=== PATIENT | female | born 1990 | race African-American/Black ===

== ENCOUNTER 2016-08-21 14:18 | Inpatient (IN) | payer SELFPAY ==
[2016-08-21] MEDS ORDERED: diPHENhydraMINE PO* 50 MG PO ONE (15:08)
[2016-08-21] MEDS ORDERED: Haloperidol TAB* 5 MG PO ONE (15:08)
[2016-08-21] MEDS ORDERED: LORazepam TAB(*) 1 MG PO ONE (15:08)
--- NOTE | 2016-08-21 15:08 | ED ---
Psychiatric Complaint - HPI Summary HPI Summary: Pt here with "not acting like herself". She was brought in by friends who she's been visiting - she's here from [facility] for the week. Friends report she will say things that don't make sense at times, but then will be normal and engage in conversation. She left the house without saying anything earlier today and walked from [place] to the [facility]. She reports falling but is not clear about any specific pain. Her shoes were wet. Friend reports a h/o schizophrenia with auditory and visual hallucinations - states she's been in/ out of psych facilities in the [facility] area where she resides w/ her aunt, Pankaj [phone]. Friends believe pt takes medication for this condition but are not sure what she takes and if she's been taking anything lately. They also report she has diabetes and takes insulin but not sure if she's been using this since she came to [facility]. Male friend reports she has not had anything to eat yet today. They also deny the pt using any illegal drugs, ETOH or smoking tobacco. Pt does not engage in conversation with me at all, in fact does not acknowledge my presence in the room. NOTE: pt's friends also note she has a sister, Felicity, who may be able to offer some information. . - History Of Current Complaint Chief Complaint: EDMentalHealth Time Seen by Provider: 08/21/16 14:49 Hx Obtained From: Patient, Family/Informaticist - female and male friends - Allergies/Home Medications Allergies/Adverse Reactions: Allergies Allergy/AdvReac Type Severity Reaction Status Date / Time No Known Allergies Allergy Verified 08/21/16 14:23 PMH/Surg Hx/FS Hx/Imm Hx Endocrine/Hematology History: 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 - per aunt Pankaj, triggered by invega injections Psychiatric History: Reports: Hx Schizophrenia - last treated with Invega around February 2016 - not sure when pt stopped Infectious Disease History: No Infectious Disease History: Denies: Traveled Outside the [place] in Last 30 Days - Family History Known Family History: Positive: Diabetes - mom w/ type 2, Other - dad - schizophrenia - Social History Occupation: Employed Full-time - [employer] Lives: With Family - aunt in [facility], but staying w/ friends here in [place] since March 2016 Alcohol Use: unknown Substance Use Type: Reports: Other - unknown Smoking Status (MU): Unknown if Ever Smoked Review of Systems - ROS Summary Review of Systems Summary: Level 5 caveat - pt is not engaging in conversation, appears to be hallucinating at present and does not respond to questions Psychological: Other - see HPI All Other Systems Reviewed And Are Negative: Yes Physical Exam Triage Information Reviewed: Yes Vital Signs On Initial Exam: Initial Vitals Temp Pulse Resp BP Pulse Ox 97.0 F 115 20 145/107 100 08/21/16 14:23 08/21/16 14:23 08/21/16 14:23 08/21/16 14:23 08/21/16 14:23 Vital Signs Reviewed: Yes Completion Of Physical Exam Limited Due To: Level 5 - pt not engaging in conversation, does not respond to questions, appears to be responding to someone other than myself or those in the room Appearance: Positive: Well-Appearing, No Pain Distress - sitting on stretcher comfortably, staring straight ahead, nods her head occasionally and appears to be responding to someone other than myself and those present in the room; laughs occasionally, yells occasionally, says "I'm Pedro" at one point, Well- Nourished Skin: Positive: Warm, Dry - no carlos signs of trauma Head/Face: Positive: Normal Head/Face Inspection - no gross deformity Eyes: Positive: Normal, Conjunctiva Clear - anicteric. Negative: Conjunctiva Inflammed, Discharge ENT: Positive: Hearing grossly normal, Pharynx normal - mucosa moist. Negative : Nasal drainage Respiratory/Lung Sounds: Positive: Clear to Auscultation, Breath Sounds Present. Negative: Rales, Rhonchi, Stridor, Wheezes Cardiovascular: Positive: Normal, RRR, Pulses are Symmetrical in both Upper and Lower Extremities, S1, S2. Negative: Murmur, Rub, Leg Edema Left, Leg Edema Right Abdomen Description: Positive: Nontender - does not respond to ab palpation, Soft Bowel Sounds: Positive: Present Musculoskeletal: Positive: Other - moving naturally, does sit forward when asked to sit up for chest auscultation and sits back against bed to rest after Neurological: Positive: Sensory/Motor Intact, CN Intact II-III Psychiatric: Positive: Other - see above Procedures - Procedure Summary Procedure Summary: POC glucose 98 @ 21:19 per [facility] - Vital Signs Vital Signs Temp Pulse Resp BP Pulse Ox 08/21/16 14:23 97.0 F 115 20 145/107 100 - Laboratory Lab Results: Lab Results 08/21/16 Range/Units 14:44 POC Glucose (mg/dL) 109 H (74-106) mg/dL Result Diagrams: 08/21/16 18:10 08/21/16 18:10 Lab Statement: Any lab studies that have been ordered have been reviewed, and results considered in the medical decision making process. Re-Evaluation - Re-Evaluation First Eval Change: Improved - less agitated, not speaking as much - still does not make eye contact or acknowledge my presence. Offered pt food and drink, no response but encouraged her to ask whenever she gets hungry/thirsty Second Eval Change: Improved - pt's sister called and pt took phone from me to speak w/her - responded to her sister in a full sentence "I'm having a bad day. I have to let you go". Course/Dx - Course Course Of Treatment: Difficult to asses pt's medical conditions as she does not engage in conversation. Friends report she was found in [place] today after suspectedly walking from [place] - was found w/ wet shoes and pt reported she fell. No complaints at this time and no carlos evidence of trauma. Pt's friends report she has a h/o schizophrenia and has been visiting from [facility] where she lives w/ her Aunt Pankaj (Vanessa - mom's sister). After speaking with Pankaj, she confirmed pt has schizophrenia and was last treated at [facility] in [facility] around January/February of this year - was started on invega injections which worked well. Unfortunately, she developed diabetes as an adverse effect and needed to start insulin (novolog). Aunt also states pt was in counseling weekly for 1 year and was doing well - pt however did not see a psychiatrist as she didn't want to and did not like taking medication. Pankaj reported that when pt left [facility] in March to come to the [place] area, pt told Pankaj she was continuing her mental health care here but no details were provided (ie. name of a MH provider/counselor/facility). Pankaj states it would be fine to contact Nukia, pt's sister, as she would have more information. Pankaj also reports that pt's mom is w/ Felicity but is not very involved w/ pt - pt always goes to Pankaj for help. Pankaj expressed she's frustrated and just wants her niece to get better. TC w/ Felicity for more information around 16:00 today. Explained to pt and friends that labs need to be assesed. Pt refused labs but agreed to oral medications. We will plan to draw labs once medications take effect in an effort to better asses pt's medical conditions at present, especially w/ ID and recent long distance walk in extremely cold weather. Her BP and HR are also elevated. Consider CT brain. Spoke w/ Felicity at 17:02 - she confirmed what aunt Pankaj reported re: dx and medications. She states pt has a h/o "walking out" when she's not on her medications and ends up at "a hospital" so can't say she' s been consistently going to any one hospital. eFlicity is aware that pt has been working in [place] at [employer] and living in an apartment through "[employer]" . Felicity states she spoke w/ her sister 2 days ago and she sounded good, just called to "gossip". 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 Felicity also reports pt liked monthly injection medication better than oral meds which made her sleepy. Felicity also noted that pt has a h/o "kidney issues" while in the hospital once, but believes they were corrected. Deciding against CT brain after speaking w/ aunt and sister who confirm pt's actions at this time as normal when not on meds - also discussed w/ Dr. Powers. Pt refusing labs despite education about why they are necessary. Okay to physically restrain PRN for labs collection. Labs collected - unremarkable for medical pathology. Pt cleared for MH evaluation. Strongly urge admission as pt is a potential harm to herself again as by actions earlier today and comments from family that pt has h/o "walking out" - weather is in the teens F at this time and pt does not use good insight at this time. If she is able to get back on a medication regimen to better control her MH condition, she may be able to be independent again. Medical and MH team may benefit from further investigation with [facility] in [facility] as well as [place] and potential landlord. Discussed w/ JOSEY Lopez. NOTE: DM well controlled throughout stay and at time of transfer. Ordered sliding scale for insulin as needed. - Differential Dx/Clinical Impression Differential Diagnosis/HQI/PQRI: Positive: Acute Psychosis, Alcohol Intoxication , Drug Overdose/Intentional, Drug Overdose/Unintentional, Other - hypothermia, DKA, brain trauma Provider Diagnosis: Schizophrenia, acute, Diabetes - Physician Notifications Discussed Care Of Patient With: Dr. Powers. John JEANW - will admit, papers signed by Dr. Pino Discharge - Discharge Plan Condition: Improved Disposition: PSYCHIATRIC FACILITY-[facility] [place]
[2016-08-21 18:21] LABS: Comments Flag Yes; Hematocrit 45 % (35-47); Hemoglobin 14.2 g/dl (12.0-16.0); Mean Corpuscular HGB Conc 31 g/dl (31-36); Mean Corpuscular Hemoglobin 22 pg (27-31); Mean Corpuscular Volume 70 fL (80-97); Mean Platelet Volume 10 um3 (7.4-10.4); Red Blood Count 6.48 10^6/ul (4.0-5.4); Red Cell Distribution Width 15 % (10.5-15); White Blood Count 9.3 10^3/ul (3.5-10.8)
[2016-08-21 18:22] LABS: Add Diff/Slide Review? Slide Review Added
[2016-08-21 18:52] LABS: Acetaminophen < 15 mcg/mL; Alcohol < 10 mg/dL (<10); Salicylate < 2.50 mg/dL (<30)
[2016-08-21 18:59] LABS: TSH (Thyroid Stimulating Horm) 2.28 mcIU/mL (0.34-5.60)
[2016-08-21 19:37] LABS: ALT 21 U/L (7-52); AST 19 U/L (13-39); Albumin 4.6 g/dL (3.2-5.2); Alkaline Phosphatase 67 U/L (34-104); Anion Gap 12 mmol/L (2-11); Blood Urea Nitrogen 12 mg/dL (6-24); CO2 Carbon Dioxide 20 mmol/L (22-32); Calcium 9.4 mg/dL (8.6-10.3); Chloride 103 mmol/L (101-111); EGFR African American 114.3 (>60); EGFR Non-African American 88.9 (>60); Globulin 3.3 g/dL (2-4); Glucose 90 mg/dL (70-100); Potassium 3.7 mmol/L (3.5-5.0); Sodium 135 mmol/L (133-145); Total Protein 7.9 g/dL (6.4-8.9)
[2016-08-21] MEDS ORDERED: Dextrose 50% Syringe 50 ML* 25 GM/50 ML SYRINGE IV PUSH PRN (20:58)
[2016-08-21] MEDS: Insulin LISPRO* 1 UNITS UNIT SUBCUT SCH (22:36)
[2016-08-21] MEDS ORDERED: Al Hydrox/Mg Hydrox/Simet LIQ* 30 ML UDC PO PRN (23:02)
[2016-08-21] MEDS ORDERED: Acetaminophen TAB* 325 MG PO PRN (23:02)
[2016-08-22] MEDS: Insulin LISPRO* 1 UNITS UNIT SUBCUT SCH ×4 (08:48→21:25)
[2016-08-22] MEDS: Haloperidol TAB* 2 MG PO SCH ×2 (09:54→11:03)
[2016-08-22] MEDS: Vitamin THERAPEUTIC TAB PO SCH (09:54)
--- NOTE | 2016-08-22 13:23 | HP ---
ADMISSION HISTORY AND PHYSICAL DATE OF ADMISSION TO [address] [place], [place] [address]U: 08/21/2016 DATE OF EVALUATION: 08/22/2016 IDENTIFICATION: Ms. Rodriguez is a 25-year-old woman who came to us after walking from [place] to [place] and raising thereby concern with her friends here in [place] that she was having a decompensation of her psychotic illness and required hospitalization. HISTORY OF PRESENT ILLNESS: This is her first admission to this unit. She has evidently had about 5 admissions over the past 2 years per report from her aunt gathered by the social work employee services manager in the Emergency Department, Mr. Simmons. Her aunt also reports that she has been off of medication since February, that she had been on Invega, but had to stop Invega because of onset of diabetes and has been taking Haldol instead. The patient does confirm to me that she had stopped Haldol in February. This is about all that she has to say to me. She is angry at being admitted and would like immediate discharge. I explained to her the necessity of gathering further information to ensure her safety given behavior that was indicative of decompensation of a psychotic illness that could put her at risk, particularly with wandering in cold and wet weather. I broached that with her after about 25 to 30 minutes of interview, and she got up and walked out on me. Before that point she reported that her mood was okay, that she was very depressed because she is not home. She was not able to state where home was; she says that she has [place]. She was quite elliptical and disorganized in her response to all of my questions. She reported that she grew up in the [place] in [facility], and clarified that that was [place]. She states that she is a high school graduate. She reports that her most important person in her life is god. She had nothing say when I asked her about her relationship with her aunt. She at first said that she had no legal history, and then when I raised with her that it had been gathered that she was on probation, she said that this was about "nothing serious". Overall she is pretty tight lipped and I am not able to get much information from her, so much will hinge upon convincing her to allow us to gather collateral from her aunt and others. She reportedly had her latest psychiatric hospitalization in January of this year at [facility] in [place]. MENTAL STATUS EXAMINATION: I am not getting a reliable report, but she says that her mood is "okay", but her affect is quite sullen and withdrawn. She does not give any clear indication of referring to internal stimuli during the course of my interaction with her, but this has been noted by other evaluators. She may only be sullen and withdrawn because she is angry that she has been admitted, but it is more likely that what I am seeing is somebody in the throes of psychosis who is unwilling to come forward with her internal experience. She was not willing to answer my questions about suicidality or homicidality. She did state that she had no auditory or visual hallucinations. She appears to be oriented to the situation with regard to being in the hospital. I was not able to get from her whether she knows the date, place or my role. She has impaired insight and judgment. Her impulse control thus far has been intact, although she is entirely uncooperative. PAST PSYCHIATRIC HISTORY: I have gathered from the Emergency Department evaluation that she has had about 5 hospitalizations in the past 2 years, this per her aunt who was contacted by the social services aide in the Emergency Department. I do not know about any ongoing outpatient care. There is report that she had a trial of Invega and converted to Haldol. I do not know from her at this point any history of suicide or self harm. SUBSTANCE ABUSE HISTORY: She did agree to respond to my questions about substances, but stated that she uses none across specific questions with regard to alcohol, marijuana, cocaine, heroin, over the counter medications and so on. FAMILY PSYCHIATRIC HISTORY: Unknown. SOCIAL HISTORY: She reports that she grew up in the worst place possible, in [facility], in [place]. She is a high school graduate. The most important person in her life is god. LEGAL HISTORY: Evidently she is on probation for, by her assessment, "nothing serious". PAST MEDICAL HISTORY: Unknown. PAST SURGICAL HISTORY: Unknown. PHYSICAL EXAMINATION: Was performed in the Emergency Department. Response to internal stimuli was noted during the course of that examination with also blurting out occasionally "I am Pedro" and other odd remarks. Otherwise, across organ systems, reported as within normal limits within the limits of being able to discern this without her cooperation. She has declined a repeat examination , and I cannot convince her at this time to be examined. VITAL SIGNS: At that time 1423 on 08/21/16 was a temperature of 97. Pulse elevated to 115. Respiratory rate 20. Blood pressure 145/107. Pulse ox reading of 100% on room air. LABORATORY RESULTS: Have been limited. She has not given a urine sample. She otherwise has CBC with differential showing a microcytosis with an MCV of 70, but with a normal hematocrit of 45, and a high red blood cell count of 6.48. Comprehensive metabolic panel found low carbon dioxide 20, mildly high anion gap to 12, otherwise within normal limits with a normal TSH of 2.28. Blood sugar readings started elevated at 109, but have since dropped to 68 at last check at 8:40 this morning. She refused orange juice to correct this. Again, we do not have urine drug screen yet. Only salicylates, acetaminophen and serum alcohol all found to be below detection thresholds in serum. MEDICATIONS AT ADMISSION: Evidently her last psychiatric medication was Haldol. We do not know of other medications for her. ASSESSMENT AND PLAN: Information is quite limited at this point due to her noncooperation. What we know is that this is a young woman who wandered from [place] to [place] raising concern from the her friends in [place] that she was in jeopardy from wandering in the cold. Her aunt was contacted and has told us that she has had psychiatric care with hospitalizations 5 times in the past 2 years, latest at [facility] in [place] for schizophrenia evidently. We will be encouraging her to help us to better understand these safety concerns in order to be able to safely release her. At this time we are not able to do so given the safety concerns of this young woman in a psychotic state who could thereby come to imminent serious physical harm. We will be encouraging her also , if she is able to, to participate in groups. She is on a 939 status. She is full code status. She is on 15-minute checks. Criteria for discharge will be cooperation at least to the extent that we are able to have a ward report of her mental status and her history to inform us as regards to her imminent risks at this time. DIAGNOSES: Chronic psychiatric disorder most likely schizophrenia. [id number]/[facility] #: [id number] [facility]ATRIC CENTERMariam
[2016-08-23] MEDS: Insulin LISPRO* 1 UNITS UNIT SUBCUT SCH ×4 (08:44→21:31)
[2016-08-23] MEDS: Vitamin THERAPEUTIC TAB PO SCH (09:34)
[2016-08-23] MEDS: Haloperidol TAB* 2 MG PO SCH (09:34)
[2016-08-23] MEDS ORDERED: Nicotine Inhaler* 10 MG AMP INH PRN (21:20)
[2016-08-24 07:55] VITALS: BP 136/85
[2016-08-24] MEDS: Insulin LISPRO* 1 UNITS UNIT SUBCUT SCH ×4 (09:21→21:12)
[2016-08-24] MEDS: Haloperidol TAB* 2 MG PO SCH (09:22)
[2016-08-24] MEDS: Vitamin THERAPEUTIC TAB PO SCH (09:22)
--- NOTE | 2016-08-24 13:53 | PN ---
Subjective - Subjective Service Type: 34025 Hosp care 15 min low complexity Subjective: The patient is electively mute today in our first session. Initially I had tried to interview her at the lunch hour but she had a visitor and politely asked if I could come back later. Upon returning she appeared sullen and unhappy. She did enter the consult room with me but absolutely refused to answer any of my questions, staring forward and twirling her thumbs. A complete mental status exam was not possible. Objective - Appearance Appearance: Obese Dysmorphic Features: No Hygiene: Normal Grooming: Fairly Well Kept - Behavior Psychomotor Activities: Normal Exhibits Abnormal Movement: No - Attitude and Relatedness Attitude and Relatedness: Irritable Eye Contact: Poor - Affect Observed Affect: Tense Affect Consistent with: Dysphoria - Thought Process Patient's Thought Process: Impoverished - Impulse Control Impulse Control: Poor - Insight and Judgement Insight and Judgement: Impaired - Group Participation Particating in Group Activities: No - Medication Management Medication Management Adherence: No Assessment - Assessment Merits Inpatient Hospitalization: For Immediate Safety, For Stabilization Inpatient DSM-IV Dx: Schizophrenia Clinical Impression: 25 y.o. AA female with a history of schizophrenia referred to the hospital after walking in cold weather all the way from [place], wearing inappropriate clothing and appearing to be responding to internal stimuli. Plan - Plan Treatment Plan: Name: Poonam DILLON Birthdate: 1990 [id number] Will continue to offer oral haloperidol. Need collateral information from family and patient needs reengagement with community mental health services. Continued Medication Management: Continue Outpt Medication Medications: Current Medications Acetaminophen (Tylenol Tab*) 650 mg PO Q4H PRN PRN Reason: PAIN or TEMP > 101 F Al Hydrox/Mg Hydrox/Simethicone (Maalox Plus*) 30 ml PO Q4H PRN PRN Reason: INDIGESTION Dextrose (D50w Syringe*) 12.5 gm IV PUSH .FOR FS < 60 - SS PRN PRN Reason: FS < 60 Haloperidol (Haldol Tab*) 2 mg PO DAILY [facility] Last Admin: 08/24/16 09:22 Dose: Not Given Insulin Human Lispro (Humalog*) 0 units SUBCUT ACHS MILO PRN Reason: Protocol Last Admin: 08/24/16 13:39 Dose: Not Given Multivitamins (Theragran Tab*) 1 tab PO DAILY [facility] Last Admin: 08/24/16 09:22 Dose: Not Given Nicotine (Nicotine Inhaler*) 10 mg INH Q2H PRN PRN Reason: CRAVING - Discharge Plan Discharge Plan: Inpatient Hospitalization
[2016-08-25] MEDS: Haloperidol TAB* 2 MG PO SCH (08:05)
[2016-08-25] MEDS: Insulin LISPRO* 1 UNITS UNIT SUBCUT SCH ×4 (08:05→22:35)
[2016-08-25] MEDS: Vitamin THERAPEUTIC TAB PO SCH (08:06)
--- NOTE | 2016-08-25 13:29 | PN ---
Subjective - Subjective Service Type: 70428 Hosp care 25 min moderate complexity Subjective: The patient is seen with RAZA Willis. Jamir is much more cooperative today and seems less hostile. "I just went for a walk in [place] before I came here. It was just to clear my head." She denies any interest or willingness to initiate antipsychotic therapy, explaining that she has never felt like she's benefitted from these in the past. She does ultimately give us permission to contact some local collateral contacts, including her current showcase maker who helped her find a job and an apartment. She denies SI, HI or symptoms of psychosis. Objective - Appearance Appearance: Healthy Appearing Dysmorphic Features: No Hygiene: Normal Grooming: Fairly Well Kept - Behavior Psychomotor Activities: Normal Exhibits Abnormal Movement: No - Attitude and Relatedness Attitude and Relatedness: Cooperative Eye Contact: Fair - Speech Quality: Unpressured Latencies: Normal Quantity: Appropriate - Mood Patient's Decription of Mood: "Okay" - Affect Observed Affect: Fair - Thought Process Patient's Thought Process: Coherent Thought Content: No Passive Wish, No Suicidal Planning, No Homicidal Ideation, No Paranoid Ideation - Sensorium Experiencing Hallucinations: No, Sensorium is Clear Type of Hallucinations: Visual: No, Auditory: No, Command: No - Level of Consciousness Level of Consciousness: Alert Orientation: Yes Intact, Yes Orientated to Time, Yes Orientated to Place, Yes Orientated to Person - Impulse Control Impulse Control: Tenuous - Insight and Judgement Insight and Judgement: Fair - Group Participation Particating in Group Activities: No - Medication Management Medication Management Adherence: No Assessment - Assessment Merits Inpatient Hospitalization: Pending Safe DC Plan Inpatient DSM-IV Dx: Schizophrenia Clinical Impression: 25 y.o. AA female with a history of schizophrenia referred to the hospital after walking in cold weather all the way from [place], wearing inappropriate clothing and appearing to be responding to internal stimuli. Plan - Plan Treatment Plan: Name: Poonam DILLON Birthdate: 1990 [id number] Will continue to offer oral haloperidol. Need collateral information from people familiar with the patient. Will also encourage re-engagement with community mental health services. Medications: Current Medications Acetaminophen (Tylenol Tab*) 650 mg PO Q4H PRN PRN Reason: PAIN or TEMP > 101 F Al Hydrox/Mg Hydrox/Simethicone (Maalox Plus*) 30 ml PO Q4H PRN PRN Reason: INDIGESTION Dextrose (D50w Syringe*) 12.5 gm IV PUSH .FOR FS < 60 - SS PRN PRN Reason: FS < 60 Haloperidol (Haldol Tab*) 2 mg PO DAILY [facility] Last Admin: 08/25/16 08:05 Dose: Not Given Insulin Human Lispro (Humalog*) 0 units SUBCUT ACHS [facility] PRN Reason: Protocol Last Admin: 08/25/16 12:43 Dose: Not Given Multivitamins (Theragran Tab*) 1 tab PO DAILY [facility] Last Admin: 08/25/16 08:06 Dose: Not Given Nicotine (Nicotine Inhaler*) 10 mg INH Q2H PRN PRN Reason: CRAVING - Discharge Plan Discharge Plan: Outpatient Follow Up
[2016-08-26] MEDS: Insulin LISPRO* 1 UNITS UNIT SUBCUT SCH ×4 (09:36→21:55)
[2016-08-26] MEDS: Haloperidol TAB* 2 MG PO SCH (09:37)
[2016-08-26] MEDS: Vitamin THERAPEUTIC TAB PO SCH (09:38)
--- NOTE | 2016-08-26 10:18 | PN ---
Subjective - Subjective Service Type: 91399 Hosp care 15 min low complexity Subjective: Poonam Hoyos appeared to be sleeping, and awoke to voice and gentle touch on shoulder. She made eye contact, but was mute. Then appeared to feign sleep. Objective - Appearance Appearance: Obese Hygiene: Normal Grooming: Well Kept - Behavior Psychomotor Activities: Abnormal-Decreased - Attitude and Relatedness Attitude and Relatedness: Psychotically Related Eye Contact: Good - Affect Observed Affect: Unvariable Affect Consistent with: Euthymia - Thought Process Patient's Thought Process: Impoverished Thought Content: No Passive Wish, No Suicidal Planning, No Homicidal Ideation, No Paranoid Ideation - Level of Consciousness Level of Consciousness: Alert - Impulse Control Impulse Control: Intact - Insight and Judgement Insight and Judgement: Impaired Assessment - Assessment Merits Inpatient Hospitalization: For Immediate Safety, For Stabilization, To Initiate Treatment, For Ongoing Evaluation, Consolidate Improvements Inpatient DSM-IV Dx: Schizophrenia Clinical Impression: 25 y.o. female with a history of prior psychiatric admission and schizophrenia diagnosis. She was admitted after a friend got her to the ED. She was evaluated with impairing psychosis, and risk concern centered on her walking from [place] to [place] in the snow without winter attire. Her outpatient rn case manager hospice and friends have been very concerned about her. Settling into the unit. Continues impaired with psychotic level of function, mutism. Appears unable to meet own needs outside a supported setting. Complication is her refusal of indicated medicine. Plan - Plan Treatment Plan: Name: Poonam DILLON Birthdate: 1990 [id number] Continued Medication Management: Start Medication Medications: Current Medications Acetaminophen (Tylenol Tab*) 650 mg PO Q4H PRN PRN Reason: PAIN or TEMP > 101 F Al Hydrox/Mg Hydrox/Simethicone (Maalox Plus*) 30 ml PO Q4H PRN PRN Reason: INDIGESTION Dextrose (D50w Syringe*) 12.5 gm IV PUSH .FOR FS < 60 - SS PRN PRN Reason: FS < 60 Haloperidol (Haldol Tab*) 2 mg PO DAILY [facility] Last Admin: 08/26/16 09:37 Dose: Not Given Insulin Human Lispro (Humalog*) 0 units SUBCUT ACHS [facility] PRN Reason: Protocol Last Admin: 08/26/16 09:36 Dose: Not Given Multivitamins (Theragran Tab*) 1 tab PO DAILY [facility] Last Admin: 08/26/16 09:38 Dose: Not Given Nicotine (Nicotine Inhaler*) 10 mg INH Q2H PRN PRN Reason: CRAVING - Discharge Plan Discharge Plan: Outpatient Follow Up
[2016-08-27] MEDS: Insulin LISPRO* 1 UNITS UNIT SUBCUT SCH ×4 (08:09→20:56)
[2016-08-27] MEDS: Haloperidol TAB* 2 MG PO SCH (09:29)
[2016-08-27] MEDS: Vitamin THERAPEUTIC TAB PO SCH (09:29)
--- NOTE | 2016-08-27 16:34 | PN ---
Subjective - Subjective Service Type: 83115 Hosp care 15 min low complexity Subjective: Poonam Hoyos said she really didn't want to talk, and declined to share much, but answered a lot of questions. Reports "just keeping to myself" denies being harassed denied distress or carlos symptoms denied needs, but also denied problems being on the unit. said she was hospitalized before, but would not give details. talked abut recently relocating to live alone in [place]. Said she would not take medications. Objective - Appearance Appearance: Well Developed/Nourished Dysmorphic Features: Yes Grooming: Well Kept - Behavior Psychomotor Activities: Normal - Attitude and Relatedness Attitude and Relatedness: Guarded Eye Contact: Good - Speech Quality: Unpressured Latencies: Long Quantity: Terse - Mood Patient's Decription of Mood: "Fine" - Affect Observed Affect: Tense Affect Consistent with: Dysphoria - Thought Process Patient's Thought Process: Impoverished Thought Content: No Passive Wish, No Suicidal Planning, No Homicidal Ideation, No Paranoid Ideation - Sensorium Experiencing Hallucinations: No, Sensorium is Clear - Level of Consciousness Level of Consciousness: Alert - Impulse Control Impulse Control: Poor Assessment - Assessment Merits Inpatient Hospitalization: For Immediate Safety, For Stabilization, To Initiate Treatment, For Ongoing Evaluation, Consolidate Improvements Inpatient DSM-IV Dx: Schizophrenia Clinical Impression: 25 y.o. female with a history of prior psychiatric admission and schizophrenia diagnosis. She was admitted after a friend got her to the ED. She was evaluated with impairing psychosis, and risk concern centered on her walking from [place] to [place] in the snow without winter attire. Her outpatient field case manager and friends have been very concerned about her. Settling into the unit. Stabilizing here. Continues impaired with psychotic level of function, recent mutism, extreme guardedness. But has been more verbal, and with peers was noted to be bright and interactive. May be responding to structure here. Appears unable to meet own needs outside a supported setting. Complication is her refusal of indicated medicine. Consider seeking tx. over objection. Plan - Plan Treatment Plan: Name: Poonam DILLON Birthdate: 1990 [id number] Medications: Current Medications Acetaminophen (Tylenol Tab*) 650 mg PO Q4H PRN PRN Reason: PAIN or TEMP > 101 F Al Hydrox/Mg Hydrox/Simethicone (Maalox Plus*) 30 ml PO Q4H PRN PRN Reason: INDIGESTION Dextrose (D50w Syringe*) 12.5 gm IV PUSH .FOR FS < 60 - SS PRN PRN Reason: FS < 60 Haloperidol (Haldol Tab*) 2 mg PO DAILY [facility] Last Admin: 08/27/16 09:29 Dose: Not Given Insulin Human Lispro (Humalog*) 0 units SUBCUT ACHS [facility] PRN Reason: Protocol Last Admin: 08/27/16 11:39 Dose: Not Given Multivitamins (Theragran Tab*) 1 tab PO DAILY [facility] Last Admin: 08/27/16 09:29 Dose: Not Given Nicotine (Nicotine Inhaler*) 10 mg INH Q2H PRN PRN Reason: CRAVING
[2016-08-28] MEDS: Insulin LISPRO* 1 UNITS UNIT SUBCUT SCH ×4 (08:52→21:42)
[2016-08-28] MEDS: Haloperidol TAB* 2 MG PO SCH (08:53)
[2016-08-28] MEDS: Vitamin THERAPEUTIC TAB PO SCH (08:53)
--- NOTE | 2016-08-28 13:14 | PN ---
Subjective - Subjective Service Type: 71542 Hosp care 15 min low complexity Subjective: Poonam Hoyos reported having a "bad day" and would not give any details. She denied feeling unsafe, persecuted, or surveilled, denied ideas of reference or paranoia, or hallucinations. She denied any specific conflicts with peers or staff, or problem with being admitted here. She again refused to consider medication, on the basis that "they never helped me." Objective - Appearance Appearance: Well Developed/Nourished Hygiene: Normal Grooming: Well Kept - Behavior Psychomotor Activities: Normal - Attitude and Relatedness Attitude and Relatedness: Guarded Eye Contact: Good - Speech Quality: Unpressured Latencies: Normal Quantity: Terse - Mood Patient's Decription of Mood: "Irritable" - Affect Observed Affect: Non-labile Affect Consistent with: Dysphoria - mild - Thought Process Patient's Thought Process: Coherent, Impoverished Thought Content: No Passive Wish, No Suicidal Planning, No Homicidal Ideation, No Paranoid Ideation - Sensorium Experiencing Hallucinations: No, Sensorium is Clear - Level of Consciousness Level of Consciousness: Alert - Impulse Control Impulse Control: Intact - Insight and Judgement Insight and Judgement: Poor Assessment - Assessment Inpatient DSM-IV Dx: Schizophrenia Clinical Impression: 25 y.o. female with a history of prior psychiatric admission and schizophrenia diagnosis. She was admitted after a friend got her to the ED. She was evaluated with impairing psychosis, and risk concern centered on her walking from [place] to [place] in the snow without winter attire. Her outpatient family preservation caseworker and friends have been very concerned about her. Stabilizing here. Is improving, despite not taking medications, maybe in response to structure and program. She has demonstrated psychotic level of function, with recent mutism, extreme guardedness; but this is milder. She is more verbal, and with peers she is noted to be bright and interactive. Medication management would include an antipsychotic, and a complication is her refusal of indicated medicine. If progress does not continue or allow for her care in a less restrictive setting, will consider seeking tx. over objection. Plan - Plan Treatment Plan: Name: Poonam DILLON Birthdate: 1990 [id number] Continued Medication Management: Consider Medication Medications: Current Medications Acetaminophen (Tylenol Tab*) 650 mg PO Q4H PRN PRN Reason: PAIN or TEMP > 101 F Al Hydrox/Mg Hydrox/Simethicone (Maalox Plus*) 30 ml PO Q4H PRN PRN Reason: INDIGESTION Dextrose (D50w Syringe*) 12.5 gm IV PUSH .FOR FS < 60 - SS PRN PRN Reason: FS < 60 Haloperidol (Haldol Tab*) 2 mg PO DAILY [facility] Last Admin: 08/28/16 08:53 Dose: Not Given Insulin Human Lispro (Humalog*) 0 units SUBCUT ACHS [facility] PRN Reason: Protocol Last Admin: 08/28/16 12:08 Dose: Not Given Multivitamins (Theragran Tab*) 1 tab PO DAILY [facility] Last Admin: 08/28/16 08:53 Dose: Not Given Nicotine (Nicotine Inhaler*) 10 mg INH Q2H PRN PRN Reason: CRAVING - Discharge Plan Discharge Plan: Outpatient Follow Up
[2016-08-29] MEDS: Haloperidol TAB* 2 MG PO SCH (09:47)
[2016-08-29] MEDS: Insulin LISPRO* 1 UNITS UNIT SUBCUT SCH ×4 (09:47→20:25)
[2016-08-29] MEDS: Vitamin THERAPEUTIC TAB PO SCH (09:48)
[2016-08-30] MEDS: Vitamin THERAPEUTIC TAB PO SCH (09:26)
[2016-08-30] MEDS: Insulin LISPRO* 1 UNITS UNIT SUBCUT SCH ×4 (09:26→20:32)
[2016-08-30] MEDS: Haloperidol TAB* 2 MG PO SCH (09:26)
[2016-08-31] MEDS: Insulin LISPRO* 1 UNITS UNIT SUBCUT SCH ×4 (08:25→20:57)
[2016-08-31] MEDS: Vitamin THERAPEUTIC TAB PO SCH (09:29)
[2016-08-31] MEDS: Haloperidol TAB* 2 MG PO SCH (09:29)
--- NOTE | 2016-08-31 12:05 | PN ---
Subjective - Subjective Service Type: 82514 Hosp care 15 min low complexity Subjective: Poonam Hoyos reports feeling better today. She says she is looking forward to meeting with Dr Degroot tomorrow to tell him of things she is now ready to speak about. She denies any dangerous intent or plan. She denies any psychotic symptoms. Objective - Appearance Appearance: Well Developed/Nourished Dysmorphic Features: No Hygiene: Normal Grooming: Well Kept - Behavior Psychomotor Activities: Normal Exhibits Abnormal Movement: No - Attitude and Relatedness Attitude and Relatedness: Cooperative Eye Contact: Good - Speech Quality: Unpressured Latencies: Normal Quantity: Appropriate - Mood Patient's Decription of Mood: "Fine" - Affect Observed Affect: Good Affect Consistent with: Euthymia - Thought Process Patient's Thought Process: Coherent, Goal Directed Thought Content: No Passive Wish, No Suicidal Planning, No Homicidal Ideation, No Paranoid Ideation - Sensorium Experiencing Hallucinations: No, Sensorium is Clear Type of Hallucinations: Visual: No, Auditory: No, Command: No - Level of Consciousness Level of Consciousness: Alert Orientation: Yes Intact, Yes Orientated to Time, Yes Orientated to Place, Yes Orientated to Person - Impulse Control Impulse Control: Intact - Insight and Judgement Insight and Judgement: Poor - Group Participation Particating in Group Activities: Yes Group Participation Comments: but only 1 in past 3 days - Medication Management Medication Management Adherence: No Assessment - Assessment Merits Inpatient Hospitalization: For Immediate Safety, For Stabilization, To Initiate Treatment, For Discharge Planning Inpatient DSM-IV Dx: Schizophrenia Clinical Impression: Poonam Hoyos was admitted for psychosis, with wandering in the cold raising concern for her safety. She has been noncompliant with meds, and only attending groups rarely. Today with me she was as forthcoming as I have ever seen her. She says she is looking forward to resuming work tomorrow with Dr Degroot, and has something important that she would like to tell him. She asks for q30 minute checks for comfort room and computer privileges. Plan - Plan Treatment Plan: Name: Poonam DILLON Birthdate: 1990 [id number] Continue to encourage med compliance and groups. Defer on increased privileges to Dr Degroot, as at this time she is noncompliant with care generally and granting privileges might be counterproductive. Gather collateral as she permits and arrange for aftercare. Medications: Current Medications Acetaminophen (Tylenol Tab*) 650 mg PO Q4H PRN PRN Reason: PAIN or TEMP > 101 F Al Hydrox/Mg Hydrox/Simethicone (Maalox Plus*) 30 ml PO Q4H PRN PRN Reason: INDIGESTION Dextrose (D50w Syringe*) 12.5 gm IV PUSH .FOR FS < 60 - SS PRN PRN Reason: FS < 60 Haloperidol (Haldol Tab*) 2 mg PO DAILY [facility] Last Admin: 08/31/16 09:29 Dose: Not Given Insulin Human Lispro (Humalog*) 0 units SUBCUT ACHS [facility] PRN Reason: Protocol Last Admin: 08/31/16 08:25 Dose: Not Given Multivitamins (Theragran Tab*) 1 tab PO DAILY [facility] Last Admin: 08/31/16 09:29 Dose: Not Given Nicotine (Nicotine Inhaler*) 10 mg INH Q2H PRN PRN Reason: CRAVING - Discharge Plan Discharge Plan: Outpatient Follow Up
[2016-09-01] MEDS: Insulin LISPRO* 1 UNITS UNIT SUBCUT SCH ×4 (09:11→21:21)
[2016-09-01] MEDS: Vitamin THERAPEUTIC TAB PO SCH (09:12)
[2016-09-01] MEDS: Haloperidol TAB* 2 MG PO SCH (09:12)
[2016-09-01] MEDS ORDERED: Haloperidol Decanoate* 50 MG/ML AMP IM SCH (13:00)
--- NOTE | 2016-09-01 13:06 | PN ---
Subjective - Subjective Service Type: 94325 Hosp care 15 min low complexity Subjective: Met with patient along with RAZA Willis. Patient has reconsidered antipsychotic treatment and is now willing to initiate Haldol Decanoate. She is also willing to have a family meeting with friends and her medical case manager in the community. Patient still psychotic at times. Objective - Appearance Appearance: Well Developed/Nourished Dysmorphic Features: No Hygiene: Normal Grooming: Fairly Well Kept - Behavior Psychomotor Activities: Normal Exhibits Abnormal Movement: No - Attitude and Relatedness Attitude and Relatedness: Appropriate Eye Contact: Fair - Speech Quality: Unpressured Latencies: Normal Quantity: Appropriate - Mood Patient's Decription of Mood: "Good" - Affect Observed Affect: Good Affect Consistent with: Euthymia - Thought Process Patient's Thought Process: Coherent Thought Content: Yes Paranoid Ideation, No Passive Wish, No Suicidal Planning, No Homicidal Ideation - Sensorium Experiencing Hallucinations: Yes Type of Hallucinations: Visual: No, Auditory: Yes, Command: No - Level of Consciousness Level of Consciousness: Alert Orientation: Yes Intact, Yes Orientated to Time, Yes Orientated to Place, Yes Orientated to Person - Impulse Control Impulse Control: Tenuous - Insight and Judgement Insight and Judgement: Fair - Group Participation Particating in Group Activities: No - Medication Management Medication Management Adherence: No Assessment - Assessment Merits Inpatient Hospitalization: For Immediate Safety, For Stabilization Inpatient DSM-IV Dx: Schizophrenia Clinical Impression: 25 y.o. AA female with a history of schizophrenia referred to the hospital after walking in cold weather all the way from [place], wearing inappropriate clothing and appearing to be responding to internal stimuli. Plan - Plan Treatment Plan: Name: Poonam DILLON Birthdate: 1990 [id number] Will start haldol decanoate 100mg IM q4wks. Will also encourage re-engagement with community mental health services. Continued Medication Management: Start Medication Medications: Current Medications Acetaminophen (Tylenol Tab*) 650 mg PO Q4H PRN PRN Reason: PAIN or TEMP > 101 F Al Hydrox/Mg Hydrox/Simethicone (Maalox Plus*) 30 ml PO Q4H PRN PRN Reason: INDIGESTION Dextrose (D50w Syringe*) 12.5 gm IV PUSH .FOR FS < 60 - SS PRN PRN Reason: FS < 60 Haloperidol (Haldol Tab*) 2 mg PO DAILY [facility] Last Admin: 09/01/16 09:12 Dose: Not Given Insulin Human Lispro (Humalog*) 0 units SUBCUT ACHS [facility] PRN Reason: Protocol Last Admin: 09/01/16 11:50 Dose: Not Given Multivitamins (Theragran Tab*) 1 tab PO DAILY [facility] Last Admin: 09/01/16 09:12 Dose: Not Given Nicotine (Nicotine Inhaler*) 10 mg INH Q2H PRN PRN Reason: CRAVING - Discharge Plan Discharge Plan: Inpatient Hospitalization
[2016-09-02] MEDS: Haloperidol TAB* 2 MG PO SCH (08:53)
[2016-09-02] MEDS: Insulin LISPRO* 1 UNITS UNIT SUBCUT SCH ×4 (08:53→20:45)
[2016-09-02] MEDS: Vitamin THERAPEUTIC TAB PO SCH (08:53)
--- NOTE | 2016-09-02 11:38 | PN ---
Subjective - Subjective Service Type: 50193 Hosp care 15 min low complexity Subjective: The patient is tolerating resumption of haldol decanoate well thus far and has been restful and serene so far today. She denies untoward effects from the medication and indicates a willingness to follow up with outpatient treatment. Objective - Appearance Appearance: Obese Dysmorphic Features: No Hygiene: Normal Grooming: Well Kept - Behavior Psychomotor Activities: Normal Exhibits Abnormal Movement: No - Attitude and Relatedness Attitude and Relatedness: Cooperative Eye Contact: Fair - Speech Quality: Unpressured Latencies: Normal Quantity: Appropriate - Mood Patient's Decription of Mood: "Good" - Affect Observed Affect: Non-labile - Thought Process Patient's Thought Process: Coherent Thought Content: No Passive Wish, No Suicidal Planning, No Homicidal Ideation, No Paranoid Ideation - Sensorium Experiencing Hallucinations: No, Sensorium is Clear Type of Hallucinations: Visual: No, Auditory: No, Command: No - Level of Consciousness Level of Consciousness: Alert Orientation: Yes Intact, Yes Orientated to Time, Yes Orientated to Place, Yes Orientated to Person - Impulse Control Impulse Control: Tenuous - Insight and Judgement Insight and Judgement: Fair - Group Participation Particating in Group Activities: No - Medication Management Medication Management Adherence: Partial Assessment - Assessment Merits Inpatient Hospitalization: Pending Safe DC Plan Inpatient DSM-IV Dx: Schizophrenia Clinical Impression: 25 y.o. AA female with a history of schizophrenia referred to the hospital after walking in cold weather all the way from [place], wearing inappropriate clothing and appearing to be responding to internal stimuli. Plan - Plan Treatment Plan: Name: Poonam DILLON Birthdate: 1990 [id number] Patient is so far tolerating resumption of haldol decanoate 100mg IM q4wks. Will work on setting her up with community mental health services and target September 04 for d/c. Medications: Current Medications Acetaminophen (Tylenol Tab*) 650 mg PO Q4H PRN PRN Reason: PAIN or TEMP > 101 F Al Hydrox/Mg Hydrox/Simethicone (Maalox Plus*) 30 ml PO Q4H PRN PRN Reason: INDIGESTION Dextrose (D50w Syringe*) 12.5 gm IV PUSH .FOR FS < 60 - SS PRN PRN Reason: FS < 60 Haloperidol Decanoate (Haldol Decanoate*) 100 mg IM Q28D [facility] Last Admin: 09/01/16 13:39 Dose: 100 mg Insulin Human Lispro (Humalog*) 0 units SUBCUT ACHS [facility] PRN Reason: Protocol Last Admin: 09/02/16 08:53 Dose: Not Given Multivitamins (Theragran Tab*) 1 tab PO DAILY [facility] Last Admin: 09/02/16 08:53 Dose: Not Given Nicotine (Nicotine Inhaler*) 10 mg INH Q2H PRN PRN Reason: CRAVING - Discharge Plan Discharge Plan: Outpatient Follow Up Outpatient Program: [facility]
[2016-09-03] MEDS: Insulin LISPRO* 1 UNITS UNIT SUBCUT SCH ×4 (09:28→20:13)
[2016-09-03] MEDS: Vitamin THERAPEUTIC TAB PO SCH (09:29)
--- NOTE | 2016-09-03 10:50 | PN ---
Subjective - Subjective Service Type: 93115 Hosp care 15 min low complexity Subjective: The patient is relatively uncooperative today, refusing to speak with this clinician and admitting that her mood is down. She is resistant to the suggestion of antidepressant therapy. RAZA Willis indicates that a family meeting with local supports cannot be accommodated until September 07. She denies SI or HI. Objective - Appearance Appearance: Obese Dysmorphic Features: No Hygiene: Normal Grooming: Well Kept - Behavior Psychomotor Activities: Normal Exhibits Abnormal Movement: No - Attitude and Relatedness Attitude and Relatedness: Withdrawn Eye Contact: Poor - Speech Quality: Unpressured Latencies: Long Quantity: Terse - Mood Patient's Decription of Mood: "Sad" - Affect Observed Affect: Depressed Affect Consistent with: Dysphoria - Thought Process Patient's Thought Process: Impoverished Thought Content: Yes Paranoid Ideation, No Passive Wish, No Suicidal Planning, No Homicidal Ideation - Sensorium Experiencing Hallucinations: No, Sensorium is Clear Type of Hallucinations: Visual: No, Auditory: No, Command: No - Level of Consciousness Level of Consciousness: Alert Orientation: Yes Intact, Yes Orientated to Time, Yes Orientated to Place, Yes Orientated to Person - Impulse Control Impulse Control: Tenuous - Insight and Judgement Insight and Judgement: Poor - Group Participation Particating in Group Activities: No - Medication Management Medication Management Adherence: Partial Assessment - Assessment Merits Inpatient Hospitalization: Pending Safe DC Plan Inpatient DSM-IV Dx: Schizophrenia Clinical Impression: 25 y.o. AA female with a history of schizophrenia referred to the hospital after walking in cold weather all the way from [place], wearing inappropriate clothing and appearing to be responding to internal stimuli. Plan - Plan Treatment Plan: Name: Poonam DILLON Birthdate: 1990 [id number] Patient is so far tolerating resumption of haldol decanoate 100mg IM q4wks. Appears rendon today. Will follow that problem and delay d/c until September 07, as this is the soonest we can facilitate a family meeting with the patient's outside supports. Medications: Current Medications Acetaminophen (Tylenol Tab*) 650 mg PO Q4H PRN PRN Reason: PAIN or TEMP > 101 F Al Hydrox/Mg Hydrox/Simethicone (Maalox Plus*) 30 ml PO Q4H PRN PRN Reason: INDIGESTION Dextrose (D50w Syringe*) 12.5 gm IV PUSH .FOR FS < 60 - SS PRN PRN Reason: FS < 60 Haloperidol Decanoate (Haldol Decanoate*) 100 mg IM Q28D [facility] Last Admin: 09/01/16 13:39 Dose: 100 mg Insulin Human Lispro (Humalog*) 0 units SUBCUT ACHS [facility] PRN Reason: Protocol Last Admin: 09/03/16 09:28 Dose: Not Given Multivitamins (Theragran Tab*) 1 tab PO DAILY [facility] Last Admin: 09/03/16 09:29 Dose: Not Given Nicotine (Nicotine Inhaler*) 10 mg INH Q2H PRN PRN Reason: CRAVING - Discharge Plan Discharge Plan: Outpatient Follow Up Outpatient Program: Rina Lobato [facility]
[2016-09-04] MEDS: Insulin LISPRO* 1 UNITS UNIT SUBCUT SCH ×4 (07:40→19:32)
[2016-09-04] MEDS: Vitamin THERAPEUTIC TAB PO SCH (08:26)
--- NOTE | 2016-09-04 12:02 | PN ---
Subjective - Subjective Service Type: 07330 Hosp care 15 min low complexity Subjective: The patient continues to be isolative with a constricted affect at times, although she can be bright and cooperative at others. She denies SI or HI. Objective - Appearance Appearance: Obese Dysmorphic Features: No Hygiene: Normal Grooming: Fairly Well Kept - Behavior Psychomotor Activities: Normal Exhibits Abnormal Movement: No - Attitude and Relatedness Attitude and Relatedness: Dismissive Eye Contact: Poor - Speech Quality: Unpressured Latencies: Long Quantity: Terse - Mood Patient's Decription of Mood: "Okay" - Affect Observed Affect: Tense Affect Consistent with: Euthymia - Thought Process Patient's Thought Process: Impoverished Thought Content: No Passive Wish, No Suicidal Planning, No Homicidal Ideation, No Paranoid Ideation - Sensorium Experiencing Hallucinations: No, Sensorium is Clear Type of Hallucinations: Visual: No, Auditory: No, Command: No - Level of Consciousness Level of Consciousness: Alert Orientation: Yes Intact, Yes Orientated to Time, Yes Orientated to Place, Yes Orientated to Person - Impulse Control Impulse Control: Tenuous - Insight and Judgement Insight and Judgement: Poor - Group Participation Particating in Group Activities: No - Medication Management Medication Management Adherence: Yes Assessment - Assessment Merits Inpatient Hospitalization: Pending Safe DC Plan Inpatient DSM-IV Dx: Schizophrenia Clinical Impression: 25 y.o. AA female with a history of schizophrenia referred to the hospital after walking in cold weather all the way from [place], wearing inappropriate clothing and appearing to be responding to internal stimuli. Plan - Plan Treatment Plan: Name: Poonam DILLON Birthdate: 1990 [id number] Patient is so far tolerating resumption of haldol decanoate 100mg IM q4wks. Appears rendon at times. Target d/c for Wednesday, September 07, as this is the soonest we can facilitate a family meeting with the patient's outside supports. Medications: Current Medications Acetaminophen (Tylenol Tab*) 650 mg PO Q4H PRN PRN Reason: PAIN or TEMP > 101 F Al Hydrox/Mg Hydrox/Simethicone (Maalox Plus*) 30 ml PO Q4H PRN PRN Reason: INDIGESTION Dextrose (D50w Syringe*) 12.5 gm IV PUSH .FOR FS < 60 - SS PRN PRN Reason: FS < 60 Haloperidol Decanoate (Haldol Decanoate*) 100 mg IM Q28D [facility] Last Admin: 09/01/16 13:39 Dose: 100 mg Insulin Human Lispro (Humalog*) 0 units SUBCUT ACHS [facility] PRN Reason: Protocol Last Admin: 09/04/16 11:34 Dose: Not Given Multivitamins (Theragran Tab*) 1 tab PO DAILY [facility] Last Admin: 09/04/16 08:26 Dose: Not Given Nicotine (Nicotine Inhaler*) 10 mg INH Q2H PRN PRN Reason: CRAVING - Discharge Plan Discharge Plan: Outpatient Follow Up Outpatient Program: Rina Lobato [facility]
[2016-09-05] MEDS: Insulin LISPRO* 1 UNITS UNIT SUBCUT SCH ×4 (08:56→21:22)
[2016-09-05] MEDS: Vitamin THERAPEUTIC TAB PO SCH (08:56)
[2016-09-06] MEDS: Insulin LISPRO* 1 UNITS UNIT SUBCUT SCH ×4 (08:04→20:02)
[2016-09-06] MEDS: Vitamin THERAPEUTIC TAB PO SCH (08:05)
[2016-09-07] MEDS: Insulin LISPRO* 1 UNITS UNIT SUBCUT SCH ×4 (07:55→20:43)
[2016-09-07] MEDS: Vitamin THERAPEUTIC TAB PO SCH (10:18)
--- NOTE | 2016-09-07 12:37 | PN ---
Subjective - Subjective Service Type: 51385 Hosp care 15 min low complexity Subjective: Patient states that she has been depressed over the weekend and experienced some transient SI on Wednesday. "I was afraid to tell anyone because I don't want you all keeping me here any longer." We had tentatively planned to meet with her residential providers today, however, it is apparently a Holiday and they are unavailable until tomorrow (09/08). Patient denies current SI. Objective - Appearance Appearance: Well Developed/Nourished Dysmorphic Features: No Hygiene: Normal Grooming: Fairly Well Kept - Behavior Psychomotor Activities: Normal Exhibits Abnormal Movement: No - Attitude and Relatedness Attitude and Relatedness: Cooperative Eye Contact: Fair - Speech Quality: Unpressured Latencies: Normal Quantity: Appropriate - Mood Patient's Decription of Mood: "Sad" - Affect Observed Affect: Non-labile Affect Consistent with: Dysphoria - Thought Process Patient's Thought Process: Coherent Thought Content: No Passive Wish, No Suicidal Planning, No Homicidal Ideation, No Paranoid Ideation - Sensorium Experiencing Hallucinations: No, Sensorium is Clear Type of Hallucinations: Visual: No, Auditory: No, Command: No - Level of Consciousness Level of Consciousness: Alert Orientation: Yes Intact, Yes Orientated to Time, Yes Orientated to Place, Yes Orientated to Person - Impulse Control Impulse Control: Tenuous - Insight and Judgement Insight and Judgement: Poor - Group Participation Particating in Group Activities: No - Medication Management Medication Management Adherence: Partial Assessment - Assessment Merits Inpatient Hospitalization: For Immediate Safety, Pending Safe DC Plan Inpatient DSM-IV Dx: Schizophrenia Clinical Impression: 25 y.o. AA female with a history of schizophrenia referred to the hospital after walking in cold weather all the way from [place], wearing inappropriate clothing and appearing to be responding to internal stimuli. Plan - Plan Treatment Plan: Name: Poonam DILLON Birthdate: 1990 [id number] Patient is so far tolerating resumption of haldol decanoate 100mg IM q4wks. Appears rendon at times. Target d/c for September 08, as this is the soonest we can facilitate a family meeting with the patient's outside supports. Continued Medication Management: Start Medication Medications: Current Medications Acetaminophen (Tylenol Tab*) 650 mg PO Q4H PRN PRN Reason: PAIN or TEMP > 101 F Al Hydrox/Mg Hydrox/Simethicone (Maalox Plus*) 30 ml PO Q4H PRN PRN Reason: INDIGESTION Dextrose (D50w Syringe*) 12.5 gm IV PUSH .FOR FS < 60 - SS PRN PRN Reason: FS < 60 Haloperidol Decanoate (Haldol Decanoate*) 100 mg IM Q28D [facility] Last Admin: 09/01/16 13:39 Dose: 100 mg Insulin Human Lispro (Humalog*) 0 units SUBCUT ACHS [facility] PRN Reason: Protocol Last Admin: 09/07/16 12:11 Dose: Not Given Multivitamins (Theragran Tab*) 1 tab PO DAILY [facility] Last Admin: 09/07/16 10:18 Dose: Not Given Nicotine (Nicotine Inhaler*) 10 mg INH Q2H PRN PRN Reason: CRAVING - Discharge Plan Discharge Plan: Inpatient Hospitalization
[2016-09-08] MEDS: Insulin LISPRO* 1 UNITS UNIT SUBCUT SCH ×4 (08:18→20:48)
[2016-09-08] MEDS: Vitamin THERAPEUTIC TAB PO SCH (10:11)
--- NOTE | 2016-09-08 15:05 | PN ---
Subjective - Subjective Service Type: 19260 Hosp care 15 min low complexity Subjective: Patient more open today. Feels less depressed and ready now to discuss discharge. Denies SI or HI. Objective - Appearance Appearance: Well Developed/Nourished, Obese Dysmorphic Features: No Hygiene: Normal Grooming: Fairly Well Kept - Behavior Psychomotor Activities: Normal Exhibits Abnormal Movement: No - Attitude and Relatedness Attitude and Relatedness: Cooperative Eye Contact: Fair - Speech Quality: Unpressured Latencies: Normal Quantity: Appropriate - Mood Patient's Decription of Mood: "Good" - Affect Observed Affect: Good Affect Consistent with: Euthymia - Thought Process Patient's Thought Process: Coherent Thought Content: No Passive Wish, No Suicidal Planning, No Homicidal Ideation, No Paranoid Ideation - Sensorium Experiencing Hallucinations: No, Sensorium is Clear Type of Hallucinations: Visual: No, Auditory: No, Command: No - Level of Consciousness Level of Consciousness: Alert Orientation: Yes Intact, Yes Orientated to Time, Yes Orientated to Place, Yes Orientated to Person - Impulse Control Impulse Control: Tenuous - Insight and Judgement Insight and Judgement: Fair - Group Participation Particating in Group Activities: No - Medication Management Medication Management Adherence: Yes Assessment - Assessment Merits Inpatient Hospitalization: Pending Safe DC Plan Inpatient DSM-IV Dx: Schizophrenia Clinical Impression: 25 y.o. AA female with a history of schizophrenia referred to the hospital after walking in cold weather all the way from [place], wearing inappropriate clothing and appearing to be responding to internal stimuli. Plan - Plan Treatment Plan: Name: Poonam DILLON Birthdate: 1990 [id number] Patient is so far tolerating resumption of haldol decanoate 100mg IM q4wks. Have d/c planning meeting with outpatient behavioral health case manager tomorrow, Wednesday, September 09, and plan is to d/c her home to her apartment thereafter. Continued Medication Management: Continue Outpt Medication Medications: Current Medications Acetaminophen (Tylenol Tab*) 650 mg PO Q4H PRN PRN Reason: PAIN or TEMP > 101 F Al Hydrox/Mg Hydrox/Simethicone (Maalox Plus*) 30 ml PO Q4H PRN PRN Reason: INDIGESTION Dextrose (D50w Syringe*) 12.5 gm IV PUSH .FOR FS < 60 - SS PRN PRN Reason: FS < 60 Haloperidol Decanoate (Haldol Decanoate*) 100 mg IM Q28D [facility] Last Admin: 09/01/16 13:39 Dose: 100 mg Insulin Human Lispro (Humalog*) 0 units SUBCUT ACHS [facility] PRN Reason: Protocol Last Admin: 09/08/16 14:24 Dose: Not Given Multivitamins (Theragran Tab*) 1 tab PO DAILY [facility] Last Admin: 09/08/16 10:11 Dose: Not Given Nicotine (Nicotine Inhaler*) 10 mg INH Q2H PRN PRN Reason: CRAVING - Discharge Plan Discharge Plan: Outpatient Follow Up Outpatient Program: [facility]
[2016-09-09] MEDS: Insulin LISPRO* 1 UNITS UNIT SUBCUT SCH ×2 (08:44→11:38)
[2016-09-09] MEDS: Vitamin THERAPEUTIC TAB PO SCH (10:38)
--- NOTE | 2016-09-09 12:51 | DS ---
DATE OF ADMISSION: 08/21/2016. DATE OF DISCHARGE: 09/09/2016. DISCHARGE DIAGNOSES: AXIS I: Schizophrenia. AXIS II: Deferred. AXIS III: None. AXIS IV: Moderate, primary support stressors. AXIS V: At the time of admission was 30 and at the time of discharge is 60. CONDITION AT THE TIME OF DISCHARGE: Improved. The patient is no longer responding to internal stim mireya. In fact, she is reality-focused and oriented towards the future, indicating that she wants to return to her local apartment here in [place] and also get a job and return to work in the community. We have had a visit today by her caser up through the [facility] program and they will bessie nujaneth to provide residential services, as well as psychosocial support in the community. The patient i s tolerating her injectable antipsychotic well and understands that she must follow-up at [facility] in the future. MENTAL STATUS EXAMINATION: The patient is an overweight, -[place] African female whose hair is up i n a bun, who is clean and well-groomed. She is calm and cooperative. Speech has a normal rate, ton e and volume. Mood is euthymic with a full affect. Thought process is linear and goal-directed. T hought content is significant for her desire to leave the hospital and return to her apartment. She is denying suicidal or homicidal ideation. She denies auditory or visual hallucinations. Insight and judgment appears to be fair given her willingness to follow-up at [facility]. Cognitively, she is awake and alert with what appears to be an average intellect. DISCHARGE INSTRUCTIONS TO THE PATIENT: A. Medications: The patient is on Haldol decanoate 100 mg q .4 weeks. Her next injection is due on 09/29/2016. B. Diet: Regular. C. Activities: As tolerated. The patient is a nonsmoker. D. Follow-up care: The patient will follow-up at [facility] within one week of discharge. HOSPITAL COURSE - PART A: Reason for admission: The patient is a 25-year-old, single, -Ameri can female with a history of schizophrenia who was brought to the unit by emergency medical services after walking from [place], [place] to [place] without adequate clothing on for the season and ariella earing to be psychotic and withdrawn. Apparently, the patient had had approximately five prior admis sions in the past two years in the [facility] area. As recently as this summer, she had been marixa ated with Invega Sustenna; however, this had been discontinued due to some prediabetic changes. The patient had been noncompliant with medication since moving to [place]. We did discover that she has a social worker assistant who is a caser up through the local "[facility]" program and they had hooked h er up with a local apartment, but she had not been receiving any formal mental health treatment. Wh en she arrived, we confronted her about the fact that she had been wandering in cold and wet weather . The patient was minimally responsive and uncooperative, and she appeared to be responding to inte rnal stimuli. HOSPITAL COURSE - PART B: Psychiatric treatment rendered: The patient was admitted to the [address] [place] [address] Behavioral Health Unit where she was placed on q.15 minute checks for her own safety. Initially the patient was absolutely uncooperative. She appeared to be withdrawn with impoverished thought p rocess and did appear to be responding to internal stimuli; however, in the milieu setting, she grad ually became more cooperative and did ultimately agree to a resumption of Haldol decanoate therapy. Her initial dose of this was administered on September 01 and she is agreeable at this poi nt to continuing with this. After the injectable anti- psychotic, we noted that her thought process became much more linear and she was much more talkative and interactive. The patient did continue to complain of some mood instability; however, she was resistant to a trial of an antidepressant. Sp ecifically, she was complaining of anxiety and depression and did endorse suicidal ideations at one point; however, these spontaneously resolved and at this point she endorses no thoughts of hurting janeth gaston herself or others. [id number]/[facility] [place] #: [id number]
== END 2016-09-09 11:15 | disposition home or self-care (01) | DRG 885 ==
LOC: ED 14:18 → BSU 21:52
PROVIDERS: ADMIT Psychiatry & Neurology Psychiatry; ATTEND Psychiatry & Neurology Psychiatry
DX: F20.9 Schizophrenia, unspecified (principal)
CPT/HCPCS: 36415; 80053; 80320; 80329; 84443; 84702; 85025; 99222; 99231; 99232; 99238; A9270-GY; G0480; J1631

== ENCOUNTER 2016-09-21 19:43 | Inpatient (IN) | payer MEDICAID ==
[2016-09-21 20:53] LABS: Hematocrit 40 % (35-47); Hemoglobin 12.4 g/dl (12.0-16.0); Mean Corpuscular HGB Conc 31 g/dl (31-36); Mean Corpuscular Hemoglobin 22 pg (27-31); Mean Platelet Volume 10 um3 (7.4-10.4); Red Blood Count 5.77 10^6/ul (4.0-5.4); Red Cell Distribution Width 14 % (10.5-15); White Blood Count 7.4 10^3/ul (3.5-10.8)
[2016-09-21 20:54] LABS: Comments Flag Yes; Mean Corpuscular Volume 70 fL (80-97)
[2016-09-21 21:11] LABS: ALT 17 U/L (7-52); AST 14 U/L (13-39); Albumin 4.3 g/dL (3.2-5.2); Alkaline Phosphatase 67 U/L (34-104); Anion Gap 8 mmol/L (2-11); BUN/Creatinine Ratio 14.9 (8-20); Blood Urea Nitrogen 10 mg/dL (6-24); CO2 Carbon Dioxide 23 mmol/L (22-32); Calcium 9.4 mg/dL (8.6-10.3); Chloride 105 mmol/L (101-111); EGFR African American 140.3 (>60); EGFR Non-African American 109.1 (>60); Globulin 3.2 g/dL (2-4); Glucose 127 mg/dL (70-100); Potassium 3.8 mmol/L (3.5-5.0); Sodium 136 mmol/L (133-145); Total Protein 7.5 g/dL (6.4-8.9)
[2016-09-21 21:17] LABS: Acetaminophen < 15 mcg/mL; Alcohol < 10 mg/dL (<10); Salicylate < 2.50 mg/dL (<30)
[2016-09-21 21:28] LABS: TSH (Thyroid Stimulating Horm) 1.34 mcIU/mL (0.34-5.60)
[2016-09-21 21:30] LABS: Urine Bacteria Absent (Absent); Urine Bilirubin Negative (Negative); Urine Glucose Negative (Negative); Urine Nitrite Negative (Negative)
[2016-09-21 21:41] LABS: Benzodiazepine Urine Screen None Detected (None Detect)
--- NOTE | 2016-09-21 23:30 | ED ---
Psychiatric Complaint - HPI Summary HPI Summary: Patient is schizophrenic and for the last two days has had SI. She thought these feelings would pass, but they have only gotten worse. She is accompanied by a friend. She has taken her medication. She denies a plan. - History Of Current Complaint Chief Complaint: EDMentalHealth Hx Obtained From: Patient ?: No Onset/Duration: Gradual Onset Timing: Constant Severity Initially: Mild Severity Currently: Severe Character: Manic Aggravating Factor(s): Nothing Alleviating Factor(s): Nothing Associated Signs And Symptoms: Positive: Sleep Disturbance Related History: Positive For: Prior Psychiatric Issues Has Suicidal: Reports: Thoughts - Allergies/Home Medications Allergies/Adverse Reactions: Allergies Allergy/AdvReac Type Severity Reaction Status Date / Time No Known Allergies Allergy Verified 08/24/16 14:09 PMH/Surg Hx/FS Hx/Imm Hx Endocrine/Hematology History: 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 - per aunt Pankaj, triggered by invega injections Psychiatric History: Reports: Hx Schizophrenia - last treated with Invega around February 2016 - not sure when pt stopped Denies: Hx Eating Disorder, Hx of Violent Episodes Against Others Infectious Disease History: No Infectious Disease History: Denies: Traveled Outside the [place] in Last 30 Days - Family History Known Family History: Positive: Diabetes - mom w/ type 2, Other - dad - schizophrenia - Social History Occupation: Unemployed Lives: Alone Alcohol Use: Occasionally Substance Use Type: Reports: None, Other Substance Use Comment - Amount & Last Used: unknown Smoking Status (MU): Former Smoker Have You Smoked in the Last Year: - has not smoked in the last 30 days Review of Systems Positive: Other - schizophrenic All Other Systems Reviewed And Are Negative: Yes Physical Exam Triage Information Reviewed: Yes Vital Signs On Initial Exam: Initial Vitals Temp Pulse Resp BP Pulse Ox 99 F 91 18 168/92 99 09/21/16 20:00 09/21/16 20:00 09/21/16 20:00 09/21/16 20:00 09/21/16 20:00 Vital Signs Reviewed: Yes Appearance: Positive: Well-Appearing, No Pain Distress, Well-Nourished Skin: Positive: Warm, Skin Color Reflects Adequate Perfusion, Dry, Soft Head/Face: Positive: Normal Head/Face Inspection Eyes: Positive: EOMI, ROMEL, Conjunctiva Clear ENT: Positive: Hearing grossly normal Respiratory/Lung Sounds: Positive: Clear to Auscultation, Breath Sounds Present Cardiovascular: Positive: RRR Abdomen Description: Positive: Nontender, Soft Bowel Sounds: Positive: Present Musculoskeletal: Negative: Edema Left, Edema Right Neurological: Positive: Sensory/Motor Intact, Alert, Oriented to Person Place, Time, NV Bundle Intact Distally, Normal Gait Psychiatric: Positive: Affect/Mood Appropriate - patient is cooperative and engaging during exam AVPU Assessment: Alert - [place] Coma Scale Coma Scale Total: 15 Diagnostics - Vital Signs Vital Signs Temp Pulse Resp BP Pulse Ox 09/21/16 22:24 97.4 F 72 16 149/92 99 09/21/16 20:00 99 F 91 18 168/92 99 - Laboratory Lab Results: Lab Results 09/21/16 09/21/16 09/21/16 Range/Units 20:30 20:30 21:07 WBC 7.4 (3.5-10.8) 10^3/ul RBC 5.77 H (4.0-5.4) 10^6/ul Hgb 12.4 (12.0-16.0) g/dl Hct 40 (35-47) % MCV 70 L (80-97) fL MCH 22 L (27-31) pg MCHC 31 (31-36) g/dl RDW 14 (10.5-15) % Plt Count 269 (150-450) 10^3/ul MPV 10 (7.4-10.4) um3 Neut % (Auto) 46.5 (38-83) % Lymph % (Auto) 40.1 (25-47) % [place] % (Auto) 9.9 H (1-9) % Eos % (Auto) 2.8 (0-6) % Baso % (Auto) 0.7 (0-2) % Absolute Neuts (auto) 3.4 (1.5-7.7) 10^3/ul Absolute Lymphs (auto) 3.0 (1.0-4.8) 10^3/ul Absolute Monos (auto) 0.7 (0-0.8) 10^3/ul Absolute Eos (auto) 0.2 (0-0.6) 10^3/ul Absolute Basos (auto) 0.1 (0-0.2) 10^3/ul Absolute Nucleated RBC 0 10^3/ul Nucleated RBC % 0 Sodium 136 (133-145) mmol/L Potassium 3.8 (3.5-5.0) mmol/L Chloride 105 (101-111) mmol/L Carbon Dioxide 23 (22-32) mmol/L Anion Gap 8 (2-11) mmol/L BUN 10 (6-24) mg/dL Creatinine 0.67 (0.51-0.95) mg/dL Est GFR ( Amer) 140.3 (>60) Est GFR (Non-Af Amer) 109.1 (>60) BUN/Creatinine Ratio 14.9 (8-20) Glucose 127 H (70-100) mg/dL Calcium 9.4 (8.6-10.3) mg/dL Total Bilirubin 0.20 (0.2-1.0) mg/dL AST 14 (13-39) U/L ALT 17 (7-52) U/L Alkaline Phosphatase 67 (34-104) U/L Total Protein 7.5 (6.4-8.9) g/dL Albumin 4.3 (3.2-5.2) g/dL Globulin 3.2 (2-4) g/dL Albumin/Globulin Ratio 1.3 (1-3) TSH 1.34 (0.34-5.60) mcIU/mL Urine Color Yellow Urine Appearance Clear Urine pH 5.0 (5-9) Ur Specific [place] 1.025 (1.010-1.030) Urine Protein 1+(30 mg/dl) H (Negative) Urine Ketones Negative (Negative) Urine Blood 2+ H (Negative) Urine Nitrate Negative (Negative) Urine Bilirubin Negative (Negative) Urine Urobilinogen Negative (Negative) Ur Leukocyte Esterase Negative (Negative) Urine WBC (Auto) 1+(6-10/hpf) H (Absent) Urine RBC (Auto) 3+(>10/hpf) H (Absent) Urine Bacteria Absent (Absent) Urine Glucose Negative (Negative) Salicylates < 2.50 (<30) mg/dL Urine Opiates Screen (None Detect) Acetaminophen < 15 mcg/mL Ur Barbiturates Screen (None Detect) Ur Phencyclidine Scrn (None Detect) Ur Amphetamines Screen (None Detect) U Benzodiazepines Scrn (None Detect) Urine Cocaine Screen (None Detect) U Cannabinoids Screen (None Detect) Serum Alcohol < 10 (<10) mg/dL 09/21/16 Range/Units 21:07 WBC (3.5-10.8) 10^3/ul RBC (4.0-5.4) 10^6/ul Hgb (12.0-16.0) g/dl Hct (35-47) % MCV (80-97) fL MCH (27-31) pg MCHC (31-36) g/dl RDW (10.5-15) % Plt Count (150-450) 10^3/ul MPV (7.4-10.4) um3 Neut % (Auto) (38-83) % Lymph % (Auto) (25-47) % [place] % (Auto) (1-9) % Eos % (Auto) (0-6) % Baso % (Auto) (0-2) % Absolute Neuts (auto) (1.5-7.7) 10^3/ul Absolute Lymphs (auto) (1.0-4.8) 10^3/ul Absolute Monos (auto) (0-0.8) 10^3/ul Absolute Eos (auto) (0-0.6) 10^3/ul Absolute Basos (auto) (0-0.2) 10^3/ul Absolute Nucleated RBC 10^3/ul Nucleated RBC % Sodium (133-145) mmol/L Potassium (3.5-5.0) mmol/L Chloride (101-111) mmol/L Carbon Dioxide (22-32) mmol/L Anion Gap (2-11) mmol/L BUN (6-24) mg/dL Creatinine (0.51-0.95) mg/dL Est GFR ( Amer) (>60) Est GFR (Non-Af Amer) (>60) BUN/Creatinine Ratio (8-20) Glucose (70-100) mg/dL Calcium (8.6-10.3) mg/dL Total Bilirubin (0.2-1.0) mg/dL AST (13-39) U/L ALT (7-52) U/L Alkaline Phosphatase (34-104) U/L Total Protein (6.4-8.9) g/dL Albumin (3.2-5.2) g/dL Globulin (2-4) g/dL Albumin/Globulin Ratio (1-3) TSH (0.34-5.60) mcIU/mL Urine Color Urine Appearance Urine pH (5-9) Ur Specific [place] (1.010-1.030) Urine Protein (Negative) Urine Ketones (Negative) Urine Blood (Negative) Urine Nitrate (Negative) Urine Bilirubin (Negative) Urine Urobilinogen (Negative) Ur Leukocyte Esterase (Negative) Urine WBC (Auto) (Absent) Urine RBC (Auto) (Absent) Urine Bacteria (Absent) Urine Glucose (Negative) Salicylates (<30) mg/dL Urine Opiates Screen None detected (None Detect) Acetaminophen mcg/mL Ur Barbiturates Screen None detected (None Detect) Ur Phencyclidine Scrn None detected (None Detect) Ur Amphetamines Screen None detected (None Detect) U Benzodiazepines Scrn None detected (None Detect) Urine Cocaine Screen None detected (None Detect) U Cannabinoids Screen None detected (None Detect) Serum Alcohol (<10) mg/dL Result Diagrams: 09/21/16 20:30 09/21/16 20:30 Lab Statement: Any lab studies that have been ordered have been reviewed, and results considered in the medical decision making process. Course/Dx - Differential Dx/Clinical Impression Differential Diagnosis/HQI/PQRI: Positive: Acute Psychosis, Anxiety, Bipolar Disorder, Depression, Schizophrenia, Suicidal Ideation Provider Diagnosis: Schizophrenia - Physician Notifications Discussed Care Of Patient With: Patient signed out to Dr. Whittington. Time Discussed With Above Provider: 02:00 Patient Is Medically Stable For: Psych Evaluation Discharge - Discharge Plan Condition: Stable Disposition: [facility]ITT[facility] TO [facility]
[2016-09-22] MEDS ORDERED: Haloperidol Decanoate* 50 MG/ML AMP IM SCH (15:00)
--- NOTE | 2016-09-23 15:18 | HP ---
DATE OF ADMISSION: 09/22/2016. JUSTIFICATION FOR ADMISSION: The patient is in need of 24 hour supervision and care secondary to rashid icidal and homicidal thoughts expressed within 72 hours of admission. CHIEF COMPLAINT: "I don't think that medicine was working, I've been feeling suicidal." HISTORY OF PRESENT ILLNESS: The patient is a 25-year-old, single, -German female with a hi story of schizophrenia who was recently discharged from the hospital on 09/09/2016 who is now return ing to the hospital, having been brought in by her community health worker through the [employer], which is a [facility] [employer] agency, due to suicidal and homicidal ideations. The patient stated [facility] the [facility] that she started to feel suicidal over the last several days and had been thinking that it may have been caused by the Haldol injection that she had received at the end of August during her most recent hospitalization. She indicates that she was feeling better when she was discharged, but had been unable to sleep and started developing vague homicidality without any specific target. She presented with rapid cycling speech and at times she appeared to be responding to internal stim mireya. She denied ever acting on any of her violent thoughts. Denied hurting either herself or anyone else. Currently on examination she is somewhat paranoid and does not give much spontaneous history . PAST PSYCHIATRIC HISTORY: The patient was admitted here at [facility] between the dates of 08/21/2016 and 09/09/2016 under the care of Dr. Abner Degroot. Prior to this, she had had approximately five hosp italizations in the [place], [place] area over the past two years. We hooked her up with ongoing outpatient treatment at [facility], but it is uncertain at this point whether she followed through with that. I know she used to receive Invega, but apparently developed diabetes w ith this and was therefore switched to Haldol. Her most recent injection of Haldol Decanoate was on the 03 of September. PAST MEDICAL HISTORY: Significant for hyperglycemia. CURRENT MEDICATIONS: Haldol Decanoate 100 mg, last administered on 09/03/2016. ALLERGIES: She has no known drug allergies. FAMILY PSYCHIATRIC HISTORY: Unknown. SUBSTANCE ABUSE HISTORY: The patient denies the use of alcohol, marijuana, cocaine, heroine, or ove [id number] medications and she does not smoke cigarettes. SOCIAL HISTORY: The patient grew up between [place] and [place]. She does have several cousins in the [place] area. Most of her support comes from the [employer] which is a [employer] and [employer] [facility] and the patient does have a single occupancy apartment here in the [facility]. She told me upon admission that she was on probation for an unspecified crime and refuses to g ann-marie me much more information about this subject. REVIEW OF SYSTEMS: The patient denies headache, double vision, sore throat, cough, chest pain, diff iculty breathing. She also denies abdominal pain, nausea, vomiting, diarrhea, or constipation. She denies difficulty ambulating, enlarged lymph nodes, rashes, changes in weight. PHYSICAL EXAMINATION VITAL SIGNS: Blood pressure 147/81, heart rate 77, temperature 98.5 degrees Fahrenheit, respiratory rate 16, oxygen saturations 100 percent on room air. HEENT: Head is normocephalic, atraumatic. NECK: Supple. CHEST: Clear to auscultation bilaterally. CARDIAC: Exam reveals normal heart sounds. ABDOMEN: Soft and nontender. SKIN: Warm and dry. MUSCULOSKELETAL: Exam reveals no evidence of edema. NEUROLOGIC: She is grossly intact. LABORATORY DATA: A complete blood count is within normal limits, whereas a complete metabolic pane l reveals only mild hyperglycemia with a glucose level of 127. Urinalysis reveals 1+ protein, 2+ ur inary blood, and 3+ urinary red blood cells; bacteria is absent. Urine drug screen is negative for all substances tested including alcohol. MENTAL STATUS EXAMINATION: The patient is an overweight, -German female with fair grooming who is walking in the hallway. She is minimally cooperative, not particularly expressive, and she appears to be somewhat guarded and it is difficult to establish a rapport with her. Mood appears to be anxious with a flattened affect. Thought process is linear at this time. Thought content appea rs to be impoverished. She is currently denying suicidal or homicidal ideation. She denies traveling auditor y or visual hallucinations, but she is observed at times talking to herself on the milieu. Insight and judgment appear to be fair given her willingness to try a different psychiatric medication. Cog nitively, she is awake and alert with what appears to be a low average intellect. DIAGNOSES: AXIS I: Schizophrenia. AXIS II: Deferred. AXIS III: Hyperglycemia. AXIS IV: Moderate, primary support stressors. AXIS V: At this time is 35. IMPRESSION: The patient is a 25-year-old, single, -German female with a history of schizop hrenia, who was recently discharged from my service who now reappears at the hospital with new onse t suicidal and homicidal ideations. She is telling me that she not tolerate the Haldol Decanoate an d believes this might be the cause of her decreased mood. We do discuss options for treatment and s he is willing to try low dose Abilify to see if this is a more beneficial medication. PLAN: The patient is admitted to the Adult Behavioral [facility] Unit where she is placed on q.30 minut e checks for her own safety. We will discontinue her next Haldol Decanoate dose which is due on the 29 of September. Instead, this will be replaced with oral Aripiprazole at the dose of 5 mg nightly . We will treat her for this for several days before determining whether this is effective and safe enough to use in the long-acting injectable form which is called Mary Ann Oneal. In the meantime , we will contact the [employer] for further collateral information and we will make sure that her follow-up appointments are set at [facility]. In addition, the patient is encou raged to avail herself of all milieu activities, including group and individual psychotherapies. [id number]/[facility] #: [id number]
[2016-09-23] MEDS: ARIPiprazole TAB* 5 MG PO SCH (20:12)
--- NOTE | 2016-09-24 13:50 | PN ---
Subjective - Subjective Service Type: [id number] Hosp care 15 min low complexity Subjective: Patient found lying in bed in her room where she has been largely seclusive to most of the day. She reports being extremely irritable. "That's why I've stayed in here all day. I'm afraid I might get out of control on somebody out there." She has not been participating in groups but did take her first dose of aripiprazole last night. She denies SI but would not feel safe being discharged from the hospital. Objective - Appearance Appearance: Obese Dysmorphic Features: No Hygiene: Normal Grooming: Well Kept - Behavior Psychomotor Activities: Normal Exhibits Abnormal Movement: No - Attitude and Relatedness Attitude and Relatedness: Cooperative Eye Contact: Fair - Speech Quality: Unpressured Latencies: Normal Quantity: Appropriate - Mood Patient's Decription of Mood: "Irritable" - Affect Observed Affect: Fair Affect Consistent with: Dysphoria - Thought Process Patient's Thought Process: Impoverished Thought Content: Yes Homicidal Ideation, Yes Paranoid Ideation, No Passive Wish, No Suicidal Planning - Sensorium Experiencing Hallucinations: No, Sensorium is Clear Type of Hallucinations: Visual: No, Auditory: No, Command: No - Level of Consciousness Level of Consciousness: Alert Orientation: Yes Intact, Yes Orientated to Time, Yes Orientated to Place, Yes Orientated to Person - Impulse Control Impulse Control: Tenuous - Insight and Judgement Insight and Judgement: Poor - Group Participation Particating in Group Activities: No - Medication Management Medication Management Adherence: Yes Assessment - Assessment Merits Inpatient Hospitalization: For Immediate Safety, For Stabilization Inpatient DSM-IV Dx: Schizophrenia Clinical Impression: 25 y.o. single, AA female with a history of schizophrenia and several past psychiatric hospitalizations, mostly in [place], [place], who arrived voluntarily, accompanied by a machine adjuster leader case trim, complaining of irritablity, SI and HI without specific target. Plan - Plan Treatment Plan: Name: Poonam DILLON Birthdate: 1990 [id number] We have started aripiprazole at 5mg PO qhs and intend to switch her to the IM version of this as soon as we know she tolerates it. Encourage group participation. Continued Medication Management: Start Medication Medications: Current Medications Aripiprazole (Abilify Tab*) 5 mg PO BEDTIME [facility]O Last Admin: 09/23/16 20:12 Dose: 5 mg Diphenhydramine HCl (Benadryl Po*) 50 mg PO BEDTIME PRN PRN Reason: INSOMNIA Nicotine (Nicotine Inhaler*) 10 mg INH Q2H PRN PRN Reason: CRAVING - Discharge Plan Discharge Plan: Inpatient Hospitalization
[2016-09-24] MEDS: ARIPiprazole TAB* 5 MG PO SCH (21:08)
--- NOTE | 2016-09-25 11:44 | PN ---
Subjective - Subjective Service Type: 29798 Hosp care 15 min low complexity Subjective: The patient is in bed, still complaining of "waking up angry" every night, including last night. We discuss options and she agrees to a prn Klonopin dose to be taken if needed for further such events. She appears to be tolerating Abilify well so far and has not demonstrated any violence or aggression on the unit. Objective - Appearance Appearance: Obese Dysmorphic Features: No Hygiene: Normal Grooming: Fairly Well Kept - Behavior Psychomotor Activities: Abnormal-Decreased Exhibits Abnormal Movement: No - Attitude and Relatedness Attitude and Relatedness: Cooperative Eye Contact: Fair - Speech Quality: Unpressured Latencies: Normal Quantity: Terse - Mood Patient's Decription of Mood: "Anxious" - Affect Observed Affect: Tense Affect Consistent with: Dysphoria - Thought Process Patient's Thought Process: Coherent Thought Content: Yes Paranoid Ideation, No Passive Wish, No Suicidal Planning, No Homicidal Ideation - Sensorium Experiencing Hallucinations: No, Sensorium is Clear Type of Hallucinations: Visual: No, Auditory: No, Command: No - Level of Consciousness Level of Consciousness: Alert Orientation: Yes Intact, Yes Orientated to Time, Yes Orientated to Place, Yes Orientated to Person - Impulse Control Impulse Control: Tenuous - Insight and Judgement Insight and Judgement: Fair - Group Participation Particating in Group Activities: No - Medication Management Medication Management Adherence: Yes Assessment - Assessment Merits Inpatient Hospitalization: For Immediate Safety, For Stabilization Inpatient DSM-IV Dx: Schizophrenia Clinical Impression: 25 y.o. single, AA female with a history of schizophrenia and several past psychiatric hospitalizations, mostly in [place], [place], who arrived voluntarily, accompanied by a nurse outreach case manager, complaining of irritablity, SI and HI without specific target. Plan - Plan Treatment Plan: Name: Poonam DILLON Birthdate: 1990 [id number] We have started aripiprazole at 5mg PO qhs and intend to switch her to the IM version of this as soon as we know she tolerates it. Encourage group participation. Will add clonazepam 1mg PO qhs as prn for agitation at nighttime. Continued Medication Management: Start Medication Medications: Current Medications Aripiprazole (Abilify Tab*) 5 mg PO BEDTIME MILO Last Admin: 09/24/16 21:08 Dose: 5 mg Clonazepam (Klonopin Tab(*)) 1 mg PO BEDTIME PRN PRN Reason: AGITATION/ANXIETY/INSOMNIA Diphenhydramine HCl (Benadryl Po*) 50 mg PO BEDTIME PRN PRN Reason: INSOMNIA Nicotine (Nicotine Inhaler*) 10 mg INH Q2H PRN PRN Reason: CRAVING - Discharge Plan Discharge Plan: Inpatient Hospitalization
[2016-09-25] MEDS: ARIPiprazole TAB* 5 MG PO SCH (20:56)
[2016-09-25] MEDS: clonazePAM TAB(*) 1 MG PO PRN (20:56)
[2016-09-26] MEDS: ARIPiprazole TAB* 5 MG PO SCH (21:53)
--- NOTE | 2016-09-27 14:59 | PN ---
Subjective - Subjective Service Type: 53336 Hosp care 15 min low complexity Subjective: Poonam Hoyos endorses continued difficulties with irritability, paranoid ideation and high anxiety. She demnies SI/HI or A/VH or side effects from prescribed aripiprazole. Per staff, she has been seclusive to self. Objective - Appearance Appearance: Healthy Appearing Dysmorphic Features: No Hygiene: Normal Grooming: Well Kept - Behavior Psychomotor Activities: Normal Exhibits Abnormal Movement: No - Attitude and Relatedness Eye Contact: Poor - Speech Quality: Unpressured Latencies: Normal Quantity: Terse - Mood Patient's Decription of Mood: "Irritable" - Affect Observed Affect: Non-labile - Thought Process Patient's Thought Process: Impoverished Thought Content: Yes Paranoid Ideation, No Passive Wish, No Suicidal Planning, No Homicidal Ideation - Sensorium Experiencing Hallucinations: No, Sensorium is Clear - Level of Consciousness Level of Consciousness: Alert Orientation: Yes Intact - Impulse Control Impulse Control: Intact - Insight and Judgement Insight and Judgement: Impaired - Group Participation Particating in Group Activities: No - Medication Management Medication Management Adherence: Yes Assessment - Assessment Merits Inpatient Hospitalization: For Ongoing Evaluation, Consolidate Improvements, For Discharge Planning Inpatient DSM-IV Dx: Schizophrenia Clinical Impression: Continued high level of distress, but denying SI/HI or A/VH. Tolerating trial of Abilify. She needs continued admission for stabilization. Plan - Plan Treatment Plan: Name: Poonam DILLON Birthdate: 1990 [id number] Medications: Current Medications Aripiprazole (Abilify Tab*) 5 mg PO BEDTIME MILO Last Admin: 09/26/16 21:53 Dose: 5 mg Clonazepam (Klonopin Tab(*)) 1 mg PO BEDTIME PRN PRN Reason: AGITATION/ANXIETY/INSOMNIA Last Admin: 09/25/16 20:56 Dose: 1 mg Diphenhydramine HCl (Benadryl Po*) 50 mg PO BEDTIME PRN PRN Reason: INSOMNIA Nicotine (Nicotine Inhaler*) 10 mg INH Q2H PRN PRN Reason: CRAVING - Discharge Plan Discharge Plan: Outpatient Follow Up Outpatient Program: [facility]
[2016-09-27] MEDS: ARIPiprazole TAB* 5 MG PO SCH (22:27)
--- NOTE | 2016-09-28 13:40 | PN ---
Subjective - Subjective Service Type: [id number] Hosp care 15 min low complexity Subjective: The patient is laying in her bed, alone in her room and has been isolative and guarded on the unit since admission. She is tolerating aripiprazole well so far but continues to endorse paranoia, depression and AH with irritability. She is offered long acting injectable medication but prefers to up the dose of oral first. Objective - Appearance Appearance: Obese Dysmorphic Features: No Hygiene: Normal Grooming: Fairly Well Kept - Behavior Psychomotor Activities: Abnormal-Decreased Exhibits Abnormal Movement: No - Attitude and Relatedness Attitude and Relatedness: Guarded Eye Contact: Poor - Speech Quality: Unpressured Latencies: Normal Quantity: Terse - Mood Patient's Decription of Mood: "Irritable" - Affect Observed Affect: Depressed Affect Consistent with: Dysphoria - Thought Process Patient's Thought Process: Impoverished Thought Content: Yes Passive Wish, Yes Homicidal Ideation, Yes Paranoid Ideation, No Suicidal Planning - Sensorium Experiencing Hallucinations: Yes Type of Hallucinations: Visual: No, Auditory: Yes, Command: No - Level of Consciousness Level of Consciousness: Alert Orientation: Yes Intact, Yes Orientated to Time, Yes Orientated to Place, Yes Orientated to Person - Impulse Control Impulse Control: Poor - Insight and Judgement Insight and Judgement: Impaired - Group Participation Particating in Group Activities: No - Medication Management Medication Management Adherence: Yes Assessment - Assessment Merits Inpatient Hospitalization: For Immediate Safety, For Stabilization Inpatient DSM-IV Dx: Schizophrenia Clinical Impression: 25 y.o. single, AA female with a history of schizophrenia and several past psychiatric hospitalizations, mostly in [place], [place], who arrived voluntarily, accompanied by a case checker, complaining of irritablity, SI and HI without specific target. Plan - Plan Treatment Plan: Name: Poonam DILLON Birthdate: 1990 [id number] We will increase aripiprazole to 15mg PO qhs and intend to switch her to the IM version if the medication is working. Encourage group participation. Continued Medication Management: Different Medication Medications: Current Medications Aripiprazole (Abilify Tab*) 15 mg PO BEDTIME MILO Clonazepam (Klonopin Tab(*)) 1 mg PO BEDTIME PRN PRN Reason: AGITATION/ANXIETY/INSOMNIA Last Admin: 09/25/16 20:56 Dose: 1 mg Diphenhydramine HCl (Benadryl Po*) 50 mg PO BEDTIME PRN PRN Reason: INSOMNIA Nicotine (Nicotine Inhaler*) 10 mg INH Q2H PRN PRN Reason: CRAVING - Discharge Plan Discharge Plan: Inpatient Hospitalization
[2016-09-28] MEDS: ARIPiprazole TAB* 15 MG PO SCH (21:40)
[2016-09-28] MEDS: Propranolol TAB* 20 MG PO SCH (21:41)
[2016-09-29] MEDS: Propranolol TAB* 20 MG PO SCH ×2 (09:49→21:05)
--- NOTE | 2016-09-29 12:33 | PN ---
Subjective - Subjective Service Type: [id number] Hosp care 15 min low complexity Subjective: The patient remains isolative and irritable, although she reports tolerating her increased aripiprazole well. Her blood pressure was improved this morning after accepting the HS dose of propranolol last night, however, she refused the morning dose. I again educate her on the rationale for blood pressure lowering medications, including relief of irritability and prevention of catastrophic health outcomes such as stroke and renal failure, and she agrees to adhere with the propranolol in the future. She continues to have transient AH and SI. Objective - Appearance Appearance: Obese Dysmorphic Features: No Hygiene: Normal Grooming: Fairly Well Kept - Behavior Psychomotor Activities: Normal Exhibits Abnormal Movement: No - Attitude and Relatedness Attitude and Relatedness: Withdrawn Eye Contact: Fair - Speech Quality: Unpressured Latencies: Normal Quantity: Terse - Mood Patient's Decription of Mood: "Irritable" - Affect Observed Affect: Tense Affect Consistent with: Dysphoria - Thought Process Patient's Thought Process: Impoverished Thought Content: Yes Passive Wish, Yes Paranoid Ideation, No Suicidal Planning, No Homicidal Ideation - Sensorium Experiencing Hallucinations: Yes Type of Hallucinations: Visual: No, Auditory: Yes, Command: No - Level of Consciousness Level of Consciousness: Alert Orientation: Yes Intact, Yes Orientated to Time, Yes Orientated to Place, Yes Orientated to Person - Impulse Control Impulse Control: Poor - Insight and Judgement Insight and Judgement: Impaired - Group Participation Particating in Group Activities: No - Medication Management Medication Management Adherence: Partial Assessment - Assessment Merits Inpatient Hospitalization: For Immediate Safety, For Stabilization Inpatient DSM-IV Dx: Schizophrenia Clinical Impression: 25 y.o. single, AA female with a history of schizophrenia and several past psychiatric hospitalizations, mostly in [place], [place], who arrived voluntarily, accompanied by a senior case manager, complaining of irritablity, SI and HI without specific target. Plan - Plan Treatment Plan: Name: Poonam DILLON Birthdate: 1990 [id number] Patient now on aripiprazole to 15mg PO qhs and we intend to switch her to the IM version if the medication is working. She is now on propranolol 20mg PO BID in order to reduce BP, anxiety and prevent akathisia. Encourage group participation. Continued Medication Management: Start Medication Medications: Current Medications Aripiprazole (Abilify Tab*) 15 mg PO BEDTIME [facility] Last Admin: 09/28/16 21:40 Dose: 15 mg Clonazepam (Klonopin Tab(*)) 1 mg PO BEDTIME PRN PRN Reason: AGITATION/ANXIETY/INSOMNIA Last Admin: 09/25/16 20:56 Dose: 1 mg Diphenhydramine HCl (Benadryl Po*) 50 mg PO BEDTIME PRN PRN Reason: INSOMNIA Nicotine (Nicotine Inhaler*) 10 mg INH Q2H PRN PRN Reason: CRAVING Propranolol HCl (Inderal Tab*) 20 mg PO BID [facility] Last Admin: 09/29/16 09:49 Dose: Not Given - Discharge Plan Discharge Plan: Inpatient Hospitalization
[2016-09-29] MEDS: clonazePAM TAB(*) 1 MG PO PRN (21:04)
[2016-09-29] MEDS: ARIPiprazole TAB* 15 MG PO SCH (21:05)
[2016-09-30] MEDS: Propranolol TAB* 20 MG PO SCH ×3 (11:35→20:32)
[2016-09-30] MEDS: clonazePAM TAB(*) 1 MG PO PRN ×3 (13:13→22:02)
--- NOTE | 2016-09-30 14:27 | PN ---
Subjective - Subjective Service Type: 11692 Hosp care 15 min low complexity Subjective: The patient continues to endorse paranoia, AH and poor sleep. She has not yet experienced a benefit from aripiprazole therapy, although this is a new medication for her. She cannot contract for safety at this time. Objective - Appearance Appearance: Well Developed/Nourished, Obese Dysmorphic Features: No Hygiene: Normal Grooming: Fairly Well Kept - Behavior Psychomotor Activities: Normal Exhibits Abnormal Movement: No - Attitude and Relatedness Attitude and Relatedness: Guarded Eye Contact: Fair - Speech Quality: Unpressured Latencies: Normal Quantity: Terse - Mood Patient's Decription of Mood: Bad - Affect Observed Affect: Unvariable Affect Consistent with: Dysphoria - Thought Process Patient's Thought Process: Coherent Thought Content: Yes Passive Wish, Yes Homicidal Ideation, Yes Paranoid Ideation, No Suicidal Planning - Sensorium Experiencing Hallucinations: Yes Type of Hallucinations: Visual: No, Auditory: Yes, Command: No - Level of Consciousness Level of Consciousness: Alert Orientation: Yes Intact, Yes Orientated to Time, Yes Orientated to Place, Yes Orientated to Person - Impulse Control Impulse Control: Tenuous - Insight and Judgement Insight and Judgement: Fair - Group Participation Particating in Group Activities: No - Medication Management Medication Management Adherence: Yes Assessment - Assessment Merits Inpatient Hospitalization: For Immediate Safety, For Stabilization Inpatient DSM-IV Dx: Schizophrenia Clinical Impression: 25 y.o. single, AA female with a history of schizophrenia and several past psychiatric hospitalizations, mostly in [place], [place], who arrived voluntarily, accompanied by a sample case porter, complaining of irritablity, SI and HI without specific target. Plan - Plan Treatment Plan: Name: Poonam DILLON Birthdate: 1990 [id number] Patient now on aripiprazole to 15mg PO qhs and we intend to switch her to the IM version if the medication is working. She is now on propranolol 20mg PO BID in order to reduce BP, anxiety and prevent akathisia. Will increase prn clonazepam at night for sleep. Encourage group participation. Continued Medication Management: Start Medication Medications: Current Medications Aripiprazole (Abilify Tab*) 15 mg PO BEDTIME [facility]O Last Admin: 09/29/16 21:05 Dose: 15 mg Clonazepam (Klonopin Tab(*)) 1 mg PO BEDTIME PRN PRN Reason: AGITATION/ANXIETY/INSOMNIA Last Admin: 09/30/16 13:13 Dose: 1 mg Diphenhydramine HCl (Benadryl Po*) 50 mg PO BEDTIME PRN PRN Reason: INSOMNIA Nicotine (Nicotine Inhaler*) 10 mg INH Q2H PRN PRN Reason: CRAVING Propranolol HCl (Inderal Tab*) 20 mg PO BID [facility] Last Admin: 09/30/16 13:31 Dose: 20 mg - Discharge Plan Discharge Plan: Inpatient Hospitalization
[2016-09-30] MEDS: ARIPiprazole TAB* 15 MG PO SCH (20:32)
[2016-10-01] MEDS: diPHENhydraMINE PO* 50 MG PO PRN ×2 (00:40→22:07)
[2016-10-01] MEDS: Propranolol TAB* 20 MG PO SCH ×2 (08:42→20:16)
--- NOTE | 2016-10-01 10:50 | PN ---
Subjective - Subjective Service Type: [id number] Hosp care 15 min low complexity Subjective: Patient remains irritable. Threw her juice against the wall after being denies the privilege of using the computer in the comfort room. Patient continues to complain of poor sleep, AH and vague, fleeting SI. Tolerating her meds well so far. Objective - Appearance Appearance: Obese Dysmorphic Features: No Hygiene: Normal Grooming: Fairly Well Kept - Behavior Psychomotor Activities: Normal Exhibits Abnormal Movement: No - Attitude and Relatedness Attitude and Relatedness: Guarded Eye Contact: Fair - Speech Quality: Unpressured Latencies: Normal Quantity: Terse - Mood Patient's Decription of Mood: "Irritable" - Affect Observed Affect: Labile Affect Consistent with: Dysphoria - Thought Process Patient's Thought Process: Goal Directed Thought Content: Yes Passive Wish, Yes Paranoid Ideation, No Suicidal Planning, No Homicidal Ideation - Sensorium Experiencing Hallucinations: Yes Type of Hallucinations: Visual: No, Auditory: Yes, Command: No - Level of Consciousness Level of Consciousness: Agitated Orientation: Yes Intact, Yes Orientated to Time, Yes Orientated to Place, Yes Orientated to Person - Impulse Control Impulse Control: Poor - Insight and Judgement Insight and Judgement: Impaired - Group Participation Particating in Group Activities: No - Medication Management Medication Management Adherence: Yes Assessment - Assessment Merits Inpatient Hospitalization: For Immediate Safety, For Stabilization Inpatient DSM-IV Dx: Schizophrenia Clinical Impression: 25 y.o. single, AA female with a history of schizophrenia and several past psychiatric hospitalizations, mostly in [place], [place], who arrived voluntarily, accompanied by a director of casework services, complaining of irritablity, SI and HI without specific target. Plan - Plan Treatment Plan: Name: Poonam DILLON Birthdate: 1990 [id number] Will increase aripiprazole to 20mg PO qhs and we intend to switch her to the IM version if the medication is working. She is now on propranolol 20mg PO BID in order to reduce BP, anxiety and prevent akathisia. Encourage group participation. Continued Medication Management: Different Medication Medications: Current Medications Aripiprazole (Abilify Tab*) 15 mg PO BEDTIME [facility] Last Admin: 09/30/16 20:32 Dose: 15 mg Clonazepam (Klonopin Tab(*)) 2 mg PO BEDTIME PRN PRN Reason: AGITATION/ANXIETY/INSOMNIA Last Admin: 09/30/16 22:02 Dose: 2 mg Diphenhydramine HCl (Benadryl Po*) 50 mg PO BEDTIME PRN PRN Reason: INSOMNIA Last Admin: 10/01/16 00:40 Dose: 50 mg Nicotine (Nicotine Inhaler*) 10 mg INH Q2H PRN PRN Reason: CRAVING Propranolol HCl (Inderal Tab*) 20 mg PO BID [facility] Last Admin: 10/01/16 08:42 Dose: 20 mg - Discharge Plan Discharge Plan: Inpatient Hospitalization
[2016-10-01] MEDS: clonazePAM TAB(*) 1 MG PO PRN (20:16)
[2016-10-01] MEDS ORDERED: ARIPiprazole TAB* 20 MG PO SCH (21:00)
[2016-10-02] MEDS: Propranolol TAB* 20 MG PO SCH ×2 (07:31→20:17)
--- NOTE | 2016-10-02 14:26 | PN ---
Subjective - Subjective Service Type: [id number] Hosp care 15 min low complexity Subjective: The patient remains internally preoccupied and is seen at times glowering menacingly in the hallway as though paranoid. She is willing to try the Abilify Maintana injection and seems to tolerate the oral version well. Staff hasn't been able to coordinate a meeting with her outpatient case operator. Objective - Appearance Appearance: Obese Dysmorphic Features: No Hygiene: Normal Grooming: Fairly Well Kept - Behavior Psychomotor Activities: Normal Exhibits Abnormal Movement: No - Attitude and Relatedness Attitude and Relatedness: Guarded Eye Contact: Fair - Speech Quality: Unpressured Latencies: Normal Quantity: Terse - Mood Patient's Decription of Mood: "Angry" - Affect Observed Affect: Tense Affect Consistent with: Dysphoria - Thought Process Patient's Thought Process: Coherent Thought Content: Yes Passive Wish, Yes Homicidal Ideation, Yes Paranoid Ideation, No Suicidal Planning - Sensorium Experiencing Hallucinations: Yes Type of Hallucinations: Visual: No, Auditory: Yes, Command: No - Level of Consciousness Level of Consciousness: Alert Orientation: Yes Intact, Yes Orientated to Time, Yes Orientated to Place, Yes Orientated to Person - Impulse Control Impulse Control: Tenuous - Insight and Judgement Insight and Judgement: Impaired - Group Participation Particating in Group Activities: No - Medication Management Medication Management Adherence: Partial Assessment - Assessment Merits Inpatient Hospitalization: For Immediate Safety, For Stabilization Inpatient DSM-IV Dx: Schizophrenia Clinical Impression: 25 y.o. single, AA female with a history of schizophrenia and several past psychiatric hospitalizations, mostly in [place], [place], who arrived voluntarily, accompanied by a telephonic case manager, complaining of irritablity, SI and HI without specific target. Plan - Plan Treatment Plan: Name: Poonam DILLON Birthdate: 1990 [id number] Will decrease aripiprazole to 10mg PO qhs and start the long-acting injection at 400mg IM q4wks. She is now on propranolol 20mg PO BID in order to reduce BP , anxiety and prevent akathisia. Encourage group participation. Continued Medication Management: Start Medication Medications: Current Medications Aripiprazole (Abilify Tab*) 10 mg PO BEDTIME [facility] Aripiprazole (Abilify Maintena (Nf)) 400 mg IM Q28D [facility] Clonazepam (Klonopin Tab(*)) 2 mg PO BEDTIME PRN PRN Reason: AGITATION/ANXIETY/INSOMNIA Last Admin: 10/01/16 20:16 Dose: 2 mg Diphenhydramine HCl (Benadryl Po*) 50 mg PO BEDTIME PRN PRN Reason: INSOMNIA Last Admin: 10/01/16 22:07 Dose: 50 mg Nicotine (Nicotine Inhaler*) 10 mg INH Q2H PRN PRN Reason: CRAVING Propranolol HCl (Inderal Tab*) 20 mg PO BID [facility] Last Admin: 10/02/16 07:31 Dose: 20 mg - Discharge Plan Discharge Plan: Inpatient Hospitalization
[2016-10-02] MEDS: ARIPiprazole TAB* 20 MG PO SCH (20:18)
[2016-10-02] MEDS: clonazePAM TAB(*) 1 MG PO PRN (20:18)
[2016-10-03] MEDS: Propranolol TAB* 20 MG PO SCH ×3 (09:48→20:40)
[2016-10-03] MEDS: clonazePAM TAB(*) 1 MG PO PRN (20:40)
[2016-10-03] MEDS: ARIPiprazole TAB* 20 MG PO SCH (20:40)
[2016-10-03] MEDS: diPHENhydraMINE PO* 50 MG PO PRN (23:45)
[2016-10-04] MEDS ORDERED: Mouth Piece, Nicotine* 1 EACH CARTRIDGE ONE (01:26)
[2016-10-04] MEDS: Nicotine Inhaler* 10 MG AMP INH PRN (01:27)
[2016-10-04] MEDS: Propranolol TAB* 20 MG PO SCH ×2 (09:38→22:11)
[2016-10-04] MEDS ORDERED: diPHENhydraMINE PO* 50 MG PO PRN (12:30)
[2016-10-04] MEDS ORDERED: Benzocaine/Menthol LOZ* 1 LOZENGE ONE (12:38)
[2016-10-04] MEDS: Benzocaine/Menthol LOZ* 1 LOZENGE PO PRN (12:41)
[2016-10-04] MEDS: diPHENhydraMINE PO* 25 MG PO PRN ×2 (12:55→18:04)
[2016-10-04] MEDS: diPHENhydraMINE PO* 50 MG PO PRN (22:11)
[2016-10-04] MEDS: ARIPiprazole TAB* 20 MG PO SCH (22:11)
[2016-10-04] MEDS: clonazePAM TAB(*) 1 MG PO PRN (22:11)
[2016-10-05] MEDS: diPHENhydraMINE PO* 25 MG PO PRN ×5 (01:41→23:30)
[2016-10-05] MEDS: Benzocaine/Menthol LOZ* 1 LOZENGE PO PRN (02:29)
[2016-10-05] MEDS: Propranolol TAB* 20 MG PO SCH ×2 (09:09→20:07)
--- NOTE | 2016-10-05 14:20 | PN ---
Subjective - Subjective Service Type: [id number] Hosp care 15 min low complexity Subjective: The patient received aripiprazole Maintaina 400mg IM on October 02 and appears to be tolerating this well so far. She remains, however, irritable and depressed. The patient has acted out verbally on the unit and has, at times , been uncooperative around rules for computer room usage. She complains also of anxiety. Objective - Appearance Appearance: Obese Dysmorphic Features: No Hygiene: Normal Grooming: Fairly Well Kept - Behavior Psychomotor Activities: Normal Exhibits Abnormal Movement: No - Attitude and Relatedness Attitude and Relatedness: Withdrawn Eye Contact: Poor - Speech Quality: Unpressured Latencies: Normal Quantity: Terse - Mood Patient's Decription of Mood: "Sad" - Affect Observed Affect: Depressed Affect Consistent with: Dysphoria - Thought Process Patient's Thought Process: Coherent Thought Content: Yes Paranoid Ideation, No Passive Wish, No Suicidal Planning, No Homicidal Ideation - Sensorium Experiencing Hallucinations: Yes Type of Hallucinations: Visual: No, Auditory: Yes, Command: No - Level of Consciousness Level of Consciousness: Alert Orientation: Yes Intact, Yes Orientated to Time, Yes Orientated to Place, Yes Orientated to Person - Impulse Control Impulse Control: Tenuous - Insight and Judgement Insight and Judgement: Fair - Group Participation Particating in Group Activities: No - Medication Management Medication Management Adherence: Yes Assessment - Assessment Merits Inpatient Hospitalization: For Immediate Safety, For Stabilization Inpatient DSM-IV Dx: Schizophrenia Clinical Impression: 25 y.o. single, AA female with a history of schizophrenia and several past psychiatric hospitalizations, mostly in [place], [place], who arrived voluntarily, accompanied by a window caser, complaining of irritablity, SI and HI without specific target. Plan - Plan Treatment Plan: Name: Poonam DILLON Birthdate: 1990 [id number] She is now on aripiprazole oral 10mg PO qhs and long-acting injectable at 400mg IM q4wks. She is also taking propranolol 20mg PO BID in order to reduce BP, anxiety and prevent akathisia. Will increase clonazepam to 1mg in the morning and 2mg at night. Encourage group participation. Continued Medication Management: Different Medication Medications: Current Medications Aripiprazole (Abilify Tab*) 10 mg PO BEDTIME [facility] Last Admin: 10/04/16 22:11 Dose: 10 mg Aripiprazole (Mary Ann Oneal (Nf)) 400 mg IM Q28D [facility] Last Admin: 10/02/16 15:32 Dose: 400 mg Diphenhydramine HCl (Benadryl Po*) 50 mg PO BEDTIME PRN PRN Reason: INSOMNIA Last Admin: 10/04/16 22:11 Dose: 50 mg Diphenhydramine HCl (Benadryl Po*) 25 mg PO Q4H PRN PRN Reason: CONGESTION Last Admin: 10/05/16 13:11 Dose: 25 mg Nicotine (Nicotine Inhaler*) 10 mg INH Q2H PRN PRN Reason: CRAVING Last Admin: 10/04/16 01:27 Dose: 10 mg Propranolol HCl (Inderal Tab*) 20 mg PO BID [facility] Last Admin: 10/05/16 09:09 Dose: 20 mg Throat Lozenges (Chloraseptic Elisabeth*) 1 elisabeth PO Q6H PRN PRN Reason: SORE THROAT Last Admin: 10/05/16 02:29 Dose: 1 elisabeth - Discharge Plan Discharge Plan: Inpatient Hospitalization
[2016-10-05] MEDS: guaiFENesin LIQ* 100 MG/5 ML UDC PO PRN (17:19)
[2016-10-05] MEDS: ARIPiprazole TAB* 20 MG PO SCH (20:07)
[2016-10-05] MEDS: diPHENhydraMINE PO* 50 MG PO PRN ×3 (20:08→23:31)
[2016-10-05] MEDS: clonazePAM TAB(*) 1 MG PO PRN (20:09)
[2016-10-06] MEDS: Propranolol TAB* 20 MG PO SCH ×2 (09:28→20:05)
[2016-10-06] MEDS: diPHENhydraMINE PO* 25 MG PO PRN ×2 (09:28→13:56)
[2016-10-06] MEDS: Benzocaine/Menthol LOZ* 1 LOZENGE PO PRN (09:28)
[2016-10-06] MEDS: clonazePAM TAB(*) 1 MG PO SCH (09:29)
[2016-10-06] MEDS: Nicotine Inhaler* 10 MG AMP INH PRN (14:04)
[2016-10-06] MEDS ORDERED: Mouth Piece, Nicotine* 1 EACH CARTRIDGE ONE (14:04)
--- NOTE | 2016-10-06 14:24 | PN ---
Subjective - Subjective Service Type: [id number] Hosp care 15 min low complexity Subjective: Patient still having anxiety, paranoia and insomnia. She is still irritable and depressed, although she denies SI or HI. Objective - Appearance Appearance: Obese Dysmorphic Features: No Hygiene: Normal Grooming: Fairly Well Kept - Behavior Psychomotor Activities: Normal Exhibits Abnormal Movement: No - Attitude and Relatedness Attitude and Relatedness: Guarded Eye Contact: Fair - Speech Quality: Unpressured Latencies: Normal Quantity: Terse - Mood Patient's Decription of Mood: "Anxious" - Affect Observed Affect: Tense Affect Consistent with: Dysphoria - Thought Process Patient's Thought Process: Impoverished Thought Content: Yes Paranoid Ideation, No Passive Wish, No Suicidal Planning, No Homicidal Ideation - Sensorium Experiencing Hallucinations: Yes Type of Hallucinations: Visual: No, Auditory: Yes, Command: No - Level of Consciousness Level of Consciousness: Alert Orientation: Yes Intact, Yes Orientated to Time, Yes Orientated to Place, Yes Orientated to Person - Impulse Control Impulse Control: Poor - Insight and Judgement Insight and Judgement: Impaired - Group Participation Particating in Group Activities: No - Medication Management Medication Management Adherence: Yes Assessment - Assessment Merits Inpatient Hospitalization: For Immediate Safety, For Stabilization Inpatient DSM-IV Dx: Schizophrenia Clinical Impression: 25 y.o. single, AA female with a history of schizophrenia and several past psychiatric hospitalizations, mostly in [place], [place], who arrived voluntarily, accompanied by a telephonic case manager, complaining of irritablity, SI and HI without specific target. Plan - Plan Treatment Plan: Name: Poonam DILLON Birthdate: 1990 [id number] She is now on aripiprazole oral 10mg PO qhs and long-acting injectable at 400mg IM q4wks. She is also taking propranolol 20mg PO BID in order to reduce BP, anxiety and prevent akathisia. Will increase oral paliperidone to 15mg PO qhs. Encourage group participation. Continued Medication Management: Start Medication Medications: Current Medications Aripiprazole (Abilify Tab*) 10 mg PO BEDTIME [facility] Last Admin: 10/05/16 20:07 Dose: 10 mg Aripiprazole (Abilify Maintena (Nf)) 400 mg IM Q28D [facility] Last Admin: 10/02/16 15:32 Dose: 400 mg Clonazepam (Klonopin Tab(*)) 1 mg PO DAILY [facility] Last Admin: 10/06/16 09:29 Dose: 1 mg Clonazepam (Klonopin Tab(*)) 2 mg PO BEDTIME PRN PRN Reason: AGITATION/ANXIETY/INSOMNIA Last Admin: 10/05/16 20:09 Dose: 2 mg Diphenhydramine HCl (Benadryl Po*) 50 mg PO BEDTIME PRN PRN Reason: INSOMNIA Last Admin: 10/05/16 23:31 Dose: 50 mg Diphenhydramine HCl (Benadryl Po*) 50 mg PO Q4H PRN PRN Reason: ANXIETY/INSOMNIA Guaifenesin (Robitussin*) 5 ml PO Q6H PRN PRN Reason: COUGH Last Admin: 10/05/16 17:19 Dose: 5 ml Nicotine (Nicotine Inhaler*) 10 mg INH Q2H PRN PRN Reason: CRAVING Last Admin: 10/06/16 14:04 Dose: 10 mg Propranolol HCl (Inderal Tab*) 20 mg PO BID [facility] Last Admin: 10/06/16 09:28 Dose: 20 mg Throat Lozenges (Chloraseptic Elisabeth*) 1 elisabeth PO Q6H PRN PRN Reason: SORE THROAT Last Admin: 10/06/16 09:28 Dose: 1 elisabeth - Discharge Plan Discharge Plan: Inpatient Hospitalization
[2016-10-06] MEDS: diPHENhydraMINE PO* 50 MG PO PRN ×2 (20:04→22:44)
[2016-10-06] MEDS: clonazePAM TAB(*) 1 MG PO PRN (20:04)
[2016-10-06] MEDS ORDERED: ARIPiprazole TAB* 15 MG PO SCH (21:00)
[2016-10-07] MEDS: diPHENhydraMINE PO* 50 MG PO PRN ×5 (06:55→20:00)
[2016-10-07] MEDS: Propranolol TAB* 20 MG PO SCH ×2 (09:48→19:59)
[2016-10-07] MEDS: clonazePAM TAB(*) 1 MG PO SCH (09:49)
--- NOTE | 2016-10-07 15:21 | PN ---
Subjective - Subjective Service Type: [id number] Hosp care 15 min low complexity Subjective: The patient continues to be isolative and a non-participant in groups. She blames this on paranoia, although she appears less irritable to this observer. Caroline continues to complain of AH and SI, although only transiently. She is informed of the risk of influenza exposure on our unit due to an infected peer who was admitted and discharged recently. She declines the offer of a flu vaccine or Tamiflu prophylaxis. Objective - Appearance Appearance: Obese Dysmorphic Features: No Hygiene: Normal Grooming: Fairly Well Kept - Behavior Psychomotor Activities: Normal Exhibits Abnormal Movement: No - Attitude and Relatedness Attitude and Relatedness: Withdrawn Eye Contact: Fair - Speech Quality: Unpressured Latencies: Normal Quantity: Terse - Mood Patient's Decription of Mood: "Irritable" - Affect Observed Affect: Tense Affect Consistent with: Dysphoria - Thought Process Patient's Thought Process: Coherent Thought Content: Yes Passive Wish, Yes Paranoid Ideation, No Suicidal Planning, No Homicidal Ideation - Sensorium Experiencing Hallucinations: Yes Type of Hallucinations: Visual: No, Auditory: Yes, Command: No - Level of Consciousness Level of Consciousness: Alert Orientation: Yes Intact, Yes Orientated to Time, Yes Orientated to Place, Yes Orientated to Person - Impulse Control Impulse Control: Tenuous - Insight and Judgement Insight and Judgement: Fair - Group Participation Particating in Group Activities: No - Medication Management Medication Management Adherence: Yes Assessment - Assessment Merits Inpatient Hospitalization: For Immediate Safety, For Stabilization Inpatient DSM-IV Dx: Schizophrenia Clinical Impression: 25 y.o. single, AA female with a history of schizophrenia and several past psychiatric hospitalizations, mostly in [place], [place], who arrived voluntarily, accompanied by a behavioral health case manager, complaining of irritability, SI and HI without specific target. Plan - Plan Treatment Plan: Name: Poonam DILLON Birthdate: 1990 [id number] She is now on aripiprazole oral 15mg PO qhs and long-acting injectable at 400mg IM q4wks. She is also taking propranolol 20mg PO BID in order to reduce BP, anxiety and prevent akathisia. Will increase oral paliperidone to 20mg PO qhs. Encourage group participation. Continued Medication Management: Different Medication Medications: Current Medications Aripiprazole (Abilify Maintena (Nf)) 400 mg IM Q28D [facility] Last Admin: 10/02/16 15:32 Dose: 400 mg Aripiprazole (Abilify Tab*) 15 mg PO BEDTIME [facility] Last Admin: 10/06/16 20:05 Dose: 15 mg Clonazepam (Klonopin Tab(*)) 1 mg PO DAILY [facility] Last Admin: 10/07/16 09:49 Dose: 1 mg Clonazepam (Klonopin Tab(*)) 2 mg PO BEDTIME PRN PRN Reason: AGITATION/ANXIETY/INSOMNIA Last Admin: 10/06/16 20:04 Dose: 2 mg Diphenhydramine HCl (Benadryl Po*) 50 mg PO BEDTIME PRN PRN Reason: INSOMNIA Last Admin: 10/06/16 20:04 Dose: 50 mg Diphenhydramine HCl (Benadryl Po*) 50 mg PO Q4H PRN PRN Reason: ANXIETY/INSOMNIA Last Admin: 10/07/16 14:03 Dose: 50 mg Guaifenesin (Robitussin*) 5 ml PO Q6H PRN PRN Reason: COUGH Last Admin: 10/05/16 17:19 Dose: 5 ml Nicotine (Nicotine Inhaler*) 10 mg INH Q2H PRN PRN Reason: CRAVING Last Admin: 10/06/16 14:04 Dose: 10 mg Propranolol HCl (Inderal Tab*) 20 mg PO BID [facility] Last Admin: 10/07/16 09:48 Dose: 20 mg Throat Lozenges (Chloraseptic Elisabeth*) 1 elisabeth PO Q6H PRN PRN Reason: SORE THROAT Last Admin: 10/06/16 09:28 Dose: 1 elisabeth - Discharge Plan Discharge Plan: Inpatient Hospitalization
[2016-10-07] MEDS: ARIPiprazole TAB* 20 MG PO SCH (20:00)
[2016-10-07] MEDS: clonazePAM TAB(*) 1 MG PO PRN (20:00)
[2016-10-07] MEDS: guaiFENesin LIQ* 100 MG/5 ML UDC PO PRN (21:14)
[2016-10-07] MEDS: Benzocaine/Menthol LOZ* 1 LOZENGE PO PRN (21:15)
[2016-10-08] MEDS: diPHENhydraMINE PO* 50 MG PO PRN ×5 (03:46→23:38)
[2016-10-08] MEDS: Propranolol TAB* 20 MG PO SCH ×2 (07:57→20:36)
[2016-10-08] MEDS: clonazePAM TAB(*) 1 MG PO SCH (07:58)
[2016-10-08] MEDS ORDERED: GuaiFENesin DM* 5 ML UDC PO PRN (11:21)
--- NOTE | 2016-10-08 11:21 | PN ---
Subjective - Subjective Service Type: [id number] Hosp care 15 min low complexity Subjective: The patient continues to complain of a cough that has been unreduced by Robitussin treatment. She is consistently requesting promethazine and codeine for this and is educated that codein is a controlled substance and would not be utilized on our unit. She indicates that she is sleeping better and less paranoid today. Objective - Appearance Appearance: Obese Dysmorphic Features: No Hygiene: Normal Grooming: Well Kept - Behavior Psychomotor Activities: Normal Exhibits Abnormal Movement: No - Attitude and Relatedness Attitude and Relatedness: Guarded Eye Contact: Fair - Speech Quality: Unpressured Latencies: Normal Quantity: Terse - Mood Patient's Decription of Mood: "Okay" - Affect Observed Affect: Tense Affect Consistent with: Dysphoria - Thought Process Patient's Thought Process: Coherent Thought Content: Yes Paranoid Ideation, No Passive Wish, No Suicidal Planning, No Homicidal Ideation - Sensorium Experiencing Hallucinations: Yes Type of Hallucinations: Visual: No, Auditory: Yes, Command: No - Level of Consciousness Level of Consciousness: Alert Orientation: Yes Intact, Yes Orientated to Time, Yes Orientated to Place, Yes Orientated to Person - Impulse Control Impulse Control: Tenuous - Insight and Judgement Insight and Judgement: Fair - Group Participation Particating in Group Activities: No - Medication Management Medication Management Adherence: Yes Assessment - Assessment Merits Inpatient Hospitalization: For Immediate Safety, For Stabilization Inpatient DSM-IV Dx: Schizophrenia Clinical Impression: 25 y.o. single, AA female with a history of schizophrenia and several past psychiatric hospitalizations, mostly in [place], [place], who arrived voluntarily, accompanied by a lining caser, complaining of irritability, SI and HI without specific target. Plan - Plan Treatment Plan: Name: Poonam DILLON Birthdate: 1990 [id number] She is now on aripiprazole oral 20mg PO qhs and long-acting injectable at 400mg IM q4wks. She is also taking propranolol 20mg PO BID in order to reduce BP, anxiety and prevent akathisia. Will have family meeting with her outpatient field liability generalist, Jae, from the [facility] tomorrow (10/09). Encourage group participation. Continued Medication Management: Different Medication Medications: Current Medications Al Hydrox/Mg Hydrox/Simethicone (Maalox Plus*) 30 ml PO Q6H PRN PRN Reason: INDIGESTION Aripiprazole (Abilify Maintena (Nf)) 400 mg IM Q28D [facility] Last Admin: 10/02/16 15:32 Dose: 400 mg Aripiprazole (Abilify Tab*) 20 mg PO BEDTIME [facility] Last Admin: 10/07/16 20:00 Dose: 20 mg Clonazepam (Klonopin Tab(*)) 1 mg PO DAILY [facility] Last Admin: 10/08/16 07:58 Dose: 1 mg Clonazepam (Klonopin Tab(*)) 2 mg PO BEDTIME PRN PRN Reason: AGITATION/ANXIETY/INSOMNIA Last Admin: 10/07/16 20:00 Dose: 2 mg Diphenhydramine HCl (Benadryl Po*) 50 mg PO BEDTIME PRN PRN Reason: INSOMNIA Last Admin: 10/07/16 20:00 Dose: 50 mg Diphenhydramine HCl (Benadryl Po*) 50 mg PO Q4H PRN PRN Reason: ANXIETY/INSOMNIA Last Admin: 10/08/16 07:57 Dose: 50 mg Guaifenesin (Robitussin*) 5 ml PO Q6H PRN PRN Reason: COUGH Last Admin: 10/07/16 21:14 Dose: 5 ml Nicotine (Nicotine Inhaler*) 10 mg INH Q2H PRN PRN Reason: CRAVING Last Admin: 10/06/16 14:04 Dose: 10 mg Propranolol HCl (Inderal Tab*) 20 mg PO BID [facility] Last Admin: 10/08/16 07:57 Dose: 20 mg Throat Lozenges (Chloraseptic Elisabeth*) 1 elisabeth PO Q6H PRN PRN Reason: SORE THROAT Last Admin: 10/07/16 21:15 Dose: 1 elisabeth - Discharge Plan Discharge Plan: Inpatient Hospitalization
[2016-10-08] MEDS: Promethazine TAB* 25 MG PO PRN ×2 (14:27→20:36)
[2016-10-08] MEDS: ARIPiprazole TAB* 20 MG PO SCH (20:36)
[2016-10-08] MEDS: clonazePAM TAB(*) 1 MG PO PRN (20:38)
[2016-10-08] MEDS: Al Hydrox/Mg Hydrox/Simet LIQ* 30 ML UDC PO PRN (22:23)
[2016-10-09] MEDS: Benzocaine/Menthol LOZ* 1 LOZENGE PO PRN (05:54)
[2016-10-09] MEDS: diPHENhydraMINE PO* 50 MG PO PRN ×4 (05:54→21:39)
[2016-10-09] MEDS: Propranolol TAB* 20 MG PO SCH ×2 (08:46→20:02)
[2016-10-09] MEDS: clonazePAM TAB(*) 1 MG PO SCH (08:48)
[2016-10-09] MEDS: Al Hydrox/Mg Hydrox/Simet LIQ* 30 ML UDC PO PRN ×2 (09:44→16:55)
--- NOTE | 2016-10-09 13:34 | PN ---
Subjective - Subjective Service Type: 05500 [facility] Subjective: The patient is seen, along with inpatient SW Hortensiamarkie Willis, and her outpatient book critic, Jae, from the [facility]. The patient reports that she continues to suffer from paranoia, feeling, for example, that the cameras on the ceilings follow her purposely. She continues to sleep poorly and requests a higher dose of Benadryl at night for this. Jae commends her for calling him for help prior to admission when she was experiencing suicidal thoughts. There are no housing or financial strains at this time that would represent obstacles to discharge. Objective - Appearance Appearance: Obese Dysmorphic Features: No Hygiene: Normal Grooming: Well Kept - Behavior Psychomotor Activities: Normal Exhibits Abnormal Movement: No - Attitude and Relatedness Attitude and Relatedness: Cooperative Eye Contact: Fair - Speech Quality: Unpressured Latencies: Normal Quantity: Appropriate - Mood Patient's Decription of Mood: "Irritable" - Affect Observed Affect: Tense Affect Consistent with: Dysphoria - Thought Process Patient's Thought Process: Coherent Thought Content: Yes Paranoid Ideation, No Passive Wish, No Suicidal Planning, No Homicidal Ideation - Sensorium Experiencing Hallucinations: Yes Type of Hallucinations: Visual: No, Auditory: Yes, Command: No - Level of Consciousness Level of Consciousness: Alert Orientation: Yes Intact, Yes Orientated to Time, Yes Orientated to Place, Yes Orientated to Person - Impulse Control Impulse Control: Tenuous - Insight and Judgement Insight and Judgement: Fair - Group Participation Particating in Group Activities: No - Medication Management Medication Management Adherence: Yes Assessment - Assessment Merits Inpatient Hospitalization: For Immediate Safety, For Stabilization Inpatient DSM-IV Dx: Schizophrenia Clinical Impression: 25 y.o. single, AA female with a history of schizophrenia and several past psychiatric hospitalizations, mostly in [place], [place], who arrived voluntarily, accompanied by a rn case management, complaining of irritability, SI and HI without specific target. Plan - Plan Treatment Plan: Name: Poonam DILLON Birthdate: 1990 [id number] She is now on aripiprazole oral 20mg PO qhs and long-acting injectable at 400mg IM q4wks. She is also taking propranolol 20mg PO BID in order to reduce BP, anxiety and prevent akathisia. Will increase aripiprazole to 30mg PO qhs and increase Benadryl to 100mg PO qhs. Encourage group participation. Continued Medication Management: Different Medication Medications: Current Medications Al Hydrox/Mg Hydrox/Simethicone (Maalox Plus*) 30 ml PO Q6H PRN PRN Reason: INDIGESTION Last Admin: 10/09/16 09:44 Dose: 30 ml Aripiprazole (Abilify Maintena (Nf)) 400 mg IM Q28D [facility] Last Admin: 10/02/16 15:32 Dose: 400 mg Aripiprazole (Abilify Tab*) 20 mg PO BEDTIME [facility] Last Admin: 10/08/16 20:36 Dose: 20 mg Clonazepam (Klonopin Tab(*)) 1 mg PO DAILY [facility] Last Admin: 10/09/16 08:48 Dose: 1 mg Clonazepam (Klonopin Tab(*)) 2 mg PO BEDTIME PRN PRN Reason: AGITATION/ANXIETY/INSOMNIA Last Admin: 10/08/16 20:38 Dose: 2 mg Diphenhydramine HCl (Benadryl Po*) 50 mg PO BEDTIME PRN PRN Reason: INSOMNIA Last Admin: 10/08/16 20:37 Dose: 50 mg Diphenhydramine HCl (Benadryl Po*) 50 mg PO Q4H PRN PRN Reason: ANXIETY/INSOMNIA Last Admin: 10/09/16 10:35 Dose: 50 mg Guaifenesin/Dextromethorphan (Robitussin Dm*) 10 ml PO Q4H PRN PRN Reason: COUGH Last Admin: 10/08/16 14:28 Dose: 10 ml Nicotine (Nicotine Inhaler*) 10 mg INH Q2H PRN PRN Reason: CRAVING Last Admin: 10/06/16 14:04 Dose: 10 mg Promethazine HCl (Phenergan Tab*) 25 mg PO Q6H PRN PRN Reason: NAUSEA Last Admin: 10/08/16 20:36 Dose: 25 mg Propranolol HCl (Inderal Tab*) 20 mg PO BID [facility] Last Admin: 10/09/16 08:46 Dose: 20 mg Throat Lozenges (Chloraseptic Elisabeth*) 1 elisabeth PO Q6H PRN PRN Reason: SORE THROAT Last Admin: 10/09/16 05:54 Dose: 1 elisabeth - Discharge Plan Discharge Plan: Inpatient Hospitalization
[2016-10-09] MEDS: diPHENhydraMINE PO* 25 MG PO PRN (20:00)
[2016-10-09] MEDS: clonazePAM TAB(*) 1 MG PO PRN (20:01)
[2016-10-09] MEDS: ARIPiprazole TAB* 15 MG PO SCH (20:02)
[2016-10-10] MEDS: diPHENhydraMINE PO* 50 MG PO PRN ×4 (03:24→23:40)
[2016-10-10] MEDS: Al Hydrox/Mg Hydrox/Simet LIQ* 30 ML UDC PO PRN (05:17)
[2016-10-10] MEDS: Propranolol TAB* 20 MG PO SCH ×2 (08:23→20:08)
[2016-10-10] MEDS: clonazePAM TAB(*) 1 MG PO SCH (08:23)
[2016-10-10] MEDS: ARIPiprazole TAB* 15 MG PO SCH (20:07)
[2016-10-10] MEDS: diPHENhydraMINE PO* 25 MG PO PRN (20:09)
[2016-10-10] MEDS: clonazePAM TAB(*) 1 MG PO PRN (20:10)
[2016-10-11] MEDS: diPHENhydraMINE PO* 50 MG PO PRN ×2 (04:23→10:23)
[2016-10-11] MEDS: Propranolol TAB* 20 MG PO SCH ×2 (10:23→21:55)
[2016-10-11] MEDS: clonazePAM TAB(*) 1 MG PO SCH (10:23)
[2016-10-11] MEDS: ARIPiprazole TAB* 15 MG PO SCH (21:54)
[2016-10-12] MEDS: clonazePAM TAB(*) 1 MG PO SCH ×2 (11:37→13:13)
[2016-10-12] MEDS: Propranolol TAB* 20 MG PO SCH ×3 (11:38→21:44)
--- NOTE | 2016-10-12 15:52 | PN ---
Subjective - Subjective Service Type: [id number] Hosp care 15 min low complexity Subjective: The patient denies AH or SI but she continues to complain of paranoia. She's afraid of staff and is only allowing one nurse on the evening shift to take her blood pressure. She stopped taking oral aripiprazole last night stating that it doesn't work and she admits to getting frustrated. She continues to also complain of a persistent cough. Objective - Appearance Appearance: Obese Dysmorphic Features: No Hygiene: Normal Grooming: Fairly Well Kept - Behavior Psychomotor Activities: Normal Exhibits Abnormal Movement: No - Attitude and Relatedness Attitude and Relatedness: Guarded Eye Contact: Fair - Speech Quality: Unpressured Latencies: Normal Quantity: Terse - Mood Patient's Decription of Mood: "Irritable" - Affect Observed Affect: Tense Affect Consistent with: Dysphoria - Thought Process Patient's Thought Process: Coherent Thought Content: Yes Paranoid Ideation, No Passive Wish, No Suicidal Planning, No Homicidal Ideation - Sensorium Experiencing Hallucinations: No, Sensorium is Clear Type of Hallucinations: Visual: No, Auditory: No, Command: No - Level of Consciousness Level of Consciousness: Alert Orientation: Yes Intact, Yes Orientated to Time, Yes Orientated to Place, Yes Orientated to Person - Impulse Control Impulse Control: Tenuous - Insight and Judgement Insight and Judgement: Fair - Group Participation Particating in Group Activities: No - Medication Management Medication Management Adherence: Yes Assessment - Assessment Merits Inpatient Hospitalization: For Immediate Safety, For Stabilization Inpatient DSM-IV Dx: Schizophrenia Clinical Impression: 25 y.o. single, AA female with a history of schizophrenia and several past psychiatric hospitalizations, mostly in [place], [place], who arrived voluntarily, accompanied by a case packer, complaining of irritability, SI and HI without specific target. Plan - Plan Treatment Plan: Name: Poonam DILLON Birthdate: 1990 [id number] She is not improving on max doses of aripiprazole, oral or injectable. We will d/c aripiprazole and start fluphenazine 5mg PO qhs. She is also taking propranolol 20mg PO BID in order to reduce BP, anxiety and prevent akathisia. Will discontinue Robitussin in favor of Tessalon 100mg PO TID prn for cough. Encourage group participation. Continued Medication Management: Different Medication Medications: Current Medications Al Hydrox/Mg Hydrox/Simethicone (Maalox Plus*) 30 ml PO Q6H PRN PRN Reason: INDIGESTION Last Admin: 10/10/16 05:17 Dose: 30 ml Benzonatate (Tessalon Cap*) 100 mg PO Q8H PRN PRN Reason: COUGH Clonazepam (Klonopin Tab(*)) 1 mg PO DAILY [facility] Last Admin: 10/12/16 13:13 Dose: 1 mg Clonazepam (Klonopin Tab(*)) 2 mg PO BEDTIME PRN PRN Reason: AGITATION/ANXIETY/INSOMNIA Last Admin: 10/10/16 20:10 Dose: 2 mg Diphenhydramine HCl (Benadryl Po*) 50 mg PO Q4H PRN PRN Reason: ANXIETY/INSOMNIA Last Admin: 10/11/16 10:23 Dose: 50 mg Diphenhydramine HCl (Benadryl Po*) 75 mg PO BEDTIME PRN PRN Reason: INSOMNIA Last Admin: 10/10/16 20:09 Dose: 75 mg Fluphenazine HCl (Prolixin Tab*) 5 mg PO BEDTIME [facility] Nicotine (Nicotine Inhaler*) 10 mg INH Q2H PRN PRN Reason: CRAVING Last Admin: 10/06/16 14:04 Dose: 10 mg Promethazine HCl (Phenergan Tab*) 25 mg PO Q6H PRN PRN Reason: NAUSEA Last Admin: 10/08/16 20:36 Dose: 25 mg Propranolol HCl (Inderal Tab*) 20 mg PO BID [facility] Last Admin: 10/12/16 13:23 Dose: 20 mg Throat Lozenges (Chloraseptic Elisabeth*) 1 elisabeth PO Q6H PRN PRN Reason: SORE THROAT Last Admin: 10/09/16 05:54 Dose: 1 elisabeth - Discharge Plan Discharge Plan: Inpatient Hospitalization
[2016-10-12] MEDS: fluPHENAZine HCL TAB* 5 MG PO SCH (21:44)
[2016-10-12] MEDS: clonazePAM TAB(*) 1 MG PO PRN (21:45)
[2016-10-12] MEDS: diPHENhydraMINE PO* 25 MG PO PRN (21:45)
[2016-10-13] MEDS: clonazePAM TAB(*) 1 MG PO SCH (10:02)
[2016-10-13] MEDS: Propranolol TAB* 20 MG PO SCH ×2 (10:03→20:46)
--- NOTE | 2016-10-13 11:07 | PN ---
Subjective - Subjective Service Type: [id number] Hosp care 15 min low complexity Subjective: The patient states that she slept well last night and appears to be tolerating the fluphenazine well so far. She's been compliant with her meds both today and yesterday but indicates that it's still too early in the day to determine whether she has paranoia today. No behavioral issues noted by staff so far today or last night. Objective - Appearance Appearance: Obese Dysmorphic Features: No Hygiene: Normal Grooming: Fairly Well Kept - Behavior Psychomotor Activities: Normal Exhibits Abnormal Movement: No - Attitude and Relatedness Attitude and Relatedness: Guarded Eye Contact: Fair - Speech Quality: Unpressured Latencies: Normal Quantity: Terse - Mood Patient's Decription of Mood: "Okay" - Affect Observed Affect: Tense Affect Consistent with: Dysphoria - Thought Process Patient's Thought Process: Coherent Thought Content: Yes Paranoid Ideation, No Passive Wish, No Suicidal Planning, No Homicidal Ideation - Sensorium Experiencing Hallucinations: No, Sensorium is Clear Type of Hallucinations: Visual: No, Auditory: No, Command: No - Level of Consciousness Level of Consciousness: Alert Orientation: Yes Intact, Yes Orientated to Time, Yes Orientated to Place, Yes Orientated to Person - Impulse Control Impulse Control: Tenuous - Insight and Judgement Insight and Judgement: Fair - Group Participation Particating in Group Activities: No - Medication Management Medication Management Adherence: Yes Assessment - Assessment Merits Inpatient Hospitalization: For Immediate Safety, For Stabilization Inpatient DSM-IV Dx: Schizophrenia Clinical Impression: 25 y.o. single, AA female with a history of schizophrenia and several past psychiatric hospitalizations, mostly in [place], [place], who arrived voluntarily, accompanied by a high risk case manager, complaining of irritability, SI and HI without specific target. Plan - Plan Treatment Plan: Name: Poonam DILLON Birthdate: 1990 [id number] Abilify, due to incomplete clinical effect, has been replaced by a trial of fluphenazine 5mg PO qhs. She is also taking propranolol 20mg PO BID in order to reduce BP, anxiety and prevent akathisia. So far she seems to be tolerating these changes well but we await evidence of therapeutic benefit. Encourage group participation. Continued Medication Management: Different Medication Medications: Current Medications Al Hydrox/Mg Hydrox/Simethicone (Maalox Plus*) 30 ml PO Q6H PRN PRN Reason: INDIGESTION Last Admin: 10/10/16 05:17 Dose: 30 ml Benzonatate (Tessalon Cap*) 100 mg PO Q8H PRN PRN Reason: COUGH Clonazepam (Klonopin Tab(*)) 1 mg PO DAILY [facility] Last Admin: 10/13/16 10:02 Dose: 1 mg Clonazepam (Klonopin Tab(*)) 2 mg PO BEDTIME PRN PRN Reason: AGITATION/ANXIETY/INSOMNIA Last Admin: 10/12/16 21:45 Dose: 2 mg Diphenhydramine HCl (Benadryl Po*) 50 mg PO Q4H PRN PRN Reason: ANXIETY/INSOMNIA Last Admin: 10/11/16 10:23 Dose: 50 mg Diphenhydramine HCl (Benadryl Po*) 75 mg PO BEDTIME PRN PRN Reason: INSOMNIA Last Admin: 10/12/16 21:45 Dose: 75 mg Fluphenazine HCl (Prolixin Tab*) 5 mg PO BEDTIME [facility] Last Admin: 10/12/16 21:44 Dose: 5 mg Nicotine (Nicotine Inhaler*) 10 mg INH Q2H PRN PRN Reason: CRAVING Last Admin: 10/06/16 14:04 Dose: 10 mg Promethazine HCl (Phenergan Tab*) 25 mg PO Q6H PRN PRN Reason: NAUSEA Last Admin: 10/08/16 20:36 Dose: 25 mg Propranolol HCl (Inderal Tab*) 20 mg PO BID [facility] Last Admin: 10/13/16 10:03 Dose: 20 mg Throat Lozenges (Chloraseptic Elisabeth*) 1 elisabeth PO Q6H PRN PRN Reason: SORE THROAT Last Admin: 10/09/16 05:54 Dose: 1 elisabeth - Discharge Plan Discharge Plan: Inpatient Hospitalization
[2016-10-13] MEDS: Benzonatate CAP* 100 MG PO PRN (14:49)
[2016-10-13] MEDS: fluPHENAZine HCL TAB* 5 MG PO SCH (20:45)
[2016-10-13] MEDS: clonazePAM TAB(*) 1 MG PO PRN (20:45)
[2016-10-13] MEDS: diPHENhydraMINE PO* 25 MG PO PRN (20:46)
[2016-10-14] MEDS: clonazePAM TAB(*) 1 MG PO SCH (09:40)
[2016-10-14] MEDS: Propranolol TAB* 20 MG PO SCH ×2 (09:40→21:02)
[2016-10-14] MEDS: diPHENhydraMINE PO* 50 MG PO PRN ×2 (09:41→16:57)
--- NOTE | 2016-10-14 14:29 | PN ---
Subjective - Subjective Service Type: [id number] Hosp care 15 min low complexity Subjective: The patient reports that she slept well but feels slightly groggy today after last night's fluphenazine dose. Unfortunately, it's her sense that she remains quite paranoid and unsafe for discharge. Objective - Appearance Appearance: Obese Dysmorphic Features: No Hygiene: Normal Grooming: Fairly Well Kept - Behavior Psychomotor Activities: Normal Exhibits Abnormal Movement: No - Attitude and Relatedness Attitude and Relatedness: Guarded Eye Contact: Fair - Speech Quality: Unpressured Latencies: Normal Quantity: Terse - Mood Patient's Decription of Mood: "Irritable" - Affect Observed Affect: Tense Affect Consistent with: Dysphoria - Thought Process Patient's Thought Process: Coherent Thought Content: Yes Paranoid Ideation, No Passive Wish, No Suicidal Planning, No Homicidal Ideation - Sensorium Experiencing Hallucinations: No, Sensorium is Clear Type of Hallucinations: Visual: No, Auditory: No, Command: No - Level of Consciousness Level of Consciousness: Alert Orientation: Yes Intact, Yes Orientated to Time, Yes Orientated to Place, Yes Orientated to Person - Impulse Control Impulse Control: Tenuous - Insight and Judgement Insight and Judgement: Fair - Group Participation Particating in Group Activities: No - Medication Management Medication Management Adherence: Yes Assessment - Assessment Merits Inpatient Hospitalization: For Immediate Safety, For Stabilization Inpatient DSM-IV Dx: Schizophrenia Clinical Impression: 25 y.o. single, AA female with a history of schizophrenia and several past psychiatric hospitalizations, mostly in [place], [place], who arrived voluntarily, accompanied by a nurse case manager, complaining of irritability, SI and HI without specific target. Plan - Plan Treatment Plan: Name: Poonam DILLON Birthdate: 1990 [id number] Abilify, due to incomplete clinical effect, has been replaced by a trial of fluphenazine 5mg PO qhs. I will increase this to 10mg PO qhs and see if this addresses her paranoia. She is also taking propranolol 20mg PO BID in order to reduce BP, anxiety and prevent akathisia. Encourage group participation. Continued Medication Management: Different Medication Medications: Current Medications Al Hydrox/Mg Hydrox/Simethicone (Maalox Plus*) 30 ml PO Q6H PRN PRN Reason: INDIGESTION Last Admin: 10/10/16 05:17 Dose: 30 ml Benzonatate (Tessalon Cap*) 100 mg PO Q8H PRN PRN Reason: COUGH Last Admin: 10/13/16 14:49 Dose: 100 mg Clonazepam (Klonopin Tab(*)) 1 mg PO DAILY [facility] Last Admin: 10/14/16 09:40 Dose: 1 mg Clonazepam (Klonopin Tab(*)) 2 mg PO BEDTIME PRN PRN Reason: AGITATION/ANXIETY/INSOMNIA Last Admin: 10/13/16 20:45 Dose: 2 mg Diphenhydramine HCl (Benadryl Po*) 50 mg PO Q4H PRN PRN Reason: ANXIETY/INSOMNIA Last Admin: 10/14/16 09:41 Dose: 50 mg Diphenhydramine HCl (Benadryl Po*) 75 mg PO BEDTIME PRN PRN Reason: INSOMNIA Last Admin: 10/13/16 20:46 Dose: 75 mg Fluphenazine HCl (Prolixin Tab*) 5 mg PO BEDTIME [facility] Last Admin: 10/13/16 20:45 Dose: 5 mg Nicotine (Nicotine Inhaler*) 10 mg INH Q2H PRN PRN Reason: CRAVING Last Admin: 10/06/16 14:04 Dose: 10 mg Promethazine HCl (Phenergan Tab*) 25 mg PO Q6H PRN PRN Reason: NAUSEA Last Admin: 10/08/16 20:36 Dose: 25 mg Propranolol HCl (Inderal Tab*) 20 mg PO BID [facility] Last Admin: 10/14/16 09:40 Dose: 20 mg Throat Lozenges (Chloraseptic Elisabeth*) 1 elisabeth PO Q6H PRN PRN Reason: SORE THROAT Last Admin: 10/09/16 05:54 Dose: 1 elisabeth - Discharge Plan Discharge Plan: Inpatient Hospitalization
[2016-10-14] MEDS: Benzonatate CAP* 100 MG PO PRN (16:56)
[2016-10-14] MEDS: fluPHENAZine HCL TAB* 5 MG PO SCH (21:04)
[2016-10-14] MEDS: clonazePAM TAB(*) 1 MG PO PRN (21:04)
[2016-10-14] MEDS: diPHENhydraMINE PO* 25 MG PO PRN (21:04)
[2016-10-15] MEDS: Propranolol TAB* 20 MG PO SCH ×2 (09:56→21:03)
[2016-10-15] MEDS: clonazePAM TAB(*) 1 MG PO SCH (09:56)
[2016-10-15] MEDS: diPHENhydraMINE PO* 50 MG PO PRN (09:58)
--- NOTE | 2016-10-15 13:38 | PN ---
Subjective - Subjective Service Type: [id number] Hosp care 15 min low complexity Subjective: The patient continues to complain of paranoia and is not participating in groups or much socialization with peers. She's even reluctant to sign her name on the board outside the comfort room to reserve it for herself. She seems to be tolerating fluphenazine well so far with no overt side effects. Objective - Appearance Appearance: Obese Dysmorphic Features: No Hygiene: Normal Grooming: Fairly Well Kept - Behavior Psychomotor Activities: Normal Exhibits Abnormal Movement: No - Attitude and Relatedness Attitude and Relatedness: Guarded Eye Contact: Fair - Speech Quality: Unpressured Latencies: Normal Quantity: Terse - Mood Patient's Decription of Mood: "Irritable" - Affect Observed Affect: Tense Affect Consistent with: Dysphoria - Thought Process Patient's Thought Process: Coherent Thought Content: Yes Paranoid Ideation, No Passive Wish, No Suicidal Planning, No Homicidal Ideation - Sensorium Experiencing Hallucinations: No, Sensorium is Clear Type of Hallucinations: Visual: No, Auditory: No, Command: No - Level of Consciousness Level of Consciousness: Alert Orientation: Yes Intact, Yes Orientated to Time, Yes Orientated to Place, Yes Orientated to Person - Impulse Control Impulse Control: Tenuous - Insight and Judgement Insight and Judgement: Fair - Group Participation Particating in Group Activities: No - Medication Management Medication Management Adherence: Yes Assessment - Assessment Merits Inpatient Hospitalization: For Immediate Safety, For Stabilization Inpatient DSM-IV Dx: Schizophrenia Clinical Impression: 25 y.o. single, AA female with a history of schizophrenia and several past psychiatric hospitalizations, mostly in [place], [place], who arrived voluntarily, accompanied by a rn case management, complaining of irritability, SI and HI without specific target. Plan - Plan Treatment Plan: Name: Poonam DILLON Birthdate: 1990 [id number] The patient is now receiving a trial of fluphenazine 10mg PO qhs. She is also taking propranolol 20mg PO BID in order to reduce BP, anxiety and prevent akathisia. Encourage group participation. Continued Medication Management: Different Medication Medications: Current Medications Al Hydrox/Mg Hydrox/Simethicone (Maalox Plus*) 30 ml PO Q6H PRN PRN Reason: INDIGESTION Last Admin: 10/10/16 05:17 Dose: 30 ml Benzonatate (Tessalon Cap*) 100 mg PO Q8H PRN PRN Reason: COUGH Last Admin: 10/14/16 16:56 Dose: 100 mg Clonazepam (Klonopin Tab(*)) 1 mg PO DAILY [facility] Last Admin: 10/15/16 09:56 Dose: 1 mg Clonazepam (Klonopin Tab(*)) 2 mg PO BEDTIME PRN PRN Reason: AGITATION/ANXIETY/INSOMNIA Last Admin: 10/14/16 21:04 Dose: 2 mg Diphenhydramine HCl (Benadryl Po*) 50 mg PO Q4H PRN PRN Reason: ANXIETY/INSOMNIA Last Admin: 10/15/16 09:58 Dose: 50 mg Diphenhydramine HCl (Benadryl Po*) 75 mg PO BEDTIME PRN PRN Reason: INSOMNIA Last Admin: 10/14/16 21:04 Dose: 75 mg Fluphenazine HCl (Prolixin Tab*) 10 mg PO BEDTIME [facility] Last Admin: 10/14/16 21:04 Dose: 10 mg Nicotine (Nicotine Inhaler*) 10 mg INH Q2H PRN PRN Reason: CRAVING Last Admin: 10/06/16 14:04 Dose: 10 mg Promethazine HCl (Phenergan Tab*) 25 mg PO Q6H PRN PRN Reason: NAUSEA Last Admin: 10/08/16 20:36 Dose: 25 mg Propranolol HCl (Inderal Tab*) 20 mg PO BID [facility] Last Admin: 10/15/16 09:56 Dose: 20 mg Throat Lozenges (Chloraseptic Elisabeth*) 1 elisabeth PO Q6H PRN PRN Reason: SORE THROAT Last Admin: 10/09/16 05:54 Dose: 1 elisabeth - Discharge Plan Discharge Plan: Inpatient Hospitalization
[2016-10-15] MEDS: fluPHENAZine HCL TAB* 5 MG PO SCH (21:03)
[2016-10-15] MEDS: clonazePAM TAB(*) 1 MG PO PRN (21:04)
[2016-10-15] MEDS: diPHENhydraMINE PO* 25 MG PO PRN (21:04)
[2016-10-16] MEDS: Propranolol TAB* 20 MG PO SCH ×2 (10:54→20:05)
[2016-10-16] MEDS: clonazePAM TAB(*) 1 MG PO SCH (10:55)
[2016-10-16] MEDS: diPHENhydraMINE PO* 50 MG PO PRN ×2 (10:58→15:44)
--- NOTE | 2016-10-16 12:27 | PN ---
Subjective - Subjective Service Type: [id number] Hosp care 15 min low complexity Subjective: Caroline continues to complain of paranoia and strong inclinations that she's being watched and talked about negatively. She is tolerating fluphenazine and denies untoward effects but hasn't noticed much benefit yet. Objective - Appearance Appearance: Obese Dysmorphic Features: No Hygiene: Normal Grooming: Well Kept - Behavior Psychomotor Activities: Normal Exhibits Abnormal Movement: No - Attitude and Relatedness Attitude and Relatedness: Guarded Eye Contact: Fair - Speech Quality: Unpressured Latencies: Normal Quantity: Terse - Mood Patient's Decription of Mood: "Anxious" - Affect Observed Affect: Tense Affect Consistent with: Euthymia - Thought Process Patient's Thought Process: Impoverished Thought Content: Yes Paranoid Ideation, No Passive Wish, No Suicidal Planning, No Homicidal Ideation - Sensorium Experiencing Hallucinations: No, Sensorium is Clear Type of Hallucinations: Visual: No, Auditory: No, Command: No - Level of Consciousness Level of Consciousness: Alert Orientation: Yes Intact, Yes Orientated to Time, Yes Orientated to Place, Yes Orientated to Person - Impulse Control Impulse Control: Tenuous - Insight and Judgement Insight and Judgement: Fair - Group Participation Particating in Group Activities: No - Medication Management Medication Management Adherence: Yes Assessment - Assessment Merits Inpatient Hospitalization: For Immediate Safety, For Stabilization Inpatient DSM-IV Dx: Schizophrenia Clinical Impression: 25 y.o. single, AA female with a history of schizophrenia and several past psychiatric hospitalizations, mostly in [place], [place], who arrived voluntarily, accompanied by a catalytic case operator, complaining of irritability, SI and HI without specific target. Plan - Plan Treatment Plan: Name: Poonam DILLON Birthdate: 1990 [id number] The patient is now receiving a trial of fluphenazine 10mg PO qhs. Will increase this to 15mg PO qhs. She is also taking propranolol 20mg PO BID in order to reduce BP, anxiety and prevent akathisia. Encourage group participation. Continued Medication Management: Different Medication Medications: Current Medications Al Hydrox/Mg Hydrox/Simethicone (Maalox Plus*) 30 ml PO Q6H PRN PRN Reason: INDIGESTION Last Admin: 10/10/16 05:17 Dose: 30 ml Benzonatate (Tessalon Cap*) 100 mg PO Q8H PRN PRN Reason: COUGH Last Admin: 10/14/16 16:56 Dose: 100 mg Clonazepam (Klonopin Tab(*)) 1 mg PO DAILY [facility] Last Admin: 10/16/16 10:55 Dose: 1 mg Clonazepam (Klonopin Tab(*)) 2 mg PO BEDTIME PRN PRN Reason: AGITATION/ANXIETY/INSOMNIA Last Admin: 10/15/16 21:04 Dose: 2 mg Diphenhydramine HCl (Benadryl Po*) 50 mg PO Q4H PRN PRN Reason: ANXIETY/INSOMNIA Last Admin: 10/16/16 10:58 Dose: 50 mg Diphenhydramine HCl (Benadryl Po*) 75 mg PO BEDTIME PRN PRN Reason: INSOMNIA Last Admin: 10/15/16 21:04 Dose: 75 mg Nicotine (Nicotine Inhaler*) 10 mg INH Q2H PRN PRN Reason: CRAVING Last Admin: 10/06/16 14:04 Dose: 10 mg Promethazine HCl (Phenergan Tab*) 25 mg PO Q6H PRN PRN Reason: NAUSEA Last Admin: 10/08/16 20:36 Dose: 25 mg Propranolol HCl (Inderal Tab*) 20 mg PO BID [facility] Last Admin: 10/16/16 10:54 Dose: 20 mg Throat Lozenges (Chloraseptic Elisabeth*) 1 elisabeth PO Q6H PRN PRN Reason: SORE THROAT Last Admin: 10/09/16 05:54 Dose: 1 elisabeth - Discharge Plan Discharge Plan: Inpatient Hospitalization
[2016-10-16] MEDS: fluPHENAZine HCL TAB* 5 MG PO SCH (20:05)
[2016-10-16] MEDS: clonazePAM TAB(*) 1 MG PO PRN (20:07)
[2016-10-16] MEDS: diPHENhydraMINE PO* 25 MG PO PRN (20:07)
[2016-10-17] MEDS: diPHENhydraMINE PO* 50 MG PO PRN ×3 (03:49→15:57)
[2016-10-17] MEDS: clonazePAM TAB(*) 1 MG PO SCH (10:05)
[2016-10-17] MEDS: Propranolol TAB* 20 MG PO SCH ×2 (10:05→20:06)
[2016-10-17] MEDS: fluPHENAZine HCL TAB* 5 MG PO SCH (20:07)
[2016-10-17] MEDS: diPHENhydraMINE PO* 25 MG PO PRN (20:10)
[2016-10-17] MEDS: clonazePAM TAB(*) 1 MG PO PRN (20:10)
[2016-10-18] MEDS: Propranolol TAB* 20 MG PO SCH ×2 (08:09→20:28)
[2016-10-18] MEDS: clonazePAM TAB(*) 1 MG PO SCH (08:09)
[2016-10-18] MEDS: clonazePAM TAB(*) 1 MG PO PRN (20:27)
[2016-10-18] MEDS: fluPHENAZine HCL TAB* 5 MG PO SCH (20:27)
[2016-10-18] MEDS: diPHENhydraMINE PO* 50 MG PO PRN (20:30)
[2016-10-19] MEDS: Propranolol TAB* 20 MG PO SCH ×2 (09:39→20:33)
[2016-10-19] MEDS: clonazePAM TAB(*) 1 MG PO SCH (09:40)
--- NOTE | 2016-10-19 13:44 | PN ---
Subjective - Subjective Service Type: [id number] Hosp care 15 min low complexity Subjective: The patient continues to complain of depressed mood, paranoia and transient AH, occuring every couple of days. She does not feel safe to leave the hospital although she denies active SI or HI. The patient reports that she is tolerating her medications well. Objective - Appearance Appearance: Obese Dysmorphic Features: No Hygiene: Normal Grooming: Well Kept - Behavior Psychomotor Activities: Normal Exhibits Abnormal Movement: No - Attitude and Relatedness Attitude and Relatedness: Guarded Eye Contact: Fair - Speech Quality: Unpressured Latencies: Normal Quantity: Terse - Mood Patient's Decription of Mood: "Okay" - Affect Observed Affect: Depressed Affect Consistent with: Dysphoria - Thought Process Patient's Thought Process: Coherent Thought Content: Yes Paranoid Ideation, No Passive Wish, No Suicidal Planning, No Homicidal Ideation - Sensorium Experiencing Hallucinations: Yes Type of Hallucinations: Visual: No, Auditory: Yes, Command: No - Level of Consciousness Level of Consciousness: Alert Orientation: Yes Intact, Yes Orientated to Time, Yes Orientated to Place, Yes Orientated to Person - Impulse Control Impulse Control: Tenuous - Insight and Judgement Insight and Judgement: Fair - Group Participation Particating in Group Activities: No - Medication Management Medication Management Adherence: Yes Assessment - Assessment Merits Inpatient Hospitalization: For Immediate Safety, For Stabilization Inpatient DSM-IV Dx: Schizophrenia Clinical Impression: 25 y.o. single, AA female with a history of schizophrenia and several past psychiatric hospitalizations, mostly in [place], [place], who arrived voluntarily, accompanied by a disease case manager rn, complaining of irritability, SI and HI without specific target. Plan - Plan Treatment Plan: Name: Poonam DILLON Birthdate: 1990 [id number] The patient is now receiving a trial of fluphenazine 15mg PO qhs but remains symptomatic. Will add a morning dose of 5mg PO qam. She is also taking propranolol 20mg PO BID in order to reduce BP, anxiety and prevent akathisia. Must consider State Hospitalization if she does not improve by the end of the week. Continued Medication Management: Different Medication Medications: Current Medications Al Hydrox/Mg Hydrox/Simethicone (Maalox Plus*) 30 ml PO Q6H PRN PRN Reason: INDIGESTION Last Admin: 10/10/16 05:17 Dose: 30 ml Benzonatate (Tessalon Cap*) 100 mg PO Q8H PRN PRN Reason: COUGH Last Admin: 10/14/16 16:56 Dose: 100 mg Clonazepam (Klonopin Tab(*)) 1 mg PO DAILY [facility] Last Admin: 10/19/16 09:40 Dose: 1 mg Clonazepam (Klonopin Tab(*)) 2 mg PO BEDTIME PRN PRN Reason: AGITATION/ANXIETY/INSOMNIA Last Admin: 10/18/16 20:27 Dose: 2 mg Diphenhydramine HCl (Benadryl Po*) 50 mg PO Q4H PRN PRN Reason: ANXIETY/INSOMNIA Last Admin: 10/18/16 20:30 Dose: 50 mg Diphenhydramine HCl (Benadryl Po*) 75 mg PO BEDTIME PRN PRN Reason: INSOMNIA Last Admin: 10/17/16 20:10 Dose: 75 mg Fluphenazine HCl (Prolixin Tab*) 15 mg PO BEDTIME [facility] Last Admin: 10/18/16 20:27 Dose: 15 mg Fluphenazine HCl (Prolixin Tab*) 5 mg PO DAILY [facility] Nicotine (Nicotine Inhaler*) 10 mg INH Q2H PRN PRN Reason: CRAVING Last Admin: 10/06/16 14:04 Dose: 10 mg Promethazine HCl (Phenergan Tab*) 25 mg PO Q6H PRN PRN Reason: NAUSEA Last Admin: 10/08/16 20:36 Dose: 25 mg Propranolol HCl (Inderal Tab*) 20 mg PO BID [facility] Last Admin: 10/19/16 09:39 Dose: 20 mg Throat Lozenges (Chloraseptic Elisabeth*) 1 elisabeth PO Q6H PRN PRN Reason: SORE THROAT Last Admin: 10/09/16 05:54 Dose: 1 elisabeth - Discharge Plan Discharge Plan: Inpatient Hospitalization
[2016-10-19] MEDS: fluPHENAZine HCL TAB* 5 MG PO SCH ×2 (14:05→20:32)
[2016-10-19] MEDS: diPHENhydraMINE PO* 25 MG PO PRN (20:34)
[2016-10-19] MEDS: clonazePAM TAB(*) 1 MG PO PRN (20:34)
[2016-10-20] MEDS: Propranolol TAB* 20 MG PO SCH ×2 (08:29→20:47)
[2016-10-20] MEDS: diPHENhydraMINE PO* 50 MG PO PRN ×2 (08:29→22:10)
[2016-10-20] MEDS: clonazePAM TAB(*) 1 MG PO SCH (08:29)
[2016-10-20] MEDS: fluPHENAZine HCL TAB* 5 MG PO SCH ×2 (08:29→20:45)
[2016-10-20] MEDS: diPHENhydraMINE PO* 25 MG PO PRN (20:47)
[2016-10-20] MEDS: clonazePAM TAB(*) 1 MG PO PRN (20:47)
[2016-10-21] MEDS: fluPHENAZine HCL TAB* 5 MG PO SCH ×2 (11:39→21:05)
[2016-10-21] MEDS: Propranolol TAB* 20 MG PO SCH ×2 (11:39→21:10)
[2016-10-21] MEDS: clonazePAM TAB(*) 1 MG PO SCH (11:39)
--- NOTE | 2016-10-21 17:31 | PN ---
Subjective - Subjective Service Type: [id number] Hosp care 15 min low complexity Subjective: The patient is frustrated that she continues to experience intense paranoia and does not feel comfortable going to groups or walking out in the common areas, feeling for example that the cameras in the milieu are fixed on her. She is tolerating the trial of fluphenazine well but has not had an symptomatic improvement. [facility]. Objective - Appearance Appearance: Obese Dysmorphic Features: No Hygiene: Normal Grooming: Fairly Well Kept - Behavior Psychomotor Activities: Abnormal-Decreased Exhibits Abnormal Movement: No - Attitude and Relatedness Attitude and Relatedness: Guarded Eye Contact: Fair - Speech Quality: Unpressured Latencies: Normal Quantity: Terse - Mood Patient's Decription of Mood: "Irritable" - Affect Observed Affect: Tense Affect Consistent with: Dysphoria - Thought Process Patient's Thought Process: Coherent Thought Content: Yes Paranoid Ideation, No Passive Wish, No Suicidal Planning, No Homicidal Ideation - Sensorium Experiencing Hallucinations: No, Sensorium is Clear Type of Hallucinations: Visual: No, Auditory: No, Command: No - Level of Consciousness Level of Consciousness: Alert Orientation: Yes Intact, Yes Orientated to Time, Yes Orientated to Place, Yes Orientated to Person - Impulse Control Impulse Control: Tenuous - Insight and Judgement Insight and Judgement: Fair - Group Participation Particating in Group Activities: No - Medication Management Medication Management Adherence: Yes Assessment - Assessment Merits Inpatient Hospitalization: For Immediate Safety, For Stabilization Inpatient DSM-IV Dx: Schizophrenia Clinical Impression: 25 y.o. single, AA female with a history of schizophrenia and several past psychiatric hospitalizations, mostly in [place], [place], who arrived voluntarily, accompanied by a briefcase sewer, complaining of irritability, SI and HI without specific target. Plan - Plan Treatment Plan: Name: Poonam DILLON Birthdate: 1990 [id number] The patient is now receiving a trial of fluphenazine 5mg PO qam and 15mg PO qhs but remains symptomatic. Will increase the morning dose to 10mg PO qam. She is also taking propranolol 20mg PO BID in order to reduce BP, anxiety and prevent akathisia. Will refer to [facility] for further care. Continued Medication Management: Different Medication Medications: Current Medications Al Hydrox/Mg Hydrox/Simethicone (Maalox Plus*) 30 ml PO Q6H PRN PRN Reason: INDIGESTION Last Admin: 10/10/16 05:17 Dose: 30 ml Benzonatate (Tessalon Cap*) 100 mg PO Q8H PRN PRN Reason: COUGH Last Admin: 10/14/16 16:56 Dose: 100 mg Clonazepam (Klonopin Tab(*)) 1 mg PO DAILY [facility] Last Admin: 10/21/16 11:39 Dose: 1 mg Clonazepam (Klonopin Tab(*)) 2 mg PO BEDTIME PRN PRN Reason: AGITATION/ANXIETY/INSOMNIA Last Admin: 10/20/16 20:47 Dose: 2 mg Diphenhydramine HCl (Benadryl Po*) 50 mg PO Q4H PRN PRN Reason: ANXIETY/INSOMNIA Last Admin: 10/20/16 22:10 Dose: 50 mg Diphenhydramine HCl (Benadryl Po*) 75 mg PO BEDTIME PRN PRN Reason: INSOMNIA Last Admin: 10/20/16 20:47 Dose: 75 mg Fluphenazine HCl (Prolixin Tab*) 15 mg PO BEDTIME [facility] Last Admin: 10/20/16 20:45 Dose: 15 mg Fluphenazine HCl (Prolixin Tab*) 10 mg PO DAILY [facility] Nicotine (Nicotine Inhaler*) 10 mg INH Q2H PRN PRN Reason: CRAVING Last Admin: 10/06/16 14:04 Dose: 10 mg Promethazine HCl (Phenergan Tab*) 25 mg PO Q6H PRN PRN Reason: NAUSEA Last Admin: 10/08/16 20:36 Dose: 25 mg Propranolol HCl (Inderal Tab*) 20 mg PO BID [facility] Last Admin: 10/21/16 11:39 Dose: 20 mg Throat Lozenges (Chloraseptic Elisabeth*) 1 elisabeth PO Q6H PRN PRN Reason: SORE THROAT Last Admin: 10/09/16 05:54 Dose: 1 elisabeth - Discharge Plan Discharge Plan: Consider Longer Term Tx
[2016-10-21] MEDS: clonazePAM TAB(*) 1 MG PO PRN (21:08)
[2016-10-21] MEDS: diPHENhydraMINE PO* 25 MG PO PRN (21:08)
[2016-10-22] MEDS: Propranolol TAB* 20 MG PO SCH ×2 (12:36→20:10)
[2016-10-22] MEDS: clonazePAM TAB(*) 1 MG PO SCH (12:36)
[2016-10-22] MEDS: fluPHENAZine HCL TAB* 5 MG PO SCH ×2 (12:37→20:10)
--- NOTE | 2016-10-22 14:21 | PN ---
Subjective - Subjective Service Type: [id number] Hosp care 15 min low complexity Subjective: Patient remains guarded and paranoid, not participating in milieu secondary to fears of being watched and talked about. She accepts transfer to [facility] as the next step in her care. Objective - Appearance Appearance: Obese Dysmorphic Features: No Hygiene: Normal Grooming: Well Kept - Behavior Psychomotor Activities: Normal Exhibits Abnormal Movement: No - Attitude and Relatedness Attitude and Relatedness: Guarded Eye Contact: Fair - Speech Quality: Unpressured Latencies: Normal Quantity: Terse - Mood Patient's Decription of Mood: "Sad" - Affect Observed Affect: Tense Affect Consistent with: Dysphoria - Thought Process Patient's Thought Process: Coherent Thought Content: Yes Paranoid Ideation, No Passive Wish, No Suicidal Planning, No Homicidal Ideation - Sensorium Experiencing Hallucinations: No, Sensorium is Clear Type of Hallucinations: Visual: No, Auditory: No, Command: No - Level of Consciousness Level of Consciousness: Alert Orientation: Yes Intact, Yes Orientated to Time, Yes Orientated to Place, Yes Orientated to Person - Impulse Control Impulse Control: Tenuous - Insight and Judgement Insight and Judgement: Fair - Group Participation Particating in Group Activities: No - Medication Management Medication Management Adherence: Yes Assessment - Assessment Merits Inpatient Hospitalization: For Immediate Safety, For Stabilization Inpatient DSM-IV Dx: Schizophrenia Clinical Impression: 25 y.o. single, AA female with a history of schizophrenia and several past psychiatric hospitalizations, mostly in [place], [place], who arrived voluntarily, accompanied by a field case manager, complaining of irritability, SI and HI without specific target. Plan - Plan Treatment Plan: Name: Poonam DILLON Birthdate: 1990 [id number] The patient is now receiving a trial of fluphenazine 5mg PO qam and 15mg PO qhs but remains symptomatic. Will increase the morning dose to 10mg PO qam. She is also taking propranolol 20mg PO BID in order to reduce BP, anxiety and prevent akathisia. Will refer to [facility] for further care. Continued Medication Management: Different Medication Medications: Current Medications Al Hydrox/Mg Hydrox/Simethicone (Maalox Plus*) 30 ml PO Q6H PRN PRN Reason: INDIGESTION Last Admin: 10/10/16 05:17 Dose: 30 ml Benzonatate (Tessalon Cap*) 100 mg PO Q8H PRN PRN Reason: COUGH Last Admin: 10/14/16 16:56 Dose: 100 mg Clonazepam (Klonopin Tab(*)) 1 mg PO DAILY [facility] Last Admin: 10/22/16 12:36 Dose: 1 mg Clonazepam (Klonopin Tab(*)) 2 mg PO BEDTIME PRN PRN Reason: AGITATION/ANXIETY/INSOMNIA Last Admin: 10/21/16 21:08 Dose: 2 mg Diphenhydramine HCl (Benadryl Po*) 50 mg PO Q4H PRN PRN Reason: ANXIETY/INSOMNIA Last Admin: 10/20/16 22:10 Dose: 50 mg Diphenhydramine HCl (Benadryl Po*) 75 mg PO BEDTIME PRN PRN Reason: INSOMNIA Last Admin: 10/21/16 21:08 Dose: 75 mg Fluphenazine HCl (Prolixin Tab*) 15 mg PO BEDTIME [facility] Last Admin: 10/21/16 21:05 Dose: 15 mg Fluphenazine HCl (Prolixin Tab*) 10 mg PO DAILY [facility] Last Admin: 10/22/16 12:37 Dose: 10 mg Nicotine (Nicotine Inhaler*) 10 mg INH Q2H PRN PRN Reason: CRAVING Last Admin: 10/06/16 14:04 Dose: 10 mg Promethazine HCl (Phenergan Tab*) 25 mg PO Q6H PRN PRN Reason: NAUSEA Last Admin: 10/08/16 20:36 Dose: 25 mg Propranolol HCl (Inderal Tab*) 20 mg PO BID [facility] Last Admin: 10/22/16 12:36 Dose: 20 mg Throat Lozenges (Chloraseptic Elisabeth*) 1 elisabeth PO Q6H PRN PRN Reason: SORE THROAT Last Admin: 10/09/16 05:54 Dose: 1 elisabeth - Discharge Plan Discharge Plan: Consider Longer Term Tx
[2016-10-22] MEDS: diPHENhydraMINE PO* 25 MG PO PRN (20:09)
[2016-10-22] MEDS: clonazePAM TAB(*) 1 MG PO PRN (20:09)
[2016-10-23] MEDS: Propranolol TAB* 20 MG PO SCH ×2 (14:05→20:37)
[2016-10-23] MEDS: clonazePAM TAB(*) 1 MG PO SCH (14:05)
[2016-10-23] MEDS: fluPHENAZine HCL TAB* 5 MG PO SCH ×2 (14:05→20:36)
--- NOTE | 2016-10-23 14:42 | PN ---
Subjective - Subjective Service Type: [id number] Hosp care 15 min low complexity Subjective: The patient remains seclusive and paranoid, feeling like her medications really aren't helping her. She stays most of the time in her room and is not participating in group therapies or socialization with peers. She denies SI or HI. Objective - Appearance Appearance: Obese Dysmorphic Features: No Hygiene: Normal Grooming: Well Kept - Behavior Psychomotor Activities: Normal Exhibits Abnormal Movement: No - Attitude and Relatedness Attitude and Relatedness: Guarded Eye Contact: Poor - Speech Quality: Unpressured Latencies: Normal Quantity: Terse - Mood Patient's Decription of Mood: "Irritable" - Affect Observed Affect: Tense Affect Consistent with: Dysphoria - Thought Process Patient's Thought Process: Coherent Thought Content: Yes Paranoid Ideation, No Passive Wish, No Suicidal Planning, No Homicidal Ideation - Sensorium Experiencing Hallucinations: No, Sensorium is Clear Type of Hallucinations: Visual: No, Auditory: No, Command: No - Level of Consciousness Level of Consciousness: Alert Orientation: Yes Intact, Yes Orientated to Time, Yes Orientated to Place, Yes Orientated to Person - Impulse Control Impulse Control: Poor - Insight and Judgement Insight and Judgement: Impaired - Group Participation Particating in Group Activities: No - Medication Management Medication Management Adherence: Yes Assessment - Assessment Merits Inpatient Hospitalization: For Immediate Safety, For Stabilization Inpatient DSM-IV Dx: Schizophrenia Clinical Impression: 25 y.o. single, AA female with a history of schizophrenia and several past psychiatric hospitalizations, mostly in [place], [place], who arrived voluntarily, accompanied by a hospice case manager, complaining of irritability, SI and HI without specific target. Plan - Plan Treatment Plan: Name: Poonam DILLON Birthdate: 1990 [id number] The patient is now receiving a trial of fluphenazine 10mg PO qam and 15mg PO qhs but remains symptomatic. She is also taking propranolol 20mg PO BID in order to reduce BP, anxiety and prevent akathisia. Will refer to [facility] for further care. Continued Medication Management: Different Medication Medications: Current Medications Al Hydrox/Mg Hydrox/Simethicone (Maalox Plus*) 30 ml PO Q6H PRN PRN Reason: INDIGESTION Last Admin: 10/10/16 05:17 Dose: 30 ml Benzonatate (Tessalon Cap*) 100 mg PO Q8H PRN PRN Reason: COUGH Last Admin: 10/14/16 16:56 Dose: 100 mg Clonazepam (Klonopin Tab(*)) 1 mg PO DAILY [facility] Last Admin: 10/23/16 14:05 Dose: Not Given Clonazepam (Klonopin Tab(*)) 2 mg PO BEDTIME PRN PRN Reason: AGITATION/ANXIETY/INSOMNIA Last Admin: 10/22/16 20:09 Dose: 2 mg Diphenhydramine HCl (Benadryl Po*) 50 mg PO Q4H PRN PRN Reason: ANXIETY/INSOMNIA Last Admin: 10/20/16 22:10 Dose: 50 mg Diphenhydramine HCl (Benadryl Po*) 75 mg PO BEDTIME PRN PRN Reason: INSOMNIA Last Admin: 10/22/16 20:09 Dose: 75 mg Fluphenazine HCl (Prolixin Tab*) 15 mg PO BEDTIME [facility] Last Admin: 10/22/16 20:10 Dose: 15 mg Fluphenazine HCl (Prolixin Tab*) 10 mg PO DAILY [facility] Last Admin: 10/23/16 14:05 Dose: Not Given Nicotine (Nicotine Inhaler*) 10 mg INH Q2H PRN PRN Reason: CRAVING Last Admin: 10/06/16 14:04 Dose: 10 mg Promethazine HCl (Phenergan Tab*) 25 mg PO Q6H PRN PRN Reason: NAUSEA Last Admin: 10/08/16 20:36 Dose: 25 mg Propranolol HCl (Inderal Tab*) 20 mg PO BID [facility] Last Admin: 10/23/16 14:05 Dose: Not Given Throat Lozenges (Chloraseptic Elisabeth*) 1 elisabeth PO Q6H PRN PRN Reason: SORE THROAT Last Admin: 10/09/16 05:54 Dose: 1 elisabeth - Discharge Plan Discharge Plan: Consider Longer Term Tx
[2016-10-23] MEDS: diPHENhydraMINE PO* 25 MG PO PRN (20:36)
[2016-10-23] MEDS: clonazePAM TAB(*) 1 MG PO PRN (20:36)
[2016-10-24] MEDS: clonazePAM TAB(*) 1 MG PO SCH (09:55)
[2016-10-24] MEDS: Propranolol TAB* 20 MG PO SCH ×2 (09:56→20:57)
[2016-10-24] MEDS: fluPHENAZine HCL TAB* 5 MG PO SCH ×2 (09:56→20:57)
[2016-10-24] MEDS: clonazePAM TAB(*) 1 MG PO PRN (20:58)
[2016-10-24] MEDS: diPHENhydraMINE PO* 25 MG PO PRN (20:58)
[2016-10-25] MEDS: fluPHENAZine HCL TAB* 5 MG PO SCH ×2 (08:26→20:20)
[2016-10-25] MEDS: clonazePAM TAB(*) 1 MG PO SCH (08:26)
[2016-10-25] MEDS: Propranolol TAB* 20 MG PO SCH ×2 (08:26→20:21)
--- NOTE | 2016-10-25 19:42 | PN ---
Progress Note - Progress Note Note: Patient told there are two patients on the unit (did not disclose their names) who have tested positive for Influenza A and I am recommending taking Tamiflu as a prophylactic measure. I made it clear this was optional. She declined the treatment after hearing of the indications, risks, benefits and alternatives.
[2016-10-25] MEDS: clonazePAM TAB(*) 1 MG PO PRN (20:21)
[2016-10-25] MEDS: diPHENhydraMINE PO* 25 MG PO PRN (20:22)
[2016-10-26] MEDS: Propranolol TAB* 20 MG PO SCH ×2 (10:15→20:27)
[2016-10-26] MEDS: clonazePAM TAB(*) 1 MG PO SCH (10:17)
[2016-10-26] MEDS: fluPHENAZine HCL TAB* 5 MG PO SCH ×2 (10:17→20:30)
--- NOTE | 2016-10-26 16:21 | PN ---
Subjective - Subjective Service Type: 92309 Hosp care 15 min low complexity Subjective: The patient reports that she is feeling better and is future oriented, wanting to get a job and return to work in the community. [facility]. She denies SI or HI and paranoia is reduced. Objective - Appearance Appearance: Obese Dysmorphic Features: No Hygiene: Normal Grooming: Fairly Well Kept - Behavior Psychomotor Activities: Normal Exhibits Abnormal Movement: No - Attitude and Relatedness Attitude and Relatedness: Cooperative Eye Contact: Fair - Speech Quality: Unpressured Latencies: Normal Quantity: Appropriate - Mood Patient's Decription of Mood: "Okay" - Affect Observed Affect: Tense Affect Consistent with: Euthymia - Thought Process Patient's Thought Process: Coherent Thought Content: Yes Paranoid Ideation, No Passive Wish, No Suicidal Planning, No Homicidal Ideation - Sensorium Experiencing Hallucinations: No, Sensorium is Clear Type of Hallucinations: Visual: No, Auditory: No, Command: No - Level of Consciousness Level of Consciousness: Alert Orientation: Yes Intact, Yes Orientated to Time, Yes Orientated to Place, Yes Orientated to Person - Impulse Control Impulse Control: Tenuous - Insight and Judgement Insight and Judgement: Fair - Group Participation Particating in Group Activities: No - Medication Management Medication Management Adherence: Yes Assessment - Assessment Merits Inpatient Hospitalization: Consolidate Improvements, Pending Safe DC Plan Inpatient DSM-IV Dx: Schizophrenia Clinical Impression: 25 y.o. single, AA female with a history of schizophrenia and several past psychiatric hospitalizations, mostly in [place], [place], who arrived voluntarily, accompanied by a case work aide, complaining of irritability, SI and HI without specific target. Plan - Plan Treatment Plan: Name: Poonam DILLON Birthdate: 1990 [id number] The patient is now receiving a trial of fluphenazine 10mg PO qam and 15mg PO qhs with mild symptomatic improvement. She is also taking propranolol 20mg PO BID in order to reduce BP, anxiety and prevent akathisia. Will defer transfer to [facility] for now. Continued Medication Management: Different Medication Medications: Current Medications Al Hydrox/Mg Hydrox/Simethicone (Maalox Plus*) 30 ml PO Q6H PRN PRN Reason: INDIGESTION Last Admin: 10/10/16 05:17 Dose: 30 ml Benzonatate (Tessalon Cap*) 100 mg PO Q8H PRN PRN Reason: COUGH Last Admin: 10/14/16 16:56 Dose: 100 mg Clonazepam (Klonopin Tab(*)) 1 mg PO DAILY [facility] Last Admin: 10/26/16 10:17 Dose: 1 mg Clonazepam (Klonopin Tab(*)) 2 mg PO BEDTIME PRN PRN Reason: AGITATION/ANXIETY/INSOMNIA Last Admin: 10/25/16 20:21 Dose: 2 mg Diphenhydramine HCl (Benadryl Po*) 50 mg PO Q4H PRN PRN Reason: ANXIETY/INSOMNIA Last Admin: 10/20/16 22:10 Dose: 50 mg Diphenhydramine HCl (Benadryl Po*) 75 mg PO BEDTIME PRN PRN Reason: INSOMNIA Last Admin: 10/25/16 20:22 Dose: 75 mg Fluphenazine HCl (Prolixin Tab*) 15 mg PO BEDTIME [facility] Last Admin: 10/25/16 20:20 Dose: 15 mg Fluphenazine HCl (Prolixin Tab*) 10 mg PO DAILY [facility] Last Admin: 10/26/16 10:17 Dose: 10 mg Nicotine (Nicotine Inhaler*) 10 mg INH Q2H PRN PRN Reason: CRAVING Last Admin: 10/06/16 14:04 Dose: 10 mg Promethazine HCl (Phenergan Tab*) 25 mg PO Q6H PRN PRN Reason: NAUSEA Last Admin: 10/08/16 20:36 Dose: 25 mg Propranolol HCl (Inderal Tab*) 20 mg PO BID [facility] Last Admin: 10/26/16 10:15 Dose: 20 mg Throat Lozenges (Chloraseptic Elisabeth*) 1 elisabeth PO Q6H PRN PRN Reason: SORE THROAT Last Admin: 10/09/16 05:54 Dose: 1 elisabeth - Discharge Plan Discharge Plan: Inpatient Hospitalization
[2016-10-26] MEDS: diPHENhydraMINE PO* 25 MG PO PRN (20:26)
[2016-10-26] MEDS: clonazePAM TAB(*) 1 MG PO PRN (20:27)
[2016-10-27] MEDS: fluPHENAZine HCL TAB* 5 MG PO SCH ×2 (11:33→20:36)
[2016-10-27] MEDS: Propranolol TAB* 20 MG PO SCH ×2 (11:34→20:36)
[2016-10-27] MEDS: clonazePAM TAB(*) 1 MG PO SCH (11:37)
--- NOTE | 2016-10-27 11:53 | PN ---
Subjective - Subjective Service Type: [id number] Hosp care 15 min low complexity Subjective: Caroline continues to endorse feeling better on the unit. She states that her paranoia is decreasing and she feels hopeful about the future in terms of getting a job and staying in her current apartment. She denies SI or HI. Objective - Appearance Appearance: Well Developed/Nourished, Obese Dysmorphic Features: No Hygiene: Normal Grooming: Fairly Well Kept - Behavior Psychomotor Activities: Normal Exhibits Abnormal Movement: No - Attitude and Relatedness Attitude and Relatedness: Cooperative Eye Contact: Fair - Speech Quality: Unpressured Latencies: Normal Quantity: Terse - Mood Patient's Decription of Mood: "Okay" - Affect Observed Affect: Fair Affect Consistent with: Euthymia - Thought Process Patient's Thought Process: Coherent Thought Content: Yes Paranoid Ideation, No Passive Wish, No Suicidal Planning, No Homicidal Ideation - Sensorium Experiencing Hallucinations: No, Sensorium is Clear Type of Hallucinations: Visual: No, Auditory: No, Command: No - Level of Consciousness Level of Consciousness: Alert Orientation: Yes Intact, Yes Orientated to Time, Yes Orientated to Place, Yes Orientated to Person - Impulse Control Impulse Control: Tenuous - Insight and Judgement Insight and Judgement: Fair - Group Participation Particating in Group Activities: No - Medication Management Medication Management Adherence: Yes Assessment - Assessment Merits Inpatient Hospitalization: Consolidate Improvements, Pending Safe DC Plan Inpatient DSM-IV Dx: Schizophrenia Clinical Impression: 25 y.o. single, AA female with a history of schizophrenia and several past psychiatric hospitalizations, mostly in [place], [place], who arrived voluntarily, accompanied by a patient case coordinator, complaining of irritability, SI and HI without specific target. Plan - Plan Treatment Plan: Name: Poonam DILLON Birthdate: 1990 [id number] The patient is now receiving a trial of fluphenazine 10mg PO qam and 15mg PO qhs with mild symptomatic improvement. She is also taking propranolol 20mg PO BID in order to reduce BP, anxiety and prevent akathisia. Will target (10/29) for d/c provided that improvements continue. Continued Medication Management: Different Medication Medications: Current Medications Al Hydrox/Mg Hydrox/Simethicone (Maalox Plus*) 30 ml PO Q6H PRN PRN Reason: INDIGESTION Last Admin: 10/10/16 05:17 Dose: 30 ml Benzonatate (Tessalon Cap*) 100 mg PO Q8H PRN PRN Reason: COUGH Last Admin: 10/14/16 16:56 Dose: 100 mg Clonazepam (Klonopin Tab(*)) 1 mg PO DAILY [facility] Last Admin: 10/27/16 11:37 Dose: 1 mg Clonazepam (Klonopin Tab(*)) 2 mg PO BEDTIME PRN PRN Reason: AGITATION/ANXIETY/INSOMNIA Last Admin: 10/26/16 20:27 Dose: 2 mg Diphenhydramine HCl (Benadryl Po*) 50 mg PO Q4H PRN PRN Reason: ANXIETY/INSOMNIA Last Admin: 10/20/16 22:10 Dose: 50 mg Diphenhydramine HCl (Benadryl Po*) 75 mg PO BEDTIME PRN PRN Reason: INSOMNIA Last Admin: 10/26/16 20:26 Dose: 75 mg Fluphenazine HCl (Prolixin Tab*) 15 mg PO BEDTIME [facility] Last Admin: 10/26/16 20:30 Dose: 15 mg Fluphenazine HCl (Prolixin Tab*) 10 mg PO DAILY [facility] Last Admin: 10/27/16 11:33 Dose: 10 mg Nicotine (Nicotine Inhaler*) 10 mg INH Q2H PRN PRN Reason: CRAVING Last Admin: 10/06/16 14:04 Dose: 10 mg Promethazine HCl (Phenergan Tab*) 25 mg PO Q6H PRN PRN Reason: NAUSEA Last Admin: 10/08/16 20:36 Dose: 25 mg Propranolol HCl (Inderal Tab*) 20 mg PO BID [facility] Last Admin: 10/27/16 11:34 Dose: 20 mg Throat Lozenges (Chloraseptic Elisabeth*) 1 elisabeth PO Q6H PRN PRN Reason: SORE THROAT Last Admin: 10/09/16 05:54 Dose: 1 elisabeth - Discharge Plan Discharge Plan: Inpatient Hospitalization
[2016-10-28] MEDS: fluPHENAZine HCL TAB* 5 MG PO SCH ×2 (08:47→21:20)
[2016-10-28] MEDS: clonazePAM TAB(*) 1 MG PO SCH (08:47)
[2016-10-28] MEDS: Propranolol TAB* 20 MG PO SCH ×2 (08:47→21:20)
--- NOTE | 2016-10-28 15:08 | PN ---
Subjective - Subjective Service Type: [id number] Hosp care 15 min low complexity Subjective: The patient is met, along with RAZA Bazan, in the hallway. Her affect appears brighter and she continues to endorse being ready for discharge. Although she experiencing mild paranoia, she is willing to follow up with outpatient services at [facility] and does acknowledge that the medicines have helped to resolve her SI, HI and AH. Objective - Appearance Appearance: Obese Dysmorphic Features: No Hygiene: Normal Grooming: Fairly Well Kept - Behavior Psychomotor Activities: Normal Exhibits Abnormal Movement: No - Attitude and Relatedness Attitude and Relatedness: Cooperative Eye Contact: Good - Speech Quality: Unpressured Latencies: Normal Quantity: Terse - Mood Patient's Decription of Mood: "Good" - Affect Observed Affect: Good Affect Consistent with: Euthymia - Thought Process Patient's Thought Process: Coherent Thought Content: Yes Paranoid Ideation, No Passive Wish, No Suicidal Planning, No Homicidal Ideation - Sensorium Experiencing Hallucinations: No, Sensorium is Clear Type of Hallucinations: Visual: No, Auditory: No, Command: No - Level of Consciousness Level of Consciousness: Alert Orientation: Yes Intact, Yes Orientated to Time, Yes Orientated to Place, Yes Orientated to Person - Impulse Control Impulse Control: Tenuous - Insight and Judgement Insight and Judgement: Fair - Group Participation Particating in Group Activities: No - Medication Management Medication Management Adherence: Yes Assessment - Assessment Merits Inpatient Hospitalization: Consolidate Improvements, Pending Safe DC Plan Inpatient DSM-IV Dx: Schizophrenia Clinical Impression: 25 y.o. single, AA female with a history of schizophrenia and several past psychiatric hospitalizations, mostly in [place], [place], who arrived voluntarily, accompanied by a bottle caser, complaining of irritability, SI and HI without specific target. Plan - Plan Treatment Plan: Name: Poonam DILLON Birthdate: 1990 [id number] The patient is now receiving a trial of fluphenazine 10mg PO qam and 15mg PO qhs with fair symptomatic improvement. She is also taking propranolol 20mg PO BID in order to reduce BP, anxiety and prevent akathisia. Will target tomorrow (10/29) for d/c provided that improvements continue. Continued Medication Management: Different Medication Medications: Current Medications Al Hydrox/Mg Hydrox/Simethicone (Maalox Plus*) 30 ml PO Q6H PRN PRN Reason: INDIGESTION Last Admin: 10/10/16 05:17 Dose: 30 ml Benzonatate (Tessalon Cap*) 100 mg PO Q8H PRN PRN Reason: COUGH Last Admin: 10/14/16 16:56 Dose: 100 mg Clonazepam (Klonopin Tab(*)) 1 mg PO DAILY [facility] Last Admin: 10/28/16 08:47 Dose: 1 mg Clonazepam (Klonopin Tab(*)) 2 mg PO BEDTIME PRN PRN Reason: AGITATION/ANXIETY/INSOMNIA Last Admin: 10/26/16 20:27 Dose: 2 mg Diphenhydramine HCl (Benadryl Po*) 50 mg PO Q4H PRN PRN Reason: ANXIETY/INSOMNIA Last Admin: 10/20/16 22:10 Dose: 50 mg Diphenhydramine HCl (Benadryl Po*) 75 mg PO BEDTIME PRN PRN Reason: INSOMNIA Last Admin: 10/26/16 20:26 Dose: 75 mg Fluphenazine HCl (Prolixin Tab*) 15 mg PO BEDTIME [facility] Last Admin: 10/27/16 20:36 Dose: 15 mg Fluphenazine HCl (Prolixin Tab*) 10 mg PO DAILY [facility] Last Admin: 10/28/16 08:47 Dose: 10 mg Nicotine (Nicotine Inhaler*) 10 mg INH Q2H PRN PRN Reason: CRAVING Last Admin: 10/06/16 14:04 Dose: 10 mg Promethazine HCl (Phenergan Tab*) 25 mg PO Q6H PRN PRN Reason: NAUSEA Last Admin: 10/08/16 20:36 Dose: 25 mg Propranolol HCl (Inderal Tab*) 20 mg PO BID [facility] Last Admin: 10/28/16 08:47 Dose: 20 mg Throat Lozenges (Chloraseptic Elisabeth*) 1 elisabeth PO Q6H PRN PRN Reason: SORE THROAT Last Admin: 10/09/16 05:54 Dose: 1 elisabeth - Discharge Plan Discharge Plan: Outpatient Follow Up Outpatient Program: [facility]
[2016-10-29 08:05] VITALS: BP 138/82
[2016-10-29] MEDS: Propranolol TAB* 20 MG PO SCH (09:31)
[2016-10-29] MEDS: fluPHENAZine HCL TAB* 5 MG PO SCH (09:31)
[2016-10-29] MEDS: clonazePAM TAB(*) 1 MG PO SCH (09:31)
--- NOTE | 2016-10-29 13:08 | DS ---
DATE OF ADMISSION: 09/22/2016. DATE OF DISCHARGE: 10/29/2016. DISCHARGE DIAGNOSES: AXIS I: Schizophrenia. AXIS II: Deferred. AXIS III: Hyperglycemia, unspecified cough, hypertension. AXIS IV: Moderate, primary support stressors. AXIS V: At the time admission was 35 and at the time of discharge is 60. CONDITION AT THE TIME OF DISCHARGE: Stable. The patient is calm and cooperative. She is denying suicidal or homicidal ideations. Over the last several days she has been much more social on the unit leaving her room to chat with peers and being more visible on the unit. Furthermore, her affect is significantly brighter than at the time of admission and the first part of her hospitalization. The patient does continue to complain of mild paranoia, but this has been gradually decreasing over the last several days of the hospitalization as her antipsychotic medication is kicking in. She is very much amenable to following up with outpatient services in the community. She is being picked up by her manager case management, Jae, from the [employer] and he is in agreement with the discharge plan. MENTAL STATUS EXAM AT THE TIME OF DISCHARGE: The patient is an overweight, - [place] female with fair grooming who is sitting on a couch in the day room. She is calm and cooperative. Speech has a normal rate, tone and volume, and it is easy to establish a rapport with her. Mood is euthymic with a full affect. Thought process is linear and goal-directed. Thought content significant for her desire to leave the hospital. 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 She denies suicidal or homicidal ideations. She denies auditory or visual hallucinations. Insight and judgment are fair given her willingness to follow-up with outpatient treatment. Cognitively, she is awake and alert with what would appear to be an average intellect. DISCHARGE INSTRUCTIONS TO THE PATIENT: A. Medications: She is on Prolixin 15 mg p.o. at bedtime, Klonopin 1 mg p.o. at bedtime, Propranolol 20 mg p.o. b.i.d. B. Diet: Regular. C. activities: As tolerated. The patient is strongly encouraged to abstain from tobacco products; however, she is declining continued nicotine replacement therapy on an outpatient basis indicating her preference to continue smoking for the time being. D. Follow-up care: She will be following up with [facility] within one week of discharge. She also has case management services and residential support through the [employer] with whom she is already well connected. HOSPITAL COURSE - PART A: Reason for admission: The patient is a 25-year-old, single, -Emir[place] female with a history of schizophrenia who was recently discharged from the hospital on 09/15/2016, who now returned to the hospital having been brought in by her director of casework department through the [employer] which is a local rn social services agency due to suicidal and homicidal ideations. The patient stated in the emergency room that she started to feel suicidal over the last several days and had been thinking that it may have been caused by the Haldol injection that she had received at the end of August during her most recent hospitalization. She indicates that she was feeling better when she was discharged, but she had been unable to sleep and started to develop vague homicidality without any specific target. She presented with rapid cycling speech and at times she appeared to be responding to internal stimuli. She denied ever acting out on any of her violent thoughts. She denied hurting either herself or anyone else. Currently at the time of admission, her examination revealed paranoid thinking and she was not able to give much of a spontaneous history. HOSPITAL COURSE - PART B: Psychiatric treatment rendered: The patient was readmitted to the Adult Behavioral Health Unit and placed on q.30 minute checks for her own safety. We immediately placed her on a trial of oral Abilify at 10 mg daily and after a couple of days when it was clear that she tolerated this well, we put a loading dose on Abilify Maintena at 400 mg IM times one. Unfortunately, her paranoia remained and she was isolative and not participatory in milieu treatment. She maintained that she was having auditory hallucinations as well as vague suicidality. We bumped up oral Abilify on top of her long-acting injectable to the point where the oral dose was 30 mg nightly. Despite this rather high dose of Aripiprazole, she failed to improve and at that point we discontinued Abilify and started her on a trial of Prolixin. Prolixin was started at the low dose of 5 mg daily and ultimately titrated to the dose of 10 mg in the morning and 15 mg at night. She was showing evidence of elevated blood pressure and also akathisia and for both of these problems we started a trial of Propranolol 20 mg twice daily, which she took to good effect. At times when she had insomnia, we used as needed Benadryl. In addition, we also started her on Klonopin 1 mg in the morning and 2 mg at night. At the end of her hospitalization, it was appearing as those she was overmedicated and therefore we cut back Clonazepam to 1 mg in the evening and Prolixin was decreased from 10 mg a.m. and 15 mg at night to just 15 mg at bedtime. She is tolerating these medications quite well and we have noticed a marked improvement. Specifically, she is now denying auditory hallucinations and her suicidal and homicidal ideations have been resolved for over a week at this point. There was some consideration for sending her to the [facility] ; however, she started to rally towards the end of her hospital course and at this time she is preferring outpatient treatment with the understanding that if she bounces back to the hospital fairly quickly, we may be forced to consider longer term treatment. At this point, she is being picked up by her case work, a man named Jae at the [facility], and follow-up will be at [facility]. [id number]/CPS #: [id number] [facility]ALTH[facility]ariam
== END 2016-10-29 14:35 | disposition home or self-care (01) | DRG 750 ==
LOC: ED 19:43 → BSU 09-22 16:26
PROVIDERS: ADMIT Psychiatry & Neurology Psychiatry; ATTEND Psychiatry & Neurology Psychiatry
DX: F20.9 Schizophrenia, unspecified (principal); E11.65 Type 2 diabetes mellitus with hyperglycemia; I10 Essential (primary) hypertension; R05 Cough; E66.3 Overweight; Z68.34 Body mass index [BMI] 34.0-34.9, adult; G47.00 Insomnia, unspecified; Z83.3 Family history of diabetes mellitus; F41.9 Anxiety disorder, unspecified
CPT/HCPCS: 36415; 80053; 80307; 80320; 80329; 81003; 81015; 84443; 85025; 90847; 99222; 99231; 99238; 99283; A9270-GY; G0480

== ENCOUNTER 2016-11-03 01:21 | Inpatient (IN) | payer SELFPAY ==
[2016-11-03] MEDS ORDERED: NS 0.9% 1000 ML* 1,000 ML IV ONE (01:24)
[2016-11-03] MEDS ORDERED: Ondansetron INJ* 2 MG/ML VIAL IV ONE (01:34)
[2016-11-03 02:08] LABS: Hematocrit 44 % (35-47); Hemoglobin 13.6 g/dl (12.0-16.0); Mean Corpuscular HGB Conc 31 g/dl (31-36); Mean Corpuscular Hemoglobin 21 pg (27-31); Mean Platelet Volume 11 um3 (7.4-10.4); Red Blood Count 6.36 10^6/ul (4.0-5.4); Red Cell Distribution Width 15 % (10.5-15); White Blood Count 12.3 10^3/ul (3.5-10.8)
[2016-11-03 02:09] LABS: Comments Flag Yes; Mean Corpuscular Volume 69 fL (80-97)
--- NOTE | 2016-11-03 02:13 | ED ---
Wale Horton Erika, scribed for Darren Rivera MD on 11/03/16 at 0123 . GI/ HPI - HPI Summary HPI Summary: Patient is a 25-year-old female BIBA to the ED with a CC of nausea and vomiting today for the past few hours. When asked what is wrong, pt just states she "feels sick." She has a Hx diabetes, and states she took insulin a few hours ago. Pt states she "sometimes" checks her blood glucose, and did not today. Pt denies pain, SOB, and diarrhea. She reports she still feels nauseated, and now notes dizziness. - History of Current Complaint Time Seen by Provider: 11/03/16 01:22 Stated Complaint: GENERAL ILLNESS Hx Obtained From: Patient, EMS Onset/Duration: Started Hours Ago, Atraumatic, Still Present Timing: Intermittent Severity: Moderate Associated Signs and Symptoms: Positive: Dizziness, Nausea, Vomiting. Negative : Diarrhea - Additional Pertinent History Primary Care Physician: RENE - Allergy/Home Medications Allergies/Adverse Reactions: Allergies Allergy/AdvReac Type Severity Reaction Status Date / Time No Known Allergies Allergy Verified 08/24/16 14:09 PMH/Surg Hx/FS Hx/Imm Hx Endocrine/Hematology History: 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 - per aunt Pankaj, triggered by invega injections Psychiatric History: Reports: Hx Inpatient Treatment, Hx Community Mental Health Tx, Hx Schizophrenia - last treated with Invega around February 2016 - not sure when pt stopped, Hx Substance Abuse Denies: Hx Eating Disorder, Hx of Violent Episodes Against Others - Family History Known Family History: Positive: Diabetes - mom w/ type 2, Other - dad - schizophrenia - Social History Alcohol Use: Occasionally Hx Substance Use: No Substance Use Type: Reports: None, Other Substance Use Comment - Amount & Last Used: unknown Hx Tobacco Use: Yes Smoking Status (MU): Former Smoker Have You Smoked in the Last Year: - has not smoked in the last 30 days Review of Systems Negative: Shortness Of Breath Positive: Vomiting, Nausea. Negative: Diarrhea Negative: Arthralgia, Myalgia Neurological: Other - dizziness All Other Systems Reviewed And Are Negative: Yes Physical Exam Triage Information Reviewed: Yes Vital Signs On Initial Exam: Initial Vital Signs Temp 98.7 F 11/03/16 01:28 Pulse 116 02/28/17 01:28 Resp 18 11/03/16 01:28 BP 148/90 11/03/16 01:28 Pulse Ox 97 11/03/16 01:28 Vital Signs Reviewed: Yes Appearance: Positive: Well-Appearing, No Pain Distress Skin: Positive: Warm Eyes: Positive: ROMEL ENT: Positive: Hearing grossly normal Neck: Positive: Supple Respiratory/Lung Sounds: Positive: Clear to Auscultation, Breath Sounds Present Cardiovascular: Positive: RRR Abdomen Description: Positive: Nontender, Soft Bowel Sounds: Positive: Present Musculoskeletal: Positive: Strength/ROM Intact Neurological: Positive: Sensory/Motor Intact, Normal Gait Psychiatric: Positive: Anxious Diagnostics - Vital Signs Vital Signs Temp Pulse Resp BP Pulse Ox 11/03/16 01:28 98.7 F 116 18 148/90 97 - Laboratory Lab Results: Lab Results 11/03/16 Range/Units 01:45 WBC 12.3 H (3.5-10.8) 10^3/ul RBC 6.36 H (4.0-5.4) 10^6/ul Hgb 13.6 (12.0-16.0) g/dl Hct 44 (35-47) % MCV 69 L (80-97) fL MCH 21 L (27-31) pg MCHC 31 (31-36) g/dl RDW 15 (10.5-15) % Plt Count 315 (150-450) 10^3/ul MPV 11 H (7.4-10.4) um3 Neut % (Auto) 69.7 (38-83) % Lymph % (Auto) 20.0 L (25-47) % Henderson % (Auto) 8.6 (1-9) % Eos % (Auto) 0.2 (0-6) % Baso % (Auto) 1.5 (0-2) % Absolute Neuts (auto) 8.6 H (1.5-7.7) 10^3/ul Absolute Lymphs (auto) 2.5 (1.0-4.8) 10^3/ul Absolute Monos (auto) 1.1 H (0-0.8) 10^3/ul Absolute Eos (auto) 0 (0-0.6) 10^3/ul Absolute Basos (auto) 0.2 (0-0.2) 10^3/ul Absolute Nucleated RBC 0 10^3/ul Nucleated RBC % 0 Result Diagrams: 11/03/16 01:45 11/03/16 04:33 Lab Statement: Any lab studies that have been ordered have been reviewed, and results considered in the medical decision making process. - EKG 02:16 Cardiac Rate: Tachycardia - at 109 bpm EKG Rhythm: Sinus Tachycardia ST Segment: Non-Specific GIGU Course/Dx - Course Assessment/Plan: A 25 y/o diabetic F presents to the ED with a CC of dizziness, nausea, and vomiting. Pt states she has not checked her blood glucose today. Blood work reveals a glucose of 340 and a carbon dioxide of 12. EKG shows sinus tachycardia with non-specific ST/T changes. Patient will be admitted to Dr. Bush for further work up and management. - Diagnoses Provider Diagnoses: DKA (diabetic ketoacidoses) - Physician Notifications Discussed Care Of Patient With: Dr. Bush (hospitalist) at 02:28 - agrees to admit Instructed by Provider To: Admit As Inpatient - Critical Care Time Critical Care Time: 30-74 min Discharge - Discharge Plan Condition: Fair Disposition: ADMITTED TO [facility] The documentation as recorded by the Wale latif Erika accurately reflects the service I personally performed and the decisions made by me, Darren Rivera MD.
[2016-11-03 02:23] LABS: ALT 57 U/L (7-52); Albumin 5.4 g/dL (3.2-5.2); Alkaline Phosphatase 75 U/L (34-104); BUN/Creatinine Ratio 9.3 (8-20); Blood Urea Nitrogen 10 mg/dL (6-24); Chloride 97 mmol/L (101-111); EGFR African American 80.9 (>60); EGFR Non-African American 62.9 (>60); Globulin 4.3 g/dL (2-4); Glucose 340 mg/dL (70-100); Sodium 129 mmol/L (133-145); Total Protein 9.7 g/dL (6.4-8.9)
[2016-11-03 02:25] LABS: CO2 Carbon Dioxide 12 mmol/L (22-32)
--- NOTE | 2016-11-03 04:03 | HP ---
H&P (Free Text) History and Physical: PCP: Milana Alvarez DO Date/Time of Evaluation: 11/03/2016 0430 CC: malaise, N/V HPI: Ms Rodriguez is a 25YO female HX insulin requiring DM & schizophrenia discharged from [facility] 10/29/2016 presenting giving vague details of malaise onset Wednesday or Wednesday progressing to N/V today. She reports chest pain only with emesis, but denies SOB, F/C, diarrhea, earache, sore throat, muscle aches, B/U/ F of urine, abdominal pain, or other issues. She states that she quit taking her insulin during the summer because her sugars were good. Neither is she taking her psychiatric medications as she does not care for the way they make her feel. Work up reveals hyperglycemia of 340 with a serum CO2 of 12, & vpH 7.23. Anion gap is pending. Observation will be arranged for DKA. PMedHx insulin requiring DM HTN schizophrenia Allergies No Known Allergies Allergy (Verified 08/24/16 14:09) Ambulatory Orders Propranolol TAB* [Inderal TAB*] 20 mg PO BID #60 tab 10/29/16 fluPHENAZine HCL TAB* [Prolixin TAB*] 15 mg PO BEDTIME #90 tab 10/29/16 clonazePAM TAB(*) [Klonopin TAB(*)] 1 mg PO BEDTIME #30 tab MDD 1 10/30/16 SocHx: denies tobacco and alcohol, admits to occasional marijuana but no other recreational drugs; FamHx: Estranged from her mother & father, no HX known. ROS: as above, otherwise reviewed and all were negative Constitutional: NAD, normally developed, obese black female vitals: Vital Signs Temp 37.1 C 11/03/16 01:28 Pulse 114 11/03/16 04:30 Resp 18 11/03/16 01:28 BP 140/86 11/03/16 04:30 Pulse Ox 98 11/03/16 04:30 Intake & Output 11/02/16 11/02/16 11/03/16 11:59 23:59 11:59 Weight 102.058 kg HEENM: atraumatic; sclera/conjunctiva: non-icteric/clear; hearing: clinically intact; oropharynx: clear, mucosa tacky Neck: soft tissue: non-tender; thyroid: normal Pulmonary: clear to auscultation bilaterally, good aeration, no accessory muscle use CV: RR/RR, normal S1S2, no carotid bruit, no jugular venous distention, 2+ B DP/ PT, no edema Abdominal: soft, non-distended, non-tender, no rebound/guarding/rigidity, normoactive bowel sounds, no hepatosplenomegaly or masses, no costovertebral angle tenderness Musculoskeletal: general: ; gait: Integumental: normal appearance and texture of exposed skin Psychiatric orientation: AA&O to PPS affect: calm mood: cooperative eye contact: fair content: seemingly reliable, but vague and occasionally evasive responses: mildly slowed insight: fair to poor Testing: Lab Results 11/03/16 11/03/16 11/03/16 Range/Units 01:45 01:45 01:45 WBC 12.3 H (3.5-10.8) 10^3/ul RBC 6.36 H (4.0-5.4) 10^6/ul Hgb 13.6 (12.0-16.0) g/dl Hct 44 (35-47) % MCV 69 L (80-97) fL MCH 21 L (27-31) pg MCHC 31 (31-36) g/dl RDW 15 (10.5-15) % Plt Count 315 (150-450) 10^3/ul MPV 11 H (7.4-10.4) um3 Neut % (Auto) 69.7 (38-83) % Lymph % (Auto) 20.0 L (25-47) % Jewell % (Auto) 8.6 (1-9) % Eos % (Auto) 0.2 (0-6) % Baso % (Auto) 1.5 (0-2) % Absolute Neuts (auto) 8.6 H (1.5-7.7) 10^3/ul Absolute Lymphs (auto) 2.5 (1.0-4.8) 10^3/ul Absolute Monos (auto) 1.1 H (0-0.8) 10^3/ul Absolute Eos (auto) 0 (0-0.6) 10^3/ul Absolute Basos (auto) 0.2 (0-0.2) 10^3/ul Absolute Nucleated RBC 0 10^3/ul Nucleated RBC % 0 VBG pH (7.33-7.43) VBG pCO2 (41-51) mmHg VBG pO2 (35-45) mmHg VBG HCO3 (24-28) mmol/L VBG O2 Saturation (70-80) % VBG Base Excess (0-4) Sodium 129 L (133-145) mmol/L Potassium TNP Chloride 97 L (101-111) mmol/L Carbon Dioxide 12 L* (22-32) mmol/L Anion Gap TNP BUN 10 (6-24) mg/dL Creatinine 1.08 H (0.51-0.95) mg/dL Est GFR ( Amer) 80.9 (>60) Est GFR (Non-Af Amer) 62.9 (>60) BUN/Creatinine Ratio 9.3 (8-20) Glucose 340 H (70-100) mg/dL Lactic Acid 1.7 (0.5-2.0) mmol/L Calcium 10.0 (8.6-10.3) mg/dL Magnesium TNP Total Bilirubin 0.60 (0.2-1.0) mg/dL AST TNP ALT 57 H (7-52) U/L Alkaline Phosphatase 75 (34-104) U/L Total Protein 9.7 H (6.4-8.9) g/dL Albumin 5.4 H (3.2-5.2) g/dL Globulin 4.3 H (2-4) g/dL Albumin/Globulin Ratio 1.3 (1-3) Beta HCG, Quant mIU/mL 11/03/16 11/03/16 11/03/16 Range/Units 01:45 02:40 04:33 WBC (3.5-10.8) 10^3/ul RBC (4.0-5.4) 10^6/ul Hgb (12.0-16.0) g/dl Hct (35-47) % MCV (80-97) fL MCH (27-31) pg MCHC (31-36) g/dl RDW (10.5-15) % Plt Count (150-450) 10^3/ul MPV (7.4-10.4) um3 Neut % (Auto) (38-83) % Lymph % (Auto) (25-47) % Jewell % (Auto) (1-9) % Eos % (Auto) (0-6) % Baso % (Auto) (0-2) % Absolute Neuts (auto) (1.5-7.7) 10^3/ul Absolute Lymphs (auto) (1.0-4.8) 10^3/ul Absolute Monos (auto) (0-0.8) 10^3/ul Absolute Eos (auto) (0-0.6) 10^3/ul Absolute Basos (auto) (0-0.2) 10^3/ul Absolute Nucleated RBC 10^3/ul Nucleated RBC % VBG pH 7.23 L (7.33-7.43) VBG pCO2 27 L (41-51) mmHg VBG pO2 74 H (35-45) mmHg VBG HCO3 13.4 L (24-28) mmol/L VBG O2 Saturation 97.3 H (70-80) % VBG Base Excess -14.6 L (0-4) Sodium (133-145) mmol/L Potassium 4.6 Chloride (101-111) mmol/L Carbon Dioxide (22-32) mmol/L Anion Gap BUN (6-24) mg/dL Creatinine (0.51-0.95) mg/dL Est GFR ( Amer) (>60) Est GFR (Non-Af Amer) (>60) BUN/Creatinine Ratio (8-20) Glucose (70-100) mg/dL Lactic Acid (0.5-2.0) mmol/L Calcium (8.6-10.3) mg/dL Magnesium 2.0 Total Bilirubin (0.2-1.0) mg/dL AST 46 H ALT (7-52) U/L Alkaline Phosphatase (34-104) U/L Total Protein (6.4-8.9) g/dL Albumin (3.2-5.2) g/dL Globulin (2-4) g/dL Albumin/Globulin Ratio (1-3) Beta HCG, Quant < 0.60 mIU/mL ECG, personally reviewed: NSR rate 106, no ischemia Impression: 25F presenting with DKA 2nd medical non-adherence DIAGNOSIS & PLAN Primary DKA : IVFs : Q1H glucometry : BMP/VBG in 4H : insulin GTT, no bolus until acidosis resolved : ICU monitoring : supplemental oxygen : obtain rapid influenza & UA : supportive care Secondary schizophrenia : continue propranolol, flufenazine, & clonazepam (U D/C regimen from 2016) Admission Rational: inpatient for ICU management of DKA, inappropriate for outpatient setting DVTp: SIMON Code Status: full
[2016-11-03 04:43] LABS: Venous Bicarbonate HCO3 13.4 mmol/L (24-28)
[2016-11-03 05:00] LABS: Albumin 5.2 g/dL (3.2-5.2); BUN/Creatinine Ratio 9.4 (8-20); Calcium 9.9 mg/dL (8.6-10.3); EGFR African American 92.6 (>60); Globulin 4.2 g/dL (2-4); Potassium 4.4 mmol/L (3.5-5.0); Total Bilirubin 0.5 mg/dL (0.2-1.0); Total Protein 9.4 g/dL (6.4-8.9)
[2016-11-03] MEDS ORDERED: Acetaminophen TAB* 325 MG PO PRN (05:14)
[2016-11-03] MEDS ORDERED: traMADol TAB* 50 MG PO PRN (05:14)
[2016-11-03] MEDS ORDERED: Melatonin (NF) 3 MG TAB PO PRN (05:14)
[2016-11-03] MEDS ORDERED: NS 0.9% 1000 ML* 2,000 ML IV ONE (05:14)
[2016-11-03] MEDS ORDERED: Ondansetron INJ* 2 MG/ML VIAL IV PRN (05:14)
[2016-11-03] MEDS ORDERED: Insulin REGULAR(*) 100 UNITS in NS 0.9% 100 ML* 100 ML IV SCH ×4 (06:00)
[2016-11-03] MEDS ORDERED: NS 0.9% 1000 ML* 3,000 ML IV ONE (06:14)
[2016-11-03] MEDS: D5NS 0.9% 1000 ML BAG* 1,000 ML IV SCH ×2 (06:32→10:15)
[2016-11-03 08:18] LABS: Venous Bicarbonate HCO3 14.4 mmol/L (24-28)
[2016-11-03 08:30] LABS: BUN/Creatinine Ratio 8.9 (8-20); Calcium 8.5 mg/dL (8.6-10.3); EGFR Non-African American 90.2 (>60); Potassium 3.7 mmol/L (3.5-5.0)
[2016-11-03] MEDS: Docusate CAP* 100 MG PO SCH ×2 (08:39→21:08)
[2016-11-03] MEDS ORDERED: Pantoprazole IV* 40 MG IV SCH (09:00)
[2016-11-03] MEDS ORDERED: Insulin GLARGINE(*) 1 UNITS UNIT SUBCUT ONE ×2 (10:02→18:21)
--- NOTE | 2016-11-03 10:10 | PN ---
Subjective Date of Service: 11/03/16 Interval History: Sl nausea still. Pt states she hasn't taken insulin since last summer, but was on 30 U Lantus daily plus Novalog 12-15 U ac. She hasn't been checking her FS although she has a glucometer. No new c/o. Objective Active Medications: Acetaminophen (Tylenol Tab*) 650 mg PO Q6H PRN PRN Reason: FEVER/PAIN Docusate Sodium (Colace Cap*) 200 mg PO BID [facility] Last Admin: 11/03/16 08:39 Dose: Not Given Insulin Human Regular 100 (units/ Sodium Chloride) 100 mls @ 10.2 mls/hr IV .( INITIAL RATE) [facility] PRN Reason: 0.1 UNITS/KG/HR Dextrose/Sodium Chloride (D5ns 0.9% 1000 Ml Bag*) 1,000 mls @ 250 mls/hr IV PER RATE [facility] Last Admin: 11/03/16 06:32 Dose: 250 mls/hr Sodium Chloride (Ns 0.9% 1000 Ml*) 3,000 mls @ 750 mls/hr IV ONCE ONE Stop: 11/03/16 10:13 Last Admin: 11/03/16 06:32 Dose: 750 mls/hr Melatonin (Melatonin (Nf)) 3 mg PO BEDTIME PRN; Protocol PRN Reason: Sleep Ondansetron HCl (Zofran Inj*) 4 mg IV Q6H PRN PRN Reason: NAUSEA Pantoprazole Sodium (Protonix Iv*) 40 mg IV DAILY [facility] Last Admin: 11/03/16 08:56 Dose: 40 mg Tramadol HCl (Ultram*) 50 mg PO Q6H PRN PRN Reason: PAIN Vital Signs 11/03/16 11/03/16 11/03/16 05:27 05:30 05:41 Temperature 98.6 F Pulse Rate 104 105 109 Respiratory 18 Rate Blood Pressure 156/100 151/90 143/89 (mmHg) O2 Sat by Pulse 99 98 100 Oximetry 11/03/16 11/03/16 11/03/16 06:00 06:04 07:00 Temperature Pulse Rate 101 107 112 Respiratory 18 15 19 Rate Blood Pressure 143/89 146/75 (mmHg) O2 Sat by Pulse 99 99 100 Oximetry 11/03/16 11/03/16 11/03/16 08:00 08:11 09:00 Temperature 98.0 F Pulse Rate 101 Respiratory 30 22 Rate Blood Pressure 134/67 (mmHg) O2 Sat by Pulse 99 Oximetry 11/03/16 11/03/16 09:06 09:43 Temperature Pulse Rate Respiratory 22 20 Rate Blood Pressure (mmHg) O2 Sat by Pulse Oximetry Oxygen Devices in Use Now: None Appearance: Alert, in a chair. In good spirit.s Looks comfortable. Eyes: No Scleral Icterus Neck: NL Appearance and Movements; NL JVP, No Thyroid Enlargement, Masses Respiratory: Symmetrical Chest Expansion and Respiratory Effort, Clear to Auscultation, Clear to Percussion Cardiovascular: NL Sounds; No Murmurs; No JVD, RRR, No Edema, - Extremities: No Edema, No Clubbing, Cyanosis, - Skin: No Rash or Ulcers, No Nodules or Sclerosis, - Neurological: Alert and Oriented x 3, NL Sensation Result Diagrams: 11/03/16 01:45 11/03/16 08:00 Additional Lab and Data: Lab Results 11/03/16 Range/Units 01:45 WBC 12.3 H (3.5-10.8) 10^3/ul RBC 6.36 H (4.0-5.4) 10^6/ul Hgb 13.6 (12.0-16.0) g/dl Hct 44 (35-47) % MCV 69 L (80-97) fL MCH 21 L (27-31) pg MCHC 31 (31-36) g/dl RDW 15 (10.5-15) % Plt Count 315 (150-450) 10^3/ul MPV 11 H (7.4-10.4) um3 Neut % (Auto) 69.7 (38-83) % Lymph % (Auto) 20.0 L (25-47) % Dixon % (Auto) 8.6 (1-9) % Eos % (Auto) 0.2 (0-6) % Baso % (Auto) 1.5 (0-2) % Absolute Neuts (auto) 8.6 H (1.5-7.7) 10^3/ul Absolute Lymphs (auto) 2.5 (1.0-4.8) 10^3/ul Absolute Monos (auto) 1.1 H (0-0.8) 10^3/ul Absolute Eos (auto) 0 (0-0.6) 10^3/ul Absolute Basos (auto) 0.2 (0-0.2) 10^3/ul Absolute Nucleated RBC 0 10^3/ul Nucleated RBC % 0 Microbiology and Other Data: Microbiology 11/03/16 06:00 Nasal Screen MRSA (PCR)([facility]) - Final Nasal Mrsa Negative 11/03/16 06:00 Influenza Types A,B Antigen ([facility]) - Final Nasal Specimen received for Influenza A/B Molecular testing Assess/Plan/Problems-Billing Assessment: - Patient Problems (1) DKA (diabetic ketoacidoses) Current Visit: Yes Status: Acute Code(s): E13.10 - OTH DIABETES MELLITUS WITH KETOACIDOSIS WITHOUT COMA SNOMED Code(s): 235834773 Comment: Due to not adminstering insulin. DM may be related to antipsychotic meds/obesity. If anion gap wnl will stop insulin drip. Start Lantus AM 11/03. Diabetic education ordered. (2) Schizophrenia Current Visit: No Status: Acute Code(s): F20.9 - SCHIZOPHRENIA, UNSPECIFIED SNOMED Code(s): 36595537 Comment: Continue fluphenazine.
[2016-11-03 12:08] LABS: BUN/Creatinine Ratio 8.7 (8-20); Blood Urea Nitrogen 6 mg/dL (6-24); Calcium 7.5 mg/dL (8.6-10.3); Chloride 110 mmol/L (101-111); EGFR African American 135.6 (>60); EGFR Non-African American 105.4 (>60); Glucose 218 mg/dL (70-100); Sodium 132 mmol/L (133-145)
[2016-11-03 12:15] LABS: CO2 Carbon Dioxide 14 mmol/L (22-32)
[2016-11-03] MEDS ORDERED: Dextrose 50% Syringe 50 ML* 25 GM/50 ML SYRINGE IV PUSH PRN ×2 (12:27→18:21)
[2016-11-03] MEDS: Insulin LISPRO* 1 UNITS UNIT SUBCUT SCH ×3 (12:37→21:07)
[2016-11-03] MEDS ORDERED: Insulin LISPRO* 1 UNITS UNIT SUBCUT ONE (18:21)
[2016-11-03 21:35] LABS: Urine Bacteria Absent (Absent); Urine Bilirubin Negative (Negative); Urine Glucose 3+(>=500 mg/dL) (Negative); Urine Nitrite Negative (Negative)
[2016-11-04] MEDS: Insulin LISPRO* 1 UNITS UNIT SUBCUT SCH ×5 (08:44→19:15)
[2016-11-04] MEDS: Insulin GLARGINE(*) 1 UNITS UNIT SUBCUT SCH (08:46)
[2016-11-04] MEDS: Docusate CAP* 100 MG PO SCH ×2 (08:47→21:28)
[2016-11-04] MEDS ORDERED: Insulin GLARGINE(*) 1 UNITS UNIT SUBCUT SCH (09:00)
[2016-11-04 13:02] LABS: C-Peptide ng/ml 4.6 ng/mL (1.1 - 4.4)
[2016-11-04] MEDS ORDERED: Dextrose 50% Syringe 50 ML* 25 GM/50 ML SYRINGE IV PUSH PRN (13:37)
--- NOTE | 2016-11-04 13:45 | PN ---
Subjective Date of Service: 11/04/16 Interval History: Patient seen this morning. No complaints although not eating much. Says she used to be on insulin in the past but has not been on it for 6 months. Says she has been told she has Type 1 DM. Says she is feeling more paranoid, requesting psych consultation. Family History: Unchanged from Admission Social History: Unchanged from Admission Past Medical History: Unchanged from Admission Objective Active Medications: Acetaminophen (Tylenol Tab*) 650 mg PO Q6H PRN Dextrose (D50w Syringe 50 Ml*) 12.5 gm IV PUSH .FOR FS < 60 - SS PRN Dextrose (D50w Syringe 50 Ml*) 12.5 gm IV PUSH .FOR FS < 60 - SS PRN Docusate Sodium (Colace Cap*) 200 mg PO BID [facility]O Insulin Glargine (Lantus(*)) 40 units SUBCUT DAILY [facility]O Insulin Human Lispro (Humalog*) 0 units SUBCUT ACHS MILO Insulin Human Lispro (Humalog*) 0 - 20 units SUBCUT AC [facility]O Ondansetron HCl (Zofran Inj*) 4 mg IV Q6H PRN Tramadol HCl (Ultram*) 50 mg PO Q6H PRN Vital Signs 11/03/16 11/03/16 11/03/16 14:00 14:19 14:24 Temperature 98.1 F 98.1 F Pulse Rate 91 82 82 Respiratory 21 16 16 Rate Blood Pressure 135/66 135/66 (mmHg) O2 Sat by Pulse 99 99 99 Oximetry 11/04/16 11/04/16 11/04/16 03:25 07:12 08:00 Temperature 98.0 F 97.9 F Pulse Rate 92 82 Respiratory 16 18 16 Rate Blood Pressure 152/78 147/77 (mmHg) O2 Sat by Pulse 99 99 Oximetry Oxygen Devices in Use Now: None Appearance: Young, obese, AAF, laying in bed in NAD Eyes: No Scleral Icterus Ears/Nose/Mouth/Throat: Mucous Membranes Moist Neck: NL Appearance and Movements; NL JVP Respiratory: Symmetrical Chest Expansion and Respiratory Effort, Clear to Auscultation Cardiovascular: NL Sounds; No Murmurs; No JVD, RRR Abdominal: NL Sounds; No Tenderness; No Distention Lymphatic: No Cervical Adenopathy Extremities: No Edema Skin: No Rash or Ulcers Neurological: Alert and Oriented x 3 Result Diagrams: 11/03/16 01:45 11/03/16 12:45 Additional Lab and Data: Microbiology and Other Data: Assess/Plan/Problems-Billing Assessment: DKA in a 25 yo F with hx of schizophrenia, DM - Patient Problems (1) DKA (diabetic ketoacidoses) Current Visit: Yes Comment: Continue Lantus 40 units qhs, HISS/CC. Diabetes education ordered. (2) Schizophrenia Current Visit: No Comment: Continue fluphenazine, clonazepam, propranolol (3) DVT prophylaxis Current Visit: Yes Comment: SIMON/ambulate
--- NOTE | 2016-11-04 14:48 | CONSULT ---
Identification - Patient Identification Reason for Psychiatric Consultation: Other - Paranoia -: Patient is a 25 year old, F admitted on 11/03/16. - MHU Identification Employment Status: Unemployed Hx Psychiatric Hospitalization: Yes Prior Psychiatric Diagnosis: Schizophrenia History - Objective HPI: Psychiatry is asked to evaluate symptoms of paranoia in this 25 y.o. single, AA female with a history of recent admission to the [facility] between 09/22/16 and 10/29/16 , who is currently hospitalized on the medical service due to complications of untreated diabetes. For further history, please refer to this clinician's H&P, dated 09/23/16. Apparently the patient self-discontinued her medications, including oral fluphenazine, clonazepam and propranolol immediately after discharge, feeling that they were not helping her. She began experiencing symptoms of nausea and vomiting, later resulting in hospitalization where it was discovered that her blood glucose was grossly elevated. She has complained to the primary team of ongoing symptoms of paranoia and is requesting voluntary readmission to the psych unit following medical clearance. She expresses willingness to try fluphenazine as a long-acting IM injectable. She denies SI or HI and is very cooperative with the interview. Lab Results: Laboratory Tests 11/03/16 11/03/16 11/03/16 06:05 07:04 07:15 VBG pH VBG pCO2 VBG pO2 VBG HCO3 VBG O2 Saturation VBG Base Excess Sodium Potassium Chloride Carbon Dioxide Anion Gap BUN Creatinine Est GFR ( Amer) Est GFR (Non-Af Amer) BUN/Creatinine Ratio Glucose POC Glucose (mg/dL) 264 H 253 H Calcium Urine Color Urine Appearance Urine pH Ur Specific [place] Urine Protein Urine Ketones Urine Blood Urine Nitrate Urine Bilirubin Urine Urobilinogen Ur Leukocyte Esterase Urine WBC (Auto) Urine RBC (Auto) Ur Squamous Epith Cells Urine Bacteria Urine Glucose Influenza A (Rapid) Negative Influenza B (Rapid) Negative 11/03/16 11/03/16 11/03/16 08:00 08:00 09:30 VBG pH 7.22 L VBG pCO2 32 L VBG pO2 88 H VBG HCO3 14.4 L VBG O2 Saturation 98.4 H VBG Base Excess -13.5 L Sodium 133 Potassium 3.7 Chloride 107 Carbon Dioxide 14 L* Anion Gap 12 H BUN 7 Creatinine 0.79 Est GFR ( Amer) 116.0 Est GFR (Non-Af Amer) 90.2 BUN/Creatinine Ratio 8.9 Glucose 252 H POC Glucose (mg/dL) 119 H Calcium 8.5 L Urine Color Urine Appearance Urine pH Ur Specific [place] Urine Protein Urine Ketones Urine Blood Urine Nitrate Urine Bilirubin Urine Urobilinogen Ur Leukocyte Esterase Urine WBC (Auto) Urine RBC (Auto) Ur Squamous Epith Cells Urine Bacteria Urine Glucose Influenza A (Rapid) Influenza B (Rapid) 11/03/16 11/03/16 11/03/16 10:05 11:01 11:35 VBG pH VBG pCO2 VBG pO2 VBG HCO3 VBG O2 Saturation VBG Base Excess Sodium 132 L Potassium TNP Chloride 110 Carbon Dioxide 14 L* Anion Gap TNP BUN 6 Creatinine 0.69 Est GFR ( Amer) 135.6 Est GFR (Non-Af Amer) 105.4 BUN/Creatinine Ratio 8.7 Glucose 218 H POC Glucose (mg/dL) 200 H 205 H Calcium 7.5 L Urine Color Urine Appearance Urine pH Ur Specific [place] Urine Protein Urine Ketones Urine Blood Urine Nitrate Urine Bilirubin Urine Urobilinogen Ur Leukocyte Esterase Urine WBC (Auto) Urine RBC (Auto) Ur Squamous Epith Cells Urine Bacteria Urine Glucose Influenza A (Rapid) Influenza B (Rapid) 11/03/16 11/03/16 11/03/16 12:45 18:12 20:50 VBG pH VBG pCO2 VBG pO2 VBG HCO3 VBG O2 Saturation VBG Base Excess Sodium Potassium 3.7 Chloride Carbon Dioxide Anion Gap BUN Creatinine Est GFR ( Amer) Est GFR (Non-Af Amer) BUN/Creatinine Ratio Glucose POC Glucose (mg/dL) 407 H* 351 H Calcium Urine Color Urine Appearance Urine pH Ur Specific [place] Urine Protein Urine Ketones Urine Blood Urine Nitrate Urine Bilirubin Urine Urobilinogen Ur Leukocyte Esterase Urine WBC (Auto) Urine RBC (Auto) Ur Squamous Epith Cells Urine Bacteria Urine Glucose Influenza A (Rapid) Influenza B (Rapid) 11/03/16 11/04/16 11/04/16 21:11 07:37 11:54 VBG pH VBG pCO2 VBG pO2 VBG HCO3 VBG O2 Saturation VBG Base Excess Sodium Potassium Chloride Carbon Dioxide Anion Gap BUN Creatinine Est GFR ( Amer) Est GFR (Non-Af Amer) BUN/Creatinine Ratio Glucose POC Glucose (mg/dL) 272 H 313 H Calcium Urine Color Straw Urine Appearance Clear Urine pH 5.0 Ur Specific [place] 1.024 Urine Protein Negative Urine Ketones Trace H Urine Blood 1+ H Urine Nitrate Negative Urine Bilirubin Negative Urine Urobilinogen Negative Ur Leukocyte Esterase Trace H Urine WBC (Auto) 2+(11-20/hpf) H Urine RBC (Auto) 2+(6-10/hpf) H Ur Squamous Epith Cells Present H Urine Bacteria Absent Urine Glucose 3+(>=500 mg/dl) H Influenza A (Rapid) Influenza B (Rapid) Exam Appearance: Obese Hygiene: Normal Grooming: Fairly Well Kept Psychomotor Activities: Normal Exhibits Abnormal Movement: No Attitude and Relatedness: Cooperative Eye Contact: Fair - Speech Quality: Unpressured Latencies: Normal Quantity: Terse Patient's Decription of Mood: "Anxious" Observed Affect: Fair Affect Consistent with: Euthymia Patient's Thought Process: Coherent Thought Content: Yes Paranoid Ideation, No Passive Wish, No Suicidal Planning, No Homicidal Ideation Experiencing Hallucinations: No, Sensorium is Clear Type of Hallucinations: Visual: No, Auditory: No, Command: No Level of Consciousness: Alert Orientation: Yes Intact, Yes Orientated to Time, Yes Orientated to Place, Yes Orientated to Person Impulse Control: Tenuous Insight and Judgement: Fair Impression - Impression Clinical Impression: 25 y.o. single, AA female with a history of recent admission to the [facility] between 09/[facility]/16 and 10/29/16, who is currently hospitalized on the medical service due to complications of untreated diabetes. Plan - Treatment Plan Treatment Plan: The patient was non-adherent with psychiatric medications following her recent d /c from the [facility] dated 10/29/16. She would benefit from resumption of neuroleptic therapy. We will order fluphenazine 50mg IM q2wks in the hopes that this improves adherence. Psychiatry will continue to follow daily. If she is still requesting psychiatric readmission once medically cleared this will be evaluated to see if medically necessary. Continued Medication Management: Start Medication Medications: Current Medications Acetaminophen (Tylenol Tab*) 650 mg PO Q6H PRN PRN Reason: FEVER/PAIN Clonazepam (Klonopin Tab(*)) 1 mg PO BEDTIME [facility] Dextrose (D50w Syringe 50 Ml*) 12.5 gm IV PUSH .FOR FS < 60 - SS PRN PRN Reason: FS < 60 Docusate Sodium (Colace Cap*) 200 mg PO BID [facility] Last Admin: 11/04/16 08:47 Dose: Not Given Fluphenazine HCl (Prolixin Tab*) 15 mg PO BEDTIME [facility] Insulin Glargine (Lantus(*)) 40 units SUBCUT DAILY [facility] Last Admin: 11/04/16 08:46 Dose: 40 unit Insulin Human Lispro (Humalog*) 0 units SUBCUT ACHS [facility] PRN Reason: Protocol Last Admin: 11/04/16 12:48 Dose: 12 units Insulin Human Lispro (Humalog*) 0 - 20 units SUBCUT AC [facility] PRN Reason: Protocol Ondansetron HCl (Zofran Inj*) 4 mg IV Q6H PRN PRN Reason: NAUSEA Propranolol HCl (Inderal Tab*) 20 mg PO BID [facility] Tramadol HCl (Ultram*) 50 mg PO Q6H PRN PRN Reason: PAIN
[2016-11-04] MEDS ORDERED: Fluphenazine Decanoate* 25 MG/ML 5 ML VIAL IM SCH (15:00)
--- NOTE | 2016-11-04 17:21 | CONSULT ---
Subjective Reason for Visit: Diabetes Education History Of Present Illness: 25 year old woman who reports being told that she was a type 1 diabetic. She was last seen for her diabetes when she was living in [facility]. Reports checking her blood glucose levels at home but says that she has not regularly taken insulin for the last 6 months. She is currently being evaluated by psychiatry and is not willing to have more blood taken today. Patient History Surgical History: None Highest Level of Education Completed: Some College Hx Tobacco Use: Yes Objective Allergies Allergy/AdvReac Type Severity Reaction Status Date / Time No Known Allergies Allergy Verified 08/24/16 14:09 Home Medications Medication Instructions Recorded Confirmed Type Propranolol TAB* [Inderal TAB*] 20 mg PO BID #60 tab 10/29/16 11/03/16 Rx clonazePAM TAB(*) [Klonopin TAB(*)] 1 mg PO BEDTIME #30 tab MDD 1 10/30/1611/03 Rx Fluphenazine Decanoate* [Prolixin 50 mg IM Q21D vial 11/06/16 Rx Decanoate*] Insulin GLARGINE(*) [Lantus(*)] 45 units SUBCUT DAILY unit 11/06/16 Rx Insulin LISPRO* [HumaLOG*] 0 - 20 units SUBCUT AC unit 11/06/16 Rx Insulin LISPRO* [HumaLOG*] 0 units SUBCUT ACHS unit 11/06/16 Rx Hospital Medications: Current Medications Acetaminophen (Tylenol Tab*) 650 mg PO Q6H PRN PRN Reason: FEVER/PAIN Clonazepam (Klonopin Tab(*)) 1 mg PO BEDTIME [facility] Dextrose (D50w Syringe 50 Ml*) 12.5 gm IV PUSH .FOR FS < 60 - SS PRN PRN Reason: FS < 60 Docusate Sodium (Colace Cap*) 200 mg PO BID [facility] Last Admin: 11/04/16 08:47 Dose: Not Given Fluphenazine Decanoate (Prolixin Decanoate*) 50 mg IM Q21D [facility] Insulin Glargine (Lantus(*)) 40 units SUBCUT DAILY [facility] Last Admin: 11/04/16 08:46 Dose: 40 unit Insulin Human Lispro (Humalog*) 0 units SUBCUT ACHS [facility] PRN Reason: Protocol Last Admin: 11/04/16 12:48 Dose: 12 units Insulin Human Lispro (Humalog*) 0 - 20 units SUBCUT AC [facility] PRN Reason: Protocol Ondansetron HCl (Zofran Inj*) 4 mg IV Q6H PRN PRN Reason: NAUSEA Propranolol HCl (Inderal Tab*) 20 mg PO BID [facility] Tramadol HCl (Ultram*) 50 mg PO Q6H PRN PRN Reason: PAIN Lab Data: VBG pH 7.22 (7.33-7.43) L 11/03/16 08:00 Sodium 132 mmol/L (133-145) L 11/03/16 11:35 Potassium 3.7 mmol/L (3.5-5.0) 11/03/16 12:45 BUN 6 mg/dL (6-24) 11/03/16 11:35 Creatinine 0.69 mg/dL (0.51-0.95) 11/03/16 11:35 Hemoglobin A1c 11.9 % (Less than 6.0) H 11/03/16 01:45 Calcium 7.5 mg/dL (8.6-10.3) L 11/03/16 11:35 Magnesium 2.0 mg/dL (1.9-2.7) 11/03/16 02:40 AST 40 U/L (13-39) H 11/03/16 04:33 ALT 51 U/L (7-52) 11/03/16 04:33 Vital Signs: Vital Signs 11/04/16 15:24 Temperature 98.1 F Pulse Rate 83 Respiratory 20 Rate Blood Pressure 150/77 (mmHg) O2 Sat by Pulse 99 Oximetry Height: 5 ft 7 in Weight: 216 lb 12.8 oz Body Mass Index (BMI): 33.9 Plan Of Care Patient's Next Step: Patient will be discharged from the medical floor when stable. She has had psychiatry consult and was started on Fluphenazine Decanoate injection today. She had a c-peptide level of 4.6 ng/ml so still has pancreatic function. Given her elevated HgbA1C level and poor glucose control, she will likely go home on basal insulin. Her management can include oral agents or a GLP1 receptor agonist when she is discharged to improve compliance and glycemic control. It would be helpful to have an insulin autoantibody panel done to see if she has Type 1 diabetes as she was told at her initial diagnosis. She may have JO ANN which would present in a similar manner. She will need extensive lifestyle counseling when she is discharged and is willing to follow up at [facility] for this. Referral To: [facility] For Further OutPT Diabetic Training Education Prior Diabetic Education: Yes Goals Goals: According to the [place] [employer], the following are your goals for Hemaglobin A1C, Blood Glucose, Hemaglobin A1C * <7.0% for most * A total of 25 minutes was spent at the bedside providing counseling and education.
[2016-11-04] MEDS ORDERED: fluPHENAZine HCL TAB* 5 MG PO SCH (21:00)
[2016-11-04] MEDS: Propranolol TAB* 20 MG PO SCH (21:27)
[2016-11-04] MEDS: clonazePAM TAB(*) 1 MG PO SCH (21:28)
[2016-11-05] MEDS: Docusate CAP* 100 MG PO SCH ×2 (07:58→20:22)
[2016-11-05] MEDS: Propranolol TAB* 20 MG PO SCH ×2 (08:42→20:22)
[2016-11-05] MEDS: Insulin LISPRO* 1 UNITS UNIT SUBCUT SCH ×7 (09:12→20:22)
[2016-11-05] MEDS: Insulin GLARGINE(*) 1 UNITS UNIT SUBCUT SCH (09:14)
--- NOTE | 2016-11-05 11:01 | CONSULT ---
Identification - Patient Identification Reason for Psychiatric Consultation: Other - Paranoia -: Patient is a 25 year old, F admitted on 11/03/16. - MHU Identification Employment Status: Unemployed Hx Psychiatric Hospitalization: Yes Prior Psychiatric Diagnosis: Schizophrenia History - Objective HPI: The patient is asleep as this clinician arrives for follow up and she resists multiple attempts to arouse her. I am told by her RN, Leanne, that Caroline refused many of her oral medications this morning, claiming to be feeling ill. I note that she did accept her initial dose of fluphenazine 50mg IM q3wks yesterday afternoon. It's uncertain whether her paranoia was relieved by this. Lab Results: Laboratory Tests 11/03/16 11/03/16 11/03/16 06:05 07:04 07:15 VBG pH VBG pCO2 VBG pO2 VBG HCO3 VBG O2 Saturation VBG Base Excess Sodium Potassium Chloride Carbon Dioxide Anion Gap BUN Creatinine Est GFR ( Amer) Est GFR (Non-Af Amer) BUN/Creatinine Ratio Glucose POC Glucose (mg/dL) 264 H 253 H Calcium Urine Color Urine Appearance Urine pH Ur Specific [place] Urine Protein Urine Ketones Urine Blood Urine Nitrate Urine Bilirubin Urine Urobilinogen Ur Leukocyte Esterase Urine WBC (Auto) Urine RBC (Auto) Ur Squamous Epith Cells Urine Bacteria Urine Glucose Influenza A (Rapid) Negative Influenza B (Rapid) Negative 11/03/16 11/03/16 11/03/16 08:00 08:00 09:30 VBG pH 7.22 L VBG pCO2 32 L VBG pO2 88 H VBG HCO3 14.4 L VBG O2 Saturation 98.4 H VBG Base Excess -13.5 L Sodium 133 Potassium 3.7 Chloride 107 Carbon Dioxide 14 L* Anion Gap 12 H BUN 7 Creatinine 0.79 Est GFR ( Amer) 116.0 Est GFR (Non-Af Amer) 90.2 BUN/Creatinine Ratio 8.9 Glucose 252 H POC Glucose (mg/dL) 119 H Calcium 8.5 L Urine Color Urine Appearance Urine pH Ur Specific [place] Urine Protein Urine Ketones Urine Blood Urine Nitrate Urine Bilirubin Urine Urobilinogen Ur Leukocyte Esterase Urine WBC (Auto) Urine RBC (Auto) Ur Squamous Epith Cells Urine Bacteria Urine Glucose Influenza A (Rapid) Influenza B (Rapid) 11/03/16 11/03/16 11/03/16 10:05 11:01 11:35 VBG pH VBG pCO2 VBG pO2 VBG HCO3 VBG O2 Saturation VBG Base Excess Sodium 132 L Potassium TNP Chloride 110 Carbon Dioxide 14 L* Anion Gap TNP BUN 6 Creatinine 0.69 Est GFR ( Amer) 135.6 Est GFR (Non-Af Amer) 105.4 BUN/Creatinine Ratio 8.7 Glucose 218 H POC Glucose (mg/dL) 200 H 205 H Calcium 7.5 L Urine Color Urine Appearance Urine pH Ur Specific [place] Urine Protein Urine Ketones Urine Blood Urine Nitrate Urine Bilirubin Urine Urobilinogen Ur Leukocyte Esterase Urine WBC (Auto) Urine RBC (Auto) Ur Squamous Epith Cells Urine Bacteria Urine Glucose Influenza A (Rapid) Influenza B (Rapid) 11/03/16 11/03/16 11/03/16 12:45 18:12 20:50 VBG pH VBG pCO2 VBG pO2 VBG HCO3 VBG O2 Saturation VBG Base Excess Sodium Potassium 3.7 Chloride Carbon Dioxide Anion Gap BUN Creatinine Est GFR ( Amer) Est GFR (Non-Af Amer) BUN/Creatinine Ratio Glucose POC Glucose (mg/dL) 407 H* 351 H Calcium Urine Color Urine Appearance Urine pH Ur Specific [place] Urine Protein Urine Ketones Urine Blood Urine Nitrate Urine Bilirubin Urine Urobilinogen Ur Leukocyte Esterase Urine WBC (Auto) Urine RBC (Auto) Ur Squamous Epith Cells Urine Bacteria Urine Glucose Influenza A (Rapid) Influenza B (Rapid) 11/03/16 11/04/16 11/04/16 21:11 07:37 11:54 VBG pH VBG pCO2 VBG pO2 VBG HCO3 VBG O2 Saturation VBG Base Excess Sodium Potassium Chloride Carbon Dioxide Anion Gap BUN Creatinine Est GFR ( Amer) Est GFR (Non-Af Amer) BUN/Creatinine Ratio Glucose POC Glucose (mg/dL) 272 H 313 H Calcium Urine Color Straw Urine Appearance Clear Urine pH 5.0 Ur Specific [place] 1.024 Urine Protein Negative Urine Ketones Trace H Urine Blood 1+ H Urine Nitrate Negative Urine Bilirubin Negative Urine Urobilinogen Negative Ur Leukocyte Esterase Trace H Urine WBC (Auto) 2+(11-20/hpf) H Urine RBC (Auto) 2+(6-10/hpf) H Ur Squamous Epith Cells Present H Urine Bacteria Absent Urine Glucose 3+(>=500 mg/dl) H Influenza A (Rapid) Influenza B (Rapid) 11/04/16 11/05/16 16:56 07:54 VBG pH VBG pCO2 VBG pO2 VBG HCO3 VBG O2 Saturation VBG Base Excess Sodium Potassium Chloride Carbon Dioxide Anion Gap BUN Creatinine Est GFR ( Amer) Est GFR (Non-Af Amer) BUN/Creatinine Ratio Glucose POC Glucose (mg/dL) 293 H 285 H Calcium Urine Color Urine Appearance Urine pH Ur Specific [place] Urine Protein Urine Ketones Urine Blood Urine Nitrate Urine Bilirubin Urine Urobilinogen Ur Leukocyte Esterase Urine WBC (Auto) Urine RBC (Auto) Ur Squamous Epith Cells Urine Bacteria Urine Glucose Influenza A (Rapid) Influenza B (Rapid) Exam Appearance: Obese Hygiene: Normal Grooming: Fairly Well Kept Psychomotor Activities: Normal Exhibits Abnormal Movement: No Attitude and Relatedness: Cooperative Eye Contact: Fair - Speech Quality: Unpressured Latencies: Normal Quantity: Terse Patient's Decription of Mood: "Anxious" Observed Affect: Fair Affect Consistent with: Euthymia Patient's Thought Process: Coherent Thought Content: Yes Paranoid Ideation, No Passive Wish, No Suicidal Planning, No Homicidal Ideation Experiencing Hallucinations: No, Sensorium is Clear Type of Hallucinations: Visual: No, Auditory: No, Command: No Level of Consciousness: Alert Orientation: Yes Intact, Yes Orientated to Time, Yes Orientated to Place, Yes Orientated to Person Impulse Control: Tenuous Insight and Judgement: Fair Impression - Impression Clinical Impression: 25 y.o. single, AA female with a history of recent [facility] to the [facility] between 09/[facility]/16 and 10/29/16, who is currently hospitalized on the medical service due to complications of untreated diabetes. The patient endorses paranoid symptoms but denies SI or HI. Plan - Treatment Plan Treatment Plan: The patient is now on fluphenazine 50mg IM q3wks in the hopes that this improves both her paranoid symptoms and her treatment adherence in the community. It's not certain at this time whether she would benefit from readmission to the [facility], as she denies SI or HI and does not appear grossly disorganized or violent. Patient is not yet medically cleared. Psychiatry will continue to follow daily. Continued Medication Management: Different Medication Medications: Current Medications Acetaminophen (Tylenol Tab*) 650 mg PO Q6H PRN PRN Reason: FEVER/PAIN Clonazepam (Klonopin Tab(*)) 1 mg PO BEDTIME [facility] Last Admin: 11/04/16 21:28 Dose: Not Given Dextrose (D50w Syringe 50 Ml*) 12.5 gm IV PUSH .FOR FS < 60 - SS PRN PRN Reason: FS < 60 Docusate Sodium (Colace Cap*) 200 mg PO BID [facility] Last Admin: 11/05/16 07:58 Dose: Not Given Fluphenazine Decanoate (Prolixin Decanoate*) 50 mg IM Q21D [facility] Last Admin: 11/04/16 17:03 Dose: 50 mg Insulin Glargine (Lantus(*)) 40 units SUBCUT DAILY [facility] Last Admin: 11/05/16 09:14 Dose: 30 unit Insulin Human Lispro (Humalog*) 0 units SUBCUT ACHS [facility] PRN Reason: Protocol Last Admin: 11/05/16 09:12 Dose: 9 units Insulin Human Lispro (Humalog*) 0 - 20 units SUBCUT AC [facility] PRN Reason: Protocol Last Admin: 11/05/16 09:13 Dose: 3 units Ondansetron HCl (Zofran Inj*) 4 mg IV Q6H PRN PRN Reason: NAUSEA Propranolol HCl (Inderal Tab*) 20 mg PO BID [facility] Last Admin: 11/05/16 08:42 Dose: Not Given Tramadol HCl (Ultram*) 50 mg PO Q6H PRN PRN Reason: PAIN
--- NOTE | 2016-11-05 14:34 | PN ---
Subjective Date of Service: 11/05/16 Interval History: Patient seen this morning. Awake and watching TV, would not turn the volume down. Said she refused her medications this morning because she doesn't "like pills". Inquired further as to how we will manage her DM and whether she would be open to taking PO hypoglycemics but she eventually just ignored my questioning and did not answer any further questions. She declined physical exam. Family History: Unchanged from Admission Social History: Unchanged from Admission Past Medical History: Unchanged from Admission Objective Active Medications: Acetaminophen (Tylenol Tab*) 650 mg PO Q6H PRN PRN Reason: FEVER/PAIN Clonazepam (Klonopin Tab(*)) 1 mg PO BEDTIME [facility] Last Admin: 11/04/16 21:28 Dose: Not Given Dextrose (D50w Syringe 50 Ml*) 12.5 gm IV PUSH .FOR FS < 60 - SS PRN PRN Reason: FS < 60 Docusate Sodium (Colace Cap*) 200 mg PO BID [facility] Last Admin: 11/05/16 07:58 Dose: Not Given Fluphenazine Decanoate (Prolixin Decanoate*) 50 mg IM Q21D [facility] Last Admin: 11/04/16 17:03 Dose: 50 mg Insulin Glargine (Lantus(*)) 40 units SUBCUT DAILY [facility] Last Admin: 11/05/16 09:14 Dose: 30 unit Insulin Human Lispro (Humalog*) 0 units SUBCUT ACHS [facility] PRN Reason: Protocol Last Admin: 11/05/16 13:14 Dose: 9 units Insulin Human Lispro (Humalog*) 0 - 20 units SUBCUT AC [facility] PRN Reason: Protocol Last Admin: 11/05/16 13:14 Dose: 6 units Metformin HCl (Glucophage*) 500 mg PO 0800,1700 [facility] Ondansetron HCl (Zofran Inj*) 4 mg IV Q6H PRN PRN Reason: NAUSEA Propranolol HCl (Inderal Tab*) 20 mg PO BID [facility] Last Admin: 11/05/16 08:42 Dose: Not Given Tramadol HCl (Ultram*) 50 mg PO Q6H PRN PRN Reason: PAIN Vital Signs 11/04/16 11/04/16 11/04/16 15:24 20:00 23:29 Temperature 98.1 F 98.0 F Pulse Rate 83 80 Respiratory 20 16 16 Rate Blood Pressure 150/77 133/70 (mmHg) O2 Sat by Pulse 99 99 Oximetry 11/05/16 11/05/16 11/05/16 03:51 08:00 08:07 Temperature 98.3 F 97.9 F Pulse Rate 81 72 Respiratory 16 18 18 Rate Blood Pressure 145/85 129/77 (mmHg) O2 Sat by Pulse 99 98 Oximetry Oxygen Devices in Use Now: None Appearance: Young, AAF, laying in bed in NAD Result Diagrams: 11/03/16 01:45 11/03/16 12:45 Additional Lab and Data: Microbiology and Other Data: Assess/Plan/Problems-Billing Assessment: DKA in a 25 yo F with hx of schizophrenia, DM - Patient Problems (1) DKA (diabetic ketoacidoses) Current Visit: Yes Comment: Continue Lantus 40 units qhs, HISS/CC. Appreciate childbirth educator input. Have ordered diabetes antibodies. Will order Metformin to see if patient will take it. (2) Schizophrenia Current Visit: No Comment: Continue fluphenazine, clonazepam, propranolol. Spoke with Dr. Degroot who will re-evaluate the patient tomorrow to see if he feels she would benefit from inpatient psych stay. (3) DVT prophylaxis Current Visit: Yes Comment: SIMON/ambulate Status and Disposition: Medically cleared although I don't think patient will be compliant with medications at this point outside of a supervised environment. Will await further input from Dr. Degroot.
[2016-11-05] MEDS: metFORMIN* 500 MG TAB PO SCH (18:58)
[2016-11-05] MEDS: clonazePAM TAB(*) 1 MG PO SCH (20:22)
[2016-11-06 08:14] VITALS: BP 122/66
[2016-11-06] MEDS: Docusate CAP* 100 MG PO SCH (09:07)
[2016-11-06] MEDS: metFORMIN* 500 MG TAB PO SCH (09:07)
[2016-11-06] MEDS: Insulin LISPRO* 1 UNITS UNIT SUBCUT SCH ×4 (09:12→13:17)
[2016-11-06] MEDS: Insulin GLARGINE(*) 1 UNITS UNIT SUBCUT SCH (09:14)
[2016-11-06] MEDS: Propranolol TAB* 20 MG PO SCH (10:10)
--- NOTE | 2016-11-06 10:33 | PN ---
Subjective Date of Service: 11/06/16 Interval History: Patient seen this morning. Says she does not want to take Metformin as she has been on it in the past and was taken off. Unsure why she was taken off. Hopeful she can go to Psych unit. Refuses physical exam. Family History: Unchanged from Admission Social History: Unchanged from Admission Past Medical History: Unchanged from Admission Objective Active Medications: Acetaminophen (Tylenol Tab*) 650 mg PO Q6H PRN Clonazepam (Klonopin Tab(*)) 1 mg PO BEDTIME [facility] Dextrose (D50w Syringe 50 Ml*) 12.5 gm IV PUSH .FOR FS < 60 - SS PRN Docusate Sodium (Colace Cap*) 200 mg PO BID [facility] Fluphenazine Decanoate (Prolixin Decanoate*) 50 mg IM Q21D [facility] Insulin Glargine (Lantus(*)) 40 units SUBCUT DAILY [facility] Insulin Human Lispro (Humalog*) 0 units SUBCUT ACHS [facility] Insulin Human Lispro (Humalog*) 0 - 20 units SUBCUT AC [facility] Metformin HCl (Glucophage*) 500 mg PO 0800,1700 [facility] Ondansetron HCl (Zofran Inj*) 4 mg IV Q6H PRN Propranolol HCl (Inderal Tab*) 20 mg PO BID [facility] Tramadol HCl (Ultram*) 50 mg PO Q6H PRN Vital Signs 11/05/16 11/05/16 11/06/16 15:21 20:00 00:06 Temperature 97.9 F 99.4 F Pulse Rate 87 92 Respiratory 20 16 16 Rate Blood Pressure 149/69 (mmHg) O2 Sat by Pulse 98 100 Oximetry 11/06/16 11/06/16 08:00 08:09 Temperature Pulse Rate 79 Respiratory 18 16 Rate Blood Pressure 122/66 (mmHg) O2 Sat by Pulse 99 Oximetry Oxygen Devices in Use Now: None Result Diagrams: 11/03/16 01:45 11/03/16 12:45 Additional Lab and Data: Microbiology and Other Data: Assess/Plan/Problems-Billing Assessment: DKA in a 25 yo F with hx of schizophrenia, DM - Patient Problems (1) DKA (diabetic ketoacidoses) Current Visit: Yes Comment: Continue HISS/CC. Increase Lantus to 45 units. Appreciate staff development educator input. Have ordered diabetes antibodies (patient refused blood draw). Will stop Metformin as patient refusing to take. (2) Schizophrenia Current Visit: No Comment: Continue fluphenazine depot injection, clonazepam, propranolol. Dr. Degroot to evaluate the patient today to decide whether she is suitable for BSU (3) DVT prophylaxis Current Visit: Yes Comment: SIMON/ambulate Status and Disposition: Medically cleared although I don't think patient will be compliant with medications at this point outside of a supervised environment. Will await further input from Dr. Degroot.
[2016-11-06] MEDS ORDERED: Insulin GLARGINE(*) 1 UNITS UNIT SUBCUT ONE (11:30)
--- NOTE | 2016-11-07 06:07 | DS ---
DISCHARGE SUMMARY: DATE OF ADMISSION: 11/03/16 DATE OF TRANSFER TO PSYCH UNIT: 11/06/16 PRINCIPAL DISCHARGE DIAGNOSES: 1. Diabetic ketoacidosis. 2. Diabetes. 3. Hypertension. 4. Schizophrenia. DISCHARGE MEDICATION REGIMEN: 1. Clonazepam 1 mg by mouth at bedtime. 2. Propranolol 20 mg by mouth 2 times daily. 3. Lantus 45 units daily. 4. Lispro sliding scale with meals. 5. Fluphenazine decanoate 50 mg IM q.21 days. HISTORY OF PRESENT ILLNESS AND HOSPITAL SUMMARY: Please see the full history and physical by Dr. Cornelio Bush for full details. Briefly, Ms. Rodriguez is a 25-year- old female with a past medical history of as above, who presented to the hospital with malaise, nausea, vomiting. She was found to be hyperglycemic with evidence of DKA. She was started on insulin drip with improvement in her anion gap. Throughout the hospitalization, the patient was not agreeable to fair many blood draws. We were unable to confirm complete resolution of acidosis. However, her BGs became somewhat better controlled. She was transitioned over to subcu insulin. She was seen by a museum technician. Additional insulin antibodies were ordered; however, the patient refused blood draw. She also refused any oral hypoglycemics. The patient was seen by Psychiatry initially at her request. She was initially on oral fluphenazine; however, Dr. Degroot switched her to injection. On the following day, she became more withdrawn and seemingly more paranoid. She was no longer agreeable to physical examination and did not do much talking. I do not feel that it was safe for her to be discharged home as I do not think she will be compliant with medications. Dr. Degroot agreed to transfer her down to the psych unit for further treatment down there. TIME SPENT: Total time spent on this discharge 40 minutes. This is a summary of the hospitalization. Please see the full medical record for further details. [id number]/[facility] #: [id number] [facility]
[2016-11-07] MEDS ORDERED: Insulin GLARGINE(*) 1 UNITS UNIT SUBCUT SCH (09:00)
== END 2016-11-06 14:15 | DRG 638 ==
LOC: ED 01:21 → ICU 05:11 → MED 12:29
PROVIDERS: ADMIT Hospitalist; ATTEND Hospitalist
DX: E10.10 Type 1 diabetes mellitus with ketoacidosis without coma (principal); F20.0 Paranoid schizophrenia; I10 Essential (primary) hypertension; F12.90 Cannabis use, unspecified, uncomplicated; E66.9 Obesity, unspecified; Z83.3 Family history of diabetes mellitus; Z81.8 Family history of other mental and behavioral disorders; Z72.89 Other problems related to lifestyle; Z87.891 Personal history of nicotine dependence; Z79.4 Long term (current) use of insulin; Z91.14 Patient's other noncompliance with medication regimen; Z68.33 Body mass index [BMI] 33.0-33.9, adult
CPT/HCPCS: 36415; 80048; 80053; 81003; 81015; 82803; 83036; 83605; 83735; 84681; 84702; 85025; 87086; 87502; 87641; 93005; 96374; 96375; 99285; A9270-GY; J1815; J2405; J2680

== ENCOUNTER 2016-11-06 11:10 | Inpatient (IN) | payer OTHER ==
[2016-11-06] MEDS ORDERED: Acetaminophen TAB* 325 MG PO PRN (11:39)
[2016-11-06] MEDS ORDERED: Al Hydrox/Mg Hydrox/Simet LIQ* 30 ML UDC PO PRN (11:39)
--- NOTE | 2016-11-06 21:39 | HP ---
PSYCHIATRIC HISTORY AND PHYSICAL: DATE OF ADMISSION: 11/06/16 JUSTIFICATION FOR ADMISSION: The patient is in need of 24-hour supervision and care secondary to in ability to function at a lower level of care with rapid re- admission to the hospital. CHIEF COMPLAINT: "I have just been feeling really paranoid. I didn't take the medication because I didn't think it was working." HISTORY OF PRESENT ILLNESS: The patient is a 25-year-old single -[place] female with a hist ory of schizophrenia who is well known to me from a discharge from my service dated 10/29/16 who now returns to my service as a transfer from the medical [facility] following brief hospitalization for compl ications related to diabetes. The recent history is as follows: The patient was discharged from the hospital on , October 29. From there, apparently she went back to her apartment and imm ediately discontinued her oral medications. These included oral Prolixin, clonazepam, and propranol ol. Over the weekend, she started developing nausea and vomiting and arrived at the hospital in sev ere abdominal distress, actually vomiting on the floor several times of the emergency room. Her blo od glucose was checked and was abnormally elevated in the high 300s and she was therefore admitted t o the medical service and placed on subcutaneous insulin. There, she was somewhat uncooperative, wo uld not take oral medications, and was complaining of paranoia. On examination, she is denying suici fabio or homicidal ideations, but she is grossly paranoid feeling that there are cameras in her room a nd people watching her. She is also extremely irritable and did not give the hospital staff any ind ication that she would continue with her diabetic treatment if discharged back to her apartment. It is notable that the patient was placed on fluphenazine 50 mg injectable, of decanoate antipsychotic which lasts 2 to 3 weeks. Unfortunately, she has not experienced much relief in her paranoia since receiving this and continues to refuse oral medications. At this time, she is somewhat uncooperativ e and stating that it is her preference to be transferred to one of the [facility] hospitals. PAST PSYCHIATRIC HISTORY: The patient was admitted to my service here at [facility] September 22 and October 29. She also had a recent admission between 08/21/16 and 09/09/16, meaning that she has spent most of the last 2 months here in the hospital. She has a past history o f schizophrenia with approximately 5 hospitalizations in [facility] over the last 2-1/2 years. She is hooked up with outpatient treatment at [facility], but has not ma de any of her followup appointments in the last 2 months. Initially, she was on Invega Sustenna, but did develop elevated blood glucose with this. She was then switched in August to IM Haldol 100 m g monthly, but she did not feel this was beneficial. During her last hospitalization, we tried her on a combination of both intramuscular long acting as well as oral immediately acting Abilify, but s he had no symptomatic improvement. She is currently on propranolol for both hypertension as well as akathisia. The patient has no history of formal suicide attempts, although she has experienced jose cidal ideations in the past. PAST MEDICAL HISTORY: Significant for diabetes mellitus and hypertension as well as obesity. CURRENT MEDICATIONS: Include: 1. Lantus insulin 45 units subcutaneously daily. 2. She takes Humalog insulin on a sliding scale. Other medications include: 1. Propranolol 20 mg p.o. b.i.d. 2. Klonopin 1 mg p.o. q.h.s. 3. Fluphenazine decanoate 50 mg IM q.3 weeks. ALLERGIES: She has no known drug allergies. FAMILY PSYCHIATRIC HISTORY: Unknown. SUBSTANCE ABUSE HISTORY: The patient denies the use of alcohol, marijuana, cocaine, heroin, or over -the-counter medications and she does not smoke cigarettes. SOCIAL HISTORY: The patient grew up between [place] and [place]. She does have several cousins in the [place] area. Most of her support comes from the [employer] which is a mental health social worker and res idential services agency here in [facility]. The patient does have a single occupancy apartmen t here in the [place] area. 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 REVIEW OF SYSTEMS: The patient is no longer endorsing nausea or vomiting. In fact, she is denying headache, double vision, sore throat, cough, chest pain, difficulty breathing, abdominal pain, diarr hea, or constipation. She denies difficulty ambulating, enlarged lymph nodes, rashes, changes in we ight, or fevers. PHYSICAL EXAMINATION VITAL SIGNS: Her blood pressure is 149/69, heart rate 87, respiratory rate 20, temperature is 97.9 degrees Fahrenheit, oxygen saturations are 98% on room air. HEENT: Head is normocephalic, atraumatic. NECK: Supple. CHEST: Clear to auscultation bilaterally. CARDIAC: Exam reveals normal heart sounds. ABDOMEN: Soft and nontender. SKIN: Warm and dry. MUSCULOSKELETAL: Exam reveals no evidence of edema. NEUROLOGIC: She is grossly intact. MENTAL STATUS EXAM: The patient is an overweight -Bur[place]ian female with fair grooming who is lying down in bed. She is minimally cooperative, not particularly expressive, and she appears to b e somewhat guarded and difficult to establish a rapport with. Mood appears to be anxious with a fla ttened affect. Thought process is linear. Thought content appears to show some impoverishment. Neil fowler is currently denying suicidal or homicidal ideations. She denies auditory or visual hallucination s, but she does complain of paranoia with thoughts that other people are monitoring and talking ill of her. Insight and judgment appear to be fair given her willingness to come out of the unit. Cogn itively, she is awake and alert with what would appear to be a low average intellect. LABS: CBC is significant for slightly elevated white blood cells at 12.3. Chemistries reveal elevat ed blood glucose at 218. She has a slightly elevated AST at 40. Urinalysis does show 2+ white bloo d cells and trace leukocyte esterase. Urine drug screen is negative for all substances tested. DIAGNOSES: Santo I: Schizophrenia. Santo II: Deferred. Santo III: Diabetes mellitus. Hypertension. Santo IV: Moderate primary support stressors. Santo V: At this time is 35. IMPRESSION: The patient is a 25-year-old single -Bur[place]ian female with a history of schizophr enia who was recently discharged from my service who now reappears as a transfer from the [facility] following stabilization of her diabetes who needs ongoing care because of failure to take medi cations in the community and severe paranoia. Given the fact that this is her third psychiatric hos pitalization in the past 3 months, I do believe that longer term treatment in [facility] psychiatric faci lity would be warranted. PLAN: The patient is admitted to the adult behavioral health unit where she is placed on q.30-minut e checks for her own safety. We have continued all of her medications as they are currently prescri bed and we will encourage her to be compliant with these. It is notable that in the past she has av oided group therapy and tried to stay in her room and trying to spend time alone in the computer [employer]. At this point, we will place her on a behavioral contract which necessitates that she go to group s in order to get basic privileges such as using the computer. We will refer her case to both [facility] as well as [facility] and likely transfer her as soon as a bed is available. While she is here, she certainly is encouraged to avail herself of all treatment modalities includ ing therapeutic groups and individual support from staff. [id number]/[facility] #: [id number]
[2016-11-06] MEDS: clonazePAM TAB(*) 1 MG PO SCH (21:58)
[2016-11-06] MEDS: Propranolol TAB* 20 MG PO SCH (21:58)
[2016-11-07] MEDS: Propranolol TAB* 20 MG PO SCH ×2 (09:23→22:25)
[2016-11-07] MEDS: Insulin GLARGINE(*) 1 UNITS UNIT SUBCUT SCH (11:41)
[2016-11-07] MEDS ORDERED: Dextrose 50% Syringe 50 ML* 25 GM/50 ML SYRINGE IV PUSH PRN (12:31)
--- NOTE | 2016-11-07 15:36 | PN ---
Subjective - Subjective Service Type: 72982 Hosp care 15 min low complexity Subjective: Caroline has attended all groups this morning, in keeping with the behavioral modification contract she signed yesterday. She is minimally cooperative with exam, however, not saying much and appearing guarded and irritable. The patient is selective with medications, for example refusing propranolol despite elevated BP readings. She denies SI or HI but endorses paranoia. Objective - Appearance Appearance: Obese Dysmorphic Features: No Hygiene: Normal Grooming: Fairly Well Kept - Behavior Psychomotor Activities: Normal Exhibits Abnormal Movement: No - Attitude and Relatedness Attitude and Relatedness: Guarded Eye Contact: Fair - Speech Quality: Unpressured Latencies: Normal Quantity: Terse - Mood Patient's Decription of Mood: "Irritable" - Affect Observed Affect: Tense Affect Consistent with: Dysphoria - Thought Process Patient's Thought Process: Impoverished Thought Content: Yes Paranoid Ideation, No Passive Wish, No Suicidal Planning, No Homicidal Ideation - Sensorium Experiencing Hallucinations: No, Sensorium is Clear Type of Hallucinations: Visual: No, Auditory: No, Command: No - Level of Consciousness Level of Consciousness: Alert Orientation: Yes Intact, Yes Orientated to Time, Yes Orientated to Place, Yes Orientated to Person - Impulse Control Impulse Control: Poor - Insight and Judgement Insight and Judgement: Impaired - Group Participation Particating in Group Activities: No - Medication Management Medication Management Adherence: Partial Assessment - Assessment Merits Inpatient Hospitalization: For Immediate Safety, For Stabilization Inpatient DSM-IV Dx: Schizophrenia Clinical Impression: 25 y.o. single, AA female with a history of schizophrenia, recently discharged from the BSU, arrives back as a transfer from the medical unit following stabilization of complications of diabetes, who now presents with irritability, paranoia and non-adherence with psychiatric or medical medications. Plan - Plan Treatment Plan: Name: VALENCIA DILLON Birthdate: 1990 [id number] The patient accepted an injection of fluphenazine 50mg IM q2wks on , November 05 but remains symptomatic with irritability and paranoia. We are going to refer her case to the [facility] for longer-term treatment. Continued Medication Management: Continue Outpt Medication Medications: Current Medications Acetaminophen (Tylenol Tab*) 650 mg PO Q4H PRN PRN Reason: for pain; or Temp >101 F Al Hydrox/Mg Hydrox/Simethicone (Maalox Plus*) 30 ml PO Q4H PRN PRN Reason: INDIGESTION Clonazepam (Klonopin Tab(*)) 1 mg PO BEDTIME [facility] Last Admin: 11/06/16 21:58 Dose: Not Given Dextrose (D50w Syringe 50 Ml*) 12.5 gm IV PUSH .FOR FS < 60 - SS PRN PRN Reason: FS < 60 Insulin Glargine (Lantus(*)) 45 units SUBCUT Q24H [facility] Last Admin: 11/07/16 11:41 Dose: 45 unit Insulin Human Lispro (Humalog*) 0 units SUBCUT AC [facility]O PRN Reason: Protocol Propranolol HCl (Inderal Tab*) 20 mg PO BID [facility] Last Admin: 11/07/16 09:23 Dose: Not Given - Discharge Plan Discharge Plan: Consider Longer Term Tx
[2016-11-07] MEDS: Insulin LISPRO* 1 UNITS UNIT SUBCUT SCH (17:25)
[2016-11-07] MEDS: clonazePAM TAB(*) 1 MG PO SCH (22:25)
[2016-11-08] MEDS: Insulin LISPRO* 1 UNITS UNIT SUBCUT SCH ×3 (08:07→16:40)
[2016-11-08] MEDS: Propranolol TAB* 20 MG PO SCH ×2 (08:47→21:27)
[2016-11-08] MEDS: Insulin GLARGINE(*) 1 UNITS UNIT SUBCUT SCH (11:35)
[2016-11-08] MEDS: clonazePAM TAB(*) 1 MG PO SCH (21:26)
[2016-11-09] MEDS: Propranolol TAB* 20 MG PO SCH ×2 (09:40→21:05)
[2016-11-09] MEDS: Insulin LISPRO* 1 UNITS UNIT SUBCUT SCH ×3 (09:40→16:30)
[2016-11-09] MEDS: Insulin GLARGINE(*) 1 UNITS UNIT SUBCUT SCH (13:10)
--- NOTE | 2016-11-09 13:12 | PN ---
Subjective - Subjective Service Type: 31991 Hosp care 15 min low complexity Subjective: Caroline is pleasant and social on the unit, actually socializing with peers and staff and attending groups appropriately. She denies SI, HI, AH or VH and reports happily that her paranoia is significantly reduced. She is seeking discharge from the hospital, no longer feeling that State hospitalization would benefit her. Objective - Appearance Appearance: Obese Hygiene: Normal Grooming: Well Kept - Behavior Psychomotor Activities: Normal Exhibits Abnormal Movement: No - Attitude and Relatedness Attitude and Relatedness: Cooperative Eye Contact: Good - Speech Quality: Unpressured Latencies: Normal Quantity: Appropriate - Mood Patient's Decription of Mood: "Good" - Affect Observed Affect: Good Affect Consistent with: Euthymia - Thought Process Patient's Thought Process: Coherent Thought Content: No Passive Wish, No Suicidal Planning, No Homicidal Ideation, No Paranoid Ideation - Sensorium Experiencing Hallucinations: No, Sensorium is Clear Type of Hallucinations: Visual: No, Auditory: No, Command: No - Level of Consciousness Level of Consciousness: Alert Orientation: Yes Intact, Yes Orientated to Time, Yes Orientated to Place, Yes Orientated to Person - Impulse Control Impulse Control: Tenuous - Insight and Judgement Insight and Judgement: Fair - Group Participation Particating in Group Activities: Yes - Medication Management Medication Management Adherence: Yes Assessment - Assessment Merits Inpatient Hospitalization: Consolidate Improvements, Pending Safe DC Plan Inpatient DSM-IV Dx: Schizophrenia Clinical Impression: 25 y.o. single, AA female with a history of schizophrenia, recently discharged from the BSU, arrives back as a transfer from the medical unit following stabilization of complications of diabetes, who now presents with irritability, paranoia and non-adherence with psychiatric or medical medications. Plan - Plan Treatment Plan: Name: VALENCIA DILLON Birthdate: 1990 [id number] The patient accepted an injection of fluphenazine 50mg IM q2wks on , November 05 and is now displaying marked reduction in irritability and paranoia. We will continue to monitor her progress and target Wednesday, (11/11), for possible d/c. Continued Medication Management: Continue Outpt Medication Medications: Current Medications Acetaminophen (Tylenol Tab*) 650 mg PO Q4H PRN PRN Reason: for pain; or Temp >101 F Al Hydrox/Mg Hydrox/Simethicone (Maalox Plus*) 30 ml PO Q4H PRN PRN Reason: INDIGESTION Clonazepam (Klonopin Tab(*)) 1 mg PO BEDTIME [facility] Last Admin: 11/08/16 21:26 Dose: Not Given Dextrose (D50w Syringe 50 Ml*) 12.5 gm IV PUSH .FOR FS < 60 - SS PRN PRN Reason: FS < 60 Insulin Glargine (Lantus(*)) 45 units SUBCUT Q24H [facility] Last Admin: 11/08/16 11:35 Dose: 45 unit Insulin Human Lispro (Humalog*) 0 units SUBCUT AC [facility] PRN Reason: Protocol Last Admin: 11/09/16 12:08 Dose: 6 units Propranolol HCl (Inderal Tab*) 20 mg PO BID [facility] Last Admin: 11/09/16 09:40 Dose: Not Given - Discharge Plan Discharge Plan: Inpatient Hospitalization
--- NOTE | 2016-11-09 14:50 | PN ---
MHU: Group Therapy Note - Service Type Service Type: [id number] Group Psychotherapy - Cognitive Behavioral Group Therapy ( CBT):Patient attended CBT programming this morning and presented with flat affect that did not vary with discussion. Although responsive to direct prompts to respond to questions, patient did not engage in spontaneous conversation.
[2016-11-09] MEDS: clonazePAM TAB(*) 1 MG PO SCH (21:05)
[2016-11-10] MEDS: Insulin LISPRO* 1 UNITS UNIT SUBCUT SCH ×3 (07:55→16:39)
[2016-11-10] MEDS: Propranolol TAB* 20 MG PO SCH ×2 (09:48→21:41)
[2016-11-10] MEDS: Insulin GLARGINE(*) 1 UNITS UNIT SUBCUT SCH (11:53)
[2016-11-10] MEDS ORDERED: Dextrose 50% Syringe 50 ML* 25 GM/50 ML SYRINGE IV PUSH PRN (12:16)
--- NOTE | 2016-11-10 12:41 | PN ---
Subjective - Subjective Service Type: [id number] Hosp care 15 min low complexity Subjective: Caroline continues to present with a bright affect and has been fully participatory with groups and other activities in the milieu setting. She denies paranoia, SI, HI, AH or VH. The patient expresses her wish to be discharged to her apartment tomorrow with f/u in the community. Objective - Appearance Appearance: Obese Dysmorphic Features: Yes Hygiene: Normal Grooming: Fairly Well Kept - Behavior Psychomotor Activities: Normal Exhibits Abnormal Movement: No - Attitude and Relatedness Attitude and Relatedness: Cooperative Eye Contact: Fair - Speech Quality: Unpressured Latencies: Normal Quantity: Appropriate - Mood Patient's Decription of Mood: "Good" - Affect Observed Affect: Good Affect Consistent with: Euthymia - Thought Process Patient's Thought Process: Coherent Thought Content: No Passive Wish, No Suicidal Planning, No Homicidal Ideation, No Paranoid Ideation - Sensorium Experiencing Hallucinations: No, Sensorium is Clear Type of Hallucinations: Visual: No, Auditory: No, Command: No - Level of Consciousness Level of Consciousness: Alert Orientation: Yes Intact, Yes Orientated to Time, Yes Orientated to Place, Yes Orientated to Person - Impulse Control Impulse Control: Tenuous - Insight and Judgement Insight and Judgement: Fair - Group Participation Particating in Group Activities: Yes - Medication Management Medication Management Adherence: Yes Assessment - Assessment Merits Inpatient Hospitalization: Consolidate Improvements, Pending Safe DC Plan Inpatient DSM-IV Dx: Schizophrenia Clinical Impression: 25 y.o. single, AA female with a history of schizophrenia, recently discharged from the B[facility], arrives back as a transfer from the medical unit following stabilization of complications of diabetes, who now presents with irritability, paranoia and non-adherence with psychiatric or medical medications. Plan - Plan Treatment Plan: Name: VALENCIA DILLON Birthdate: 1990 [id number] The patient accepted an injection of fluphenazine 50mg IM q2wks on , November 05 and is now displaying marked reduction in irritability and paranoia. We will continue to monitor her progress and target Wednesday, (11/11), for possible d/c. Continued Medication Management: Continue Outpt Medication Medications: Current Medications Acetaminophen (Tylenol Tab*) 650 mg PO Q4H PRN PRN Reason: for pain; or Temp >101 F Al Hydrox/Mg Hydrox/Simethicone (Maalox Plus*) 30 ml PO Q4H PRN PRN Reason: INDIGESTION Clonazepam (Klonopin Tab(*)) 1 mg PO BEDTIME [facility] Last Admin: 11/09/16 21:05 Dose: Not Given Dextrose (D50w Syringe 50 Ml*) 12.5 gm IV PUSH .FOR FS < 60 - SS PRN PRN Reason: FS < 60 Insulin Glargine (Lantus(*)) 45 units SUBCUT Q24H [facility] Last Admin: 11/10/16 11:53 Dose: 45 unit Insulin Human Lispro (Humalog*) 10 units SUBCUT AC MILO Propranolol HCl (Inderal Tab*) 20 mg PO BID [facility] Last Admin: 11/10/16 09:48 Dose: Not Given - Discharge Plan Discharge Plan: Outpatient Follow Up Outpatient Program: [facility]
--- NOTE | 2016-11-10 14:30 | PN ---
MHU: Group Therapy Note - Service Type Service Type: [id number] Group Psychotherapy - Cognitive Behavioral Group Therapy ( CBT):Patient was attentive and participatory in CBT programming this morning, and remained in good behavioral control. Patient expressed positive insights regarding relevant treatment interventions and goals.
[2016-11-10] MEDS: clonazePAM TAB(*) 1 MG PO SCH (21:40)
[2016-11-11 07:52] VITALS: BP 122/74
[2016-11-11] MEDS: Insulin LISPRO* 1 UNITS UNIT SUBCUT SCH ×2 (08:34→11:55)
[2016-11-11] MEDS: Propranolol TAB* 20 MG PO SCH (08:36)
--- NOTE | 2016-11-11 10:57 | PN ---
MHU: Group Therapy Note - Service Type Service Type: [id number] Group Psychotherapy - Cognitive Behavioral Group Therapy ( CBT):Patient was attentive and participatory in CBT programming this morning, and remained in good behavioral control. Patient expressed positive insights regarding relevant treatment interventions and goals.
[2016-11-11] MEDS: Insulin GLARGINE(*) 1 UNITS UNIT SUBCUT SCH (11:56)
--- NOTE | 2016-11-11 14:52 | DS ---
DATE OF ADMISSION: 11/06/2016. DATE OF DISCHARGE: 11/11/2016. DISCHARGE DIAGNOSES: AXIS I: Schizophrenia. AXIS II: Deferred. AXIS III: Diabetes mellitus, hypertension. AXIS IV: Moderate, primary support stressors. AXIS V: At the time of admission was 35 and at the time of discharge is 60. CONDITION AT THE TIME OF DISCHARGE: Stable. The patient has been denying suicidal or homicidal ideations throughout this hospital course. Her main reason for admission was paranoia and this has now resolved completely. What we are noticing on our unit is that her affect is quite bright, she is socializing with peers, going to groups, and much more easily engaged by treatment staff. 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 Furthermore, she is agreeable to outpatient follow-up at [facility] and understands that her next injection is next for her long-acting antipsychotic. MENTAL STATUS EXAM AT THE TIME OF ADMISSION:: The patient is an overweight, -Spanish female with fair grooming who is up in her room smiling. She is cooperative and expressive. Speech has normal rate, tone and volume. Mood is euthymic with a full affect. Thought process is linear and goal-directed. Thought content is significant for her desire to leave the hospital and go find employment in the community. She is denying auditory or visual hallucinations. She denies suicidal or homicidal ideations. Insight and judgment appear to be fair given her willingness to follow-up with community treatment. Cognitively, she is awake and alert with what would appear to be a low average intellect. DISCHARGE INSTRUCTIONS TO THE PATIENT: A. Medications: She is on Klonopin 1 mg p.o. at bedtime, Propranolol 20 mg p.o. b.i.d., Lantus 45 units subcutaneously daily. She takes insulin Humalog 10 units subcutaneously with meals. She is on Fluphenazine Decanoate 50 mg IM q.2 weeks. B. Diet: She is on a diabetic diet. C. Activities: As tolerated. The patient is a nonsmoker. D. Follow-up care: The patient will be following up at the [facility]. The patient has an appointment at [facility] on November 19 for her next injection of Decanoate Fluphenazine. In addition, she has been granted a primary care appointment for follow-up treatment of her newly discovered diabetes. HOSPITAL COURSE - PART A: Reason for admission: The patient is a 25-year-old, single, -Spanish female with a history of schizophrenia who is well- known to me from a discharge from my service dated 10/29/2016 who now returns to our unit as a transfer from the medical [facility] following brief hospitalization for complications of newly diagnosed diabetes. The recent history is as follows. The patient was discharged from the hospital on October 29. From there, apparently she went back to her apartment and immediately discontinued her oral medications. These included oral Prolixin, Clonazepam and Propranolol. Over the weekend, she started developing nausea and vomiting and arrived at the hospital in severe abdominal distress, actually vomiting on the floor of the emergency room several times. Her blood glucose was checked and was abnormally elevated in the high 300s and she was therefore admitted to the Medical Service and placed on subcutaneous insulin. There she was somewhat uncooperative, would not take oral medications and was complaining of paranoia. On examination at the time of her psychiatric consultation, she was denying suicidal or homicidal ideations, but she did complain of significant paranoid ideation to the effect that there were cameras in her room and people watching her. She was also extremely irritable and did not give the hospital staff any indication that she would continue with her diabetic treatment if discharged back to the community. During her time on the Medical Service, we started her on a trial of Fluphenazine injectable, 50 mg IM times one and typically this lasts between two and three weeks. Unfortunately, she had not experienced much relief at her time of medical clearance and so we felt like the prudent thing to do was to readmit her to the Psychiatric Unit and monitor her from there. HOSPITAL COURSE - PART B: Psychiatric treatment rendered: The patient was readmitted as a failed discharge back to the Behavioral Science Unit where she was maintained on her IM Fluphenazine, as well as oral Clonazepam and oral Prolixin. I did have medical assistance from Dr. Cornelio Naranjo in terms of switching her from sliding scale insulin to a scheduled subcutaneous insulin dose that she can take with meals. Dr. Naranjo also wrote ambulatory orders for her diabetic treatment supplies and insulin at the time of discharge. As she arrived on our unit, it was clear that her Fluphenazine Decanoate was starting to kick in. Her affect was much brighter. She was smiling. She started going to groups, which is something that she had not done during her prior two admissions recently on our unit. She was much more engaging, much more open, and started talking a great deal about her future plans to get a job and maintain herself in the community. Although we had initially entered thoughts of sending her to one of the formerly [id number] facilities, given the fact that this was her third psychiatric admission in less than three months, it was clear that she did not warrant that level of care and that she deserves another chance to receive treatment in a less restrictive setting. The patient at this time has experienced a complete resolution in paranoia and she understands that she has a follow-up injection appointment at [facility] dated November 19. She is warned that if she misses this dose, that it is highly likely that her symptoms will return and that she may warrant further psychiatric hospitalization if that happens. The patient promises to be adherent with outpatient medical treatment. [id number]/[facility] #: [id number] [facility] CENTERMariam
== END 2016-11-11 12:20 | disposition home or self-care (01) | DRG 885 ==
LOC: BSU 13:45
PROVIDERS: ADMIT Psychiatry & Neurology Psychiatry; ATTEND Psychiatry & Neurology Psychiatry
DX: F20.9 Schizophrenia, unspecified (principal); E10.9 Type 1 diabetes mellitus without complications; I10 Essential (primary) hypertension
CPT/HCPCS: 90853; 99222; 99231; 99238; A9270-GY

== ENCOUNTER 2017-01-10 07:08 | Emergency (ER) | payer OTHER ==
[2017-01-10] MEDS ORDERED: NS 0.9% 1000 ML* 2,000 ML IV ONE (07:59)
[2017-01-10] MEDS ORDERED: Ondansetron INJ* 2 MG/ML VIAL IV ONE (07:59)
[2017-01-10] MEDS ORDERED: Albuterol/Ipratropium NEB.SOL* Albuterol 2.5 MG/Ipratropium 0.5 MG 3 ML INH ONE (07:59)
[2017-01-10 08:36] VITALS: BP 154/82
[2017-01-10 08:40] LABS: Hematocrit 38 % (35-47); Mean Corpuscular HGB Conc 31 g/dl (31-36); Mean Corpuscular Hemoglobin 22 pg (27-31); Mean Platelet Volume 10 um3 (7.4-10.4); Red Blood Count 5.51 10^6/ul (4.0-5.4); Red Cell Distribution Width 14 % (10.5-15); White Blood Count 10.7 10^3/ul (3.5-10.8)
[2017-01-10 08:44] LABS: Comments Flag Yes; Mean Corpuscular Volume 70 fL (80-97)
[2017-01-10 08:45] LABS: Add Diff/Slide Review? Slide Review Added
[2017-01-10 08:57] LABS: Albumin 4.2 g/dL (3.2-5.2); BUN/Creatinine Ratio 11.2 (8-20); Calcium 9.3 mg/dL (8.6-10.3); EGFR African American 100.2 (>60); EGFR Non-African American 77.9 (>60); Globulin 3.4 g/dL (2-4); Potassium 3.8 mmol/L (3.5-5.0); Total Bilirubin 0.4 mg/dL (0.2-1.0); Total Protein 7.6 g/dL (6.4-8.9)
--- NOTE | 2017-01-10 09:29 | RAD ---
INDICATION: Cough and shortness of breath COMPARISON: None TECHNIQUE: PA and lateral views of the chest were obtained. FINDINGS: The heart and mediastinum are normal in size and contour. The lungs are grossly clear. There is no evidence of large pleural effusion. Visualized bones are normal for the patient's age. There is no radiographic evidence of free air beneath the diaphragm IMPRESSION: No radiographic evidence of acute cardiopulmonary disease.
[2017-01-10] MEDS ORDERED: predniSONE TAB* 20 MG PO ONE (11:04)
[2017-01-10] MEDS ORDERED: Azithromycin TAB* 250 MG PO ONE (11:04)
--- NOTE | 2017-01-10 12:46 | ED ---
I, Oh,Soohyun, scribed for Marv Powers MD on 01/10/17 at 0756 . Shortness of Breath - HPI Summary HPI Summary: This 26 y/o female presents to ED for SOB since this morning. Pt states that she "feels like I'm not getting a full breath into my lung". Positive subjective fever, productive cough with mild sputum production, sore throat, and mild wheezing since [address]. Pt denies any CP, calf pain, or rhinorrhea. Pt denies PMHx of asthma or DM, but EMR reports type II DM and schizophrenia. Pt is noted with flat affect at time of initial evaluation. Pt is current smoker and occasional drinker. - History of Current Complaint Chief Complaint: EDShortnessOfBreath Time Seen by Provider: 01/10/17 07:47 Hx Obtained From: Patient, Medical Records Onset/Duration: Gradual Onset, Still Present Dyspnea At: Rest Aggrevating Factors: Nothing Alleviating Factors: Nothing Associated Signs & Symptoms: Cough (Productive) - mild sputum production, Wheezing, Fever - subjective fever - Allergy/Home Medications Allergies/Adverse Reactions: Allergies Allergy/AdvReac Type Severity Reaction Status Date / Time No Known Allergies Allergy Verified 11/06/16 16:27 PMH/Surg Hx/FS Hx/Imm Hx Endocrine/Hematology History: 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 - per aunt Pankaj, triggered by invega injections Psychiatric History: Reports: Hx Inpatient Treatment, Hx Community Mental Health Tx, Hx Schizophrenia - last treated with Invega around February 2016 - not sure when pt stopped, Hx Substance Abuse Denies: Hx Eating Disorder, Hx of Violent Episodes Against Others Infectious Disease History: No Infectious Disease History: Denies: Traveled Outside the [place] in Last 30 Days - Family History Known Family History: Positive: Diabetes - mom w/ type 2, Other - dad - schizophrenia - Social History Alcohol Use: None Hx Substance Use: No Substance Use Type: Reports: None, Other Substance Use Comment - Amount & Last Used: unknown Hx Tobacco Use: Yes Smoking Status (MU): Former Smoker Have You Smoked in the Last Year: - has not smoked in the last 30 days Review of Systems Positive: Fever - subjective Positive: Sore Throat. Negative: Nasal Discharge Negative: Chest Pain Positive: Shortness Of Breath, Cough - mild sputum production Positive: Vomiting, Nausea Negative: Edema - No calf swelling Negative: Rash All Other Systems Reviewed And Are Negative: Yes Physical Exam - Summary Physical Exam Summary: The patient is well-nourished in no acute distress and in no acute pain. The skin is warm and dry and skin color reflects adequate perfusion.Good skin turgor. HEENT: The head is normocephalic and atraumatic. The pupils are equal and reactive. The conjunctivae are clear and without drainage. Nares are patent and without drainage. Mouth reveals moist mucous membranes and the throat is without erythema and exudate. The external ears are intact. The ear canals are patent and without drainage. The tympanic membranes are intact. Neck is supple with full range of motion and non-tender. There are no carotid bruits. There is no neck vein distension. Respiratory: NC in place. Chest is non-tender. Lungs are clear to auscultation. Decreased sound at left upper lobe. Negative rhinorrhea. Cardiovascular: Hear is regular rate and rhythm. There is no murmur or rub auscultated. There is no peripheral edema and pulses are symmetrical and equal. Abdomen: The abdomen is soft and non-tender. There are normal bowel sounds heard in all four quadrants and there is no organomegaly palpated. Musculoskeletal: There is no back pain noted. Extremities are non-tender with full range of motion. There is good capillary refill. There is no peripheral edema or calf tenderness elicited. Neurological: Patient is alert and oriented to person, place and time. The patient has symmetrical motor strength in all four extremities. Cranial nerves are grossly intact. Deep tendon reflexes are symmetrical and equal in all four extremities. Psychiatric: The patient has flat affect, but does not appear to be depressed. Triage Information Reviewed: Yes Vital Signs On Initial Exam: Initial Vitals Temp Pulse Resp BP Pulse Ox 99.6 F 96 20 111/95 96 01/10/17 07:24 01/10/17 07:24 01/10/17 07:24 01/10/17 07:24 01/10/17 07:24 Vital Signs Reviewed: Yes Diagnostics - Vital Signs Vital Signs Temp Pulse Resp BP Pulse Ox 01/10/17 07:45 89 89 01/10/17 07:31 20 01/10/17 07:24 99.6 F 96 20 111/95 96 - Laboratory Lab Results: Lab Results 01/10/17 01/10/17 01/10/17 Range/Units 08:28 08:28 08:28 WBC 10.7 (3.5-10.8) 10^3/ul RBC 5.51 H (4.0-5.4) 10^6/ul Hgb 12.0 (12.0-16.0) g/dl Hct 38 (35-47) % MCV 70 L (80-97) fL MCH 22 L (27-31) pg MCHC 31 (31-36) g/dl RDW 14 (10.5-15) % Plt Count 306 (150-450) 10^3/ul MPV 10 (7.4-10.4) um3 Neut % (Auto) 74.6 (38-83) % Lymph % (Auto) 14.0 L (25-47) % Smyth % (Auto) 8.5 (1-9) % Eos % (Auto) 2.5 (0-6) % Baso % (Auto) 0.4 (0-2) % Absolute Neuts (auto) 8.0 H (1.5-7.7) 10^3/ul Absolute Lymphs (auto) 1.5 (1.0-4.8) 10^3/ul Absolute Monos (auto) 0.9 H (0-0.8) 10^3/ul Absolute Eos (auto) 0.3 (0-0.6) 10^3/ul Absolute Basos (auto) 0 (0-0.2) 10^3/ul Absolute Nucleated RBC 0 10^3/ul Nucleated RBC % 0 Hem Pathologist Commnt Pending D-Dimer, Quantitative (Less Than 230) ng/mL Sodium 137 (133-145) mmol/L Potassium 3.8 (3.5-5.0) mmol/L Chloride 104 (101-111) mmol/L Carbon Dioxide 23 (22-32) mmol/L Anion Gap 10 (2-11) mmol/L BUN 10 (6-24) mg/dL Creatinine 0.89 (0.51-0.95) mg/dL Est GFR ( Amer) 100.2 (>60) Est GFR (Non-Af Amer) 77.9 (>60) BUN/Creatinine Ratio 11.2 (8-20) Glucose 103 H (70-100) mg/dL Lactic Acid 2.2 H* (0.5-2.0) mmol/L Calcium 9.3 (8.6-10.3) mg/dL Total Bilirubin 0.40 (0.2-1.0) mg/dL AST 14 (13-39) U/L ALT 15 (7-52) U/L Alkaline Phosphatase 64 (34-104) U/L B-Natriuretic Peptide ( - 100) pg/mL Total Protein 7.6 (6.4-8.9) g/dL Albumin 4.2 (3.2-5.2) g/dL Globulin 3.4 (2-4) g/dL Albumin/Globulin Ratio 1.2 (1-3) Beta HCG, Quant 0.77 mIU/mL 01/10/17 01/10/17 Range/Units 08:28 08:28 WBC (3.5-10.8) 10^3/ul RBC (4.0-5.4) 10^6/ul Hgb (12.0-16.0) g/dl Hct (35-47) % MCV (80-97) fL MCH (27-31) pg MCHC (31-36) g/dl RDW (10.5-15) % Plt Count (150-450) 10^3/ul MPV (7.4-10.4) um3 Neut % (Auto) (38-83) % Lymph % (Auto) (25-47) % Smyth % (Auto) (1-9) % Eos % (Auto) (0-6) % Baso % (Auto) (0-2) % Absolute Neuts (auto) (1.5-7.7) 10^3/ul Absolute Lymphs (auto) (1.0-4.8) 10^3/ul Absolute Monos (auto) (0-0.8) 10^3/ul Absolute Eos (auto) (0-0.6) 10^3/ul Absolute Basos (auto) (0-0.2) 10^3/ul Absolute Nucleated RBC 10^3/ul Nucleated RBC % Hem Pathologist Commnt D-Dimer, Quantitative 230 (Less Than 230) ng/mL Sodium (133-145) mmol/L Potassium (3.5-5.0) mmol/L Chloride (101-111) mmol/L Carbon Dioxide (22-32) mmol/L Anion Gap (2-11) mmol/L BUN (6-24) mg/dL Creatinine (0.51-0.95) mg/dL Est GFR ( Amer) (>60) Est GFR (Non-Af Amer) (>60) BUN/Creatinine Ratio (8-20) Glucose (70-100) mg/dL Lactic Acid (0.5-2.0) mmol/L Calcium (8.6-10.3) mg/dL Total Bilirubin (0.2-1.0) mg/dL AST (13-39) U/L ALT (7-52) U/L Alkaline Phosphatase (34-104) U/L B-Natriuretic Peptide 16 ( - 100) pg/mL Total Protein (6.4-8.9) g/dL Albumin (3.2-5.2) g/dL Globulin (2-4) g/dL Albumin/Globulin Ratio (1-3) Beta HCG, Quant mIU/mL Result Diagrams: 01/10/17 08:28 01/10/17 08:28 Lab Statement: Any lab studies that have been ordered have been reviewed, and results considered in the medical decision making process. - Radiology CXR Xray Interpretation: No Acute Changes Radiology Interpretation Completed By: Radiologist Re-Evaluation - Re-Evaluation First Eval Re-Evaluation Time: 10:44 Comment: Pt is updated with lab results, EKG, and CXR, and provided with hard copies of results. Plan of care involving discharge and outpatient f/u is discussed. Course/Dx - Course Assessment/Plan: This 26 y/o female presents to ED with chief complaint of SOB this morning. She states that she was "not getting full breath into my lung, just into my nose and out my mouth". Upon examination she was noted with decreased breath sound. She is also noted with flat affect. Pt denies any PMHx, as well as DM, at time of initial evaluation. EMR indicates DM type II and schizophrenia. Blood work is noted with lactic acid of 2.2. CXR normal. Pt was symptomatically treated with zofran, zithromycin, IVF, and nebulizer treatment. Pt was informed of CXR and bloodwork, and discharged with outpatient f/u. Pt is agreeable at this time. - Diagnoses Differential Diagnosis/HQI/PQRI: Positive: Bronchitis, Pneumonia, Pulmonary Embolism, Other - dehydration Provider Diagnoses: Asthmatic bronchitis Discharge - Discharge Plan Condition: Stable Disposition: HOME Prescriptions: Albuterol HFA INHALER* [Ventolin HFA Inhaler*] 2 puff INH Q6H PRN #1 mdi PRN Reason: sob Azithromycin TAB* [Zithromax TAB (Z-PASCUAL) 250 mg #6 tabs] 2 tab PO .TODAY, THEN 1 DAILY #1 pascual predniSONE TAB* [Deltasone TAB*] 60 mg PO DAILY #15 tab Patient Education Materials: Albuterol (By breathing), Prednisone (By mouth), Azithromycin (By mouth), Acute Bronchitis (ED) Referrals: [facility] [Outside] - 2 Days The documentation as recorded by the Kali latif Soohyun accurately reflects the service I personally performed and the decisions made by , Marv Powers MD.
== END 2017-01-10 11:20 | disposition home or self-care (01) ==
LOC: ED 07:08
DX: J45.909 Unspecified asthma, uncomplicated (principal); Z87.891 Personal history of nicotine dependence; E11.9 Type 2 diabetes mellitus without complications; F20.9 Schizophrenia, unspecified; Z79.4 Long term (current) use of insulin
CPT/HCPCS: 36415; 71020; 80053; 83605; 83880; 84702; 85025; 85060; 85379; 94640; 96360; 96374; 99284; A9270-GY; J2405; J7512

== ENCOUNTER 2017-02-14 17:08 | Emergency (ER) | payer OTHER ==
[2017-02-14 17:43] LABS: Hematocrit 39 % (35-47); Hemoglobin 12.1 g/dl (12.0-16.0); Mean Corpuscular HGB Conc 31 g/dl (31-36); Mean Corpuscular Hemoglobin 22 pg (27-31); Mean Corpuscular Volume 70 fL (80-97); Mean Platelet Volume 9 um3 (7.4-10.4); Red Blood Count 5.58 10^6/ul (4.0-5.4); Red Cell Distribution Width 15 % (10.5-15); White Blood Count 6.2 10^3/ul (3.5-10.8)
[2017-02-14 17:49] LABS: Comments Flag Yes
[2017-02-14 17:59] LABS: ALT 13 U/L (7-52); AST 15 U/L (13-39); Albumin 4.4 g/dL (3.2-5.2); Alkaline Phosphatase 62 U/L (34-104); Anion Gap 8 mmol/L (2-11); BUN/Creatinine Ratio 14.5 (8-20); Blood Urea Nitrogen 12 mg/dL (6-24); CO2 Carbon Dioxide 21 mmol/L (22-32); Calcium 9.9 mg/dL (8.6-10.3); Chloride 107 mmol/L (101-111); EGFR African American 108.6 (>60); EGFR Non-African American 84.5 (>60); Globulin 3.4 g/dL (2-4); Glucose 93 mg/dL (70-100); Potassium 3.9 mmol/L (3.5-5.0); Sodium 136 mmol/L (133-145); Total Protein 7.8 g/dL (6.4-8.9)
[2017-02-14 18:30] LABS: Acetaminophen < 15 mcg/mL; Alcohol < 10 mg/dL (<10); Salicylate < 2.50 mg/dL (<30)
[2017-02-14 18:40] LABS: TSH (Thyroid Stimulating Horm) 0.93 mcIU/mL (0.34-5.60)
[2017-02-14 20:18] LABS: Urine Bacteria Absent (Absent); Urine Bilirubin Negative (Negative); Urine Glucose Negative (Negative); Urine Nitrite Negative (Negative)
[2017-02-14 20:21] LABS: Benzodiazepine Urine Screen None Detected (None Detect)
[2017-02-14 22:36] VITALS: BP 137/73
--- NOTE | 2017-02-16 00:47 | ED ---
Chris Horton Alok, scribed for Jason Pino MD on 02/14/17 at 1738 . Psychiatric Complaint - HPI Summary HPI Summary: 26F presents to the ED for a mental health evaluation. Pt denies wanting to hurt herself. PMHx includes schizophrenia. Pt states she has been taking her medications regularly. - History Of Current Complaint Chief Complaint: EDMentalHealth Time Seen by Provider: 02/14/17 17:28 Hx Obtained From: Patient Onset/Duration: Still Present Timing: Constant Severity Initially: Moderate Severity Currently: Moderate Character: Angry Aggravating Factor(s): Nothing Alleviating Factor(s): Nothing Has Suicidal: Denies: Thoughts - Allergies/Home Medications Allergies/Adverse Reactions: Allergies Allergy/AdvReac Type Severity Reaction Status Date / Time No Known Allergies Allergy Verified 11/06/16 16:27 PMH/Surg Hx/FS Hx/Imm Hx Endocrine/Hematology History: 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 - per aunt Pankaj, triggered by invega injections Denies: Hx Thyroid Disease, Hx Anemia, Hx Unexplained Bleeding Cardiovascular History: Reports: Hx Hypertension Denies: Hx Embolism Respiratory History: Reports: Hx Asthma - A CHILD Denies: Hx Chronic Bronchitis, Hx Pneumonia GI History: Denies: Hx Crohn's Disease, Hx Irritable Bowel, Hx Ulcer History: Denies: Hx Dialysis, Hx Kidney Stones Musculoskeletal History: Denies: Hx Arthritis, Hx Back Problems, Hx Orthopedic Injury, Hx Scoliosis Neurological History: Denies: Hx Headaches, Hx Migraine, Hx Seizures Psychiatric History: Reports: Hx Anxiety, Hx Inpatient Treatment, Hx Community Mental Health Tx, Hx Schizophrenia - last treated with Invega around February 2016 - not sure when pt stopped, Hx Substance Abuse Denies: Hx Eating Disorder, Hx of Violent Episodes Against Others Infectious Disease History: No Infectious Disease History: Denies: Traveled Outside the [place] in Last 30 Days - Family History Known Family History: Positive: Diabetes - mom w/ type 2, Other - dad - schizophrenia - Social History Alcohol Use: None Hx Substance Use: No Substance Use Type: Reports: None, Other Substance Use Comment - Amount & Last Used: unknown Hx Tobacco Use: Yes Smoking Status (MU): Former Smoker Have You Smoked in the Last Year: - has not smoked in the last 30 days Review of Systems Negative: Fever, Chills Negative: Erythema Negative: Sore Throat Negative: Chest Pain Negative: Shortness Of Breath, Cough Negative: Abdominal Pain, Vomiting, Nausea Negative: dysuria, hematuria Negative: Arthralgia, Myalgia, Edema Negative: Rash Neurological: Other - Negative: Dizziness All Other Systems Reviewed And Are Negative: Yes Physical Exam - Summary Physical Exam Summary: Constitutional: Well-developed, Well-nourished, Alert. (-) Distressed Skin: Warm, Dry HENT: Normocephalic; Atraumatic Eyes: Conjunctiva normal Neck: Musculoskeletal ROM normal neck. (-) JVD, (-) Stridor, (-) Tracheal deviation Cardio: Rhythm regular, rate normal, Heart sounds normal; Intact distal pulses; The pedal pulses are 2+ and symmetric. Radial pulses are 2+ and symmetric. (-) Murmur Pulmonary/Chest wall: Effort normal. (-) Respiratory distress, (-) Wheezes, (-) Rales Abd: Soft, (-) Tenderness, (-) Distension, (-) Guarding, (-) Rebound Musculoskeletal: (-) Edema Lymph: (-) Cervical adenopathy Neuro: Alert, Oriented x3 Psych: Mood and affect Normal Triage Information Reviewed: Yes Vital Signs On Initial Exam: Initial Vitals Temp Pulse Resp BP Pulse Ox 98.3 F 84 16 117/61 99 02/14/17 17:28 02/14/17 17:28 02/14/17 17:28 02/14/17 17:28 02/14/17 17:28 Vital Signs Reviewed: Yes Diagnostics - Vital Signs Vital Signs Temp Pulse Resp BP Pulse Ox 02/14/17 17:28 98.3 F 84 16 117/61 99 - Laboratory Lab Results: Lab Results 02/14/17 02/14/17 02/14/17 Range/Units 17:35 17:35 19:50 WBC 6.2 (3.5-10.8) 10^3/ul RBC 5.58 H (4.0-5.4) 10^6/ul Hgb 12.1 (12.0-16.0) g/dl Hct 39 (35-47) % MCV 70 L (80-97) fL MCH 22 L (27-31) pg MCHC 31 (31-36) g/dl RDW 15 (10.5-15) % Plt Count 326 (150-450) 10^3/ul MPV 9 (7.4-10.4) um3 Neut % (Auto) 49.7 (38-83) % Lymph % (Auto) 34.5 (25-47) % Dauphin % (Auto) 10.2 H (1-9) % Eos % (Auto) 4.8 (0-6) % Baso % (Auto) 0.8 (0-2) % Absolute Neuts (auto) 3.1 (1.5-7.7) 10^3/ul Absolute Lymphs (auto) 2.1 (1.0-4.8) 10^3/ul Absolute Monos (auto) 0.6 (0-0.8) 10^3/ul Absolute Eos (auto) 0.3 (0-0.6) 10^3/ul Absolute Basos (auto) 0 (0-0.2) 10^3/ul Absolute Nucleated RBC 0.01 10^3/ul Nucleated RBC % 0.2 Sodium 136 (133-145) mmol/L Potassium 3.9 (3.5-5.0) mmol/L Chloride 107 (101-111) mmol/L Carbon Dioxide 21 L (22-32) mmol/L Anion Gap 8 (2-11) mmol/L BUN 12 (6-24) mg/dL Creatinine 0.83 (0.51-0.95) mg/dL Est GFR ( Amer) 108.6 (>60) Est GFR (Non-Af Amer) 84.5 (>60) BUN/Creatinine Ratio 14.5 (8-20) Glucose 93 (70-100) mg/dL Calcium 9.9 (8.6-10.3) mg/dL Total Bilirubin 0.30 (0.2-1.0) mg/dL AST 15 (13-39) U/L ALT 13 (7-52) U/L Alkaline Phosphatase 62 (34-104) U/L Total Protein 7.8 (6.4-8.9) g/dL Albumin 4.4 (3.2-5.2) g/dL Globulin 3.4 (2-4) g/dL Albumin/Globulin Ratio 1.3 (1-3) TSH 0.93 (0.34-5.60) mcIU/mL Urine Color Yellow Urine Appearance Clear Urine pH 6.0 (5-9) Ur Specific [place] 1.021 (1.010-1.030) Urine Protein 1+(30 mg/dl) H (Negative) Urine Ketones Negative (Negative) Urine Blood 2+ H (Negative) Urine Nitrate Negative (Negative) Urine Bilirubin Negative (Negative) Urine Urobilinogen Negative (Negative) Ur Leukocyte Esterase Trace H (Negative) Urine WBC (Auto) 1+(6-10/hpf) H (Absent) Urine RBC (Auto) 2+(6-10/hpf) H (Absent) Ur Squamous Epith Cells Present H (Absent) Urine Bacteria Absent (Absent) Hyaline Casts Present H (Absent) Urine Glucose Negative (Negative) Urine Ascorbic Acid * H (Negative) Salicylates < 2.50 (<30) mg/dL Urine Opiates Screen (None Detect) Acetaminophen < 15 mcg/mL Ur Barbiturates Screen (None Detect) Ur Phencyclidine Scrn (None Detect) Ur Amphetamines Screen (None Detect) U Benzodiazepines Scrn (None Detect) Urine Cocaine Screen (None Detect) U Cannabinoids Screen (None Detect) Serum Alcohol < 10 (<10) mg/dL 02/14/17 Range/Units 19:50 WBC (3.5-10.8) 10^3/ul RBC (4.0-5.4) 10^6/ul Hgb (12.0-16.0) g/dl Hct (35-47) % MCV (80-97) fL MCH (27-31) pg MCHC (31-36) g/dl RDW (10.5-15) % Plt Count (150-450) 10^3/ul MPV (7.4-10.4) um3 Neut % (Auto) (38-83) % Lymph % (Auto) (25-47) % Dauphin % (Auto) (1-9) % Eos % (Auto) (0-6) % Baso % (Auto) (0-2) % Absolute Neuts (auto) (1.5-7.7) 10^3/ul Absolute Lymphs (auto) (1.0-4.8) 10^3/ul Absolute Monos (auto) (0-0.8) 10^3/ul Absolute Eos (auto) (0-0.6) 10^3/ul Absolute Basos (auto) (0-0.2) 10^3/ul Absolute Nucleated RBC 10^3/ul Nucleated RBC % Sodium (133-145) mmol/L Potassium (3.5-5.0) mmol/L Chloride (101-111) mmol/L Carbon Dioxide (22-32) mmol/L Anion Gap (2-11) mmol/L BUN (6-24) mg/dL Creatinine (0.51-0.95) mg/dL Est GFR ( Amer) (>60) Est GFR (Non-Af Amer) (>60) BUN/Creatinine Ratio (8-20) Glucose (70-100) mg/dL Calcium (8.6-10.3) mg/dL Total Bilirubin (0.2-1.0) mg/dL AST (13-39) U/L ALT (7-52) U/L Alkaline Phosphatase (34-104) U/L Total Protein (6.4-8.9) g/dL Albumin (3.2-5.2) g/dL Globulin (2-4) g/dL Albumin/Globulin Ratio (1-3) TSH (0.34-5.60) mcIU/mL Urine Color Urine Appearance Urine pH (5-9) Ur Specific [place] (1.010-1.030) Urine Protein (Negative) Urine Ketones (Negative) Urine Blood (Negative) Urine Nitrate (Negative) Urine Bilirubin (Negative) Urine Urobilinogen (Negative) Ur Leukocyte Esterase (Negative) Urine WBC (Auto) (Absent) Urine RBC (Auto) (Absent) Ur Squamous Epith Cells (Absent) Urine Bacteria (Absent) Hyaline Casts (Absent) Urine Glucose (Negative) Urine Ascorbic Acid (Negative) Salicylates (<30) mg/dL Urine Opiates Screen None detected (None Detect) Acetaminophen mcg/mL Ur Barbiturates Screen None detected (None Detect) Ur Phencyclidine Scrn None detected (None Detect) Ur Amphetamines Screen None detected (None Detect) U Benzodiazepines Scrn None detected (None Detect) Urine Cocaine Screen None detected (None Detect) U Cannabinoids Screen None detected (None Detect) Serum Alcohol (<10) mg/dL Result Diagrams: 02/14/17 17:35 02/14/17 17:35 Lab Statement: Any lab studies that have been ordered have been reviewed, and results considered in the medical decision making process. Course/Dx - Differential Dx/Clinical Impression Provider Diagnosis: Schizophrenia Discharge - Discharge Plan Condition: Stable Disposition: HOME Referrals: No Primary Care Phys,NOPCP [Primary Care Provider] - The documentation as recorded by the Chris latif Alok accurately reflects the service I personally performed and the decisions made by meAlavrez Jerry, MD.
== END 2017-02-14 22:38 | disposition home or self-care (01) ==
LOC: ED 17:08
DX: F20.9 Schizophrenia, unspecified (principal); E11.9 Type 2 diabetes mellitus without complications; Z79.4 Long term (current) use of insulin; I10 Essential (primary) hypertension; J45.909 Unspecified asthma, uncomplicated; Z87.891 Personal history of nicotine dependence
CPT/HCPCS: 36415; 80053; 80307; 80320; 80329; 81003; 81015; 84443; 85025; 87086; 99285; G0480

== ENCOUNTER 2017-02-20 21:24 | Inpatient (IN) | payer OTHER ==
[2017-02-20] MEDS ORDERED: Ammonia Inhalant* 1 EA AMP ONE (21:35)
[2017-02-20] MEDS ORDERED: Ammonia Inhalant* 1 EA AMP INH ONE ×2 (21:36→21:52)
[2017-02-20 22:27] LABS: Hematocrit 36 % (35-47); Hemoglobin 11.4 g/dl (12.0-16.0); Mean Corpuscular HGB Conc 32 g/dl (31-36); Mean Corpuscular Hemoglobin 22 pg (27-31); Mean Corpuscular Volume 69 fL (80-97); Mean Platelet Volume 10 um3 (7.4-10.4); Red Blood Count 5.25 10^6/ul (4.0-5.4); Red Cell Distribution Width 15 % (10.5-15)
[2017-02-20 22:30] LABS: Add Diff/Slide Review? Slide Review Added; Comments Flag Yes
[2017-02-20 22:40] LABS: ALT 14 U/L (7-52); AST 16 U/L (13-39); Albumin 4.4 g/dL (3.2-5.2); Alkaline Phosphatase 63 U/L (34-104); Anion Gap 8 mmol/L (2-11); BUN/Creatinine Ratio 12.5 (8-20); Blood Urea Nitrogen 10 mg/dL (6-24); CO2 Carbon Dioxide 21 mmol/L (22-32); Calcium 9.2 mg/dL (8.6-10.3); Chloride 108 mmol/L (101-111); EGFR African American 113.3 (>60); EGFR Non-African American 88.1 (>60); Globulin 3.2 g/dL (2-4); Glucose 116 mg/dL (70-100); Potassium 3.2 mmol/L (3.5-5.0); Sodium 137 mmol/L (133-145); Total Protein 7.6 g/dL (6.4-8.9)
[2017-02-20 22:55] LABS: Acetaminophen < 15 mcg/mL; Alcohol < 10 mg/dL (<10); Salicylate < 2.50 mg/dL (<30)
[2017-02-20 23:06] LABS: TSH (Thyroid Stimulating Horm) 1.17 mcIU/mL (0.34-5.60)
[2017-02-20] MEDS ORDERED: Haloperidol INJ IV/IM* 5 MG/ML AMP IM ONE (23:51)
[2017-02-20] MEDS ORDERED: diPHENhydraMINE IV* 50 MG/ML 1 ml VIAL (BENADRYL) IM ONE (23:51)
[2017-02-20] MEDS ORDERED: LORazepam INJ* 2 MG/ML 1 ML VIAL ONE (23:54)
[2017-02-20] MEDS ORDERED: diPHENhydraMINE IV* 50 MG/ML 1 ml VIAL (BENADRYL) ONE (23:54)
[2017-02-20] MEDS ORDERED: Haloperidol INJ IV/IM* 5 MG/ML AMP ONE (23:54)
[2017-02-20] MEDS ORDERED: LORazepam INJ* 2 MG/ML 1 ML VIAL IM ONE (23:55)
--- NOTE | 2017-02-20 23:55 | ED ---
Progress - Progress Note Progress Note: pt signed out to me by Dr. Pino, she has already been seen by the mental health 3d animator. Pt is being admitted involuntarily but is trying to leave, she is currently getting meds. She is in stable condition - Consult/PCP Time Called: 11:05 Course/Dx - Diagnoses Provider Diagnoses: Catatonia
[2017-02-20] MEDS ORDERED: diPHENhydraMINE PO* 50 MG ONE (23:59)
[2017-02-20] MEDS ORDERED: LORazepam TAB(*) 1 MG ONE (23:59)
[2017-02-21] MEDS ORDERED: Haloperidol TAB* 5 MG ONE
[2017-02-21] MEDS ORDERED: Mouth Piece, Nicotine* 1 EACH CARTRIDGE INH SCH (00:06)
[2017-02-21] MEDS ORDERED: Nicotine GUM* 2 MG PO PRN (00:06)
[2017-02-21] MEDS ORDERED: Al Hydrox/Mg Hydrox/Simet LIQ* 30 ML UDC PO PRN (00:06)
[2017-02-21] MEDS ORDERED: Nicotine Inhaler* 10 MG AMP INH PRN (00:06)
[2017-02-21] MEDS ORDERED: Acetaminophen TAB* 325 MG PO PRN (00:06)
[2017-02-21] MEDS ORDERED: Albuterol HFA INHALER* 8 gm MDI INH PRN (00:10)
[2017-02-21] MEDS: Vitamin THERAPEUTIC TAB PO SCH (09:18)
[2017-02-21] MEDS: fluPHENAZine HCL TAB* 5 MG PO SCH ×3 (09:18→22:34)
[2017-02-21] MEDS ORDERED: FLUPHENAZINE 2.5 MG/ML IM PRN (12:04)
[2017-02-21] MEDS ORDERED: LORazepam INJ* 2 MG/ML 1 ML VIAL IM PRN (12:05)
--- NOTE | 2017-02-21 14:24 | HP ---
PSYCHIATRIC ASSESSMENT: DATE OF ADMISSION: 02/21/17 JUSTIFICATION FOR ADMISSION: The patient is catatonic and unresponsive, and clearly unable to care for herself in a less restricted setting. CHIEF COMPLAINT: ", , ." HISTORY OF PRESENT ILLNESS: The patient is a 26-year-old single female with a history of schizophrenia who is well known to me from several recent admissions to the behavioral science unit who now returns to our hospital having been brought in by emergency medical providers in the community due to her presentation with catatonia and inability to care for herself. Notes from the ER indicate that the patient was found wandering in a local parking lot. She was described as "catatonic" per staff and needed to be given smelling salts to arouse her. Upon administration of the smelling salt, she started screaming the word over and over again. She was unable or unwilling to engage in any meaningful evaluation, was found to be pacing her room in the emergency department and required stat psychotropic medications to reduce her agitation. At the time that I am evaluating her, she is found in her bed lying supine in her room on the milieu. She is staring straight ahead at the ceiling and is unresponsive. She makes no attempt to make eye contact with this clinician. I am told that since her arrival early this morning, she has not been eating or drinking or left this position in her bed. It is uncertain at this time whether the patient has been compliant with psychiatric treatment on the outpatient basis since her most recent discharge on 11/11/16. At that time, she was discharged on oral propranolol as well as intramuscular perphenazine 50 mg to be taken every 2 weeks. 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 PAST PSYCHIATRIC HISTORY: The patient was admitted to my service here 3 prior times, the first being from 08/21/16 to 09/09/16. Her second admission was from September 22 to October 29 and her most recent admission was from November 06 till November 11. She does have a past history of schizophrenia with approximately 5 hospitalizations in [place], [place], over the 2-1/2 years leading up to her move to [place]. She receives outpatient treatment at the [facility] but has had trouble adhering to outpatient appointments in the past. At one point, she was on Invega Sustenna but that caused elevations in her blood glucose. We had had her on trials of IM Haldol as well as IM long-acting aripiprazole, neither of which she benefited from. Most recently she has been started on IM fluphenazine which she appeared to do well on. We were treating her for akathisia with propranolol. She has no history of formal suicide attempts, although she has experienced suicidal ideations in the past. PAST MEDICAL HISTORY: Significant for diabetes mellitus, hypertension, as well as obesity. CURRENT MEDICATIONS: Most recently these have included: 1. Lantus insulin 45 units subcutaneously daily. 2. Humalog insulin on a sliding scale. 3. Propranolol 20 mg p.o. b.i.d. 4. Klonopin 1 mg p.o. q.h.s. 5. Fluphenazine Decanoate 50 mg IM q.3 weeks. ALLERGIES: She has no known drug allergies. FAMILY HISTORY: Family psychiatric history is unknown. SUBSTANCE ABUSE HISTORY: The patient denies the use of alcohol, marijuana, cocaine, heroin or [id number] medications and she does not smoke cigarettes. SOCIAL HISTORY: The patient grew up between [place] and [place]. She does have several cousins in the [place] area. Her support comes from an organization called [employer] which is a social work associate and residential services agency here in [facility]. She does have a piano case maker through that organization. Currently, she is living in a single occupancy apartment in [place]. 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 REVIEW OF SYSTEMS: The patient denies headache or double vision. She denies sore throat, cough, chest pain, difficulty breathing, abdominal pain, diarrhea, nausea or constipation. She denies difficulty ambulating, enlarged lymph nodes , rashes, changes in weight or fever. PHYSICAL EXAMINATION VITAL SIGNS: Blood pressure elevated at 148/94, heart rate 83, respiratory rate 18, oxygen saturations are 98% on room air, temperature is 98.3 degrees Fahrenheit. HEENT: Head is normocephalic, atraumatic. NECK: Supple. CHEST: Clear to auscultation bilaterally. CARDIAC: Exam reveals normal heart sounds. ABDOMEN: Soft and nontender. MUSCULOSKELETAL: Exam reveals no evidence of edema. NEUROLOGIC: She is grossly intact with no focal deficits. SKIN: Warm and dry. LABORATORY DATA: Labs do reveal a CBC that is mostly within normal limits. Complete metabolic panel reveals mild hypokalemia with a potassium of 3.2. She also has elevated blood glucose at 232. TSH is within normal limits at 1.17. MENTAL STATUS EXAMINATION: The patient is an overweight female with fair grooming who is lying down in bed staring at the ceiling. She is uncooperative, is unresponsive, refusing to make eye contact with this clinician. Speech is electively mute. Mood does appear anxious with a flat affect. Thought process and content are impossible to ascertain at this point. It is similarly impossible to tell if she is having suicidal or homicidal ideations. She does appear to be responding to internal stimuli. Insight and judgment would appear to be somewhat limited given her evident nonadherence with medications. Cognitively she is awake but unresponsive. DIAGNOSES: Arthur I: Schizophrenia. Arthur II: Deferred. Arthur III: Diabetes mellitus, hypertension, obesity. Arthur IV: Moderate primary support stressors. Arthur V: At this time is 30. IMPRESSION: The patient is a 26-year-old single female with a history of schizophrenia who is well known to me from 3 recent prior admissions here on the [facility], who now reappears on an involuntary basis, having been brought in by an ambulance after presenting with catatonia and inability to care for herself in the community. The likelihood is that she is nonadherent with outpatient treatment, although we are unable to gather any collateral information at this point and the patient is an extremely limited historian. It is clear that she is psychotic and would warrant inpatient psychiatric stabilization at this time. PLAN: The patient is admitted to the adult behavioral health unit where she is placed on q.15 minute checks due to her catatonic behavior. I have placed orders for IM Prolixin 5 mg, as well as Ativan 2 mg to be given in an intramuscular fashion in the event that she has catatonia and is not eating or drinking. We will also agronomy teacher her on her regular medications including fluphenazine 5 mg twice daily and propranolol 20 mg twice daily. Once she improves, we will consider resuming fluphenazine intramuscular long-acting injections. Right now, I will hold her Lantus insulin and continue to check her blood glucose levels. If they remain elevated, we will likely resume Lantus therapy. Most importantly, at this point we need to get collateral information from her service providers, both at the [facility] as well as [facility] to see if we can fill in the blanks in terms of how she has been functioning on an outpatient basis. [id number]/CPS #: [id number] MAGO
[2017-02-21] MEDS: Propranolol TAB* 20 MG PO SCH ×2 (22:12→22:34)
[2017-02-21] MEDS: clonazePAM TAB(*) 1 MG PO SCH ×2 (22:12→22:34)
[2017-02-21] MEDS ORDERED: fluPHENAZine HCL TAB* 5 MG ONE (22:33)
[2017-02-22] MEDS: fluPHENAZine HCL TAB* 5 MG PO SCH ×3 (07:29→22:28)
[2017-02-22] MEDS: Propranolol TAB* 20 MG PO SCH ×2 (09:59→22:28)
[2017-02-22] MEDS: Potassium Chlor TAB* 20 MEQ TAB.ER PO SCH (09:59)
[2017-02-22] MEDS: Vitamin THERAPEUTIC TAB PO SCH (10:05)
--- NOTE | 2017-02-22 11:34 | PN ---
Subjective - Subjective Service Type: 89950 Hosp care 15 min low complexity Subjective: Caroline is awake and alert today, eating meals and socializing on the milieu. She reports using cocaine and LSD at a green party on Wednesday night, and was also drinking alcohol at the time. "I over did it. I don't usually take that stuff. I just shut down." She indicates that she has been adherent with all outpatient treatment, including her q3wk injection of fluphenazine. She thinks her next injection is scheduled for next week. She has a job at the [employer] and needs to be there at 3:00 PM tomorrow. She is seeking discharge before then. She denies paranoia, SI or HI and gives consent to contact [facility] and her telephonic nurse case manager, Jae, at the [employer]. Objective - Appearance Appearance: Obese Dysmorphic Features: No Hygiene: Normal Grooming: Well Kept - Behavior Psychomotor Activities: Normal Exhibits Abnormal Movement: No - Attitude and Relatedness Attitude and Relatedness: Cooperative Eye Contact: Good - Speech Quality: Unpressured Latencies: Normal Quantity: Appropriate - Mood Patient's Decription of Mood: "Good" - Affect Observed Affect: Good Affect Consistent with: Euthymia - Thought Process Patient's Thought Process: Coherent Thought Content: No Passive Wish, No Suicidal Planning, No Homicidal Ideation, No Paranoid Ideation - Sensorium Experiencing Hallucinations: No, Sensorium is Clear Type of Hallucinations: Visual: No, Auditory: No, Command: No - Level of Consciousness Level of Consciousness: Alert Orientation: Yes Intact, Yes Orientated to Time, Yes Orientated to Place, Yes Orientated to Person - Impulse Control Impulse Control: Tenuous - Insight and Judgement Insight and Judgement: Fair - Group Participation Particating in Group Activities: Yes - Medication Management Medication Management Adherence: Yes Assessment - Assessment Merits Inpatient Hospitalization: Consolidate Improvements, Pending Safe DC Plan Inpatient DSM-IV Dx: Schizophrenia Clinical Impression: 26 y.o. single, AA female with a history of schizophrenia and multiple recent past admissions to the [facility] brought in by ambulance after presenting as catatonic and unable to care for herself in the community. The patient is now awake and interactive, attributing her catatonic presentation to recreational use of cocaine and LSD at a green party over the weekend. Plan - Plan Treatment Plan: Name: VALENCIA DILLON Birthdate: 1990 [id number] Continue outpatient medication regimen. We'll try to get collateral information from her telephonic nurse case manager and [facility]. Consider d/c to home tomorrow if still stable. Continued Medication Management: Continue Outpt Medication Medications: Current Medications Acetaminophen (Tylenol Tab*) 650 mg PO Q4H PRN PRN Reason: PAIN or TEMP > 101 F Al Hydrox/Mg Hydrox/Simethicone (Maalox Plus*) 30 ml PO Q4H PRN PRN Reason: INDIGESTION Albuterol (Ventolin Hfa Inhaler*) 2 puff INH Q6H PRN PRN Reason: SOB/WHEEZING Clonazepam (Klonopin Tab(*)) 1 mg PO BEDTIME [facility] Last Admin: 02/21/17 22:34 Dose: 1 mg Device (Nicotine Mouth Piece*) 1 each INH .[facility] Fluphenazine HCl (Prolixin Tab*) 5 mg PO BID [facility] Last Admin: 02/22/17 10:04 Dose: Not Given Fluphenazine HCl (Fluphenazine Im*) 5 mg IM Q6H PRN PRN Reason: AGITATION Lorazepam (Ativan Inj*) 2 mg IM Q6H PRN PRN Reason: ANXIETY Multivitamins (Theragran Tab*) 1 tab PO DAILY [facility] Last Admin: 02/22/17 10:05 Dose: Not Given Nicotine (Nicotine Inhaler*) 10 mg INH Q2H PRN PRN Reason: CRAVING Nicotine Polacrilex (Nicotine Gum*) 2 mg PO Q2H PRN PRN Reason: CRAVING Potassium Chloride (Klor Con Er Tab*) 20 meq PO DAILY [facility] Last Admin: 02/22/17 09:59 Dose: Not Given Propranolol HCl (Inderal Tab*) 20 mg PO BID [facility] Last Admin: 02/22/17 09:59 Dose: Not Given - Discharge Plan Discharge Plan: Outpatient Follow Up Outpatient Program: [facility]
[2017-02-22] MEDS: clonazePAM TAB(*) 1 MG PO SCH (22:28)
[2017-02-23 07:49] VITALS: BP 101/43
[2017-02-23] MEDS: Propranolol TAB* 20 MG PO SCH (09:01)
[2017-02-23] MEDS: Potassium Chlor TAB* 20 MEQ TAB.ER PO SCH (09:01)
[2017-02-23] MEDS: fluPHENAZine HCL TAB* 5 MG PO SCH (09:01)
[2017-02-23] MEDS: Vitamin THERAPEUTIC TAB PO SCH (09:01)
[2017-02-23] MEDS ORDERED: Fluphenazine Decanoate* 25 MG/ML 5 ML VIAL IM SCH (11:00)
--- NOTE | 2017-02-23 16:51 | DS ---
DATE OF ADMISSION: 02/21/2017. DATE OF DISCHARGE: 02/23/2017. DISCHARGE DIAGNOSES: AXIS I: Schizophrenia. AXIS II: Deferred. AXIS III: Diabetes mellitus, hypertension, obesity. AXIS IV: Moderate, primary support stressors. AXIS V: At the time of admission was 30 and at the time of discharge is 60. CONDITION AT THE TIME OF DISCHARGE: The patient is calm and cooperative. She is alert with a bright affect. She has been going to groups. She is agreeable with outpatient treatment, specifically we have discussed the option of receiving treatment through the assertive community treatment team and the patient is in favor of this. She has a job at the local [employer] and has work this afternoon at 3:00 p.m. and she is future-oriented, stating that she is looking forward to going to work. She is denying the urge to use any further substances of abuse and she is agreeable to receiving a booster dose of her Fluphenazine Decanoate. The patient has shown no behavioral problems on our unit and has been safe on all checks. We feel that she is safe to receive treatment in a less restrictive setting. MENTAL STATUS EXAM AT THE TIME OF DISCHARGE: The patient is an overweight, - Burmese female with fair grooming who is awake and alert. She is cooperative, interactive, makes good eye contact. Her speech has normal rate, tone and volume. Mood is euthymic with a full, somewhat bright affect. Thought process is linear and goal-directed. 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 The patient denies suicidal or homicidal ideation. She denies auditory or visual hallucinations. Insight and judgment are fair given her willingness to follow-up with assertive community treatment in the community. Cognitively she is awake and alert with what would appear to be an average intellect. DISCHARGE INSTRUCTIONS TO THE PATIENT: A. Medications: She is to take Fluphenazine Decanoate 50 mg IM q.3 weeks, next injection due March 16. She is also taking Propranolol 20 mg p.o. b.i.d. and Klonopin 1 mg p.o. at bedtime. B. Diet: She is on a diabetic diet. C. Activities: As tolerated. The patient is encouraged to abstain from all tobacco products; however, she is declining the offer of continued nicotine replacement therapy, choosing to continue smoking cigarettes following discharge. There are no diagnostic studies pending at the time of discharge. It is notable that the patient did refuse a blood draw for her lipids and hemoglobin A1c. D. Follow-up care: The patient has been referred to the assertive community treatment team and they will provide both psychosocial support as well as med management in the community. HOSPITAL COURSE - PART A: Reason for admission: The patient is a 26-year-old, single, -Burmese female with a history of schizophrenia who is well known to me from several recent admissions to the [facility]al [facility] Unit who now returns to our hospital having been brought in by the emergency medical providers in the community due to her presentation with catatonia and inability to care for herself. Notes from the ER indicate that the patient was found wandering in a local parking lot. She was described as "catatonic" per staff and needed to be given smelling salts to arouse her. Upon administration of the smelling salt, she started screaming the word "" over and over again. She was unable or unwilling to engage in any meaningful evaluation and was found to be pacing in her room in the emergency department, requiring stat psychotropic medications to reduce her agitation. At the time that I am evaluating her, she is found in her bed lying supine in her room on the milieu. She is staring straight ahead at the ceiling and is unresponsive. She makes no attempt to make eye contact with this clinician. I am told that since her arrival early this morning, she has not been eating or drinking or left this position in her bed. It is uncertain at this time whether the patient has been compliant with psychiatric treatment on the outpatient basis since her most recent discharge on 11/11/2016. At that time, she was discharged on oral Propranolol as well as intramuscular Perphenazine 50 mg to be taken every two to three weeks. We have no collateral information at this time from her case operator at the [facility], nor clinicians at the [facility] where she goes for outpatient treatment. HOSPITAL COURSE - PART B: Psychiatric treatment rendered: The patient was admitted to the Adult Behavioral Health Unit where she was placed on q.30 minute checks for her own safety. Initially she was catatonic and unresponsive; however, spontaneously on February 21, she aroused from her bed requesting food and coming out onto the milieu. At that time, she reported that she had been at a [employer] on Wednesday evening, February 19, and had become intoxicated on alcohol. She does remember that someone convinced her to try cocaine and LSD and this is the last thing that she remembers. She is apologetic about this behavior, indicating that she never intends to use illicit drugs again. Anabelle initially told me that she had been compliant with outpatient treatment, including her triweekly shot of Fluphenazine Decanoate, although we later found out that this was incorrect. We were able to reach her outpatient therapist at [facility], a woman named Serena, who indicated to us that they had not seen Anabelle since November of this year and had actually discontinued her case. Anabelle was confronted about this and did admit that she was noncompliant with outpatient treatment because she felt that the [facility] was strange and she did not like the sight of the other consumers in the waiting area and that this made her nervous. She did state that she had been doing well and was able to hold a job and pay for her apartment. We did discuss alternative treatments in the community, including the ACT team which could see her outside of a clinic and could actually make appointments with her wherever she was. She seemed to like the idea of this. She was agreeable to resuming Fluphenazine treatment and on the date of discharge she received a dose of 50 mg intermuscularly. We have made a referral to the ACT team at this time and they will be contacting the patient in the community to initiate services. The patient's affect is bright. She is smiling. She was going to groups and she was safe on all checks. Following the resolution of her catatonia, she is strongly encouraged not to use illicit drugs again. [id number]/[facility] #: [id number] MAGO
--- NOTE | 2017-02-23 23:05 | ED ---
Gwyn Horton Thomas, scribed for Jason Pino MD on 02/20/17 at 2136 . Altered Mental Status - HPI Summary HPI Summary: Pt is a 26 y/o F who presents to ED with AMS characterized as decreased responsiveness. Per EMS, she was walking across the parking lot "jennifer" and she "came at" the EMS and was not verbally responsive. Once they got her in the vehicle, she was talking to them then suddenly stopped responding again. Per nurse, her friends said that she did cocaine and marijuana earlier today. Unsure of how EMS got called, whether it was the pt or her friends. PMHx schizophrenia. Level 5 caveat due to unresponsiveness. - History Of Current Complaint Chief Complaint: EDAltMentalStatus Stated Complaint: UNRESPONSIVE Time Seen by Provider: 02/20/17 21:30 Hx Obtained From: EMS, Other: - Nurse Hx From Patient Unobtainable Due To: Other - Unresponsiveness Onset/Duration: Still Present Character: Responsiveness - Unresponsiveness - Allergies/Home Medications Allergies/Adverse Reactions: Allergies Allergy/AdvReac Type Severity Reaction Status Date / Time No Known Allergies Allergy Verified 11/06/16 16:27 PMH/Surg Hx/FS Hx/Imm Hx Endocrine/Hematology History: 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 - per aunt Pankaj, triggered by invega injections Denies: Hx Thyroid Disease, Hx Anemia, Hx Unexplained Bleeding Cardiovascular History: Reports: Hx Hypertension Denies: Hx Embolism Respiratory History: Reports: Hx Asthma - A CHILD Denies: Hx Chronic Bronchitis, Hx Pneumonia GI History: Denies: Hx Crohn's Disease, Hx Irritable Bowel, Hx Ulcer History: Denies: Hx Dialysis, Hx Kidney Stones Musculoskeletal History: Denies: Hx Arthritis, Hx Back Problems, Hx Orthopedic Injury, Hx Scoliosis Neurological History: Denies: Hx Headaches, Hx Migraine, Hx Seizures Psychiatric History: Reports: Hx Anxiety, Hx Inpatient Treatment, Hx Community Mental Health Tx, Hx Schizophrenia, Hx Substance Abuse Denies: Hx Eating Disorder, Hx of Violent Episodes Against Others - Family History Known Family History: Positive: Diabetes - mom w/ type 2, Other - dad - schizophrenia - Social History Alcohol Use: None Hx Substance Use: No Substance Use Type: Reports: Cocaine, Marijuana Hx Tobacco Use: Yes Smoking Status (MU): Former Smoker Have You Smoked in the Last Year: - has not smoked in the last 30 days Review of Systems - ROS Summary Review of Systems Summary: Level 5 caveat due to unresponsiveness. Neurological: Other - AMS - unresponsiveness All Other Systems Reviewed And Are Negative: No Physical Exam - Summary Physical Exam Summary: Constitutional: Well-developed, Well-nourished (-) Distressed. Patient is catatonic, not responding to questions. She does blink to confrontation. With administration of smelling salts, she kept repeating the word "dad." Did not appear to be having a seizure. Skin: Warm, Dry HENT: Normocephalic; Atraumatic Eyes: Conjunctiva normal Neck: Musculoskeletal ROM normal neck. (-) JVD, (-) Stridor, (-) Tracheal deviation Cardio: Rhythm regular, rate normal, Heart sounds normal; Intact distal pulses; The pedal pulses are 2+ and symmetric. Radial pulses are 2+ and symmetric. (-) Murmur Pulmonary/Chest wall: Effort normal. (-) Respiratory distress, (-) Wheezes, (-) Rales Abd: Soft, (-) Tenderness, (-) Distension, (-) Guarding, (-) Rebound Musculoskeletal: (-) Edema Lymph: (-) Cervical adenopathy Neuro: Alert, Oriented x3 Psych: Affect is extremely flat. Triage Information Reviewed: Yes Vital Signs Reviewed: Yes Diagnostics - Laboratory Result Diagrams: 02/20/17 22:18 02/20/17 22:18 Lab Statement: Any lab studies that have been ordered have been reviewed, and results considered in the medical decision making process. - EKG 21:41 Cardiac Rate: NL - 83 bpm EKG Rhythm: Sinus Rhythm EKG Interpretation: No STEMI. QTC 389. Altered Mental Statu Course/Dx - Course Assessment/Plan: Pt is a 26 y/o F who presents to ED with AMS characterized as decreased responsiveness. Per EMS, she was walking across the parking lot "[employer]" and she "came at" the EMS and was not verbally responsive. Once they got her in the vehicle, she was talking to them then suddenly stopped responding again. Per nurse, her friends said that she did cocaine and marijuana earlier today. PMHx schizophrenia. Level 5 caveat due to unresponsiveness.Medically cleared for MHE at 2254. Pt will be signed out to Dr. Whittington, pending MHE. - Diagnoses Discharge Diagnoses: Catatonia Discharge - Discharge Plan Condition: Stable Disposition: OTHER Discharge Disposition Comment: Pt will be signed out to Dr. Whittington, pending dispo, awaiting MHE. Referrals: No Primary Care Phys,NOPCP [Primary Care Provider] - The documentation as recorded by the Gwyn latif Thomas accurately reflects the service I personally performed and the decisions made by me, Jason Pino MD.
== END 2017-02-23 11:23 | disposition home or self-care (01) | DRG 750 ==
LOC: ED 21:24 → BSU 02-21 02:43
PROVIDERS: ADMIT Psychiatry & Neurology Psychiatry; ATTEND Psychiatry & Neurology Psychiatry
DX: F20.9 Schizophrenia, unspecified (principal); E66.01 Morbid (severe) obesity due to excess calories; I10 Essential (primary) hypertension; E11.9 Type 2 diabetes mellitus without complications; E87.6 Hypokalemia; F17.210 Nicotine dependence, cigarettes, uncomplicated; Z79.4 Long term (current) use of insulin; Z79.899 Other long term (current) drug therapy; Z68.39 Body mass index [BMI] 39.0-39.9, adult
CPT/HCPCS: 36415; 80053; 80320; 80329; 84443; 85025; 93005; 99222; 99231; 99238; A9270-GY; G0480; J1200; J1630; J2060; J2680

== ENCOUNTER → 2017-03-12 07:34 | Emergency (ER) | payer OTHER ==
[2017-03-12 08:59] LABS: Hematocrit 41 % (35-47); Hemoglobin 12.7 g/dl (12.0-16.0); Mean Corpuscular HGB Conc 31 g/dl (31-36); Mean Corpuscular Hemoglobin 22 pg (27-31); Mean Platelet Volume 9 um3 (7.4-10.4); Red Cell Distribution Width 15 % (10.5-15); White Blood Count 4.8 10^3/ul (3.5-10.8)
[2017-03-12 09:02] LABS: Comments Flag Yes; Mean Corpuscular Volume 72 fL (80-97)
[2017-03-12 09:18] LABS: ALT 19 U/L (7-52); AST 16 U/L (13-39); Albumin 4.3 g/dL (3.2-5.2); Alkaline Phosphatase 54 U/L (34-104); Anion Gap 9 mmol/L (2-11); BUN/Creatinine Ratio 12.9 (8-20); Blood Urea Nitrogen 9 mg/dL (6-24); CO2 Carbon Dioxide 22 mmol/L (22-32); Chloride 106 mmol/L (101-111); EGFR African American 132.2 (>60); EGFR Non-African American 102.8 (>60); Globulin 3.2 g/dL (2-4); Glucose 118 mg/dL (70-100); Potassium 3.8 mmol/L (3.5-5.0); Sodium 137 mmol/L (133-145); Total Protein 7.5 g/dL (6.4-8.9)
[2017-03-12 09:52] LABS: Acetaminophen < 15 mcg/mL; Alcohol 44 mg/dL (<10); Salicylate < 2.50 mg/dL (<30)
[2017-03-12 09:59] LABS: TSH (Thyroid Stimulating Horm) 0.78 mcIU/mL (0.34-5.60)
[2017-03-12 11:17] LABS: Urine Bacteria Absent (Absent); Urine Bilirubin Negative (Negative); Urine Glucose Negative (Negative); Urine Nitrite Negative (Negative)
[2017-03-12 11:36] LABS: Benzodiazepine Urine Screen None Detected (None Detect)
[2017-03-12 13:33] VITALS: BP 133/75
--- NOTE | 2017-03-12 15:42 | ED ---
Linda Horton Edward, scribed for Marv Powers MD on 03/12/17 at 0959 . Psychiatric Complaint - HPI Summary HPI Summary: 26 y/o female presents to ED c/o hearing voices. Patient states the voices are telling her to hurt someone else. Patient states the voices are secondary to intoxication. She denies depression, fear, and SI. Non smoker. PMHx schizophrenia. - History Of Current Complaint Chief Complaint: EDMentalHealth Time Seen by Provider: 03/12/17 08:43 Hx Obtained From: Patient Aggravating Factor(s): Alcohol Use Associated Signs And Symptoms: Positive: Hallucinating - Hearing voices - Allergies/Home Medications Allergies/Adverse Reactions: Allergies Allergy/AdvReac Type Severity Reaction Status Date / Time No Known Allergies Allergy Verified 11/06/16 16:27 PMH/Surg Hx/FS Hx/Imm Hx Previously Healthy: No Endocrine/Hematology History: 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 - per aunt Pankaj, triggered by invega injections Denies: Hx Thyroid Disease, Hx Anemia, Hx Unexplained Bleeding Cardiovascular History: Reports: Hx Hypertension Denies: Hx Embolism Respiratory History: Reports: Hx Asthma - A CHILD Denies: Hx Chronic Bronchitis, Hx Pneumonia GI History: Denies: Hx Crohn's Disease, Hx Irritable Bowel, Hx Ulcer History: Denies: Hx Dialysis, Hx Kidney Stones Musculoskeletal History: Denies: Hx Arthritis, Hx Back Problems, Hx Orthopedic Injury, Hx Scoliosis Sensory History: Denies: Hx Contacts or Glasses, Hx Hearing Aid Opthamlomology History: Denies: Hx Contacts or Glasses Neurological History: Denies: Hx Headaches, Hx Migraine, Hx Seizures Psychiatric History: Reports: Hx Anxiety, Hx Inpatient Treatment, Hx Community Mental Health Tx, Hx Schizophrenia, Hx Substance Abuse Denies: Hx Eating Disorder, Hx of Violent Episodes Against Others - Immunization History Date of Tetanus Vaccine: unk Date of Influenza Vaccine: unk Infectious Disease History: No Infectious Disease History: Denies: Traveled Outside the [place] in Last 30 Days - Family History Known Family History: Positive: Diabetes - mom w/ type 2, Other - dad - schizophrenia - Social History Alcohol Use: None Alcohol Amount: in ACTS program now Hx Substance Use: No Substance Use Type: Reports: Cocaine, Marijuana Substance Use Comment - Amount & Last Used: unknown Hx Tobacco Use: Yes Smoking Status (MU): Former Smoker Have You Smoked in the Last Year: - has not smoked in the last 30 days Review of Systems Constitutional: Negative Eyes: Negative ENT: Negative Cardiovascular: Negative Respiratory: Negative Gastrointestinal: Negative Genitourinary: Negative Musculoskeletal: Negative Skin: Negative Neurological: Negative Psychological: Other - Hears voices, telling her to hurt others Negative: Depressed All Other Systems Reviewed And Are Negative: Yes Physical Exam - Summary Physical Exam Summary: The patient is well-nourished in no acute distress and in no acute pain. The skin is warm and dry and skin color reflects adequate perfusion. There is good skin turgor. There are no lacerations. HEENT: The head is normocephalic and atraumatic. The pupils are equal and reactive. The conjunctivae are clear and without drainage. Nares are patent and without drainage. Mouth reveals moist mucous membranes and the throat is without erythema and exudate. Neck is supple with full range of motion and non-tender. There are no carotid bruits. There is no neck vein distension. Respiratory: Chest is non-tender. Lungs are clear to auscultation and breath sounds are symmetrical and equal. Cardiovascular: Hear is regular rate and rhythm. There is no murmur or rub auscultated. There is no peripheral edema and pulses are symmetrical and equal. Abdomen: The abdomen is soft and non-tender. There are normal bowel sounds heard in all four quadrants and there is no organomegaly palpated. Musculoskeletal: There is no back pain noted. Extremities are non-tender with full range of motion. There is good capillary refill. There are good pulses distally. There is no peripheral edema or calf tenderness elicited. Neurological: Patient is alert and oriented to person, place and time. The patient has symmetrical motor strength in all four extremities. Cranial nerves are grossly intact. Deep tendon reflexes are symmetrical and equal in all four extremities. Psychiatric: The patient has an appropriate affect and does not exhibit any anxiety or depression. Triage Information Reviewed: Yes Vital Signs On Initial Exam: Initial Vitals Temp Pulse Resp BP Pulse Ox 97.7 F 81 18 127/78 98 03/12/17 08:01 03/12/17 08:01 03/12/17 08:01 03/12/17 08:01 03/12/17 08:01 Vital Signs Reviewed: Yes - Sil Coma Scale Coma Scale Total: 15 Diagnostics - Vital Signs Vital Signs Temp Pulse Resp BP Pulse Ox 03/12/17 08:01 97.7 F 81 18 127/78 98 - Laboratory Lab Results: Lab Results 03/12/17 03/12/17 Range/Units 08:50 08:50 WBC 4.8 (3.5-10.8) 10^3/ul RBC 5.70 H (4.0-5.4) 10^6/ul Hgb 12.7 (12.0-16.0) g/dl Hct 41 (35-47) % MCV 72 L (80-97) fL MCH 22 L (27-31) pg MCHC 31 (31-36) g/dl RDW 15 (10.5-15) % Plt Count 307 (150-450) 10^3/ul MPV 9 (7.4-10.4) um3 Neut % (Auto) 43.6 (38-83) % Lymph % (Auto) 41.3 (25-47) % [place] % (Auto) 8.4 (1-9) % Eos % (Auto) 5.7 (0-6) % Baso % (Auto) 1.0 (0-2) % Absolute Neuts (auto) 2.1 (1.5-7.7) 10^3/ul Absolute Lymphs (auto) 2.0 (1.0-4.8) 10^3/ul Absolute Monos (auto) 0.4 (0-0.8) 10^3/ul Absolute Eos (auto) 0.3 (0-0.6) 10^3/ul Absolute Basos (auto) 0 (0-0.2) 10^3/ul Absolute Nucleated RBC 0.01 10^3/ul Nucleated RBC % 0.1 Sodium 137 (133-145) mmol/L Potassium 3.8 (3.5-5.0) mmol/L Chloride 106 (101-111) mmol/L Carbon Dioxide 22 (22-32) mmol/L Anion Gap 9 (2-11) mmol/L BUN 9 (6-24) mg/dL Creatinine 0.70 (0.51-0.95) mg/dL Est GFR ( Amer) 132.2 (>60) Est GFR (Non-Af Amer) 102.8 (>60) BUN/Creatinine Ratio 12.9 (8-20) Glucose 118 H (70-100) mg/dL Calcium 9.0 (8.6-10.3) mg/dL Total Bilirubin 0.20 (0.2-1.0) mg/dL AST 16 (13-39) U/L ALT 19 (7-52) U/L Alkaline Phosphatase 54 (34-104) U/L Total Protein 7.5 (6.4-8.9) g/dL Albumin 4.3 (3.2-5.2) g/dL Globulin 3.2 (2-4) g/dL Albumin/Globulin Ratio 1.3 (1-3) TSH Pending Salicylates Pending Acetaminophen Pending Serum Alcohol Pending Result Diagrams: 03/12/17 08:50 03/12/17 08:50 Lab Statement: Any lab studies that have been ordered have been reviewed, and results considered in the medical decision making process. Course/Dx - Course Assessment/Plan: Patient was medically cleared for MHU evaluation @ 10:[address] Marv Powers. Pt will be discharged with schizophrenia and alcohol intoxication. - Differential Dx/Clinical Impression Provider Diagnosis: Schizophrenia, Alcohol intoxication Discharge - Discharge Plan Condition: Stable Disposition: HOME Referrals: No Primary Care Phys,NOPCP [Primary Care Provider] - The documentation as recorded by the Linda latif Edward accurately reflects the service I personally performed and the decisions made by Priya mccauley Drew, MD.
== END | disposition home or self-care (01) ==
LOC: ED 07:34
DX: F20.9 Schizophrenia, unspecified (principal); F10.129 Alcohol abuse with intoxication, unspecified; Z87.891 Personal history of nicotine dependence; R44.3 Hallucinations, unspecified
CPT/HCPCS: 36415; 80053; 80307; 80320; 80329; 81003; 81015; 84443; 84702; 85025; 99284; G0480

== ENCOUNTER → 2017-04-19 19:51 | Emergency (ER) | payer OTHER ==
--- NOTE | 2017-04-19 20:52 | ED ---
Psychiatric Complaint - HPI Summary HPI Summary: Pt here w/ HI since this morning. Explains a "bum made me made" this morning and she's been angry all day since. Has been pacing at her house as she's upset. Denies a clear plan of harming a specific individual but states she has knives at her house and didn't feel safe there so called ambulance. She admits to schizophrenia which is fairly well controlled but she thinks it could be better controlled. Receives prolixa injection thruogh Dr. Peterson - thinks she needs a higher dose as she reports she has to implement her own coping mechanisms which are difficult to do at times. She has had a few episodes of wandering off while on the medication (states she did this before med as well...concerned medication is not working). She admits to smoking a black and mild prior to arrival but otherwise denies caffeine use today, ETOH and no other drugs. LMP - on tail end now - History Of Current Complaint Chief Complaint: EDMentalHealth Time Seen by Provider: 04/19/17 20:04 Hx Obtained From: Patient - Allergies/Home Medications Allergies/Adverse Reactions: Allergies Allergy/AdvReac Type Severity Reaction Status Date / Time No Known Allergies Allergy Verified 04/20/17 00:45 PMH/Surg Hx/FS Hx/Imm Hx Previously Healthy: Yes Endocrine/Hematology History: 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 - per aunt Pankaj, triggered by invega injections Denies: Hx Thyroid Disease, Hx Anemia, Hx Unexplained Bleeding Cardiovascular History: Reports: Hx Hypertension Denies: Hx Embolism Respiratory History: Reports: Hx Asthma - A CHILD Denies: Hx Chronic Bronchitis, Hx Pneumonia GI History: Denies: Hx Crohn's Disease, Hx Irritable Bowel, Hx Ulcer History: Denies: Hx Dialysis, Hx Kidney Stones Musculoskeletal History: Denies: Hx Arthritis, Hx Back Problems, Hx Orthopedic Injury, Hx Scoliosis Sensory History: Denies: Hx Contacts or Glasses, Hx Hearing Aid Opthamlomology History: Denies: Hx Contacts or Glasses Neurological History: Denies: Hx Headaches, Hx Migraine, Hx Seizures Psychiatric History: Reports: Hx Anxiety, Hx Inpatient Treatment, Hx Community Mental Health Tx, Hx Schizophrenia, Hx Substance Abuse Denies: Hx Eating Disorder, Hx of Violent Episodes Against Others - Immunization History Date of Tetanus Vaccine: unk Date of Influenza Vaccine: unk Infectious Disease History: No Infectious Disease History: Denies: Traveled Outside the [place] in Last 30 Days - Family History Known Family History: Positive: Diabetes - mom w/ type 2, Other - dad - schizophrenia - Social History Lives: Alone Alcohol Use: None Alcohol Amount: in ACTS program now Hx Substance Use: No Substance Use Type: Reports: Cocaine, Marijuana Substance Use Comment - Amount & Last Used: unknown Hx Tobacco Use: Yes Smoking Status (MU): Current Some Day Smoker - black and milds Type: Cigars Have You Smoked in the Last Year: - has not smoked in the last 30 days Review of Systems Constitutional: Negative Negative: Fever, Chills, Fatigue Cardiovascular: Negative Respiratory: Negative Gastrointestinal: Negative Positive: no symptoms reported Neurological: Negative Psychological: Other - HI as in HPI All Other Systems Reviewed And Are Negative: Yes Physical Exam Triage Information Reviewed: Yes Vital Signs On Initial Exam: Initial Vitals Temp Pulse Resp BP Pulse Ox 98.2 F 86 14 128/82 98 04/19/17 20:26 04/19/17 20:26 04/19/17 20:26 04/19/17 20:26 04/19/17 20:26 Vital Signs Reviewed: Yes Appearance: Positive: Well-Appearing, No Pain Distress, Well-Nourished Skin: Positive: Warm, Dry Head/Face: Positive: Normal Head/Face Inspection Eyes: Positive: Normal, EOMI, Conjunctiva Clear ENT: Positive: Hearing grossly normal, Pharynx normal Respiratory/Lung Sounds: Positive: Clear to Auscultation, Breath Sounds Present. Negative: Rales, Rhonchi, Wheezes Cardiovascular: Positive: Normal, RRR, S1, S2 Abdomen Description: Positive: Nontender, No Organomegaly, Soft Bowel Sounds: Positive: Present Musculoskeletal: Positive: Normal, Strength/ROM Intact Neurological: Positive: Normal, Sensory/Motor Intact, Alert, Oriented to Person Place, Time, CN Intact II-III - somewhat monotone, flat - HI but is calm - listening to music she reports helps keep her calm, no SI - [place] Coma Scale Coma Scale Total: 15 Diagnostics - Vital Signs Vital Signs Temp Pulse Resp BP Pulse Ox 04/19/17 20:26 98.2 F 86 14 128/82 98 - Laboratory Result Diagrams: 04/19/17 21:00 04/19/17 21:00 Lab Statement: Any lab studies that have been ordered have been reviewed, and results considered in the medical decision making process. Course/Dx - Course Course Of Treatment: Pt here w/ HI - concerned about safesty at home. Appears calm here tonight. Medically clear. Discussed w/ MH utility specialist. Pending psychiatrist evaluation. Pt may go home if she is able to resolve her HI over the course of being here (ie. calms down in a different environment, feels safe to return home, etc). If not, recommend further observation/admission and possible adjustment in medication as pt reports she feels she struggles to use coping skills at times despite current regimen. Signed out to Dr. Rivera at 3: 05am. - Differential Dx/Clinical Impression Provider Diagnosis: Homicidal ideation Discharge - Discharge Plan Condition: Stable Disposition: OTHER Discharge Disposition Comment: signed out to Dr. Rivera Referrals: No Primary Care Phys,NOPCP [Primary Care Provider] -
[2017-04-19 21:09] LABS: Hematocrit 40 % (35-47); Hemoglobin 12.6 g/dl (12.0-16.0); Mean Corpuscular HGB Conc 31 g/dl (31-36); Mean Corpuscular Hemoglobin 22 pg (27-31); Mean Platelet Volume 10 um3 (7.4-10.4); Red Blood Count 5.71 10^6/ul (4.0-5.4); Red Cell Distribution Width 15 % (10.5-15); White Blood Count 7.5 10^3/ul (3.5-10.8)
[2017-04-19 21:11] LABS: Comments Flag Yes; Mean Corpuscular Volume 70 fL (80-97)
[2017-04-19 21:14] LABS: Urine Bacteria Absent (Absent); Urine Bilirubin Negative (Negative); Urine Glucose Negative (Negative); Urine Nitrite Negative (Negative)
[2017-04-19 21:16] LABS: Benzodiazepine Urine Screen None Detected (None Detect)
[2017-04-19 21:23] LABS: ALT 14 U/L (7-52); AST 18 U/L (13-39); Albumin 4.8 g/dL (3.2-5.2); Alkaline Phosphatase 62 U/L (34-104); Anion Gap 9 mmol/L (2-11); BUN/Creatinine Ratio 10.4 (8-20); Blood Urea Nitrogen 8 mg/dL (6-24); CO2 Carbon Dioxide 22 mmol/L (22-32); Calcium 9.4 mg/dL (8.6-10.3); Chloride 105 mmol/L (101-111); EGFR African American 118.4 (>60); EGFR Non-African American 92.1 (>60); Globulin 3.6 g/dL (2-4); Glucose 82 mg/dL (70-100); Potassium 3.9 mmol/L (3.5-5.0); Sodium 136 mmol/L (133-145); Total Protein 8.4 g/dL (6.4-8.9)
[2017-04-19 21:34] LABS: Acetaminophen < 15 mcg/mL; Alcohol < 10 mg/dL (<10); Salicylate < 2.50 mg/dL (<30)
[2017-04-19 21:44] LABS: TSH (Thyroid Stimulating Horm) 1.32 mcIU/mL (0.34-5.60)
[2017-04-20 05:01] VITALS: BP 129/90
--- NOTE | 2017-04-21 16:39 | PN ---
Progress Note - Progress Note Date of Service: 04/19/17 Note: preliminary culture results showed 1-10,000 of strep group b grwoth. however due to amount and patient not complaining of symptoms not need for treatment at this time. no further action required.
== END ==
LOC: ED 19:51
DX: R45.850 Homicidal ideations (principal); F20.9 Schizophrenia, unspecified; Z87.891 Personal history of nicotine dependence
CPT/HCPCS: 36415; 80053; 80307; 80320; 80329; 81003; 81015; 84443; 84702; 85025; 87077; 87086; 99284; G0480

== ENCOUNTER 2017-05-23 20:28 | Emergency (ER) | payer OTHER ==
[2017-05-23 20:38] VITALS: BP 128/84
[2017-05-23 21:25] LABS: Urine Bacteria Absent (Absent); Urine Bilirubin Negative (Negative); Urine Glucose Negative (Negative); Urine Nitrite Negative (Negative)
[2017-05-23 21:40] LABS: Benzodiazepine Urine Screen None Detected (None Detect)
[2017-05-23 21:52] LABS: Comments Flag Yes; Hematocrit 40 % (35-47); Hemoglobin 12.7 g/dl (12.0-16.0); Mean Corpuscular HGB Conc 32 g/dl (31-36); Mean Corpuscular Hemoglobin 22 pg (27-31); Mean Platelet Volume 10 um3 (7.4-10.4); Red Cell Distribution Width 15 % (10.5-15); White Blood Count 7.1 10^3/ul (3.5-10.8)
[2017-05-23 21:53] LABS: Mean Corpuscular Volume 70 fL (80-97)
[2017-05-23 22:12] LABS: ALT 14 U/L (7-52); AST 19 U/L (13-39); Albumin 4.6 g/dL (3.2-5.2); Alkaline Phosphatase 62 U/L (34-104); Anion Gap 7 mmol/L (2-11); BUN/Creatinine Ratio 14.5 (8-20); Blood Urea Nitrogen 11 mg/dL (6-24); CO2 Carbon Dioxide 24 mmol/L (22-32); Chloride 103 mmol/L (101-111); EGFR African American 120.2 (>60); EGFR Non-African American 93.5 (>60); Globulin 3.6 g/dL (2-4); Glucose 91 mg/dL (70-100); Potassium 3.6 mmol/L (3.5-5.0); Sodium 134 mmol/L (133-145); Total Protein 8.2 g/dL (6.4-8.9)
[2017-05-23 22:15] LABS: Acetaminophen < 15 mcg/mL; Alcohol < 10 mg/dL (<10); Salicylate < 2.50 mg/dL (<30)
[2017-05-23 22:26] LABS: TSH (Thyroid Stimulating Horm) 1.39 mcIU/mL (0.34-5.60)
--- NOTE | 2017-06-04 15:15 | ED ---
Josiah Horton Rebecca, scribed for Jason Pino MD on 05/23/17 at 2115 . Psychiatric Complaint - HPI Summary HPI Summary: Pt is a 26 y/o F who presents to ED c/o depressions with SIs. Pt reports she does not have a plan, stating "I don't know what I would do, only thing I can think of is jumping off a bridge but I don't have a plan really." Sx aggravated and alleviated by nothing. Additionally c/o paranoia and insomnia. PMHx schizophrenia - has been medication compliant. Has had prior admissions. - History Of Current Complaint Chief Complaint: EDMentalHealth Time Seen by Provider: 05/23/17 20:54 Hx Obtained From: Patient Onset/Duration: Still Present Character: Depressed Aggravating Factor(s): Nothing Alleviating Factor(s): Nothing Associated Signs And Symptoms: Positive: Paranoid Behavior, Sleep Disturbance Related History: Positive For: Prior Psychiatric Issues - Schizophrenia Has Suicidal: Reports: Thoughts. Denies: With A Plan - Allergies/Home Medications Allergies/Adverse Reactions: Allergies Allergy/AdvReac Type Severity Reaction Status Date / Time No Known Allergies Allergy Verified 04/20/17 00:45 PMH/Surg Hx/FS Hx/Imm Hx Endocrine/Hematology History: 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 - per aunt Pankaj, triggered by invega injections Denies: Hx Thyroid Disease, Hx Anemia, Hx Unexplained Bleeding Cardiovascular History: Reports: Hx Hypertension Denies: Hx Embolism Respiratory History: Reports: Hx Asthma - A CHILD Denies: Hx Chronic Bronchitis, Hx Pneumonia GI History: Denies: Hx Crohn's Disease, Hx Irritable Bowel, Hx Ulcer History: Denies: Hx Dialysis, Hx Kidney Stones Musculoskeletal History: Denies: Hx Arthritis, Hx Back Problems, Hx Orthopedic Injury, Hx Scoliosis Sensory History: Denies: Hx Contacts or Glasses, Hx Hearing Aid Opthamlomology History: Denies: Hx Contacts or Glasses Neurological History: Denies: Hx Headaches, Hx Migraine, Hx Seizures Psychiatric History: Reports: Hx Anxiety, Hx Inpatient Treatment, Hx Community Mental Health Tx, Hx Schizophrenia, Hx Substance Abuse Denies: Hx Eating Disorder, Hx of Violent Episodes Against Others - Immunization History Date of Tetanus Vaccine: unk Date of Influenza Vaccine: unk Infectious Disease History: Denies: Traveled Outside the US in Last 30 Days - Family History Known Family History: Positive: Diabetes - mom w/ type 2, Other - dad - schizophrenia - Social History Alcohol Use: None Alcohol Amount: in [facility] program now Hx Substance Use: No Substance Use Type: Reports: Cocaine, Marijuana Substance Use Comment - Amount & Last Used: unknown Hx Tobacco Use: Yes Smoking Status (MU): Current Some Day Smoker - black and milds Type: Cigars Have You Smoked in the Last Year: - has not smoked in the last 30 days Review of Systems Negative: Fever, Chills Negative: Erythema Negative: Sore Throat Negative: Chest Pain Negative: Shortness Of Breath, Cough Negative: Abdominal Pain, Vomiting, Nausea Negative: dysuria, hematuria Negative: Myalgia, Edema Negative: Rash Neurological: Other - NEGATIVE: Dizziness Positive: Depressed, Other - SIs, paranoia and insomnia All Other Systems Reviewed And Are Negative: Yes Physical Exam - Summary Physical Exam Summary: General: Well appearing, no distress Cardiovascular: Skin is well perfused Pulmonary: No respiratory distress, no tachypnea Abdomen: Non-distended Skin: Warm, pink, dry Psych: Normal affect Neuro: A&Ox3 Triage Information Reviewed: Yes Vital Signs On Initial Exam: Initial Vitals Temp Pulse Resp BP Pulse Ox 98.6 F 79 18 128/84 100 05/23/17 20:29 05/23/17 20:29 05/23/17 20:29 05/23/17 20:29 05/23/17 20:29 Vital Signs Reviewed: Yes Diagnostics - Vital Signs Vital Signs Temp Pulse Resp BP Pulse Ox 05/23/17 20:29 98.6 F 79 18 128/84 100 - Laboratory Result Diagrams: 05/23/17 21:30 05/23/17 21:30 Lab Statement: Any lab studies that have been ordered have been reviewed, and results considered in the medical decision making process. Course/Dx - Course Assessment/Plan: Pt is a 26 y/o F who presents to ED c/o depressions with SIs. Pt reports she does not have a plan, stating "I don't know what I would do, only thing I can think of is jumping off a bridge but I don't have a plan really." Sx aggravated and alleviated by nothing. Additionally c/o paranoia and insomnia. PMHx schizophrenia - has been medication compliant. Has had prior MH admissions. Medically cleared for MHE at 2109. Upon MHE and review of case with Dr. Tolentino, it has been determined that the pt is cleared to be D/C to home. She will be D/C to home with Dx of depression and a follow up with the ACT team. She understands and agrees. Elevated BP noted and advised to f/u. - Differential Dx/Clinical Impression Provider Diagnosis: Depression Discharge - Discharge Plan Condition: Stable Disposition: HOME Referrals: No Primary Care Phys,NOPCP [Primary Care Provider] - Additional Instructions: Per completion of a mental health evaluation, you are cleared for release and do not require inpatient psychiatric hospitalization at this time. Please go to nearest emergency room or call 911 if safety concerns arise or condition worsens. IMPORTANT PHONE NUMBERS: [facility] Behavioral Services Unit: [facility] Emergency Room Flex Unit: Suicide Prevention and Crisis Services: National Suicide Prevention Lifeline: [phone] 670-DCQG ([phone]) [facility]: [facility] Mental [facility] Association: [facility]: [facility] Police:~ [facility]: [employer]: You have been referred to [facility]. It is our recommendation that you call the ACT Team to secure an appointment on their next business day. The ACT Team has been notified of this visit, and is anticipating your call in the morning. If you require further assistance connecting to outpatient providers, please contact our Mental Health Unit at . [facility] [address] [place], [place] [address] No changes or adjustments were made to your medication regimen during this evaluation.~ Continue medications as prescribed by your outpatient providers. The documentation as recorded by the Josiah latif Rebecca accurately reflects the service I personally performed and the decisions made by , Jason Pino MD.
== END 2017-05-24 03:57 | disposition home or self-care (01) ==
LOC: ED 20:28
DX: F32.9 Major depressive disorder, single episode, unspecified (principal); F17.290 Nicotine dependence, other tobacco product, uncomplicated; F20.9 Schizophrenia, unspecified; E11.9 Type 2 diabetes mellitus without complications; Z79.4 Long term (current) use of insulin; I10 Essential (primary) hypertension
CPT/HCPCS: 36415; 80053; 80307; 80320; 80329; 81003; 81015; 84443; 85025; 99284; G0480

== ENCOUNTER 2017-06-27 18:51 | Inpatient (IN) | payer OTHER ==
[2017-06-27 19:28] LABS: Urine Bacteria Absent (Absent); Urine Bilirubin Negative (Negative); Urine Glucose Negative (Negative); Urine Nitrite Negative (Negative)
[2017-06-27 19:39] LABS: Benzodiazepine Urine Screen None Detected (None Detect)
[2017-06-27 19:46] LABS: Hematocrit 37 % (35-47); Hemoglobin 11.6 g/dl (12.0-16.0); Mean Corpuscular HGB Conc 32 g/dl (31-36); Mean Corpuscular Hemoglobin 22 pg (27-31); Mean Platelet Volume 9 um3 (7.4-10.4); Red Blood Count 5.21 10^6/ul (4.0-5.4); Red Cell Distribution Width 14 % (10.5-15); White Blood Count 6.1 10^3/ul (3.5-10.8)
[2017-06-27 19:47] LABS: Comments Flag Yes; Mean Corpuscular Volume 70 fL (80-97)
[2017-06-27 20:01] LABS: ALT 14 U/L (7-52); AST 15 U/L (13-39); Albumin 4.1 g/dL (3.2-5.2); Alkaline Phosphatase 53 U/L (34-104); Anion Gap 4 mmol/L (2-11); Blood Urea Nitrogen 8 mg/dL (6-24); CO2 Carbon Dioxide 24 mmol/L (22-32); Calcium 8.9 mg/dL (8.6-10.3); Chloride 106 mmol/L (101-111); EGFR Non-African American 97.9 (>60); Globulin 3.1 g/dL (2-4); Glucose 124 mg/dL (70-100); Potassium 3.5 mmol/L (3.5-5.0); Sodium 134 mmol/L (133-145); Total Protein 7.2 g/dL (6.4-8.9)
[2017-06-27 20:20] LABS: Acetaminophen < 15 mcg/mL; Alcohol < 10 mg/dL (<10); Salicylate < 2.50 mg/dL (<30)
[2017-06-27 20:35] LABS: TSH (Thyroid Stimulating Horm) 0.99 mcIU/mL (0.34-5.60)
--- NOTE | 2017-06-28 03:12 | ED ---
Josiah Horton Rebecca, scribed for Stu Daley on 06/27/17 at 1918 . Psychiatric Complaint - HPI Summary HPI Summary: Pt is a 26 y/o F BIBA who presents to ED c/o depression with SIs without a plan. Sx have been present for approximately 2 days. Sx aggravated and alleviated by nothing. Denies any pain. PMHx schizophrenia. Pt confirms she has been medications compliant. Receives Prolixin injections 1x a month. - History Of Current Complaint Chief Complaint: EDMentalHealth Time Seen by Provider: 06/27/17 19:12 Hx Obtained From: Patient Onset/Duration: Lasting Days - 2 days, Still Present Severity Currently: None Character: Depressed Aggravating Factor(s): Nothing Alleviating Factor(s): Nothing Associated Signs And Symptoms: Positive: Negative Related History: Positive For: Prior Psychiatric Issues - Schizophrenia Has Suicidal: Reports: Thoughts. Denies: With A Plan - Allergies/Home Medications Allergies/Adverse Reactions: Allergies Allergy/AdvReac Type Severity Reaction Status Date / Time No Known Allergies Allergy Verified 04/20/17 00:45 PMH/Surg Hx/FS Hx/Imm Hx Endocrine/Hematology History: 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 - per aunt Pankaj, triggered by invega injections Denies: Hx Thyroid Disease, Hx Anemia, Hx Unexplained Bleeding Cardiovascular History: Reports: Hx Hypertension Denies: Hx Embolism Respiratory History: Reports: Hx Asthma - A CHILD Denies: Hx Chronic Bronchitis, Hx Pneumonia GI History: Denies: Hx Crohn's Disease, Hx Irritable Bowel, Hx Ulcer History: Denies: Hx Dialysis, Hx Kidney Stones Musculoskeletal History: Denies: Hx Arthritis, Hx Back Problems, Hx Orthopedic Injury, Hx Scoliosis Sensory History: Denies: Hx Contacts or Glasses, Hx Hearing Aid Opthamlomology History: Denies: Hx Contacts or Glasses Neurological History: Denies: Hx Headaches, Hx Migraine, Hx Seizures Psychiatric History: Reports: Hx Anxiety, Hx Inpatient Treatment, Hx Community Mental Health Tx, Hx Schizophrenia, Hx Substance Abuse Denies: Hx Eating Disorder, Hx of Violent Episodes Against Others - Immunization History Date of Tetanus Vaccine: unk Date of Influenza Vaccine: unk Infectious Disease History: No Infectious Disease History: Denies: Traveled Outside the US in Last 30 Days - Family History Known Family History: Positive: Diabetes - mom w/ type 2, Other - dad - schizophrenia - Social History Alcohol Use: Weekly Alcohol Amount: Pt states social drinker Hx Substance Use: No Substance Use Type: Reports: None Substance Use Comment - Amount & Last Used: unknown Hx Tobacco Use: Yes Smoking Status (MU): Heavy Every Day Tobacco Smoker Type: Cigars Have You Smoked in the Last Year: - has not smoked in the last 30 days Review of Systems Positive: Other - Negative: any pain Positive: Depressed, Other - SIs with no plan All Other Systems Reviewed And Are Negative: Yes Physical Exam - Summary Physical Exam Summary: Appearance: Well appearing, no pain distress Skin: warm, dry, reflects adequate perfusion Head/face: normal Eyes: EOMI, ROMEL ENT: normal Neck: supple, nontender Respiratory: CTA, breath sounds present Cardiovascular: RRR, pulses symmetrical Abdomen: nontender, soft Bowel: present Musculoskeletal: normal, strength/ROM intact Neuro: normal, sensory motor intact, A&Ox3 Psychiatric: Depressed affect Triage Information Reviewed: Yes Vital Signs On Initial Exam: Initial Vitals Temp Pulse Resp BP Pulse Ox 98.2 F 83 16 138/76 100 06/27/17 19:00 06/27/17 19:00 06/27/17 19:00 06/27/17 19:00 06/27/17 19:00 Vital Signs Reviewed: Yes - Sil Coma Scale Coma Scale Total: 15 Diagnostics - Vital Signs Vital Signs Temp Pulse Resp BP Pulse Ox 06/27/17 19:00 98.2 F 83 16 138/76 100 - Laboratory Lab Results: Lab Results 06/27/17 06/27/17 06/27/17 Range/Units 19:09 19:09 19:39 WBC (3.5-10.8) 10^3/ul RBC (4.0-5.4) 10^6/ul Hgb (12.0-16.0) g/dl Hct (35-47) % MCV (80-97) fL MCH (27-31) pg MCHC (31-36) g/dl RDW (10.5-15) % Plt Count (150-450) 10^3/ul MPV (7.4-10.4) um3 Neut % (Auto) (38-83) % Lymph % (Auto) (25-47) % Burt % (Auto) (1-9) % Eos % (Auto) (0-6) % Baso % (Auto) (0-2) % Absolute Neuts (auto) (1.5-7.7) 10^3/ul Absolute Lymphs (auto) (1.0-4.8) 10^3/ul Absolute Monos (auto) (0-0.8) 10^3/ul Absolute Eos (auto) (0-0.6) 10^3/ul Absolute Basos (auto) (0-0.2) 10^3/ul Absolute Nucleated RBC 10^3/ul Nucleated RBC % Sodium 134 (133-145) mmol/L Potassium 3.5 (3.5-5.0) mmol/L Chloride 106 (101-111) mmol/L Carbon Dioxide 24 (22-32) mmol/L Anion Gap 4 (2-11) mmol/L BUN 8 (6-24) mg/dL Creatinine 0.73 (0.51-0.95) mg/dL Est GFR ( Amer) 126.0 (>60) Est GFR (Non-Af Amer) 97.9 (>60) BUN/Creatinine Ratio 11.0 (8-20) Glucose 124 H (70-100) mg/dL Calcium 8.9 (8.6-10.3) mg/dL Total Bilirubin 0.30 (0.2-1.0) mg/dL AST 15 (13-39) U/L ALT 14 (7-52) U/L Alkaline Phosphatase 53 (34-104) U/L Total Protein 7.2 (6.4-8.9) g/dL Albumin 4.1 (3.2-5.2) g/dL Globulin 3.1 (2-4) g/dL Albumin/Globulin Ratio 1.3 (1-3) TSH 0.99 (0.34-5.60) mcIU/mL Beta HCG, Quant < 0.60 mIU/mL Urine Color Yellow Urine Appearance Clear Urine pH 6.0 (5-9) Ur Specific [place] 1.020 (1.010-1.030) Urine Protein 1+(30 mg/dl) H (Negative) Urine Ketones Negative (Negative) Urine Blood 2+ H (Negative) Urine Nitrate Negative (Negative) Urine Bilirubin Negative (Negative) Urine Urobilinogen Negative (Negative) Ur Leukocyte Esterase Negative (Negative) Urine WBC (Auto) Trace(0-5/hpf) (Absent) Urine RBC (Auto) 3+(>10/hpf) H (Absent) Urine Bacteria Absent (Absent) Urine Glucose Negative (Negative) Salicylates < 2.50 (<30) mg/dL Urine Opiates Screen None detected (None Detect) Acetaminophen < 15 mcg/mL Ur Barbiturates Screen None detected (None Detect) Ur Phencyclidine Scrn None detected (None Detect) Ur Amphetamines Screen None detected (None Detect) U Benzodiazepines Scrn None detected (None Detect) Urine Cocaine Screen None detected (None Detect) U Cannabinoids Screen None detected (None Detect) Serum Alcohol < 10 (<10) mg/dL 06/27/17 Range/Units 19:39 WBC 6.1 (3.5-10.8) 10^3/ul RBC 5.21 (4.0-5.4) 10^6/ul Hgb 11.6 L (12.0-16.0) g/dl Hct 37 (35-47) % MCV 70 L (80-97) fL MCH 22 L (27-31) pg MCHC 32 (31-36) g/dl RDW 14 (10.5-15) % Plt Count 289 (150-450) 10^3/ul MPV 9 (7.4-10.4) um3 Neut % (Auto) 46.0 (38-83) % Lymph % (Auto) 40.1 (25-47) % Burt % (Auto) 8.7 (1-9) % Eos % (Auto) 4.4 (0-6) % Baso % (Auto) 0.8 (0-2) % Absolute Neuts (auto) 2.8 (1.5-7.7) 10^3/ul Absolute Lymphs (auto) 2.4 (1.0-4.8) 10^3/ul Absolute Monos (auto) 0.5 (0-0.8) 10^3/ul Absolute Eos (auto) 0.3 (0-0.6) 10^3/ul Absolute Basos (auto) 0 (0-0.2) 10^3/ul Absolute Nucleated RBC 0.01 10^3/ul Nucleated RBC % 0.2 Sodium (133-145) mmol/L Potassium (3.5-5.0) mmol/L Chloride (101-111) mmol/L Carbon Dioxide (22-32) mmol/L Anion Gap (2-11) mmol/L BUN (6-24) mg/dL Creatinine (0.51-0.95) mg/dL Est GFR ( Amer) (>60) Est GFR (Non-Af Amer) (>60) BUN/Creatinine Ratio (8-20) Glucose (70-100) mg/dL Calcium (8.6-10.3) mg/dL Total Bilirubin (0.2-1.0) mg/dL AST (13-39) U/L ALT (7-52) U/L Alkaline Phosphatase (34-104) U/L Total Protein (6.4-8.9) g/dL Albumin (3.2-5.2) g/dL Globulin (2-4) g/dL Albumin/Globulin Ratio (1-3) TSH (0.34-5.60) mcIU/mL Beta HCG, Quant mIU/mL Urine Color Urine Appearance Urine pH (5-9) Ur Specific [place] (1.010-1.030) Urine Protein (Negative) Urine Ketones (Negative) Urine Blood (Negative) Urine Nitrate (Negative) Urine Bilirubin (Negative) Urine Urobilinogen (Negative) Ur Leukocyte Esterase (Negative) Urine WBC (Auto) (Absent) Urine RBC (Auto) (Absent) Urine Bacteria (Absent) Urine Glucose (Negative) Salicylates (<30) mg/dL Urine Opiates Screen (None Detect) Acetaminophen mcg/mL Ur Barbiturates Screen (None Detect) Ur Phencyclidine Scrn (None Detect) Ur Amphetamines Screen (None Detect) U Benzodiazepines Scrn (None Detect) Urine Cocaine Screen (None Detect) U Cannabinoids Screen (None Detect) Serum Alcohol (<10) mg/dL Result Diagrams: 06/27/17 19:39 06/27/17 19:39 Lab Statement: Any lab studies that have been ordered have been reviewed, and results considered in the medical decision making process. Course/Dx - Course Assessment/Plan: Pt is a 26 y/o F BIBA who presents to ED c/o depression with SIs without a plan for 2 days. Denies any pain. PMHx schizophrenia. Pt confirms she has been medications compliant. Receives Prolixin injections 1x a month. Medically clear for MHE at 2006. Upon completion of MHE it has been determiend that the pt will be admitted with Dx of depression and SIs. She understands and agrees. Elevated BP noted. - Differential Dx/Clinical Impression Differential Diagnosis/HQI/PQRI: Positive: Anxiety, Depression, Schizophrenia, Suicidal Ideation Provider Diagnosis: Depression, Suicidal ideation Discharge - Discharge Plan Condition: Stable Disposition: ADMITTED TO [facility] The documentation as recorded by the Josiah latif Rebecca accurately reflects the service I personally performed and the decisions made by , Stu Daley.
[2017-06-28] MEDS ORDERED: Acetaminophen TAB* 325 MG PO PRN (13:00)
[2017-06-28] MEDS ORDERED: hydrOXYzine HCL TAB* 50 MG PO PRN (13:00)
[2017-06-28] MEDS: Insulin GLARGINE(*) 1 UNITS UNIT SUBCUT SCH (13:16)
--- NOTE | 2017-06-28 21:47 | HP ---
PSYCHIATRIC HISTORY AND PHYSICAL: DATE OF ADMISSION: 06/27/17 JUSTIFICATION FOR ADMISSION: The patient is in need of 24-hour supervision and treatment secondary to suicidal ideation. CHIEF COMPLAINT: "I just got really depressed after talking to my mom, she is annoying." HISTORY OF PRESENT ILLNESS: The patient is a 26-year-old single -[place] female with a hist ory of schizoaffective disorder, who [facility] well [facility] who now [facility] to the hospital where she reported suicidal ideations without any parti cular plan. Anabelle tells me that she continues to work with the local [facility] and they administer Prolixin decanoate every 3 weeks and her psychotic symptoms have been well controlled on this. She indicates that she is getting to the end of her last injection and is due for her next administration of Prolixin decanoate on 06/30/17. She does note that occasi onally towards the end of the therapeutic period of her Prolixin, she occasionally gets worsening mo od. She tells me that she had a phone call with her mother, who resides in [place], [place] and they argued on the phone and had hurt feelings and she has been depressed ever since then. Gina s was apparently sometime over the weekend. During this period, she had not been able to sleep or e at well. She appeared to be sad in the emergency room, talking slowly and could not contract for sa fety. She was asked repeatedly if she had any specific plan to harm herself, but she would not divu lge any. PAST PSYCHIATRIC HISTORY: The patient has been admitted to my service here on 4 prior occasions, th e first being in August 2016, the second in September 2016, the next in November 2016, and the last adm ission in February of 2017. Looking in her chart, I see several recent emergency room visits for mental health evaluations as well. The patient is receiving outpatient treatment at [facility]. She has also had several hospitalizations in [place], [place] over the 2- 09/07 yea rs leading up to her move to [place]. She has been on Invega Sustenna in the past, but this made her blood glucose become elevated. She has also been on IM aripiprazole, but did not benefit from this much. Mostly, she has been stable on fluphenazine. She has no formal history of suicide attempts, although she has experienced suicidal ideations several times in the past. PAST MEDICAL HISTORY: Significant for diabetes mellitus, hypertension, obesity. CURRENT MEDICATIONS: 1. She is on Lantus insulin 14 units subcutaneously daily. 2. She takes fluphenazine decanoate 50 mg IM every 3 weeks. ALLERGIES: No known drug allergies. FAMILY HISTORY: Unknown. SUBSTANCE ABUSE HISTORY: The patient has abused cocaine in the past, but not recently. She denies any recent use of illicit drugs or alcohol. She identifies as a nonsmoker. SOCIAL HISTORY: The patient grew up between [place] and [place]. She does have several cousins in the [place] area. Much of her support comes from an organization called the [employer], which is a social media content specialist and residential services agency here in [facility]. She does have a case justyn maureen through that organization. Currently, she is living in a single occupancy apartment in [place]. 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 She states she will start this within the next week. She has been on probation for unspecified crimes. She is not currently sexually ac tive. REVIEW OF SYSTEMS: The patient denies headache or double vision. She denies sore throat, cough, ch est pain, difficulty breathing, abdominal pain, diarrhea, nausea, or constipation. She denies diffi culty ambulating, enlarged lymph nodes, rashes, changes in weight, or fever. PHYSICAL EXAMINATION VITAL SIGNS: Her blood pressure is 128/80, heart rate 58, respiratory rate 16, temperature is 98.8 degrees Fahrenheit, oxygen saturations are 100% on room air. HEENT: Head is normocephalic, atraumatic. NECK: Supple. CHEST: Clear to auscultation bilaterally. CARDIAC: Exam reveals normal heart sounds. ABDOMEN: Soft and nontender. MUSCULOSKELETAL: Exam reveals no signs of edema. NEUROLOGIC: She is grossly intact with no focal deficits. SKIN: Warm and dry. MENTAL STATUS EXAM: The patient is an overweight -[place] female with fair grooming, who i s lying in bed in green patient's scrub. She makes good eye contact. She is cooperative, well rela usama, clearly knows this examiner. Speech is fluent with normal rate, tone, and volume. Mood appear s to be euthymic with a full affect. Thought process is linear. Thought content is significant for her desire to come into the hospital so that she can feel safe. She is currently denying suicidal ideations and currently denies homicidal ideations. Insight and judgement are fair given her willin gness to come into the hospital. She denies auditory or visual hallucinations. She denies paranoia . Cognitively, she is awake and alert. LABS: CBC is within normal limits as is her complete metabolic panel with the exception of glucose, which is moderately elevated at 124. Beta-hCG is negative. TSH is within normal limits at 0.99. U rinalysis shows 3+ red blood cells and 2+ urine blood. Urine drug screen is negative for all substa nces tested including alcohol. DIAGNOSES: [place] I: Schizophrenia. [place] II: Deferred. [place] III: Diabetes mellitus. Hypertension. Obesity. [place] IV: Moderate primary support stressors. [place] V: At this time is 50. IMPRESSION: The patient is a 26-year-old single -[place] female with a history of schizophr enia, who is well known to me from 4 prior psychiatric admissions here at [facility], who now reappears on a voluntary basis having brought herself to the ED with complaints of suicidal chela ations in the context of a recent fight with her mother. The patient is saying that her next dose o f Prolixin is due this 06/30/17. She is also indicating that the medication tends to wea r off towards the end of its administration period. This is something that we may need to talk to t [facility] about and perhaps she would qualify for higher frequency in he r dosing schedule. PLAN: The patient is admitted to the adult behavioral health unit where she is placed on q.15-minut e checks due to concerns for her safety. We will put her back on daily Lantus and make a phone call to the [facility]. If they are in agreement, we can consider giving her Pro lixin early and I do not think that this will need to be a long hospitalization given the fact that her suicidality has already resolved to some extent. At any rate, we will continue to observe her a nd coordinate care with the ACT team. While she is here, she is certainly encouraged to avail herse lf all milieu activities including individual and group psychotherapies. [id number]/CPS #: [id number]
[2017-06-29] MEDS: Insulin GLARGINE(*) 1 UNITS UNIT SUBCUT SCH (13:21)
--- NOTE | 2017-06-29 15:53 | PN ---
Subjective - Subjective Service Type: 22848 Hosp care 15 min low complexity Subjective: Caroline feels good today. Continues to deny SI. "I just needed a couple days here to set me straight." She is willing to receive her next injection of decanoate fluphenazine tomorrow, as scheduled. Mood is improving and her affect is bright. No behavioral issues noted. Objective - Appearance Appearance: Obese Dysmorphic Features: No Hygiene: Normal Grooming: Well Kept - Behavior Psychomotor Activities: Normal Exhibits Abnormal Movement: No - Attitude and Relatedness Attitude and Relatedness: Cooperative Eye Contact: Fair - Speech Quality: Unpressured Latencies: Normal Quantity: Appropriate - Mood Patient's Decription of Mood: "Good" - Affect Observed Affect: Fair Affect Consistent with: Euthymia - Thought Process Patient's Thought Process: Coherent Thought Content: No Passive Wish, No Suicidal Planning, No Homicidal Ideation, No Paranoid Ideation - Sensorium Experiencing Hallucinations: No, Sensorium is Clear Type of Hallucinations: Visual: No, Auditory: No, Command: No - Level of Consciousness Level of Consciousness: Alert Orientation: Yes Intact, Yes Orientated to Time, Yes Orientated to Place, Yes Orientated to Person - Impulse Control Impulse Control: Intact - Insight and Judgement Insight and Judgement: Good - Group Participation Particating in Group Activities: Yes - Medication Management Medication Management Adherence: Yes Assessment - Assessment Merits Inpatient Hospitalization: Consolidate Improvements, Pending Safe DC Plan Inpatient DSM-IV Dx: Schizophrenia Clinical Impression: 26 y.o. single, AA female with a history of schizophrenia and multiple prior admissions to the [facility] self-referred to the ED secondary to SI without plan. Plan - Plan Treatment Plan: Name: VALENCIA DILLON Birthdate: 1990 [id number] Will give next scheduled dose of fluphenazine decanoate 50mg IM q21d tomorrow. Consider d/c to home thereafter. Continued Medication Management: Continue Outpt Medication Medications: Current Medications Acetaminophen (Tylenol Tab*) 650 mg PO Q6H PRN PRN Reason: PAIN Hydroxyzine HCl (Atarax Tab*) 50 mg PO Q6H PRN PRN Reason: AGITATION/ANXIETY/INSOMNIA Insulin Glargine (Lantus(*)) 14 units SUBCUT Q24H MILO Last Admin: 06/29/17 13:21 Dose: 14 units - Discharge Plan Discharge Plan: Outpatient Follow Up Outpatient Program: ACT team
[2017-06-30 07:53] VITALS: BP 115/67
[2017-06-30] MEDS ORDERED: Fluphenazine Decanoate* 25 MG/ML 5 ML VIAL IM SCH (09:00)
[2017-06-30] MEDS: Insulin GLARGINE(*) 1 UNITS UNIT SUBCUT SCH (12:11)
--- NOTE | 2017-07-01 01:52 | DS ---
DISCHARGE SUMMARY: DATE OF ADMISSION: 06/27/17 DATE OF DISCHARGE: 06/30/17 DISCHARGE DIAGNOSES: As follows: Bristol I: Schizophrenia. [place] II: Deferred. [place] III: Diabetes mellitus, hypertension, obesity. Axi s IV: Moderate primary support stressors. Bristol V: At the time of admission was 50 and at the time of discharge is 60. CONDITION AT THE TIME OF DISCHARGE: Stable. The patient is denying suicidal ideations and has done so throughout her stay on the unit. She has been safe on all checks. Her affect is bright. She i s smiling. She is future oriented. She has a good plan for followup in that the [facility] is sending field representative to pick her up from the hospital and they will continue t o provide intensive services in the community. Furthermore, she has received her next scheduled dos e of long-acting Prolixin injectable. She is tolerating this well and her symptoms are under contro l. She is steadfastly denying suicidal or homicidal ideations and she feels safe to receive treatme nt in the less restrictive setting. She is future oriented at this time, stating that she is going to be working with the [employer] agency to find employment in the community. MENTAL STATUS EXAMINATION: At the time of discharge, the patient is an overweight female with fair grooming, who is dressed in a T-shirt and jeans. She makes good eye contact. She i s cooperative, well related. Speech is fluent with a normal rate, tone, and volume. Mood appears t o be euthymic with a bright affect. Thought process is linear and goal directed. Thought content i s significant for her desire to be discharged from the hospital. She denies suicidal or homicidal i deations. Insight and judgment are fair given her willingness to followup with outpatient treatment . She is denying auditory or visual hallucinations and she denies paranoia. Cognitively, she is aw missael and alert. DISCHARGE INSTRUCTIONS: Are as follows: A. Medications: She is on Lantus insulin 14 mg subcutaneously once daily. She also takes fluphena zine decanoate 50 mg IM every 3 weeks, with her next injection being due on 07/21/17. B. Diet: She is on a diabetic diet. C. Activities: As tolerated. The patient is a nonsmoker. Ther e are no laboratory or diagnostic studies pending at the time of discharge. D. Followup care: The patient will be following up with the [facility], in fact they are picking h er up from the hospital and transporting her home. Through the ACT team, she receives psychiatric s ervices as well as case management, vocational therapy, and substance abuse services. HOSPITAL COURSE: Part A: Reason for admission: The patient is a 26-year-old single - [place] female with a history of schizophrenia, who is well-known to us from several [facility], who now returns to the hospital where she reported suicidal ideations without any particular plan. Anabelle told me that she continues to work with the local ACT team and they ad well flow operator Prolixin Decanoate every 3 weeks and her psychotic symptoms have been well controlled on . Despite this, she indicates that whenever she gets to the end of her dosing period, she starts to become symptomatic from mood problems. She does state that her next shot is not due until , 06/30/17. She was noting to me that she feels that as the dose gets to the end that her mood s ymptoms tend to perk up. At this time, she was telling me that she had a phone call with her mother who resides in [place], [place], and they argued on the phone and had hurt feelings and she has been depressed ever since then. This had been some time over the previous weekend. At the keena e of evaluation, she was unable to sleep or eat well. She appeared to be sad in the emergency room, talking slowly, and could not contract for safety. She was asked repeatedly if she had any specifi c plan to harm herself, but would not divulge any. Part B: Psychiatric treatment rendered: The patient was [facility], where she was placed on q.15-minute checks for her own safety. We do typically institute a beha vior modification plan whenever Anabelle is on our unit given her tendency to hangout in the comfort r oom without engaging in groups. At this time, she followed the dictates of her behavior modificatio n plan well, went to groups. She was social with peers, with a bright affect. She experienced an a lmost immediate resolution of suicidal ideations and continued to endorse her own safety throughout the brief hospital stay. On the date of discharge, she was due for her tri-weekly Prolixin injectio n, which we administered. We were able to contact members of the [facility], who reported that they feel her frequent trips to the emergency room are largely behavioral and meant t o capone attention; with this having been said, they were agreeable to coming to pick her up and to provide intensive services after the time of discharge. The patient's blood glucose was under contr ol with a diabetic diet and low-dose Lantus insulin. She does have follow up with her primary care provider in community. [id number]/[facility] #: [id number]
== END 2017-06-30 13:00 | disposition home or self-care (01) | DRG 750 ==
LOC: ED 18:51 → BSU 23:17
PROVIDERS: ADMIT Psychiatry & Neurology Psychiatry; ATTEND Psychiatry & Neurology Psychiatry
DX: F20.9 Schizophrenia, unspecified (principal); E11.9 Type 2 diabetes mellitus without complications; R45.851 Suicidal ideations; I10 Essential (primary) hypertension; E66.9 Obesity, unspecified; Z68.33 Body mass index [BMI] 33.0-33.9, adult; Z79.4 Long term (current) use of insulin; Z79.899 Other long term (current) drug therapy
CPT/HCPCS: 36415; 80053; 80307; 80320; 80329; 81003; 81015; 84443; 84702; 85025; 99222; 99231; 99238; G0480; J2680

== ENCOUNTER → 2017-08-09 09:57 | Emergency (ER) | payer OTHER ==
[2017-08-09 10:31] VITALS: BP 136/88
[2017-08-09 10:35] LABS: Hematocrit 37 % (35-47); Hemoglobin 11.7 g/dl (12.0-16.0); Mean Corpuscular HGB Conc 32 g/dl (31-36); Mean Corpuscular Hemoglobin 23 pg (27-31); Mean Platelet Volume 10 um3 (7.4-10.4); Red Cell Distribution Width 14 % (10.5-15); White Blood Count 6.9 10^3/ul (3.5-10.8)
[2017-08-09 10:38] LABS: Comments Flag Yes; Mean Corpuscular Volume 71 fL (80-97)
[2017-08-09 10:50] LABS: Benzodiazepine Urine Screen None Detected (None Detect)
[2017-08-09 10:51] LABS: ALT 13 U/L (7-52); AST 15 U/L (13-39); Albumin 4.3 g/dL (3.2-5.2); Alkaline Phosphatase 59 U/L (34-104); Anion Gap 6 mmol/L (2-11); BUN/Creatinine Ratio 12.2 (8-20); Blood Urea Nitrogen 9 mg/dL (6-24); CO2 Carbon Dioxide 25 mmol/L (22-32); Chloride 104 mmol/L (101-111); EGFR Non-African American 96.4 (>60); Glucose 167 mg/dL (70-100); Sodium 135 mmol/L (133-145); Total Protein 7.3 g/dL (6.4-8.9)
[2017-08-09 11:00] LABS: Urine Bacteria Absent (Absent); Urine Bilirubin Negative (Negative); Urine Glucose Negative (Negative); Urine Nitrite Negative (Negative)
[2017-08-09 11:40] LABS: Acetaminophen < 15 mcg/mL; Alcohol < 10 mg/dL (<10); Salicylate < 2.50 mg/dL (<30)
[2017-08-09 11:55] LABS: TSH (Thyroid Stimulating Horm) 1.03 mcIU/mL (0.34-5.60)
--- NOTE | 2017-08-10 15:26 | ED ---
Linda Horton Edward, scribed for Jeremias Sanders MD on 08/09/17 at 1010 . Psychiatric Complaint - HPI Summary HPI Summary: 26 y/o female ZUHAIR c/o feeling paranoid starting this morning. Pt was outside and heard a noise and thought someone was trying to kill her. Pt thinks people are following her. Pt denies any recent triggers. Pt receives prolixin once a month but hasn't received it this month. PMHx schizophrenia - History Of Current Complaint Time Seen by Provider: 08/09/17 10:00 Hx Obtained From: Patient Onset/Duration: Lasting Hours Timing: Constant Aggravating Factor(s): Nothing Alleviating Factor(s): Nothing Associated Signs And Symptoms: Positive: Paranoid Behavior - Allergies/Home Medications Allergies/Adverse Reactions: Allergies Allergy/AdvReac Type Severity Reaction Status Date / Time No Known Allergies Allergy Verified 04/20/17 00:45 PMH/Surg Hx/FS Hx/Imm Hx Previously Healthy: No Endocrine/Hematology History: 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 - per aunt Pankaj, triggered by invega injections Denies: Hx Thyroid Disease, Hx Anemia, Hx Unexplained Bleeding Cardiovascular History: Reports: Hx Hypertension Denies: Hx Embolism Respiratory History: Reports: Hx Asthma - A CHILD Denies: Hx Chronic Bronchitis, Hx Pneumonia GI History: Denies: Hx Crohn's Disease, Hx Irritable Bowel, Hx Ulcer History: Denies: Hx Dialysis, Hx Kidney Stones Musculoskeletal History: Denies: Hx Arthritis, Hx Back Problems, Hx Orthopedic Injury, Hx Scoliosis Sensory History: Denies: Hx Contacts or Glasses, Hx Hearing Aid Opthamlomology History: Denies: Hx Contacts or Glasses Neurological History: Denies: Hx Headaches, Hx Migraine, Hx Seizures Psychiatric History: Reports: Hx Anxiety, Hx Depression, Hx Inpatient Treatment , Hx Community Mental Health Tx, Hx Schizophrenia, Hx Substance Abuse Denies: Hx Eating Disorder, Hx of Violent Episodes Against Others - Immunization History Date of Tetanus Vaccine: unk Date of Influenza Vaccine: unk - Family History Known Family History: Positive: Diabetes - mom w/ type 2, Other - dad - schizophrenia - Social History Alcohol Use: Weekly Alcohol Amount: Pt states social drinker Hx Substance Use: No Substance Use Type: Reports: None Substance Use Comment - Amount & Last Used: unknown Hx Tobacco Use: Yes Smoking Status (MU): Heavy Every Day Tobacco Smoker Type: Cigars Have You Smoked in the Last Year: - has not smoked in the last 30 days Review of Systems Constitutional: Negative Eyes: Negative ENT: Negative Cardiovascular: Negative Respiratory: Negative Gastrointestinal: Negative Genitourinary: Negative Musculoskeletal: Negative Skin: Negative Neurological: Negative Psychological: Other - paranoid All Other Systems Reviewed And Are Negative: Yes Physical Exam - Summary Physical Exam Summary: VITAL SIGNS: Reviewed. GENERAL: ~Patient is a well-developed and nourished female who is lying comfortable in the stretcher. ~Patient is not in any acute respiratory distress. HEAD AND FACE: No signs of trauma. ~No ecchymosis, hematomas or skull depressions. No sinus tenderness. EYES: PERRLA, EOMI x 2, No injected conjunctiva, no nystagmus. EARS: Hearing grossly intact. Ear canals and tympanic membranes are within normal limits. MOUTH: Oropharynx within normal limits. NECK: Supple, trachea is midline, no adenopathy, no JVD, no carotid bruit, no c- spine tenderness, neck with full ROM. CHEST: Symmetric, no tenderness at palpation LUNGS: Clear to auscultation bilaterally. No wheezing or crackles. CVS: Regular rate and rhythm, S1 and S2 present, no murmurs or gallops appreciated. ABDOMEN: Soft, non-tender. No signs of distention. No rebound no guarding, and no masses palpated. Bowel sounds are normal. EXTREMITIES: FROM in all major joints, no edema, no cyanosis or clubbing. NEURO: Alert and oriented x 3. No acute neurological deficits. Speech is normal and follows commands. SKIN: Dry and warm Triage Information Reviewed: Yes Vital Signs On Initial Exam: Initial Vitals Temp Pulse Resp BP Pulse Ox 98.3 F 78 22 136/88 98 08/09/17 10:09 08/09/17 10:09 08/09/17 10:08/09/17 10:08/09/17 10:09 Vital Signs Reviewed: Yes Diagnostics - Vital Signs Vital Signs Temp Pulse Resp BP Pulse Ox 08/09/17 10:09 98.3 F 78 22 136/88 98 - Laboratory Lab Results: Lab Results 08/09/17 Range/Units 10:20 WBC 6.9 (3.5-10.8) 10^3/ul RBC 5.20 (4.0-5.4) 10^6/ul Hgb 11.7 L (12.0-16.0) g/dl Hct 37 (35-47) % MCV 71 L (80-97) fL MCH 23 L (27-31) pg MCHC 32 (31-36) g/dl RDW 14 (10.5-15) % Plt Count 293 (150-450) 10^3/ul MPV 10 (7.4-10.4) um3 Neut % (Auto) 54.0 (38-83) % Lymph % (Auto) 33.3 (25-47) % [place] % (Auto) 8.9 (1-9) % Eos % (Auto) 3.2 (0-6) % Baso % (Auto) 0.6 (0-2) % Absolute Neuts (auto) 3.7 (1.5-7.7) 10^3/ul Absolute Lymphs (auto) 2.3 (1.0-4.8) 10^3/ul Absolute Monos (auto) 0.6 (0-0.8) 10^3/ul Absolute Eos (auto) 0.2 (0-0.6) 10^3/ul Absolute Basos (auto) 0 (0-0.2) 10^3/ul Absolute Nucleated RBC 0.01 10^3/ul Nucleated RBC % 0.2 Result Diagrams: 08/09/17 10:20 08/09/17 10:20 Lab Statement: Any lab studies that have been ordered have been reviewed, and results considered in the medical decision making process. Course/Dx - Course Assessment/Plan: 26 y/o female BIBA c/o feeling paranoid starting this morning. Pt was outside and heard a noise and thought someone was trying to kill her. Pt thinks people are following her. Pt denies any recent triggers. Pt receives prolixin once a month but hasn't received it this month. PMHx schizophrenia. Pt is medically cleared at 11:05. Following U evaluation by Dr. Degroot, the pt will be d/c home. - Differential Dx/Clinical Impression Differential Diagnosis/HQI/PQRI: Positive: Anxiety, Depression Provider Diagnosis: Paranoid Discharge - Discharge Plan Condition: Stable Disposition: HOME Referrals: No Primary Care Phys,NOPCP [Primary Care Provider] - The documentation as recorded by the Linda latif Edward accurately reflects the service I personally performed and the decisions made by me, Jeremias Sanders MD.
--- NOTE | 2017-08-11 09:14 | ED ---
Progress - Progress Note Progress Note: Pt's urine cx reveals 25-50,000 strep group B. This is a low count that does not require anbx therapy. After looking at her note, pt does not have c/o UTI nor vaginal pathology, her labs and vitals signs are w/o concern for infection and PE reveals no acute findings to correlate w/ an infection of this nature. No tx necessary at this time. - Consult/PCP Time Called: 10:30 Course/Dx - Diagnoses Provider Diagnoses: Paranoid
== END | disposition home or self-care (01) ==
LOC: ED 09:57
DX: F22 Delusional disorders (principal)
CPT/HCPCS: 36415; 80053; 80307; 80320; 80329; 81003; 81015; 84443; 85025; 87077; 87086; 99284; G0480

== ENCOUNTER 2017-09-25 16:21 | Emergency (ER) | payer OTHER ==
[2017-09-25 18:05] LABS: ABS Basophils 0 10^3/ul (0-0.2); ABS Eosinophils 0.2 10^3/ul (0-0.6); ABS Lymphocytes 2.6 10^3/ul (1.0-4.8); ABS Monocytes 0.7 10^3/ul (0-0.8); ABS Neutrophils 2.9 10^3/ul (1.5-7.7); ABS Nucleated RBC 0 10^3/ul; Eosinophil % 3.2 % (0-6); Hematocrit 38 % (35-47); Hemoglobin 12.1 g/dl (12.0-16.0); Lymphocyte % 40.7 % (25-47); Mean Corpuscular HGB Conc 32 g/dl (31-36); Mean Corpuscular Hemoglobin 23 pg (27-31); Mean Corpuscular Volume 72 fL (80-97); Mean Platelet Volume 10 um3 (7.4-10.4); Nucleated Red Blood Cells % 0.2; Platelet Count 303 10^3/ul (150-450); Red Blood Count 5.32 10^6/ul (4.0-5.4); Red Cell Distribution Width 14 % (10.5-15); White Blood Count 6.5 10^3/ul (3.5-10.8)
[2017-09-25 18:06] LABS: Urine Appearance Clear; Urine Blood 1+ (Negative); Urine Color Yellow; Urine Ketones Negative (Negative); Urine Protein Negative (Negative); Urine Urobilinogen Negative (Negative)
[2017-09-25 19:49] VITALS: BP 99/49
--- NOTE | 2017-09-26 12:38 | ED ---
Sohail Horton Julia, scribed for Kameron Lara MD on 09/25/17 at 1836 . Psychiatric Complaint - HPI Summary HPI Summary: This patient is a 26 year old F BIBA to [facility] with a chief complaint of depression worsening today. Patient reports she has had previous depression with SI, so she wanted to come to the ED before her symptoms worsened. Patient denies current SI or HI. She states she does not plan to hurt herself. - History Of Current Complaint Chief Complaint: EDMentalHealth Time Seen by Provider: 09/25/17 16:57 Hx Obtained From: Patient Onset/Duration: Lasting Hours Timing: Hours Character: Depressed Aggravating Factor(s): Nothing Alleviating Factor(s): Nothing Has Suicidal: Denies: Thoughts, With A Plan Has Homicidal: Denies: Thoughts, With A Plan - Allergies/Home Medications Allergies/Adverse Reactions: Allergies Allergy/AdvReac Type Severity Reaction Status Date / Time No Known Allergies Allergy Verified 04/20/17 00:45 PMH/Surg Hx/FS Hx/Imm Hx Endocrine/Hematology History: 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 - per aunt Pankaj, triggered by invega injections Denies: Hx Thyroid Disease, Hx Anemia, Hx Unexplained Bleeding Cardiovascular History: Reports: Hx Hypertension Denies: Hx Embolism Respiratory History: Reports: Hx Asthma - A CHILD Denies: Hx Chronic Bronchitis, Hx Pneumonia GI History: Denies: Hx Crohn's Disease, Hx Irritable Bowel, Hx Ulcer History: Denies: Hx Dialysis, Hx Kidney Stones Musculoskeletal History: Denies: Hx Arthritis, Hx Back Problems, Hx Orthopedic Injury, Hx Scoliosis Sensory History: Denies: Hx Contacts or Glasses, Hx Hearing Aid Opthamlomology History: Denies: Hx Contacts or Glasses Neurological History: Denies: Hx Headaches, Hx Migraine, Hx Seizures Psychiatric History: Reports: Hx Anxiety, Hx Depression, Hx Inpatient Treatment , Hx Community Mental Health Tx, Hx Schizophrenia, Hx Substance Abuse Denies: Hx Eating Disorder, Hx of Violent Episodes Against Others - Immunization History Date of Tetanus Vaccine: unk Date of Influenza Vaccine: unk Infectious Disease History: No Infectious Disease History: Denies: Traveled Outside the US in Last 30 Days - Family History Known Family History: Positive: Diabetes - mom w/ type 2, Other - dad - schizophrenia - Social History Alcohol Use: Weekly Alcohol Amount: Pt states social drinker Hx Substance Use: Yes Substance Use Type: Reports: Marijuana Substance Use Comment - Amount & Last Used: unknown Hx Tobacco Use: Yes Smoking Status (MU): Heavy Every Day Tobacco Smoker Type: Cigars Have You Smoked in the Last Year: - has not smoked in the last 30 days Review of Systems Negative: Fever Positive: Depressed All Other Systems Reviewed And Are Negative: Yes Physical Exam - Summary Physical Exam Summary: Appearance: The patient is well-nourished in no acute distress and in no acute pain. Skin: The skin is warm and dry and skin color reflects adequate perfusion. HEENT: The head is normocephalic and atraumatic. The pupils are equal and reactive. The conjunctivae are clear and without drainage. Nares are patent and without drainage. Mouth reveals moist mucous membranes and the throat is without erythema and exudate. The external ears are intact. The ear canals are patent and without drainage. The tympanic membranes are intact. Neck: the neck is supple with full range of motion and non-tender. There are no carotid bruits. There is no neck vein distension. Respiratory: Chest is non-tender. Lungs are clear to auscultation and breath sounds are symmetrical and equal. Cardiovascular: Heart is regular rate and rhythm. There is no murmur or rub auscultated. There is no peripheral edema and pulses are symmetrical and equal. Abdomen: The abdomen is soft and non-tender. There are normal bowel sounds heard in all four quadrants and there is no organomegaly palpated. Musculoskeletal: There is no back tenderness noted. Extremities are non-tender with full range of motion. There is good capillary refill. There is no peripheral edema or calf tenderness elicited. Neurological: Patient is alert and oriented to person, place and time. The patient has symmetrical motor strength in all four extremities. Cranial nerves are grossly intact. Deep tendon reflexes are symmetrical and equal in all four extremities. Psychiatric: The patient has an appropriate affect and does not exhibit any anxiety or depression. Triage Information Reviewed: Yes Vital Signs On Initial Exam: Initial Vitals Temp Pulse Resp BP Pulse Ox 98.7 F 74 20 126/74 99 09/25/17 16:31 09/25/17 16:31 09/25/17 16:31 09/25/17 16:31 09/25/17 16:31 Vital Signs Reviewed: Yes - [place] Coma Scale Coma Scale Total: 15 Diagnostics - Vital Signs Vital Signs Temp Pulse Resp BP Pulse Ox 09/25/17 16:31 98.7 F 74 20 126/74 99 - Laboratory Lab Results: Lab Results 09/25/17 09/25/17 09/25/17 Range/Units 17:50 17:50 17:50 WBC 6.5 (3.5-10.8) 10^3/ul RBC 5.32 (4.0-5.4) 10^6/ul Hgb 12.1 (12.0-16.0) g/dl Hct 38 (35-47) % MCV 72 L (80-97) fL MCH 23 L (27-31) pg MCHC 32 (31-36) g/dl RDW 14 (10.5-15) % Plt Count 303 (150-450) 10^3/ul MPV 10 (7.4-10.4) um3 Neut % (Auto) 45.0 (38-83) % Lymph % (Auto) 40.7 (25-47) % [place] % (Auto) 10.5 H (1-9) % Eos % (Auto) 3.2 (0-6) % Baso % (Auto) 0.6 (0-2) % Absolute Neuts (auto) 2.9 (1.5-7.7) 10^3/ul Absolute Lymphs (auto) 2.6 (1.0-4.8) 10^3/ul Absolute Monos (auto) 0.7 (0-0.8) 10^3/ul Absolute Eos (auto) 0.2 (0-0.6) 10^3/ul Absolute Basos (auto) 0 (0-0.2) 10^3/ul Absolute Nucleated RBC 0 10^3/ul Nucleated RBC % 0.2 Sodium 137 (133-145) mmol/L Potassium 3.8 (3.5-5.0) mmol/L Chloride 109 (101-111) mmol/L Carbon Dioxide 21 L (22-32) mmol/L Anion Gap 7 (2-11) mmol/L BUN 10 (6-24) mg/dL Creatinine 0.66 (0.51-0.95) mg/dL Est GFR ( Amer) 141.5 (>60) Est GFR (Non-Af Amer) 110.0 (>60) BUN/Creatinine Ratio 15.2 (8-20) Glucose 156 H (70-100) mg/dL Calcium 9.3 (8.6-10.3) mg/dL Total Bilirubin 0.20 (0.2-1.0) mg/dL AST 12 L (13-39) U/L ALT 15 (7-52) U/L Alkaline Phosphatase 65 (34-104) U/L Total Protein 7.1 (6.4-8.9) g/dL Albumin 4.0 (3.2-5.2) g/dL Globulin 3.1 (2-4) g/dL Albumin/Globulin Ratio 1.3 (1-3) TSH Pending Beta HCG, Quant < 0.60 mIU/mL Urine Color Urine Appearance Urine pH (5-9) Ur Specific [place] (1.010-1.030) Urine Protein (Negative) Urine Ketones (Negative) Urine Blood (Negative) Urine Nitrate (Negative) Urine Bilirubin (Negative) Urine Urobilinogen (Negative) Ur Leukocyte Esterase (Negative) Urine WBC (Auto) (Absent) Urine RBC (Auto) (Absent) Ur Squamous Epith Cells (Absent) Urine Bacteria (Absent) Urine Glucose (Negative) Salicylates < 2.50 (<30) mg/dL Urine Opiates Screen None detected (None Detect) Acetaminophen < 15 mcg/mL Ur Barbiturates Screen None detected (None Detect) Ur Phencyclidine Scrn None detected (None Detect) Ur Amphetamines Screen None detected (None Detect) U Benzodiazepines Scrn None detected (None Detect) Urine Cocaine Screen None detected (None Detect) U Cannabinoids Screen Presumptive positive H (None Detect) Serum Alcohol < 10 (<10) mg/dL 09/25/17 Range/Units 17:50 WBC (3.5-10.8) 10^3/ul RBC (4.0-5.4) 10^6/ul Hgb (12.0-16.0) g/dl Hct (35-47) % MCV (80-97) fL MCH (27-31) pg MCHC (31-36) g/dl RDW (10.5-15) % Plt Count (150-450) 10^3/ul MPV (7.4-10.4) um3 Neut % (Auto) (38-83) % Lymph % (Auto) (25-47) % [place] % (Auto) (1-9) % Eos % (Auto) (0-6) % Baso % (Auto) (0-2) % Absolute Neuts (auto) (1.5-7.7) 10^3/ul Absolute Lymphs (auto) (1.0-4.8) 10^3/ul Absolute Monos (auto) (0-0.8) 10^3/ul Absolute Eos (auto) (0-0.6) 10^3/ul Absolute Basos (auto) (0-0.2) 10^3/ul Absolute Nucleated RBC 10^3/ul Nucleated RBC % Sodium (133-145) mmol/L Potassium (3.5-5.0) mmol/L Chloride (101-111) mmol/L Carbon Dioxide (22-32) mmol/L Anion Gap (2-11) mmol/L BUN (6-24) mg/dL Creatinine (0.51-0.95) mg/dL Est GFR ( Amer) (>60) Est GFR (Non-Af Amer) (>60) BUN/Creatinine Ratio (8-20) Glucose (70-100) mg/dL Calcium (8.6-10.3) mg/dL Total Bilirubin (0.2-1.0) mg/dL AST (13-39) U/L ALT (7-52) U/L Alkaline Phosphatase (34-104) U/L Total Protein (6.4-8.9) g/dL Albumin (3.2-5.2) g/dL Globulin (2-4) g/dL Albumin/Globulin Ratio (1-3) TSH Beta HCG, Quant mIU/mL Urine Color Yellow Urine Appearance Clear Urine pH 6.0 (5-9) Ur Specific [place] 1.020 (1.010-1.030) Urine Protein Negative (Negative) Urine Ketones Negative (Negative) Urine Blood 1+ H (Negative) Urine Nitrate Negative (Negative) Urine Bilirubin Negative (Negative) Urine Urobilinogen Negative (Negative) Ur Leukocyte Esterase Trace H (Negative) Urine WBC (Auto) 2+(11-20/hpf) H (Absent) Urine RBC (Auto) 1+(3-5/hpf) H (Absent) Ur Squamous Epith Cells Present H (Absent) Urine Bacteria Absent (Absent) Urine Glucose Negative (Negative) Salicylates (<30) mg/dL Urine Opiates Screen (None Detect) Acetaminophen mcg/mL Ur Barbiturates Screen (None Detect) Ur Phencyclidine Scrn (None Detect) Ur Amphetamines Screen (None Detect) U Benzodiazepines Scrn (None Detect) Urine Cocaine Screen (None Detect) U Cannabinoids Screen (None Detect) Serum Alcohol (<10) mg/dL Result Diagrams: 09/25/17 17:50 09/25/17 17:50 Lab Statement: Any lab studies that have been ordered have been reviewed, and results considered in the medical decision making process. Course/Dx - Course Course Of Treatment: Ms. Rodriguez presented with depression and suicidal thoughts without a plan of wne day's duration. She was medically cleared and had a MHE. They felt that she was safe to go home and she was D/C'd - Differential Dx/Clinical Impression Provider Diagnosis: Depressed Discharge - Discharge Plan Condition: Stable Disposition: HOME Patient Education Materials: Depression (ED), Suicide Prevention for Adults (ED ) Referrals: [facility] [Other] (AFTER HOURS PHONE NUMBER FOR [facility] is [phone]) No Primary Care Phys,NOPCP [Primary Care Provider] - The documentation as recorded by the Sohail latif Julia accurately reflects the service I personally performed and the decisions made by me, Kameron Lara MD.
--- NOTE | 2017-09-28 09:41 | ED ---
Progress - Progress Note Progress Note: Pt's urine cx reveals 10-25,000 strep group B. She had squamos cells present on urine collection. May indicate early UTI or vaginal infection however it could also indicate contamination and pt may simply be colonize w/ group B strep. Attempted to contact pt to review results and line is repeatedly engaged. Will mail letter to f/u here or with PCP re: recent results. Jovan Razork, aware. - Consult/PCP Time Called: 18:30 Course/Dx - Course Course Of Treatment: Ms. Rodriguez presented with depression and suicidal thoughts without a plan of wne day's duration. She was medically cleared and had a MHE. They felt that she was safe to go home and she was D/C'd - Diagnoses Provider Diagnoses: Depressed
== END 2017-09-25 20:01 | disposition home or self-care (01) ==
LOC: ED 16:21
DX: F32.9 Major depressive disorder, single episode, unspecified (principal); E11.9 Type 2 diabetes mellitus without complications; Z79.4 Long term (current) use of insulin; I10 Essential (primary) hypertension; F17.290 Nicotine dependence, other tobacco product, uncomplicated
CPT/HCPCS: 36415; 80053; 80307; 80320; 80329; 81003; 81015; 84443; 84702; 85025; 87077; 87086; 99282; G0480

== ENCOUNTER 2017-10-15 15:39 | Inpatient (IN) | payer OTHER ==
[2017-10-15 16:51] LABS: Urine Appearance Clear; Urine Blood Negative (Negative); Urine Color Yellow; Urine Ketones Trace (Negative); Urine Protein 1+(30 mg/dL) (Negative); Urine Specific Gravity 1.021 (1.010-1.030); Urine Urobilinogen Negative (Negative)
[2017-10-15 17:26] LABS: ABS Basophils 0.1 10^3/ul (0-0.2); ABS Eosinophils 0.1 10^3/ul (0-0.6); ABS Lymphocytes 2.3 10^3/ul (1.0-4.8); ABS Monocytes 0.7 10^3/ul (0-0.8); ABS Neutrophils 3.9 10^3/ul (1.5-7.7); ABS Nucleated RBC 0 10^3/ul; Hematocrit 39 % (35-47); Hemoglobin 12.4 g/dl (12.0-16.0); Lymphocyte % 32.1 % (25-47); Mean Corpuscular HGB Conc 32 g/dl (31-36); Mean Corpuscular Hemoglobin 23 pg (27-31); Mean Corpuscular Volume 71 fL (80-97); Mean Platelet Volume 10 um3 (7.4-10.4); Nucleated Red Blood Cells % 0.1; Platelet Count 300 10^3/ul (150-450); Red Cell Distribution Width 14 % (10.5-15); White Blood Count 7.1 10^3/ul (3.5-10.8)
[2017-10-15 17:34] LABS: EGFR Non-African American 86.9 (>60)
[2017-10-15] MEDS ORDERED: Potassium Chlor TAB* 20 MEQ TAB.ER PO ONE (18:22)
[2017-10-15] MEDS ORDERED: Sulfamethox/Trimethoprim DS 800/160* TAB PO ONE (18:23)
[2017-10-15] MEDS ORDERED: Al Hydrox/Mg Hydrox/Simet LIQ* 30 ML UDC PO PRN (21:44)
[2017-10-15] MEDS ORDERED: Acetaminophen TAB* 325 MG PO PRN (21:44)
[2017-10-15] MEDS ORDERED: Nicotine GUM* 2 MG PO PRN (21:44)
[2017-10-16] MEDS: Nicotine PATCH 21 MG/24 HR* PATCH TRANSDERM SCH (07:29)
[2017-10-16] MEDS: Vitamin THERAPEUTIC TAB PO SCH (07:29)
--- NOTE | 2017-10-16 16:50 | ED ---
Gwyn Horton Thomas, scribed for Jeremias Sanders MD on 10/15/17 at 1553 . Psychiatric Complaint - HPI Summary HPI Summary: The patient is a 26 year old female with a history of schizophrenia presenting with paranoia. She is on Prolixin, a once monthly injection. She reports stopping this medication one month ago, and she is due for the medication. She used marijuana earlier today. She wants to be admitted. - History Of Current Complaint Chief Complaint: EDMentalHealth Time Seen by Provider: 10/15/17 15:45 Hx Obtained From: Patient Onset/Duration: Still Present Timing: Constant Severity Currently: Moderate Aggravating Factor(s): Medication Non-compliance Alleviating Factor(s): Nothing Associated Signs And Symptoms: Positive: Paranoid Behavior Related History: Positive For: Prior Psychiatric Issues - Allergies/Home Medications Allergies/Adverse Reactions: Allergies Allergy/AdvReac Type Severity Reaction Status Date / Time No Known Allergies Allergy Verified 04/20/17 00:45 PMH/Surg Hx/FS Hx/Imm Hx Endocrine/Hematology History: 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 - per aunt Pankaj, triggered by invega injections Denies: Hx Thyroid Disease, Hx Anemia, Hx Unexplained Bleeding Cardiovascular History: Reports: Hx Hypertension Denies: Hx Embolism Respiratory History: Reports: Hx Asthma - A CHILD Denies: Hx Chronic Bronchitis, Hx Pneumonia GI History: Denies: Hx Crohn's Disease, Hx Irritable Bowel, Hx Ulcer History: Denies: Hx Dialysis, Hx Kidney Stones Musculoskeletal History: Denies: Hx Arthritis, Hx Back Problems, Hx Orthopedic Injury, Hx Scoliosis Sensory History: Denies: Hx Contacts or Glasses, Hx Hearing Aid Opthamlomology History: Denies: Hx Contacts or Glasses Neurological History: Denies: Hx Headaches, Hx Migraine, Hx Seizures Psychiatric History: Reports: Hx Anxiety, Hx Depression, Hx Inpatient Treatment , Hx Community Mental Health Tx, Hx Schizophrenia, Hx Substance Abuse Denies: Hx Eating Disorder, Hx of Violent Episodes Against Others - Immunization History Date of Tetanus Vaccine: unk Date of Influenza Vaccine: unk Infectious Disease History: No Infectious Disease History: Denies: Traveled Outside the [place] in Last 30 Days - Family History Known Family History: Positive: Diabetes - mom w/ type 2, Other - dad - schizophrenia - Social History Alcohol Use: Weekly Alcohol Amount: Pt states social drinker Hx Substance Use: Yes Substance Use Type: Reports: Marijuana Substance Use Comment - Amount & Last Used: unknown Hx Tobacco Use: Yes Smoking Status (MU): Heavy Every Day Tobacco Smoker Type: Cigars Have You Smoked in the Last Year: - has not smoked in the last 30 days Review of Systems Negative: Fever Positive: Other - Paranoia All Other Systems Reviewed And Are Negative: Yes Physical Exam - Summary Physical Exam Summary: VITAL SIGNS: Reviewed. GENERAL: Patient is a well-developed and nourished female who is lying comfortable in the stretcher. Patient is not in any acute respiratory distress. HEAD AND FACE: No signs of trauma. No ecchymosis, hematomas or skull depressions. No sinus tenderness. EYES: PERRLA, EOMI x 2, No injected conjunctiva, no nystagmus. EARS: Hearing grossly intact. Ear canals and tympanic membranes are within normal limits. MOUTH: Oropharynx within normal limits. NECK: Supple, trachea is midline, no adenopathy, no JVD, no carotid bruit, no c- spine tenderness, neck with full ROM. CHEST: Symmetric, no tenderness at palpation LUNGS: Clear to auscultation bilaterally. No wheezing or crackles. CVS: Regular rate and rhythm, S1 and S2 present, no murmurs or gallops appreciated. ABDOMEN: Soft, non-tender. No signs of distention. No rebound no guarding, and no masses palpated. Bowel sounds are normal. EXTREMITIES: FROM in all major joints, no edema, no cyanosis or clubbing. NEURO: Alert and oriented x 3. No acute neurological deficits. Speech is normal and follows commands. SKIN: Dry and warm Triage Information Reviewed: Yes Vital Signs On Initial Exam: Initial Vitals Temp Pulse Resp BP Pulse Ox 97.7 F 74 20 138/76 99 10/15/17 15:44 10/15/17 15:44 10/15/17 15:44 10/15/17 15:44 10/15/17 15:44 Vital Signs Reviewed: Yes Diagnostics - Vital Signs Vital Signs Temp Pulse Resp BP Pulse Ox 10/15/17 15:44 97.7 F 74 20 138/76 99 - Laboratory Result Diagrams: 10/15/17 16:59 10/15/17 16:59 Lab Statement: Any lab studies that have been ordered have been reviewed, and results considered in the medical decision making process. Course/Dx - Course Assessment/Plan: The patient is a 26 year old female with a history of schizophrenia presenting with paranoia. She is on Prolixin, a once monthly injection. She reports stopping this medication one month ago, and she is due for the medication. She used marijuana earlier today. She wants to be admitted. Test results are without significant abnormality, except potassium 3.3 for which the patient was given potassium chloride. Urinalysis shows a UTI, so the patient was given Bactrim. The patient is medically cleared. Dr. Pham will admit the patient to his services. - Differential Dx/Clinical Impression Provider Diagnosis: UTI (urinary tract infection), Substance-induced psychosis - Physician Notifications Discussed Care Of Patient With: Caden Pham Time Discussed With Above Provider: 18:55 Instructed by Provider To: Admit As Inpatient Discharge - Discharge Plan Condition: Stable Disposition: ADMITTED TO [facility] Referrals: No Primary Care Phys,NOPCP [Primary Care Provider] - The documentation as recorded by the Gwyn latif Thomas accurately reflects the service I personally performed and the decisions made by , Jeremias Sanders MD.
[2017-10-16] MEDS: Nicotine Patch Removal NOTE PATCH OFF SCH (20:09)
--- NOTE | 2017-10-16 20:34 | HP ---
HISTORY AND PHYSICAL: DATE OF ADMISSION: IDENTIFYING DATA: Anabelle is a 26-year-old single -[place] female with numerous lifetime psychiatric hospitalizations, at least 5 on this unit in recent past, came to the emergency department complaining about feeling paranoid and suicidal without any plan. CHIEF COMPLAINT: "I have been feeling paranoid and suicidal for last couple of days." HISTORY OF PRESENT ILLNESS: The patient came to the emergency department voluntarily asking for hospitalization because of feeling paranoid and suicidal. During the assessment this morning, she reports that she does not have any problem whatsoever. She is not paranoid anymore or thinking about suicide either. She is asking if she could be discharged home as she can go back to her work. She vehemently denies any mood, thoughts, or perceptual disturbances. She states she becomes paranoid only when she is high on cocaine and in the past, she heard voices briefly only when she was smoking cracked cocaine. She smoked cracked cocaine couple of days ago and was feeling paranoid. She continues to smoke marijuana on daily basis. She denies any added stressor in recent past. States she just started working in a [employer] and would like to go back to work as soon as possible. PAST PSYCHIATRIC HISTORY: Remarkable for at least 5 psychiatric hospitalizations on this unit beginning in August 2016 and her last hospitalization on this unit was on 06/27/17. Prior to that, she was hospitalized in [facility] many times. She reports that she was on Invega Sustenna in the past, which gave her diabetes mellitus and last time when she was here, she received Prolixin decanoate 50 mg once every month. However, the records indicate that she was getting Prolixin decanoate 50 mg every 3 weeks. She was being followed by [facility]. In the past, she also received other psychotropic medications including Abilify. PAST MEDICAL HISTORY: Significant for obesity and history of insulin-dependent diabetes mellitus, and hypertension. She used to be on 14 units of Lantus insulin subcutaneously daily. Reports that she has not been taking insulin anymore as her diabetes was in good control. ALLERGIES: NKDA. FAMILY HISTORY: She is not aware of anybody who had mental illness and records does not indicate any either. SUBSTANCE ABUSE HISTORY: Remarkable for daily marijuana use and frequent use of cocaine. On admission this time, she was positive for both cocaine and cannabis. PERSONAL AND SOCIAL HISTORY: Originally from [place], she moved to [facility] years ago. She had some college education, never finished her bachelors. 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 She lives in a single occupancy apartment in [place]. She denies any active legal problems, although she was involved in some kind of probation in the past. PHYSICAL EXAMINATION GENERAL: This is a healthy appearing obese, average height, female with poor personal hygiene and grooming. She does not appear to be in any physical distress. VITAL SIGNS: Indicate a blood pressure of 138/76, pulse 74, temperature 97.7, pulse ox 99% on room air. HEENT: Head: Atraumatic, normocephalic. Eyes: PERRLA. EOMI bilaterally. Clear conjunctivae. No nystagmus. Ears: Grossly intact tympanic membrane. Mouth: Poor oral hygiene. NECK: Supple. Midline trachea. No adenopathy. No JVD. CHEST: Symmetric. Lungs clear bilaterally on auscultation. CARDIOVASCULAR: Heart rate and rhythm is regular. S1 and S2 only. No murmurs or gallops. ABDOMEN: Somewhat obese; however, soft, nontender without any distention or rebound tenderness. There is no evidence of organomegaly. Bowel sounds normal. EXTREMITIES: Within normal limits. NEUROLOGIC: Grossly intact. Cranial nerves II through XII also grossly intact. She is alert and oriented to time, place, and person. MENTAL STATUS EXAMINATION: Obese, average height, female with poor personal hygiene and grooming. She is alert and oriented to time, place, and person. Speech is normal in all spheres. Describes the mood as okay. Observed affect appears to be euthymic. There is no evidence of any thoughts perceptual or psychomotor disturbances. Denies suicidal or homicidal ideations. Intelligence appears to be average as evidenced by her vocabulary and fund of knowledge. Memory functions are intact in all spheres. Insight and judgement poor. LABORATORY DATA: Done in the emergency room shows a WBC count of 7.1, hemoglobin 12.4, hematocrit 39, platelets 300. Comprehensive metabolic profile shows sodium level of 136, potassium 3.3, slightly lower than normal, chloride 104, carbon dioxide 24, BUN 14, creatinine 0.81. Urinalysis is abnormal with 1 + protein, trace ketones, 2+ leukocyte esterase, wbc 1+, bacteria 1+ with trace wbc. Tox screen shows positive result on cannabinoids and cocaine. SUMMARY: This 26-year-old female with multiple psychiatric hospitalizations in the past presents asking for hospitalization in the context of being paranoid and suicidal after she smoked cracked cocaine. Review of all records from the past does not indicate that she was ever persistently psychotic with hallucinations or delusions or any other signs and symptoms supporting the diagnosis of schizophrenia, but psychotic only when she was positive for drugs such as cocaine. Similarly, she was psychotic with some paranoia only when she smoked cocaine this time as well, which raises a question whether her prior diagnosis was based on any evidence. Hence, I am reluctant to give other diagnosis of schizophrenia this time. DIAGNOSTIC IMPRESSION: MENTAL HEALTH DIAGNOSIS: Substance-induced psychosis. Cocaine use d/o and Cannabis use d/o. PHYSICAL HEALTH DIAGNOSES: 1. History of insulin-dependent diabetes mellitus. 2. Obesity. 3. Hypertension. TREATMENT RECOMMENDATIONS: Anabelle will remain hospitalized on behavioral science unit for now for her safety and observation for diagnostic clarification and initiation of any treatment. Her code status will remain full. Supportive milieu, individual and group therapy will be initiated as per unit policy and she will be encouraged to participate. At this time, I will not prescribe her any psychotropic medications and we will defer that to the assigned psychiatrist on the unit. The patient is reluctant to go on any antipsychotic and said she is fine and does not need anything. She also does not believe that she has any drug problem. Again, I will defer any decision about treatment whether it is for mental health issues or substance use to the treatment team. [id number]/[facility] #: [id number] MAGO
[2017-10-17] MEDS: Vitamin THERAPEUTIC TAB PO SCH (07:51)
[2017-10-17] MEDS: Nicotine PATCH 21 MG/24 HR* PATCH TRANSDERM SCH (07:51)
[2017-10-18] MEDS: Nicotine Patch Removal NOTE PATCH OFF SCH (01:10)
[2017-10-18] MEDS: Nicotine PATCH 21 MG/24 HR* PATCH TRANSDERM SCH (08:06)
[2017-10-18] MEDS: Vitamin THERAPEUTIC TAB PO SCH (08:06)
[2017-10-18 09:06] VITALS: BP 124/71
[2017-10-18] MEDS ORDERED: Fluphenazine Decanoate* 25 MG/ML 5 ML VIAL IM SCH (11:00)
--- NOTE | 2017-10-18 15:08 | DS ---
DATE OF ADMISSION: 10/15/2017. DATE OF DISCHARGE: 10/18/2017. DISCHARGE DIAGNOSES: AXIS I: Schizophrenia; cocaine use disorder; cannabis use disorder. AXIS II: Deferred. AXIS III: Insulin dependent diabetes mellitus, obesity, hypertension. AXIS IV: Moderate, primary support stressors. AXIS V: At the time of admission was 47 and at the time of discharge is 60. CONDITION AT THE TIME OF DISCHARGE: Stable. The patient has agreed to the resumption of long-acting injectable antipsychotic therapy with Prolixin. She is tolerating this well and is looking forward for discharge. She has been safe on all checks throughout this hospitalization, participating in [employer] activities. She has improved here, is no longer endorsing any thoughts of self-harm. She denies a ny thoughts of violence towards others. Her affect is bright, smiling and this appears to be her bas mar. MENTAL STATUS EXAM AT THE TIME OF DISCHARGE: Anabelle is a young, somewhat overweight, -Samira n female who is clean and well-groomed. She makes good eye contact. Speech has a normal rate, tone and volume. Mood is euthymic with a full affect. Thought process is linear and goal-directed. Thou ght content is significant for her desire to be discharged from the hospital. She denies suicidal or homicidal ideations. She denies auditory or visual hallucinations. There is no evidence of current psychotic thinking. Insight and judgment are fair given her willingness to go back on her injectabl e medication and to follow-up with the [facility] Treatment Team. Cognitively, she is awake and alert with what would appear to be an average intellect. LABORATORY DATA: Hemoglobin A1c elevated at 11.9 percent. DISCHARGE INSTRUCTIONS TO THE PATIENT: A. Medications: She is taking Prolixin Decanoate 50 mg IM every two weeks, next injection due on Mo nday, 11/01/2017. She is also taking Lantus insulin 14 units subcutaneously once daily. B. Diet: Diabetic diet. C. Activities: As tolerated. The patient is offered continued nicotine replacement therapy; [place], she is declining this, indicating her preference to continue smoking cigarettes for the time being . There are no laboratory or diagnostic studies pending at the time of discharge. D. Follow-up care: The patient will follow-up tomorrow in her home with the [facility] Team who manages all of her psychiatric needs. E. Substance abuse follow-up: Due to ongoing cocaine and cannabis use patterns, she is referred to the [facility]; however, she is declining this and refusing further substance abuse care. HOSPITAL COURSE - PART A: Reason for admission: The patient is a 26-year-old, single, -[place] an female with a history of schizophrenia, as well as cocaine and cannabis abuse who arrived on a vol untary basis stating "I've been feeling paranoid and suicidal for the last couple days." She did ask for hospitalization. During the assessment in the morning, she reported that her problems were reso lved, she was no longer paranoid and no longer thinking of suicide. She was asking if she could go h ome today to be discharged in order to get back to work. When we initially assessed her on the unit, she vehemently denied any mood problems, thought dysfunction, perceptual disturbances. She states t hat she only gets paranoid when she is high on cocaine and in the past she has heard voices briefly o nly when smoking cocaine or cannabis. This is not totally consistent with her history given the fact that the patient is well-known to our service through multiple prior admissions. We have seen her s ymptomatic with psychosis while sober. At any rate, she was initially resistant to resuming injectab le Prolixin therapy which she had apparently been refusing for the past month. HOSPITAL COURSE - PART B: Psychiatric treatment rendered: The patient was admitted to the [facility] Unit where she was placed on q.15 minute checks for her own safety. She did ultimately agree to the resumption of Prolixin Decanoate which she tolerated well. The patient denied suicidal ideations throughout her inpatient stay. We tried to get her hooked up with outpatient substance abu se services in the community; however, she declined this, but she was willing to follow-up with the [facility] Team. At this time, she is fit for discharge. There is no longer any i ndication for further inpatient treatment. She will be seen tomorrow by the ACT Team for follow-up. [id number]/[facility] #: [id number]
== END 2017-10-18 13:45 | disposition home or self-care (01) | DRG 750 ==
LOC: ED 15:39 → BSU 21:10 → ED 21:11
PROVIDERS: ADMIT Psychiatry & Neurology Psychiatry; ATTEND Psychiatry & Neurology Psychiatry
DX: F20.9 Schizophrenia, unspecified (principal); E11.9 Type 2 diabetes mellitus without complications; R45.851 Suicidal ideations; F14.10 Cocaine abuse, uncomplicated; F12.10 Cannabis abuse, uncomplicated; E66.9 Obesity, unspecified; I10 Essential (primary) hypertension; F17.210 Nicotine dependence, cigarettes, uncomplicated; Z68.33 Body mass index [BMI] 33.0-33.9, adult; Z79.4 Long term (current) use of insulin
CPT/HCPCS: 36415; 80053; 80307; 80320; 80329; 81003; 81015; 84443; 85025; 87086; 99222; 99238; 99285; A9270-GY; G0480; J2680

== ENCOUNTER 2017-10-24 22:16 | Emergency (ER) | payer OTHER ==
[2017-10-24 23:28] LABS: ABS Basophils 0 10^3/ul (0-0.2); ABS Eosinophils 0.1 10^3/ul (0-0.6); ABS Lymphocytes 2.1 10^3/ul (1.0-4.8); ABS Monocytes 0.6 10^3/ul (0-0.8); ABS Neutrophils 5.1 10^3/ul (1.5-7.7); ABS Nucleated RBC 0 10^3/ul; Eosinophil % 1.4 % (0-6); Hematocrit 38 % (35-47); Hemoglobin 12.2 g/dl (12.0-16.0); Lymphocyte % 26.8 % (25-47); Mean Corpuscular HGB Conc 33 g/dl (31-36); Mean Corpuscular Hemoglobin 23 pg (27-31); Mean Corpuscular Volume 71 fL (80-97); Mean Platelet Volume 10 um3 (7.4-10.4); Nucleated Red Blood Cells % 0.1; Platelet Count 295 10^3/ul (150-450); Red Cell Distribution Width 14 % (10.5-15)
[2017-10-24 23:30] LABS: EGFR Non-African American 76.9 (>60)
--- NOTE | 2017-10-25 00:19 | ED ---
Psychiatric Complaint - HPI Summary HPI Summary: Patient presents with paranoia after smoking marijuana - admits she probably should not have been smoking this. [place] like someone was chasing her and trying to kill her. Feels calm now and is just tired. Denies hallucination, SI/ HI. No physical complaints. Admits she's had schizophrenia and receives prolixin injections monthly - has been taking past few months, not sure if it's working. Follows w/ ACT team. Has a place to live. - History Of Current Complaint Chief Complaint: EDMentalHealth Time Seen by Provider: 10/24/17 23:37 Hx Obtained From: Patient - Allergies/Home Medications Allergies/Adverse Reactions: Allergies Allergy/AdvReac Type Severity Reaction Status Date / Time No Known Allergies Allergy Verified 04/20/17 00:45 PMH/Surg Hx/FS Hx/Imm Hx Previously Healthy: Yes Endocrine/Hematology History: 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 - per aunt Pankaj, triggered by invega injections Denies: Hx Thyroid Disease, Hx Anemia, Hx Unexplained Bleeding Cardiovascular History: Reports: Hx Hypertension Denies: Hx Embolism Respiratory History: Reports: Hx Asthma - A CHILD Denies: Hx Chronic Bronchitis, Hx Pneumonia GI History: Denies: Hx Crohn's Disease, Hx Irritable Bowel, Hx Ulcer History: Denies: Hx Dialysis, Hx Kidney Stones Musculoskeletal History: Denies: Hx Arthritis, Hx Back Problems, Hx Orthopedic Injury, Hx Scoliosis Sensory History: Denies: Hx Contacts or Glasses, Hx Hearing Aid Opthamlomology History: Denies: Hx Contacts or Glasses Neurological History: Denies: Hx Headaches, Hx Migraine, Hx Seizures Psychiatric History: Reports: Hx Anxiety, Hx Depression, Hx Inpatient Treatment , Hx Community Mental Health Tx, Hx Schizophrenia, Hx Substance Abuse Denies: Hx Eating Disorder, Hx of Violent Episodes Against Others - Immunization History Date of Tetanus Vaccine: unk Date of Influenza Vaccine: unk Infectious Disease History: No Infectious Disease History: Denies: Traveled Outside the [place] in Last 30 Days - Family History Known Family History: Positive: Diabetes - mom w/ type 2, Other - dad - schizophrenia - Social History 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 Alcohol Use: Weekly Alcohol Amount: ETOH 10/24 Hx Substance Use: Yes Substance Use Type: Reports: Marijuana Substance Use Comment - Amount & Last Used: unknown Hx Tobacco Use: Yes Smoking Status (MU): Heavy Every Day Tobacco Smoker Type: Cigars Amount Used/How Often: Patient has not smoked tobacco within the last 30 days Have You Smoked in the Last Year: - has not smoked in the last 30 days Review of Systems Positive: Fatigue - "tired" Cardiovascular: Negative Respiratory: Negative Gastrointestinal: Negative Positive: no symptoms reported Neurological: Negative Psychological: Normal - currently All Other Systems Reviewed And Are Negative: Yes Physical Exam Triage Information Reviewed: Yes Vital Signs On Initial Exam: Initial Vitals Temp Pulse Resp BP Pulse Ox 98.2 F 121 18 139/75 98 10/24/17 22:18 10/24/17 22:18 10/24/17 22:18 10/24/17 22:18 10/24/17 22:18 Vital Signs Reviewed: Yes Appearance: Positive: Well-Appearing - appears mildly fatigued but ambulating well, coordinated speech, No Pain Distress, Well-Nourished Skin: Positive: Warm, Skin Color Reflects Adequate Perfusion, Dry Head/Face: Positive: Normal Head/Face Inspection Eyes: Positive: Other: - sclera injected ENT: Positive: Normal ENT inspection, Hearing grossly normal Neck: Positive: Supple Respiratory/Lung Sounds: Positive: Clear to Auscultation, Breath Sounds Present Cardiovascular: Positive: Tachycardia - better at rest, S1, S2 Abdomen Description: Positive: Nontender, Soft Bowel Sounds: Positive: Present Musculoskeletal: Positive: Normal, Strength/ROM Intact Neurological: Positive: Sensory/Motor Intact, Alert, Oriented to Person Place, Time, CN Intact II-III Psychiatric: Positive: Other - appears mildly stoned Diagnostics - Vital Signs Vital Signs Temp Pulse Resp BP Pulse Ox 10/24/17 22:18 98.2 F 121 18 139/75 98 - Laboratory Lab Results: Lab Results 18 10/24/17 Range/Units 22:59 22:59 WBC 8.0 (3.5-10.8) 10^3/ul RBC 5.30 (4.0-5.4) 10^6/ul Hgb 12.2 (12.0-16.0) g/dl Hct 38 (35-47) % MCV 71 L (80-97) fL MCH 23 L (27-31) pg MCHC 33 (31-36) g/dl RDW 14 (10.5-15) % Plt Count 295 (150-450) 10^3/ul MPV 10 (7.4-10.4) um3 Neut % (Auto) 63.8 (38-83) % Lymph % (Auto) 26.8 (25-47) % [place] % (Auto) 7.4 (1-9) % Eos % (Auto) 1.4 (0-6) % Baso % (Auto) 0.6 (0-2) % Absolute Neuts (auto) 5.1 (1.5-7.7) 10^3/ul Absolute Lymphs (auto) 2.1 (1.0-4.8) 10^3/ul Absolute Monos (auto) 0.6 (0-0.8) 10^3/ul Absolute Eos (auto) 0.1 (0-0.6) 10^3/ul Absolute Basos (auto) 0 (0-0.2) 10^3/ul Absolute Nucleated RBC 0 10^3/ul Nucleated RBC % 0.1 Sodium 135 (133-145) mmol/L Potassium 3.5 (3.5-5.0) mmol/L Chloride 103 (101-111) mmol/L Carbon Dioxide 24 (22-32) mmol/L Anion Gap 8 (2-11) mmol/L BUN 15 (6-24) mg/dL Creatinine 0.90 (0.51-0.95) mg/dL Est GFR ( Amer) 98.9 (>60) Est GFR (Non-Af Amer) 76.9 (>60) BUN/Creatinine Ratio 16.7 (8-20) Glucose 112 H (70-100) mg/dL Calcium 9.7 (8.6-10.3) mg/dL Total Bilirubin 0.20 (0.2-1.0) mg/dL AST 17 (13-39) U/L ALT 22 (7-52) U/L Alkaline Phosphatase 58 (34-104) U/L Total Protein 7.8 (6.4-8.9) g/dL Albumin 4.4 (3.2-5.2) g/dL Globulin 3.4 (2-4) g/dL Albumin/Globulin Ratio 1.3 (1-3) TSH Pending Beta HCG, Quant < 0.60 mIU/mL Salicylates < 2.50 (<30) mg/dL Acetaminophen < 15 mcg/mL Serum Alcohol < 10 (<10) mg/dL Result Diagrams: 10/24/17 22:59 10/24/17 22:59 Lab Statement: Any lab studies that have been ordered have been reviewed, and results considered in the medical decision making process. Course/Dx - Course Course Of Treatment: Schizophrenic patient here with marijuana-induced paranoia. She reports this sensation has passed and she just feels tired currently. Denies hallucinations as well as SI HI. She has no physical complaints and physical exam as well as labs are without acute pathology. Her heart rate is elevated however this may be from the marijuana she smoked earlier this evening and she does appear stoned. Does not appear to be a threat to herself or others. Medically cleared for mental health evaluation. UPDATE: pt to be d/c'd to ACT team. Agree w/ plan. - Differential Dx/Clinical Impression Provider Diagnosis: Drug-induced paranoia or hallucinations Discharge - Discharge Plan Condition: Stable Disposition: HOME Referrals: No Primary Care Phys,NOPCP [Primary Care Provider] -
[2017-10-25 00:27] LABS: Urine Appearance Clear; Urine Blood 2+ (Negative); Urine Color Yellow; Urine Ketones 1+ (Negative); Urine Protein 1+(30 mg/dL) (Negative); Urine Urobilinogen Negative (Negative)
[2017-10-25 02:07] VITALS: BP 135/90
== END 2017-10-25 02:23 | disposition home or self-care (01) ==
LOC: ED 22:16
DX: F12.10 Cannabis abuse, uncomplicated (principal); R44.3 Hallucinations, unspecified; R53.83 Other fatigue; F22 Delusional disorders; F17.210 Nicotine dependence, cigarettes, uncomplicated; E11.9 Type 2 diabetes mellitus without complications; Z79.4 Long term (current) use of insulin
CPT/HCPCS: 36415; 80053; 80320; 80329; 81003; 81015; 84443; 84702; 85025; 99284; G0480

== ENCOUNTER 2017-10-28 21:46 | Emergency (ER) | payer OTHER ==
[2017-10-28 22:22] LABS: ABS Basophils 0 10^3/ul (0-0.2); ABS Eosinophils 0.2 10^3/ul (0-0.6); ABS Lymphocytes 2.7 10^3/ul (1.0-4.8); ABS Monocytes 0.7 10^3/ul (0-0.8); ABS Nucleated RBC 0 10^3/ul; Eosinophil % 2.1 % (0-6); Hematocrit 35 % (35-47); Hemoglobin 11.2 g/dl (12.0-16.0); Lymphocyte % 30.8 % (25-47); Mean Corpuscular HGB Conc 32 g/dl (31-36); Mean Corpuscular Hemoglobin 23 pg (27-31); Mean Corpuscular Volume 71 fL (80-97); Mean Platelet Volume 9 um3 (7.4-10.4); Nucleated Red Blood Cells % 0.1; Platelet Count 300 10^3/ul (150-450); Red Blood Count 4.95 10^6/ul (4.0-5.4); Red Cell Distribution Width 14 % (10.5-15); White Blood Count 8.6 10^3/ul (3.5-10.8)
[2017-10-28 22:39] LABS: EGFR Non-African American 90.7 (>60)
[2017-10-28 22:50] LABS: Urine Appearance Clear; Urine Blood 3+ (Negative); Urine Color Yellow; Urine Ketones Trace (Negative); Urine Protein 1+(30 mg/dL) (Negative); Urine Specific Gravity 1.026 (1.010-1.030); Urine Urobilinogen Negative (Negative)
[2017-10-29 01:38] VITALS: BP 0/0
--- NOTE | 2017-10-29 06:11 | ED ---
Elias Horton Angela, scribed for Stu Daley on 10/28/17 at 2234 . Psychiatric Complaint - HPI Summary HPI Summary: This pt is a 26 y/o female presenting to [facility] via EMS for paranoia after smoking marijuana. Pt reports she has a hx of schizophrenia and has been off her medications for about 1 month. She states having auditory hallucinations and paranoia. Pt notes she stopped taking her medications because she wanted to see if she would be better without them. She reports she smokes marijuana because it calms her down and helps her sleep at night. Pt denies SI or HI. - History Of Current Complaint Chief Complaint: EDMentalHealth Time Seen by Provider: 10/28/17 21:58 Hx Obtained From: Patient Onset/Duration: Gradual Onset, Still Present Timing: Days Severity Currently: Moderate Character: Manic Aggravating Factor(s): Medication Non-compliance Alleviating Factor(s): Nothing Associated Signs And Symptoms: Positive: Hallucinating - auditory, Paranoid Behavior, Sleep Disturbance Related History: Positive For: Prior Psychiatric Issues Has Suicidal: Denies: Thoughts, With A Plan Has Homicidal: Denies: Thoughts, With A Plan - Allergies/Home Medications Allergies/Adverse Reactions: Allergies Allergy/AdvReac Type Severity Reaction Status Date / Time No Known Allergies Allergy Verified 10/28/17 22:37 PMH/Surg Hx/FS Hx/Imm Hx Endocrine/Hematology History: 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 - per aunt Pankaj, triggered by invega injections Denies: Hx Thyroid Disease, Hx Anemia, Hx Unexplained Bleeding Cardiovascular History: Reports: Hx Hypertension Denies: Hx Embolism Respiratory History: Reports: Hx Asthma - A CHILD Denies: Hx Chronic Bronchitis, Hx Pneumonia GI History: Denies: Hx Crohn's Disease, Hx Irritable Bowel, Hx Ulcer History: Denies: Hx Dialysis, Hx Kidney Stones Musculoskeletal History: Denies: Hx Arthritis, Hx Back Problems, Hx Orthopedic Injury, Hx Scoliosis Sensory History: Denies: Hx Contacts or Glasses, Hx Hearing Aid Opthamlomology History: Denies: Hx Contacts or Glasses Neurological History: Denies: Hx Headaches, Hx Migraine, Hx Seizures Psychiatric History: Reports: Hx Anxiety, Hx Depression, Hx Inpatient Treatment , Hx Community Mental Health Tx, Hx Schizophrenia, Hx Substance Abuse Denies: Hx Eating Disorder, Hx of Violent Episodes Against Others - Immunization History Date of Tetanus Vaccine: unk Date of Influenza Vaccine: unk Infectious Disease History: No Infectious Disease History: Denies: Traveled Outside the [place] in Last 30 Days - Family History Known Family History: Positive: Diabetes - mom w/ type 2, Other - dad - schizophrenia - Social History Alcohol Use: Weekly Alcohol Amount: ETOH 10/24 Hx Substance Use: Yes Substance Use Type: Reports: Marijuana Substance Use Comment - Amount & Last Used: unknown Hx Tobacco Use: Yes Smoking Status (MU): Heavy Every Day Tobacco Smoker Type: Cigars Amount Used/How Often: Patient has not smoked tobacco within the last 30 days Have You Smoked in the Last Year: - has not smoked in the last 30 days Review of Systems Negative: Fever, Chills Eyes: Negative ENT: Negative Cardiovascular: Negative Musculoskeletal: Negative Skin: Negative Psychological: Other - auditory hallucinations, paranoia Negative: Other - SI or HI All Other Systems Reviewed And Are Negative: Yes Physical Exam - Summary Physical Exam Summary: Appearance: Well appearing, no pain distress Skin: warm, dry, reflects adequate perfusion Head/face: normal Eyes: EOMI, ROMEL ENT: normal Neck: supple, nontender Respiratory: CTA, breath sounds present Cardiovascular: RRR, pulses symmetrical Abdomen: nontender, soft Bowel: present Musculoskeletal: normal, strength/ROM intact Neuro: normal, sensory motor intact, A&Ox3 Psych: depressed affect Triage Information Reviewed: Yes Vital Signs On Initial Exam: Initial Vitals Temp Pulse Resp BP Pulse Ox 98.8 F 88 18 107/49 98 10/28/17 21:57 10/28/17 21:57 10/28/17 21:57 10/28/17 21:57 10/28/17 21:57 Vital Signs Reviewed: Yes Diagnostics - Vital Signs Vital Signs Temp Pulse Resp BP Pulse Ox 10/28/17 21:57 98.8 F 88 18 107/49 98 - Laboratory Lab Results: Lab Results 10/28/17 Range/Units 22:10 WBC 8.6 (3.5-10.8) 10^3/ul RBC 4.95 (4.0-5.4) 10^6/ul Hgb 11.2 L (12.0-16.0) g/dl Hct 35 (35-47) % MCV 71 L (80-97) fL MCH 23 L (27-31) pg MCHC 32 (31-36) g/dl RDW 14 (10.5-15) % Plt Count 300 (150-450) 10^3/ul MPV 9 (7.4-10.4) um3 Neut % (Auto) 58.0 (38-83) % Lymph % (Auto) 30.8 (25-47) % [place] % (Auto) 8.5 H (0-7) % Eos % (Auto) 2.1 (0-6) % Baso % (Auto) 0.6 (0-2) % Absolute Neuts (auto) 5.0 (1.5-7.7) 10^3/ul Absolute Lymphs (auto) 2.7 (1.0-4.8) 10^3/ul Absolute Monos (auto) 0.7 (0-0.8) 10^3/ul Absolute Eos (auto) 0.2 (0-0.6) 10^3/ul Absolute Basos (auto) 0 (0-0.2) 10^3/ul Absolute Nucleated RBC 0 10^3/ul Nucleated RBC % 0.1 Result Diagrams: 10/28/17 22:10 10/28/17 22:10 Lab Statement: Any lab studies that have been ordered have been reviewed, and results considered in the medical decision making process. Course/Dx - Course Course Of Treatment: Pt is a 26 y/o female who presents with paranoia after smoking marijuana. Pt reports she has a hx of schizophrenia and has been off her medications for about 1 month. Bloodwork obtained. Pt is medically cleared at 23:22. She is awaiting MHE. Pt was evaluated by the mental health [facility] and her case was reviewed by Dr. Farah. Dr. Farah recommends the pt to be discharged home with outpatient follow up. - Differential Dx/Clinical Impression Differential Diagnosis/HQI/PQRI: Positive: Depression, Schizophrenia Provider Diagnosis: Paranoia Discharge - Discharge Plan Condition: Stable Disposition: HOME Referrals: No Primary Care Phys,NOPCP [Primary Care Provider] - Additional Instructions: Per completion of a mental health evaluation, you are cleared for release and do not require inpatient psychiatric hospitalization at this time. Please go to nearest emergency room or call 911 if safety concerns arise or condition worsens. [facility] Unit........[phone] Suicide Prevention and Crisis Services........................[phone] National Suicide Prevention Lifeline............................303-317-DXEG ( 1433) [facility].......................[phone] Alcoholics Anonymous...............................................[phone] [facility]..............[phone] [facility] Police..............................................[phone] The documentation as recorded by the Elias latif Angela accurately reflects the service I personally performed and the decisions made by , Stu Daley.
== END 2017-10-29 01:05 | disposition home or self-care (01) ==
LOC: ED 21:46
DX: F22 Delusional disorders (principal); F12.10 Cannabis abuse, uncomplicated; F20.9 Schizophrenia, unspecified
CPT/HCPCS: 36415; 80053; 80307; 80320; 80329; 81003; 81015; 84443; 84702; 85025; 87086; 99285; G0480

== ENCOUNTER → 2017-11-03 15:38 | Emergency (ER) | payer OTHER ==
[2017-11-03 16:22] LABS: Urine Appearance Clear; Urine Blood 1+ (Negative); Urine Color Yellow; Urine Ketones Negative (Negative); Urine Protein Negative (Negative); Urine Urobilinogen Negative (Negative)
[2017-11-03 17:02] LABS: ABS Basophils 0.1 10^3/ul (0-0.2); ABS Eosinophils 0.1 10^3/ul (0-0.6); ABS Lymphocytes 2.3 10^3/ul (1.0-4.8); ABS Monocytes 0.6 10^3/ul (0-0.8); ABS Neutrophils 4.2 10^3/ul (1.5-7.7); ABS Nucleated RBC 0 10^3/ul; Eosinophil % 1.6 % (0-6); Hematocrit 37 % (35-47); Hemoglobin 11.6 g/dl (12.0-16.0); Lymphocyte % 31.7 % (25-47); Mean Corpuscular HGB Conc 32 g/dl (31-36); Mean Corpuscular Hemoglobin 23 pg (27-31); Mean Corpuscular Volume 71 fL (80-97); Mean Platelet Volume 10 um3 (7.4-10.4); Nucleated Red Blood Cells % 0.1; Platelet Count 302 10^3/ul (150-450); Red Blood Count 5.14 10^6/ul (4.0-5.4); Red Cell Distribution Width 14 % (10.5-15); White Blood Count 7.4 10^3/ul (3.5-10.8)
[2017-11-03 17:17] LABS: EGFR Non-African American 89.4 (>60)
--- NOTE | 2017-11-03 21:51 | ED ---
Gwyn Horton Thomas, scribed for Obi Viramontes MD on 11/03/17 at 1605 . Psychiatric Complaint - HPI Summary HPI Summary: The patient is a 26 year old female with a history of schizophrenia presenting with paranoia after she used marijuana earlier today. Marijuana normally makes the patient feel more relaxed, but she reports that today it made her feel paranoia. The patient states I feel like Im going to hit someone. - History Of Current Complaint Chief Complaint: EDMentalHealth Time Seen by Provider: 11/03/17 15:52 Hx Obtained From: Patient Onset/Duration: Still Present Timing: Intermittent Episode Lasting Severity Currently: Mild Aggravating Factor(s): Other - Unknown Alleviating Factor(s): Other - Unknown Has Suicidal: Denies: Thoughts Has Homicidal: Reports: Demonstrates Gesture Ingestion History: Type/Name Of Drug - Marijuana - Allergies/Home Medications Allergies/Adverse Reactions: Allergies Allergy/AdvReac Type Severity Reaction Status Date / Time No Known Allergies Allergy Verified 10/28/17 22:37 PMH/Surg Hx/FS Hx/Imm Hx Endocrine/Hematology History: 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 - per aunt Pankaj, triggered by invega injections Denies: Hx Thyroid Disease, Hx Anemia, Hx Unexplained Bleeding Cardiovascular History: Reports: Hx Hypertension Denies: Hx Embolism Respiratory History: Reports: Hx Asthma - A CHILD Denies: Hx Chronic Bronchitis, Hx Pneumonia GI History: Denies: Hx Crohn's Disease, Hx Irritable Bowel, Hx Ulcer History: Denies: Hx Dialysis, Hx Kidney Stones Musculoskeletal History: Denies: Hx Arthritis, Hx Back Problems, Hx Orthopedic Injury, Hx Scoliosis Sensory History: Denies: Hx Contacts or Glasses, Hx Hearing Aid Opthamlomology History: Denies: Hx Contacts or Glasses Neurological History: Denies: Hx Headaches, Hx Migraine, Hx Seizures Psychiatric History: Reports: Hx Anxiety, Hx Depression, Hx Inpatient Treatment , Hx Community Mental Health Tx, Hx Schizophrenia, Hx Substance Abuse Denies: Hx Eating Disorder, Hx of Violent Episodes Against Others - Immunization History Date of Tetanus Vaccine: unk Date of Influenza Vaccine: unk - Family History Known Family History: Positive: Diabetes - mom w/ type 2, Other - dad - schizophrenia - Social History Alcohol Use: Weekly Alcohol Amount: ETOH 10/24 Hx Substance Use: Yes Substance Use Type: Reports: Marijuana Substance Use Comment - Amount & Last Used: unknown Hx Tobacco Use: Yes Smoking Status (MU): Heavy Every Day Tobacco Smoker Type: Cigars Amount Used/How Often: Patient has not smoked tobacco within the last 30 days Have You Smoked in the Last Year: - has not smoked in the last 30 days Review of Systems Negative: Fever Positive: Other - Paranoia, "feel like going to hit someone" All Other Systems Reviewed And Are Negative: Yes Physical Exam - Summary Physical Exam Summary: General: well-appearing, no pain distress Skin: warm, color reflects adequate perfusion, dry Head: normal Eyes: EOMI, ROMEL ENT: normal Neck: supple, nontender Respiratory: CTA, breath sounds present Cardiovascular: RRR Abdomen: soft, nontender Bowel: present Musculoskeletal: normal, strength/ROM intact Neurological: normal, sensory/motor intact, A&O x3 Psychological: affect/mood appropriate Triage Information Reviewed: Yes Vital Signs On Initial Exam: Initial Vitals Temp Pulse Resp BP Pulse Ox 98.7 F 98 16 113/66 98 11/03/17 15:44 11/03/17 15:44 11/03/17 15:44 11/03/17 15:44 11/03/17 15:44 Vital Signs Reviewed: Yes Diagnostics - Vital Signs Vital Signs Temp Pulse Resp BP Pulse Ox 11/03/17 15:44 98.7 F 98 16 113/66 98 - Laboratory Lab Results: Lab Results 11/03/17 11/03/17 11/03/17 Range/Units 16:02 16:02 16:50 WBC (3.5-10.8) 10^3/ul RBC (4.0-5.4) 10^6/ul Hgb (12.0-16.0) g/dl Hct (35-47) % MCV (80-97) fL MCH (27-31) pg MCHC (31-36) g/dl RDW (10.5-15) % Plt Count (150-450) 10^3/ul MPV (7.4-10.4) um3 Neut % (Auto) (38-83) % Lymph % (Auto) (25-47) % [place] % (Auto) (0-7) % Eos % (Auto) (0-6) % Baso % (Auto) (0-2) % Absolute Neuts (auto) (1.5-7.7) 10^3/ul Absolute Lymphs (auto) (1.0-4.8) 10^3/ul Absolute Monos (auto) (0-0.8) 10^3/ul Absolute Eos (auto) (0-0.6) 10^3/ul Absolute Basos (auto) (0-0.2) 10^3/ul Absolute Nucleated RBC 10^3/ul Nucleated RBC % Sodium 136 (133-145) mmol/L Potassium 3.7 (3.5-5.0) mmol/L Chloride 105 (101-111) mmol/L Carbon Dioxide 24 (22-32) mmol/L Anion Gap 7 (2-11) mmol/L BUN 10 (6-24) mg/dL Creatinine 0.79 (0.51-0.95) mg/dL Est GFR ( Amer) 115.0 (>60) Est GFR (Non-Af Amer) 89.4 (>60) BUN/Creatinine Ratio 12.7 (8-20) Glucose 72 (70-100) mg/dL Calcium 9.3 (8.6-10.3) mg/dL Total Bilirubin 0.30 (0.2-1.0) mg/dL AST 15 (13-39) U/L ALT 17 (7-52) U/L Alkaline Phosphatase 50 (34-104) U/L Total Protein 7.5 (6.4-8.9) g/dL Albumin 4.3 (3.2-5.2) g/dL Globulin 3.2 (2-4) g/dL Albumin/Globulin Ratio 1.3 (1-3) TSH 0.98 (0.34-5.60) mcIU/mL Beta HCG, Quant < 0.60 mIU/mL Urine Color Yellow Urine Appearance Clear Urine pH 6.0 (5-9) Ur Specific [place] 1.010 (1.010-1.030) Urine Protein Negative (Negative) Urine Ketones Negative (Negative) Urine Blood 1+ A (Negative) Urine Nitrate Negative (Negative) Urine Bilirubin Negative (Negative) Urine Urobilinogen Negative (Negative) Ur Leukocyte Esterase 1+ A (Negative) Urine WBC (Auto) 1+(6-10/hpf) A (Absent) Urine RBC (Auto) Trace(0-2/hpf) (Absent) Ur Squamous Epith Cells Present A (Absent) Urine Bacteria Absent (Absent) Urine Glucose Negative (Negative) Salicylates < 2.50 (<30) mg/dL Urine Opiates Screen None detected (None Detect) Acetaminophen < 15 mcg/mL Ur Barbiturates Screen None detected (None Detect) Ur Phencyclidine Scrn None detected (None Detect) Ur Amphetamines Screen None detected (None Detect) U Benzodiazepines Scrn None detected (None Detect) Urine Cocaine Screen None detected (None Detect) U Cannabinoids Screen Presumptive positive A (None Detect) Serum Alcohol < 10 (<10) mg/dL 11/03/17 Range/Units 16:50 WBC 7.4 (3.5-10.8) 10^3/ul RBC 5.14 (4.0-5.4) 10^6/ul Hgb 11.6 L (12.0-16.0) g/dl Hct 37 (35-47) % MCV 71 L (80-97) fL MCH 23 L (27-31) pg MCHC 32 (31-36) g/dl RDW 14 (10.5-15) % Plt Count 302 (150-450) 10^3/ul MPV 10 (7.4-10.4) um3 Neut % (Auto) 57.5 (38-83) % Lymph % (Auto) 31.7 (25-47) % Hudson % (Auto) 8.5 H (0-7) % Eos % (Auto) 1.6 (0-6) % Baso % (Auto) 0.7 (0-2) % Absolute Neuts (auto) 4.2 (1.5-7.7) 10^3/ul Absolute Lymphs (auto) 2.3 (1.0-4.8) 10^3/ul Absolute Monos (auto) 0.6 (0-0.8) 10^3/ul Absolute Eos (auto) 0.1 (0-0.6) 10^3/ul Absolute Basos (auto) 0.1 (0-0.2) 10^3/ul Absolute Nucleated RBC 0 10^3/ul Nucleated RBC % 0.1 Sodium (133-145) mmol/L Potassium (3.5-5.0) mmol/L Chloride (101-111) mmol/L Carbon Dioxide (22-32) mmol/L Anion Gap (2-11) mmol/L BUN (6-24) mg/dL Creatinine (0.51-0.95) mg/dL Est GFR ( Amer) (>60) Est GFR (Non-Af Amer) (>60) BUN/Creatinine Ratio (8-20) Glucose (70-100) mg/dL Calcium (8.6-10.3) mg/dL Total Bilirubin (0.2-1.0) mg/dL AST (13-39) U/L ALT (7-52) U/L Alkaline Phosphatase (34-104) U/L Total Protein (6.4-8.9) g/dL Albumin (3.2-5.2) g/dL Globulin (2-4) g/dL Albumin/Globulin Ratio (1-3) TSH (0.34-5.60) mcIU/mL Beta HCG, Quant mIU/mL Urine Color Urine Appearance Urine pH (5-9) Ur Specific [place] (1.010-1.030) Urine Protein (Negative) Urine Ketones (Negative) Urine Blood (Negative) Urine Nitrate (Negative) Urine Bilirubin (Negative) Urine Urobilinogen (Negative) Ur Leukocyte Esterase (Negative) Urine WBC (Auto) (Absent) Urine RBC (Auto) (Absent) Ur Squamous Epith Cells (Absent) Urine Bacteria (Absent) Urine Glucose (Negative) Salicylates (<30) mg/dL Urine Opiates Screen (None Detect) Acetaminophen mcg/mL Ur Barbiturates Screen (None Detect) Ur Phencyclidine Scrn (None Detect) Ur Amphetamines Screen (None Detect) U Benzodiazepines Scrn (None Detect) Urine Cocaine Screen (None Detect) U Cannabinoids Screen (None Detect) Serum Alcohol (<10) mg/dL Result Diagrams: 11/03/17 16:50 11/03/17 16:50 Lab Statement: Any lab studies that have been ordered have been reviewed, and results considered in the medical decision making process. Course/Dx - Course Course Of Treatment: DISPOSITION AND MHE PENDING AT SHIFT CHANGE - Differential Dx/Clinical Impression Provider Diagnosis: Mental health problem Discharge - Discharge Plan Condition: Stable Disposition: OTHER Discharge Disposition Comment: . Referrals: No Primary Care Phys,NOPCP [Primary Care Provider] - The documentation as recorded by the Gwyn latif Thomas accurately reflects the service I personally performed and the decisions made by me, Obi Viramontes MD.
--- NOTE | 2017-11-04 02:33 | ED ---
Merly Horton Gabriel, scribed for Kailee Garcia MD on 11/04/17 at 0211 . Progress - Progress Note Progress Note: The patient was signed out from Dr. Viramontes awaiting MHE. After MHE by Dr. Reyna the patient was deemed stable to do go home. Dx of schizophrenia. Pt has no SI or HI currently. - Consult/PCP Time Called: 19:51 Course/Dx - Course Course Of Treatment: The patient was signed out from Dr. Viramontes awaiting MHE. After MHE by Dr. Reyna the patient was deemed stable to do go home. Dx of schizophrenia. Pt has no SI or HI currently. - Diagnoses Provider Diagnoses: Schizophrenia The documentation as recorded by the Merly latif Gabriel accurately reflects the service I personally performed and the decisions made by Radha mccauley Abdul, MD.
[2017-11-04 04:21] VITALS: BP 114/89
== END ==
LOC: ED 15:38
DX: F20.9 Schizophrenia, unspecified (principal); F22 Delusional disorders; E11.9 Type 2 diabetes mellitus without complications; Z79.4 Long term (current) use of insulin; F17.210 Nicotine dependence, cigarettes, uncomplicated
CPT/HCPCS: 36415; 80053; 80307; 80320; 80329; 81003; 81015; 84443; 84702; 85025; 87086; 99285; G0480

== ENCOUNTER 2017-12-16 20:30 | Emergency (ER) | payer OTHER ==
--- NOTE | 2017-12-16 22:01 | RAD ---
Indication: RIGHT ankle pain following twisting injury. Comparison: No relevant prior exams available on the [facility] [place] for comparison. Technique: AP, mortise, and lateral views RIGHT ankle. Report: No definitive fracture evident. The ankle mortise remains congruent. Talocrural joint effusion and severe soft tissue swelling over the lateral malleolus. IMPRESSION: No definitive fracture. Given magnitude of lateral soft tissue swelling and suggestion of talocrural joint effusion consider lateral supporting ligament injury.
[2017-12-16] MEDS ORDERED: LORazepam TAB(*) 1 MG PO ONE (22:12)
[2017-12-16] MEDS ORDERED: Ibuprofen TAB* 800 MG PO ONE (22:12)
[2017-12-17 00:47] VITALS: BP 131/71
--- NOTE | 2017-12-17 01:55 | ED ---
Lower Extremity - HPI Summary HPI Summary: Pt. is a 27 y.o female who presents to the ED for an ankle injury. Pt. states she has a history of schizophrenia and stopped taking her medication about a month ago. Follows with the ACT team. Pt. states she smoke THC tonight and started to hallucinate. Pt. state she called for an ambulance and on her way to the ambulance she twisted her right ankle. No head injury. Pt. admits to SI but states she always had them and would never act on them. She would like to speak with the therapist. Ankle pain is worsened by walking. Rest makes symptoms better. Symptoms are mild in severity. - History of Current Complaint Chief Complaint: EDMentalHealth Stated Complaint: ANXIETY/RT ANKLE INJURY Time Seen by Provider: 12/16/17 21:53 Hx Obtained From: Patient Mechanism Of Injury: Twisted Onset of Pain: Immediate Onset/Duration: Minutes Severity Initially: Moderate Severity Currently: Moderate Pain Intensity: 3 Pain Scale Used: 0-10 Numeric Timing: Constant Location: Other - right ankle Character Of Pain: Sharp, Throbbing Associated Signs And Symptoms: Positive: Swelling Aggravating Factor(s): Standing, Ambulation Alleviating Factor(s): Rest Able to Bear Weight: Yes - Allergies/Home Medications Allergies/Adverse Reactions: Allergies Allergy/AdvReac Type Severity Reaction Status Date / Time No Known Allergies Allergy Verified 10/28/17 22:37 Home Medications: Home Medications NK [No Home Medications Reported] 12/16/17 [History Confirmed 12/16/17] PMH/Surg Hx/FS Hx/Imm Hx Previously Healthy: Yes Endocrine/Hematology History: 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 - per aunt Pankaj, triggered by invega injections Denies: Hx Thyroid Disease, Hx Anemia, Hx Unexplained Bleeding Cardiovascular History: Reports: Hx Hypertension Denies: Hx Embolism Respiratory History: Reports: Hx Asthma - A CHILD Denies: Hx Chronic Bronchitis, Hx Pneumonia GI History: Denies: Hx Crohn's Disease, Hx Irritable Bowel, Hx Ulcer History: Denies: Hx Dialysis, Hx Kidney Stones Musculoskeletal History: Denies: Hx Arthritis, Hx Back Problems, Hx Orthopedic Injury, Hx Scoliosis Sensory History: Denies: Hx Contacts or Glasses, Hx Hearing Aid Opthamlomology History: Denies: Hx Contacts or Glasses Neurological History: Denies: Hx Headaches, Hx Migraine, Hx Seizures Psychiatric History: Reports: Hx Anxiety, Hx Depression, Hx Inpatient Treatment , Hx Community Mental Health Tx, Hx Schizophrenia, Hx Substance Abuse Denies: Hx Eating Disorder, Hx of Violent Episodes Against Others - Immunization History Date of Tetanus Vaccine: unk Date of Influenza Vaccine: unk Infectious Disease History: No Infectious Disease History: Denies: Traveled Outside the [place] in Last 30 Days - Family History Known Family History: Positive: Diabetes - mom w/ type 2, Other - dad - schizophrenia - Social History Occupation: Unemployed Lives: With Family Alcohol Use: Weekly Alcohol Amount: ETOH 10/24 Hx Substance Use: Yes Substance Use Type: Reports: Marijuana Substance Use Comment - Amount & Last Used: unknown Hx Tobacco Use: Yes Smoking Status (MU): Heavy Every Day Tobacco Smoker Type: Cigars Amount Used/How Often: Patient has not smoked tobacco within the last 30 days Have You Smoked in the Last Year: - has not smoked in the last 30 days Review of Systems Constitutional: Negative Negative: Palpitations, Chest Pain Negative: Shortness Of Breath Positive: Other - Pain and swelling to right ankle Negative: Weakness, Paresthesia, Numbness Psychological: Normal All Other Systems Reviewed And Are Negative: Yes Physical Exam Triage Information Reviewed: Yes Vital Signs On Initial Exam: Initial Vitals Temp Pulse Resp BP Pulse Ox 97.8 F 80 18 112/62 98 12/16/17 20:31 12/16/17 20:31 12/16/17 20:31 12/16/17 20:31 12/16/17 20:31 Vital Signs Reviewed: Yes Appearance: Positive: Well-Appearing Skin: Positive: Warm, Dry Head/Face: Positive: Normal Head/Face Inspection Eyes: Positive: Normal Respiratory/Lung Sounds: Positive: Clear to Auscultation, Breath Sounds Present Cardiovascular: Positive: Normal, RRR Musculoskeletal: Positive: Other - Moderate edema and pain to the right lateral malleolus. Mild pain to the proximal 5th metatarsal. No proximal knee or hip pain. Leg is neurovascuarly intact. No wounds. Achilles tendon intact. Neurological: Positive: Normal, CN Intact II-III Psychiatric: Positive: Normal AVPU Assessment: Alert Procedures - Splinting Pre-Made Type: aircast Pre-Proc Neuro Vasc Exam: normal Post-Proc Neuro Vasc Exam: normal Diagnostics - Vital Signs Vital Signs Temp Pulse Resp BP Pulse Ox 12/17/17 00:44 98.3 F 71 16 131/71 99 12/17/17 00:41 18 12/16/17 20:31 97.8 F 80 18 112/62 98 - Laboratory Lab Statement: Any lab studies that have been ordered have been reviewed, and results considered in the medical decision making process. Lower Extremity Course/Dx - Course Course Of Treatment: Pt. presenting for anxiety and ankle injury. Xray per radiology shows no fracture or dislocation but lateral soft tissue edema conerning for ligamental injury. Jose Miguel wrap and air splint placed as well as crutches. Pt. was given a dose of motrin and ativan. Pt. was evaluated by Dr. De Dios. She was evaluated by the therapist and meets no inpt. criteria. She will be dc home stable. To f.u with ortho. for further evaluation of ankle injury. Will f.u with her therapist. To return to ER if symptoms change or worsen. - Diagnoses Differential Diagnosis/HQI/PQRI: Positive: Sprain, Strain Provider Diagnoses: Ankle sprain, Schizophrenia, Anxiety Discharge - Sign-Out/Discharge Documenting (check all that apply): Discharge - Discharge Plan Condition: Good Disposition: HOME Patient Education Materials: Ankle Sprain (ED), Schizophrenia (ED) Referrals: Shawn Huggins MD [Medical Doctor] - No Primary Care Phys,NOPCP [Primary Care Provider] - Additional Instructions: Schedule a follow up appointment with orthopedics for ankle sprain Follow up with ACT team Ice and elevate ankle Splint for comfort Tylenol or Motrin for pain as directed Return to ER if symptoms change or worsen - Billing Disposition and Condition Condition: GOOD Disposition: HOME
== END 2017-12-17 00:44 | disposition home or self-care (01) ==
LOC: ED 20:30
DX: S93.401A Sprain of unspecified ligament of right ankle, initial encounter (principal); X50.1XXA Overexertion from prolonged static or awkward postures, initial encounter; Y93.9 Activity, unspecified; Y92.89 Other specified places as the place of occurrence of the external cause; F20.9 Schizophrenia, unspecified; F41.9 Anxiety disorder, unspecified; E11.9 Type 2 diabetes mellitus without complications; Z79.4 Long term (current) use of insulin; I10 Essential (primary) hypertension; J45.909 Unspecified asthma, uncomplicated; F32.9 Major depressive disorder, single episode, unspecified; F17.290 Nicotine dependence, other tobacco product, uncomplicated
CPT/HCPCS: 99285; A9270-GY

== ENCOUNTER 2017-12-24 15:53 | Emergency (ER) | payer OTHER ==
[2017-12-24 17:48] LABS: EGFR Non-African American 73.5 (>60)
[2017-12-24 17:53] LABS: ABS Basophils 0 10^3/ul (0-0.2); ABS Eosinophils 0.2 10^3/ul (0-0.6); ABS Lymphocytes 2.5 10^3/ul (1.0-4.8); ABS Monocytes 0.5 10^3/ul (0-0.8); ABS Neutrophils 3.2 10^3/ul (1.5-7.7); ABS Nucleated RBC 0 10^3/ul; Eosinophil % 3.1 % (0-6); Hematocrit 39 % (35-47); Hemoglobin 12.5 g/dl (12.0-16.0); Lymphocyte % 38.5 % (25-47); Mean Corpuscular HGB Conc 32 g/dl (31-36); Mean Corpuscular Hemoglobin 23 pg (27-31); Mean Corpuscular Volume 71 fL (80-97); Nucleated Red Blood Cells % 0.1; Platelet Count 300 10^3/ul (150-450); Red Blood Count 5.54 10^6/ul (4.0-5.4); Red Cell Distribution Width 14 % (10.5-15); White Blood Count 6.5 10^3/ul (3.5-10.8)
[2017-12-24 22:01] VITALS: BP 123/63
--- NOTE | 2017-12-24 22:09 | ED ---
Roge Horton Jennifer, scribed for Kameron Lara MD on 12/24/17 at 1603 . Psychiatric Complaint - HPI Summary HPI Summary: The patient is a 27 year old female with a history of schizophrenia who was brought to the ED by police after she called them today. The patient reports she felt paranoid and violent and wanted to come to the hospital to be in a safe environment and clear out. - History Of Current Complaint Time Seen by Provider: 12/24/17 15:57 Hx Obtained From: Patient Onset/Duration: Sudden Onset, Lasting Hours Timing: Intermittent Episode Lasting Severity Initially: Mild Severity Currently: Mild Associated Signs And Symptoms: Positive: Paranoid Behavior Related History: Positive For: Prior Psychiatric Issues Has Suicidal: Denies: Thoughts Has Homicidal: Denies: Thoughts - Allergies/Home Medications Allergies/Adverse Reactions: Allergies Allergy/AdvReac Type Severity Reaction Status Date / Time No Known Allergies Allergy Verified 10/28/17 22:37 PMH/Surg Hx/FS Hx/Imm Hx Endocrine/Hematology History: 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 - per aunt Pankaj, triggered by invega injections Denies: Hx Thyroid Disease, Hx Anemia, Hx Unexplained Bleeding Cardiovascular History: Reports: Hx Hypertension Denies: Hx Embolism Respiratory History: Reports: Hx Asthma - A CHILD Denies: Hx Chronic Bronchitis, Hx Pneumonia GI History: Denies: Hx Crohn's Disease, Hx Irritable Bowel, Hx Ulcer History: Denies: Hx Dialysis, Hx Kidney Stones Musculoskeletal History: Denies: Hx Arthritis, Hx Back Problems, Hx Orthopedic Injury, Hx Scoliosis Sensory History: Denies: Hx Contacts or Glasses, Hx Hearing Aid Opthamlomology History: Denies: Hx Contacts or Glasses Neurological History: Denies: Hx Headaches, Hx Migraine, Hx Seizures Psychiatric History: Reports: Hx Anxiety, Hx Depression, Hx Inpatient Treatment , Hx Community Mental Health Tx, Hx Schizophrenia, Hx Substance Abuse Denies: Hx Eating Disorder, Hx of Violent Episodes Against Others - Immunization History Date of Tetanus Vaccine: unk Date of Influenza Vaccine: unk - Family History Known Family History: Positive: Diabetes - mom w/ type 2, Other - dad - schizophrenia - Social History Alcohol Use: Weekly Alcohol Amount: ETOH 10/24 Hx Substance Use: Yes Substance Use Type: Reports: Marijuana Substance Use Comment - Amount & Last Used: unknown Hx Tobacco Use: Yes Smoking Status (MU): Heavy Every Day Tobacco Smoker Type: Cigars Amount Used/How Often: Patient has not smoked tobacco within the last 30 days Have You Smoked in the Last Year: - has not smoked in the last 30 days Review of Systems Negative: Fever Positive: Other - [place] paranoid and violent All Other Systems Reviewed And Are Negative: Yes Physical Exam - Summary Physical Exam Summary: Appearance: The patient is well-nourished in no acute distress and in no acute pain. Skin: The skin is warm and dry and skin color reflects adequate perfusion. HEENT: The head is normocephalic and atraumatic. The pupils are equal and reactive. The conjunctivae are clear and without drainage. Nares are patent and without drainage. Mouth reveals moist mucous membranes and the throat is without erythema and exudate. The external ears are intact. The ear canals are patent and without drainage. The tympanic membranes are intact. Neck: the neck is supple with full range of motion and non-tender. There are no carotid bruits. There is no neck vein distension. Respiratory: Chest is non-tender. Lungs are clear to auscultation and breath sounds are symmetrical and equal. Cardiovascular: Heart is regular rate and rhythm. There is no murmur or rub auscultated. There is no peripheral edema and pulses are symmetrical and equal. Abdomen: The abdomen is soft and non-tender. There are normal bowel sounds heard in all four quadrants and there is no organomegaly palpated. Musculoskeletal: There is no back tenderness noted. Extremities are non-tender with full range of motion. There is good capillary refill. There is no peripheral edema or calf tenderness elicited. Neurological: Patient is alert and oriented to person, place and time. The patient has symmetrical motor strength in all four extremities. Cranial nerves are grossly intact. Deep tendon reflexes are symmetrical and equal in all four extremities. Psychiatric: The patient has an appropriate affect and does not exhibit any anxiety or depression. Triage Information Reviewed: Yes Vital Signs On Initial Exam: Initial Vitals Temp Pulse Resp BP Pulse Ox 98.0 F 89 16 131/72 100 12/24/17 16:18 12/24/17 16:18 12/24/17 16:18 12/24/17 16:18 12/24/17 16:18 Vital Signs Reviewed: Yes Diagnostics - Vital Signs Vital Signs Temp Pulse Resp BP Pulse Ox 12/24/17 21:59 97.2 F 69 15 123/63 100 12/24/17 20:15 98.4 F 62 16 141/74 98 12/24/17 16:18 98.0 F 89 16 131/72 100 - Laboratory Lab Results: Lab Results 12/24/17 12/24/17 Range/Units 17:18 17:18 WBC 6.5 (3.5-10.8) 10^3/ul RBC 5.54 H (4.0-5.4) 10^6/ul Hgb 12.5 (12.0-16.0) g/dl Hct 39 (35-47) % MCV 71 L (80-97) fL MCH 23 L (27-31) pg MCHC 32 (31-36) g/dl RDW 14 (10.5-15) % Plt Count 300 (150-450) 10^3/ul MPV 10.0 (7.4-10.4) um3 Neut % (Auto) 49.9 (38-83) % Lymph % (Auto) 38.5 (25-47) % [place] % (Auto) 8.1 H (0-7) % Eos % (Auto) 3.1 (0-6) % Baso % (Auto) 0.4 (0-2) % Absolute Neuts (auto) 3.2 (1.5-7.7) 10^3/ul Absolute Lymphs (auto) 2.5 (1.0-4.8) 10^3/ul Absolute Monos (auto) 0.5 (0-0.8) 10^3/ul Absolute Eos (auto) 0.2 (0-0.6) 10^3/ul Absolute Basos (auto) 0 (0-0.2) 10^3/ul Absolute Nucleated RBC 0 10^3/ul Nucleated RBC % 0.1 Sodium 135 L (139-145) mmol/L Potassium 3.8 (3.5-5.0) mmol/L Chloride 103 (101-111) mmol/L Carbon Dioxide 21 L (22-32) mmol/L Anion Gap 11 (2-11) mmol/L BUN 12 (6-24) mg/dL Creatinine 0.93 (0.51-0.95) mg/dL Est GFR ( Amer) 94.5 (>60) Est GFR (Non-Af Amer) 73.5 (>60) BUN/Creatinine Ratio 12.9 (8-20) Glucose 146 H (70-100) mg/dL Calcium 9.3 (8.6-10.3) mg/dL Total Bilirubin 0.40 (0.2-1.0) mg/dL AST 20 (13-39) U/L ALT 18 (7-52) U/L Alkaline Phosphatase 61 (34-104) U/L Total Protein 7.7 (6.4-8.9) g/dL Albumin 4.3 (3.2-5.2) g/dL Globulin 3.4 (2-4) g/dL Albumin/Globulin Ratio 1.3 (1-3) TSH 0.50 (0.34-5.60) mcIU/mL Beta HCG, Quant < 0.60 mIU/mL Salicylates < 2.50 (<30) mg/dL Acetaminophen < 15 mcg/mL Serum Alcohol < 10 (<10) mg/dL Result Diagrams: 12/24/17 17:18 12/24/17 17:18 Lab Statement: Any lab studies that have been ordered have been reviewed, and results considered in the medical decision making process. Course/Dx - Course Course Of Treatment: Ms. Rodriguez was feeling paranoid and possible violent so she came to the ED to take a little break she says. She was medically cleared and had a MHE in the Flex Unit. They felt that she was stable for D/C and she was agreeable to that. - Differential Dx/Clinical Impression Provider Diagnosis: Psychosis Discharge - Sign-Out/Discharge Documenting (check all that apply): Discharge - Discharge Plan Condition: Good Disposition: [facility]CHIATRIC FAC[facility] Patient Education Materials: Schizophrenia (ED) Referrals: [facility] PHYSICIAN REFERRAL [Outside] Additional Instructions: Follow up with your primary care physician in three days. Return to the emergency department for any new or worsening symptoms. Per completion of a mental health evaluation, you are cleared for release and do not require inpatient psychiatric hospitalization at this time. Please go to nearest emergency room or call 911 if safety concerns arise or condition worsens. Important Phone Numbers: [facility] Unit~~ ph:[phone] Suicide Prevention and Crisis Services~~~~~~~~~~~~~~~~~~~~~~~ ph:[phone] National Suicide Prevention Lifeline~~~~~~~~~~~~~~~~~~~~~~~ ~~ ph:800273- TALK (8255) [facility]~~~~~~~~~~~~~~~~~~ ~~ ph:[phone] Alcoholics Anonymous~~~~~~~~~~~~~~~~~~~~~~~~~~~~~~~~~~~~~~~~~~~~~~~~~ ph: [facility]~~~~~~ ~~ ph:[phone] [facility] Police ph:[phone] Discharged home to [place] Follow up with ACT Team Take medications as prescribed Return to ED, if needed - Billing Disposition and Condition Condition: GOOD Disposition: [facility] The documentation as recorded by the Roge latif Jennifer accurately reflects the service I personally performed and the decisions made by , Kameron Lara MD.
== END 2017-12-24 22:56 ==
LOC: ED 15:53
DX: F29 Unspecified psychosis not due to a substance or known physiological condition (principal); F17.210 Nicotine dependence, cigarettes, uncomplicated
CPT/HCPCS: 36415; 80053; 80320; 80329; 84443; 84702; 85025; 99285; G0480

== ENCOUNTER 2018-02-14 16:41 | Emergency (ER) | payer OTHER ==
[2018-02-14] MEDS ORDERED: Haloperidol TAB* 5 MG PO ONE (16:54)
[2018-02-14] MEDS ORDERED: LORazepam TAB(*) 1 MG PO ONE (16:54)
[2018-02-14 17:30] LABS: ABS Basophils 0 10^3/ul (0-0.2); ABS Eosinophils 0 10^3/ul (0-0.6); ABS Monocytes 0.7 10^3/ul (0-0.8); ABS Nucleated RBC 0 10^3/ul; Eosinophil % 0.4 % (0-6); Hematocrit 43 % (35-47); Hemoglobin 13.5 g/dl (12.0-16.0); Lymphocyte % 10.6 % (25-47); Mean Corpuscular HGB Conc 32 g/dl (31-36); Mean Corpuscular Hemoglobin 23 pg (27-31); Mean Corpuscular Volume 71 fL (80-97); Mean Platelet Volume 9.9 um3 (7.4-10.4); Nucleated Red Blood Cells % 0; Platelet Count 305 10^3/ul (150-450); Red Blood Count 5.98 10^6/ul (4.00-5.40); Red Cell Distribution Width 15 % (10.5-15); White Blood Count 9.8 10^3/ul (3.5-10.8)
[2018-02-14 17:40] LABS: EGFR Non-African American 46.2 (>60)
--- NOTE | 2018-02-14 18:48 | ED ---
Elias Horton Angela scribed for Jason Pino MD on 02/14/18 at 1700 . Psychiatric Complaint - HPI Summary HPI Summary: This pt is a 27 y/o female brought in by best friend to [facility] for a mental health evaluation. Pt has hx of schizophrenia. Pt is brought to the ED by 2 friends. Friends report they were out downtown and pt was screaming in public and hitting herself in the chest. Per friends, it is unknown if pt has been sleeping. Friends also state pt has had "a bunch of outbursts in the past week or so." Friend reports the pt told "somebody" she was going to hurt herself about 2 days ago. Per friend, pt has not been speaking for the past 2 weeks. PMHx includes schizophrenia. Pt is supposed to take medications for schizophrenia but "she has not taken them in a while." HPI IS LIMITED DUE TO LEVEL 5 CAVEAT - pt is not speaking at this time - History Of Current Complaint Chief Complaint: EDMentalHealth Time Seen by Provider: 02/14/18 16:50 Hx Obtained From: Other: - friends Hx From Patient Unobtainable Due To: Other - level 5 caveat - pt is not speaking Onset/Duration: Lasting Days, Still Present Timing: Days Severity Currently: Severe Character: Manic Aggravating Factor(s): Medication Non-compliance Alleviating Factor(s): Nothing Associated Signs And Symptoms: Positive: Paranoid Behavior Has Suicidal: Reports: Thoughts - Allergies/Home Medications Allergies/Adverse Reactions: Allergies Allergy/AdvReac Type Severity Reaction Status Date / Time No Known Allergies Allergy Verified 02/14/18 16:50 PMH/Surg Hx/FS Hx/Imm Hx Endocrine/Hematology History: 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 - per aunt Pankaj, triggered by invega injections Denies: Hx Thyroid Disease, Hx Anemia, Hx Unexplained Bleeding Cardiovascular History: Reports: Hx Hypertension Denies: Hx Embolism Respiratory History: Reports: Hx Asthma - A CHILD Denies: Hx Chronic Bronchitis, Hx Pneumonia GI History: Denies: Hx Crohn's Disease, Hx Irritable Bowel, Hx Ulcer History: Denies: Hx Dialysis, Hx Kidney Stones Musculoskeletal History: Denies: Hx Arthritis, Hx Back Problems, Hx Orthopedic Injury, Hx Scoliosis Sensory History: Denies: Hx Contacts or Glasses, Hx Hearing Aid Opthamlomology History: Denies: Hx Contacts or Glasses Neurological History: Denies: Hx Headaches, Hx Migraine, Hx Seizures Psychiatric History: Reports: Hx Anxiety, Hx Depression, Hx Inpatient Treatment , Hx Community Mental Health Tx, Hx Schizophrenia, Hx Substance Abuse Denies: Hx Eating Disorder, Hx of Violent Episodes Against Others - Immunization History Date of Tetanus Vaccine: unk Date of Influenza Vaccine: unk Infectious Disease History: No Infectious Disease History: Denies: Traveled Outside the [place] in Last 30 Days - Family History Known Family History: Positive: Diabetes - mom w/ type 2, Other - dad - schizophrenia - Social History Alcohol Use: Weekly Alcohol Amount: ETOH 10/24 Hx Substance Use: Yes Substance Use Type: Reports: Marijuana Substance Use Comment - Amount & Last Used: unknown Hx Tobacco Use: Yes Smoking Status (MU): Heavy Every Day Tobacco Smoker Type: Cigars Amount Used/How Often: Patient has not smoked tobacco within the last 30 days Have You Smoked in the Last Year: - has not smoked in the last 30 days Review of Systems - ROS Summary Review of Systems Summary: ROS IS LIMITED DUE TO LEVEL 5 CAVEAT - pt is not speaking at this time Negative: Fever Psychological: Other - SI thoughts, manic behavior All Other Systems Reviewed And Are Negative: No Physical Exam - Summary Physical Exam Summary: General: Well appearing, no distress Cardiovascular: Skin is well perfused Pulmonary: No respiratory distress, no tachypnea Abdomen: Non-distended Skin: Warm, pink, dry Psych: Normal affect Neuro: A&Ox3 Triage Information Reviewed: Yes Vital Signs On Initial Exam: Initial Vitals Temp Pulse Resp BP Pulse Ox 99.1 F 123 16 129/77 98 02/14/18 16:44 02/14/18 16:44 02/14/18 16:44 02/14/18 16:44 02/14/18 16:44 Vital Signs Reviewed: Yes Completion Of Physical Exam Limited Due To: Level 5 - pt is not speaking at this time. Diagnostics - Vital Signs Vital Signs Temp Pulse Resp BP Pulse Ox 02/14/18 16:44 99.1 F 123 16 129/77 98 - Laboratory Result Diagrams: 02/14/18 17:13 02/14/18 17:13 Lab Statement: Any lab studies that have been ordered have been reviewed, and results considered in the medical decision making process. Course/Dx - Course Assessment/Plan: Pt is a 27 y/o female, with hx of schizophrenia noncompliant with medications, for a mental health evaluation. Pt is brought to the ED by 2 friends. Friends report they were out downtown and pt was screaming in public and hitting herself in the chest. Per friends, it is unknown if pt has been sleeping. Friends also state pt has had "a bunch of outbursts in the past week or so." Friend reports the pt told "somebody" she was going to hurt herself about 2 days ago. Test results without any significant abnormalities except for sodium of 137, anion gap of 16, creatinine of 1.39. Plan is for oral fluid repletion. Pt is medically cleared at 18:14. She is waiting for a mental health evaluation. At this time MHE is still pending. Pt will be signed out to Dr. Garcia, pending disposition, awaiting MHE. - Differential Dx/Clinical Impression Provider Diagnosis: Dehydration, Psychosis, Noncompliance with medication regimen Discharge - Sign-Out/Discharge Documenting (check all that apply): Sign-Out Patient Signing out patient TO: Kailee Garcia - pending dispo, awaiting MHE. - Discharge Plan Condition: Stable Referrals: No Primary Care Phys,NOPCP [Primary Care Provider] - The documentation as recorded by the Elias latif Angela accurately reflects the service I personally performed and the decisions made by me, Jason Pino MD.
--- NOTE | 2018-02-15 07:05 | ED ---
IHamzah Stephanie, scribed for Kailee Garcia MD on 02/14/18 at 1915 . Progress - Progress Note Progress Note: This pt is a sign out from Dr. Pino pendbhargav Romelia. Course/Dx - Diagnoses Provider Diagnoses: Dehydration, Psychosis, Noncompliance with medication regimen Discharge - Sign-Out/Discharge Documenting (check all that apply): Sign-Out Patient, Receiving Sign-Out Signing out patient TO: Jeremias Sanders - Pending E. Receiving patient FROM: Jason Pino - Pendbhargav [facility]. - Discharge Plan Condition: Stable Referrals: No Primary Care Phys,NOPCP [Primary Care Provider] - The documentation as recorded by the Hamzah latif Stephanie accurately reflects the service I personally performed and the decisions made by , Kailee Garcia MD.
--- NOTE | 2018-02-15 07:36 | PN ---
ED Flex Patient Progress Note Subjective: This is a 27 year-old F who is pending collateral info from family/friends/ACT team. She is being observed secondary to ____her being non-verbal, not taking her medications . Pt offers no complaints at this time. Objective: Vitals: Most recent vital signs documented below. Sleeping upon entrance to room but wakes easily; General NAD Heart: rrr S1/S2 Lungs: CTA BREATHING EASILY AB: + bs, soft, NTTP Laboratory: Current laboratory results documented below. Assessment: 1) exacerbation of mood d/o, schizophrenia Plan: Pending psychiatric evaluation/further info from friends/family as pt is non-verbal. will follow up daily _while in ED____. (pending U/A - staff will continue to try to collect from pt) Vital Signs Temp Pulse Resp BP Pulse Ox 98.0 F 84 16 109/71 97 02/15/18 03:00 02/15/18 03:00 02/15/18 03:00 02/15/18 03:00 02/15/18 03:00 Lab Results - Entire Visit 02/14/18 02/14/18 17:13 17:13 WBC 9.8 RBC 5.98 H Hgb 13.5 Hct 43 MCV 71 L MCH 23 L MCHC 32 RDW 15 Plt Count 305 MPV 9.9 Neut % (Auto) 81.6 Lymph % (Auto) 10.6 L [place] % (Auto) 7.1 H Eos % (Auto) 0.4 Baso % (Auto) 0.3 Absolute Neuts (auto) 8.0 H Absolute Lymphs (auto) 1.0 Absolute Monos (auto) 0.7 Absolute Eos (auto) 0 Absolute Basos (auto) 0 Absolute Nucleated RBC 0 Nucleated RBC % 0 Sodium 137 L Potassium 3.9 Chloride 103 Carbon Dioxide 18 L Anion Gap 16 H BUN 15 Creatinine 1.39 H Est GFR ( Amer) 59.4 Est GFR (Non-Af Amer) 46.2 BUN/Creatinine Ratio 10.8 Glucose 84 Calcium 10.4 H Total Bilirubin 0.70 AST 30 ALT 26 Alkaline Phosphatase 61 Total Protein 9.1 H Albumin 5.2 Globulin 3.9 Albumin/Globulin Ratio 1.3 TSH 0.84 Salicylates < 2.50 Acetaminophen < 15 Serum Alcohol < 10
[2018-02-15] MEDS ORDERED: Fluphenazine Decanoate* 25 MG/ML 5 ML VIAL IM SCH (09:00)
[2018-02-15 12:35] VITALS: BP 125/85
--- NOTE | 2018-02-15 14:22 | ED ---
Elias Horton Angela, scribed for Jeremias Sanders MD on 02/15/18 at 1155 . Progress - Progress Note Progress Note: This pt is a sign out from Dr. Garcia at shift change, pending disposition, awaiting MHE. Pt was evaluated by the mental health fluid dynamicist and her case was reviewed by Dr. Degroot, psychiatrist. Dr. Degroot recommends to discharge the pt home. Pt will be discharged home, in stable condition, with a diagnosis of schizoaffective disorder. Course/Dx - Diagnoses Provider Diagnoses: Schizoaffective disorder Discharge - Sign-Out/Discharge Documenting (check all that apply): Discharge/Admit/Transfer - Discharge, Receiving Sign-Out Receiving patient FROM: Kailee Garcia - Discharge Plan Condition: Stable Disposition: HOME Referrals: No Primary Care Phys,NOPCP [Primary Care Provider] - The documentation as recorded by the Elias latif Angela accurately reflects the service I personally performed and the decisions made by , Jeremias Sanders MD.
== END 2018-02-15 12:32 | disposition home or self-care (01) ==
LOC: ED 16:41
DX: E86.0 Dehydration (principal); F29 Unspecified psychosis not due to a substance or known physiological condition; F25.9 Schizoaffective disorder, unspecified; Z91.14 Patient's other noncompliance with medication regimen; F17.290 Nicotine dependence, other tobacco product, uncomplicated; E11.9 Type 2 diabetes mellitus without complications; Z79.4 Long term (current) use of insulin; Z81.8 Family history of other mental and behavioral disorders
CPT/HCPCS: 36415; 80053; 80320; 80329; 84443; 85025; 96372; 99284; A9270-GY; G0480; J2680

== ENCOUNTER 2018-05-04 20:43 | Inpatient (IN) | payer OTHER ==
--- NOTE | 2018-05-04 21:30 | ED ---
Altered Mental Status - HPI Summary HPI Summary: Patient is a 27 y/o F BIBA w/ c/o AMS onsetting today. Patient states that she started hearing demons today. She states she smoked some marijuana to try and calm down, but this aggravated Sx. PMHx of schizophrenia is noted. Patient states she has not been taking her medications. She wanted to come to [facility] to "chill out". She denies drinking and using any other substances today. Patient reports SI a couple of days ago, but presently denies SI and HI. On triage, pain is denied and nothing is noted to alleviate Sx. FMHx of psychiatric disorders is denied. Home medications and allergies reviewed. - History Of Current Complaint Stated Complaint: MHE Time Seen by Provider: 05/04/18 20:44 Hx Obtained From: Patient Onset/Duration: Still Present Timing: Lasting Hours - onset Severity Currently: None - pain is denied on triage Aggravating Factor(s): Drug Abuse - marijuana is noted to aggravate Sx Alleviating Factor(s): Nothing Has Suicidal: Thoughts - DENIED Has Homicidal: Thoughts - DENIED - Allergies/Home Medications Allergies/Adverse Reactions: Allergies Allergy/AdvReac Type Severity Reaction Status Date / Time No Known Allergies Allergy Verified 02/14/18 16:50 PMH/Surg Hx/FS Hx/Imm Hx Endocrine/Hematology History: 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 - per aunt Pankaj, triggered by invega injections Denies: Hx Thyroid Disease, Hx Anemia, Hx Unexplained Bleeding Cardiovascular History: Reports: Hx Hypertension Denies: Hx Embolism Respiratory History: Reports: Hx Asthma - A CHILD Denies: Hx Chronic Bronchitis, Hx Pneumonia GI History: Denies: Hx Crohn's Disease, Hx Irritable Bowel, Hx Ulcer History: Denies: Hx Dialysis, Hx Kidney Stones Musculoskeletal History: Denies: Hx Arthritis, Hx Back Problems, Hx Orthopedic Injury, Hx Scoliosis Sensory History: Denies: Hx Contacts or Glasses, Hx Hearing Aid Opthamlomology History: Denies: Hx Contacts or Glasses Neurological History: Denies: Hx Headaches, Hx Migraine, Hx Seizures Psychiatric History: Reports: Hx Anxiety, Hx Depression, Hx Inpatient Treatment , Hx Community Mental Health Tx, Hx Schizophrenia, Hx Substance Abuse Denies: Hx Eating Disorder, Hx of Violent Episodes Against Others - Immunization History Date of Tetanus Vaccine: unk Date of Influenza Vaccine: unk - Family History Known Family History: Positive: Diabetes - mom w/ type 2, Other - dad - schizophrenia - Social History Alcohol Use: Weekly Alcohol Amount: ETOH 10/24 Hx Substance Use: Yes Substance Use Type: Reports: Marijuana Substance Use Comment - Amount & Last Used: unknown Hx Tobacco Use: Yes Smoking Status (MU): Heavy Every Day Tobacco Smoker Type: Cigars Amount Used/How Often: Patient has not smoked tobacco within the last 30 days Have You Smoked in the Last Year: - has not smoked in the last 30 days Review of Systems Negative: Fever - on vitals, temp is 98.0 F Positive: Other - AMS, marijuana usage, auditory hallucinations All Other Systems Reviewed And Are Negative: Yes Physical Exam - Summary Physical Exam Summary: Appearance: Well appearing, no pain distress Skin: warm, dry, reflects adequate perfusion Head/face: normal Eyes: EOMI, ROMEL ENT: normal Neck: supple, non-tender Respiratory: CTA, breath sounds present Cardiovascular: RRR, pulses symmetrical Abdomen: non-tender, soft Bowel Sounds: present Musculoskeletal: normal, strength/ROM intact Neuro: normal, sensory motor intact, A&Ox3 Psych: flat affect, no active SI and HI Triage Information Reviewed: Yes Vital Signs On Initial Exam: Initial Vitals Temp Pulse Resp BP Pulse Ox 98.0 F 61 15 131/69 97 05/04/18 21:42 05/04/18 21:42 05/04/18 21:42 05/04/18 21:42 05/04/18 21:42 Vital Signs Reviewed: Yes Diagnostics - Laboratory Result Diagrams: 05/04/18 21:29 05/04/18 21:29 Lab Statement: Any lab studies that have been ordered have been reviewed, and results considered in the medical decision making process. - EKG 2049 Cardiac Rate: NL - rate of 60 bpm EKG Rhythm: Sinus Rhythm ST Segment: Normal EKG Interpretation: early repolarizations, normal axis Re-Evaluation - Re-Evaluation First Eval Re-Evaluation Time: 21:39 Comment: Patient was medically cleared for MHE and will be transferred to [facility]. Altered Mental Statu Course/Dx - Course Course Of Treatment: Patient off medications and has long-standing history of mental health issues. She was cleared medically and received a mental health evaluation. From the mental health evaluation this catchers wish for her to be admitted. She was done so in good condition. - Diagnoses Provider Diagnoses: Acute psychosis, Schizophrenia - Provider Notifications Discussed Care Of Patient With: Mark Farah Time Discussed With Above Provider: 23:01 Instructed by Provider To: Other - Patient's case was discussed with Dr. Farah at 23:01. Patient will be admitted to [facility] by Dr. Farah for further workup. Discharge - Sign-Out/Discharge Documenting (check all that apply): Patient Departure - admit - Discharge Plan Condition: Stable Disposition: PSYCHIATRIC FACILITY-[facility] [place] - Billing Disposition and Condition Condition: STABLE Disposition: Psychiatric Facility [facility] - Attestation Statements Document Initiated by Scribe: Yes Documenting Scribe: Robin Cook Provider For Whom Scribe is Documenting (Include Credential): Mauri De Dios MD Scribe Attestation: Robin Horton, scribed for Mauri De Dios MD on 05/05/18 at 0626. Scribe Documentation Reviewed: Yes Provider Attestation: The documentation as recorded by the Robin latif accurately reflects the service I personally performed and the decisions made by Mauri mccauley MD
[2018-05-04 21:54] LABS: Urine Appearance Cloudy; Urine Blood 2+ (Negative); Urine Color Yellow; Urine Ketones Trace (Negative); Urine Protein Negative (Negative); Urine Red Blood Cell 2+(6-10/hpf) (Absent); Urine Specific Gravity 1.027 (1.010-1.030); Urine Urobilinogen Negative (Negative); Urine White Blood Cell Trace(0-5/hpf) (Absent)
[2018-05-04 22:10] LABS: EGFR Non-African American 68.3 (>60)
[2018-05-04 22:17] LABS: ABS Basophils 0 10^3/ul (0-0.2); ABS Eosinophils 0.3 10^3/ul (0-0.6); ABS Lymphocytes 2.7 10^3/ul (1.0-4.8); ABS Monocytes 0.7 10^3/ul (0-0.8); ABS Nucleated RBC 0 10^3/ul; Eosinophil % 5.1 % (0-6); Hematocrit 37 % (35-47); Hemoglobin 11.7 g/dl (12.0-16.0); Lymphocyte % 39.8 % (25-47); Mean Corpuscular HGB Conc 32 g/dl (31-36); Mean Corpuscular Hemoglobin 23 pg (27-31); Mean Corpuscular Volume 71 fL (80-97); Mean Platelet Volume 9.6 um3 (7.4-10.4); Nucleated Red Blood Cells % 0.2; Platelet Count 285 10^3/ul (150-450); Red Blood Count 5.18 10^6/ul (4.00-5.40); Red Cell Distribution Width 14 % (10.5-15); White Blood Count 6.7 10^3/ul (3.5-10.8)
[2018-05-05] MEDS ORDERED: Nicotine Inhaler* 10 MG AMP INH PRN (00:48)
[2018-05-05] MEDS ORDERED: Acetaminophen TAB* 325 MG PO PRN (00:48)
[2018-05-05] MEDS ORDERED: Nicotine GUM* 2 MG PO PRN (00:48)
[2018-05-05] MEDS ORDERED: Al Hydrox/Mg Hydrox/Simet LIQ* 30 ML UDC PO PRN (00:48)
[2018-05-05] MEDS ORDERED: Mouth Piece, Nicotine* 1 EACH CARTRIDGE INH ONE (01:00)
[2018-05-05] MEDS: Vitamin THERAPEUTIC TAB PO SCH (12:35)
[2018-05-05] MEDS ORDERED: Fluphenazine Decanoate* 25 MG/ML 5 ML VIAL IM SCH (14:00)
--- NOTE | 2018-05-05 14:57 | HP ---
PSYCHIATRIC ASSESSMENT: DATE OF ADMISSION: 05/04/18 JUSTIFICATION FOR ADMISSION: The patient is in need of 24-hour supervision and treatment secondary t o suicidal ideations. CHIEF COMPLAINT: " I have been off my medications, I have been hearing voices." HISTORY OF PRESENT ILLNESS: The patient is a 27-year-old single -Tunisian female with a histo ry of schizoaffective disorder and diabetes, who is well-known to us from several admissions on the ehavioral signs unit, who now returns to the hospital where she is reporting suicidal ideations witho ut any particular plan. Looking at the evaluation in our emergency room, it indicates that she is quo usama as stating "I have been trying to cope with it, but it has been getting worse. I am suicidal now , off my medicines. The ACT team did not want me to get off the medicine, but I was getting side eff ects like drowsiness and nausea. I also need to kick the weed." She reports that she has been havin g depression and suicidality, further reports that she has been feeling "always down." Despite this, she was cooperative and friendly during the interview and appeared motivated to improve and was ther efore offered and accepted voluntary admission. When I see her, she is in bed, but quickly gets up a nd recognizes this clinician, is calm, cooperative, and goal directed. She does admit to discontinui ng medications, but is willing to resume her Prolixin Decanoate, having not received this for several months. She goes on to admit that she have a had time hooking up with the [facility]. Despite this, she is now future oriented, denying suicidal ideation, stating that she wou ld like to get a job and that she has already signed up for enrollment at [employer] in September 2018. On subjective drugs, she admits to chronic cannabis abuse. She also states that 2 days prior to admis carmelina, she accepted some cocaine, which she had not done since October 2017. PAST PSYCHIATRIC HISTORY: The patient has been admitted to my service here on 6 prior occasions, the first being in August 2016 and the most recent being in October 2017. Looking in her chart, I se e at least 5 recent emergency room visits since her last discharge in October. The patient is curre ntly receiving treatment through the [facility]. She also has a history of s everal hospitalizations in [place], [place] in the spz-ydy-e-half years leading up to her move to [facility]. She has been on Invega Sustenna in the past, but this made her blood glucose become elevated. She has also been on IM aripiprazole, which did not benefit her. Most recently, she has been stabl e on fluphenazine in the decanoate form, but is often nonadherent with this in the outpatient setting . She does deny any history of suicide attempts, although she has experienced suicidal ideations off and on for the past several years. PAST MEDICAL HISTORY: Significant for diabetes, hypertension, and obesity. CURRENT MEDICATIONS: She is supposed to be taking, 1. Fluphenazine decanoate 50 mg every 2 weeks. 2. In the past, she has been on Lantus insulin, but it is uncertain whether she has been taking this . ALLERGIES: She has no known drug allergies. FAMILY HISTORY: Unknown. SUBSTANCE ABUSE HISTORY: The patient has abused cocaine on and off for several years. She also is a chronic cannabis smoker. She does not smoke tobacco or use alcohol. SOCIAL HISTORY: The patient grew up between [place] and [place]. She does have several cousins in [facility]. 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 I understand that she has a [place] apartment and she is also receiving some assistance through the [facility]. She has had jobs here in [place], but not recently. In the past, she has been on probation for unspecified crimes. janeth is not currently sexually active. REVIEW OF SYSTEMS: The patient denies headache or double vision. She denies sore throat, cough, jacey st pain, difficulty breathing, abdominal pain, nausea, vomiting, diarrhea, or constipation. She narciso es difficulty ambulating, enlarged lymph nodes, rashes, changes in weight or fever. PHYSICAL EXAMINATION VITAL SIGNS: Blood pressure elevated at 143/82, heart rate is 53, respiratory rate 16, oxygen satura tion are 100% on room air, temperature 98.6 degrees Fahrenheit. HEENT: Head is normocephalic and atraumatic. NECK: Supple. LUNGS: Chest is clear to auscultation bilaterally. CARDIAC EXAM: Reveals normal heart sounds. ABDOMEN: Soft and nontender. MUSCULOSKELETAL EXAM: Reveals no sign of edema. NEUROLOGIC: She is grossly intact with no focal deficits. SKIN: Warm and dry. MENTAL STATUS EXAM: The patient is an overweight -Tunisian female with fair grooming, who is lying in bed, wearing her street clothes. She makes good eye contact. She is cooperative, well-rel ated clearly knows this examiner. Speech is fluent with normal rate, tone, and volume. Mood appears to be euthymic with a full affect. Thought process is linear and goal directed. Thought content is significant for her desire to be discharged from the hospital by tomorrow so that she can pursue a j ob. She is currently denying suicidal or homicidal ideation. Insight and judgment are fair given her willingness to come into the hospital. She denies auditory or visual hallucinations currently, alth ough recently has been hearing voices. She denies paranoia. Cognitively, she is awake and alert wit h what would appear to be an average intellect. LABORATORY DATA: As follows: CBC within normal limits. CMP significant for creatinine that is slig htly elevated at 0.99. Urinalysis has 2+ blood and 2+ rbcs. Urine drug screen positive for both coca ine and cannabinoid metabolites. DIAGNOSES: As follows: [place] I: Schizophrenia. Cocaine use disorder. Cannabis use disorder. [place] II: Deferred. IMPRESSION: The patient is a 27-year-old single -Tunisian female with a history of schizophre allan, who is well known to me from 6 prior psychiatric admissions here at [facility], who now reappears on a voluntary basis having brought herself to the ED complaining of suicidal ideations, depression, and a uditory hallucinations in the context of nonadherence with outpatient treatment. The patient is clos mary connected with the ACT team, but has not been following through with them as routinely as she mac uld be. She does accept that she needs to resume her medication, which is Prolixin Decanoate and nelson t she needs to get off drugs. PLAN/RECOMMENDATIONS: The patient is admitted to the Adult Behavioral Health Unit where she is place d on q.15 minute checks due to concerns for her safety. We will put her back on Prolixin Decanoate 5 0 mg IM every 2 weeks and reach out to the [facility] to see if we can facili kang better engagement. Given her quick turnaround, I think that we can assume this will be a short h ospitalization. I do believe that she may benefit from substance abuse treatment in the community an d we have to broach this topic with her. [id number]/[facility] #: [id number]
[2018-05-06 07:38] VITALS: BP 122/69
[2018-05-06] MEDS: Vitamin THERAPEUTIC TAB PO SCH (10:36)
--- NOTE | 2018-05-06 21:20 | DS ---
DISCHARGE SUMMARY: DATE OF ADMISSION: 05/04/18 DATE OF DISCHARGE: 05/06/18 DISCHARGE DIAGNOSES: Are as follows: [place] I: Schizophrenia, cocaine use disorder, cannabis use disorder. [place] II: Deferred. CONDITION AT THE TIME OF DISCHARGE: Improved. The patient's affect is bright. She is smiling, jokin g with peers and staff. She is out of her room, appears future oriented, talking about going to [employer] in September of next year. She is agreeable to being picked up by the [facility] who is supportive of her discharge plan. They will be sending a claim service representative to co me and get Anabelle from the hospital and take her back to her [address]. The patient has jayson quate services in community. Furthermore, she is accepted resumption of injectable antipsychotic the rapy, having received dose of 50 mg of fluphenazine decanoate 1 day prior to discharge. At this time , she is appropriately requesting discharge and we have no legal grounds to keep her. She has denied suicidal ideations throughout this hospital stay. MENTAL STATUS EXAM: At the time of discharge, the patient is an overweight - Filipino female with fair grooming who is standing up at the nurses station wearing street clothes. She makes good e ye contact. She is cooperative, well related, knows this examiner well. Her speech is fluent with n ormal rate, tone, and volume. Mood appears to be euthymic with a bright affect. Thought process is l inear and goal-directed. Thought content is significant for her desire [facility]. She is denying suicidal or homicidal ideation. She denies auditory or visual hallucinations. Insight and judgment are affair given her willingness to follow up with ACT Team. Cognitively, she is awake and alert with what would appear to be an average intellect. DISCHARGE INSTRUCTIONS TO THE PATIENT: Are as follows: A: Medications: The patient is taking fluphenazine decanoate 50 mg every 2 weeks with next injectio n due on , 05/19/18. B: Diet: She is on a diabetic diet. C: Activities: As tolerated. The patient is a smoker; however, she has declined the offer of bessie nued nicotine replacement therapies instead we have referred her to [facility], which is [phone]. There are no laboratory or diagnostic studies pending at the time of discharg e. D: Followup care. The patient will be follow up with [facility]. They will be arriving at the hospital to pick her up and transport her home to her apartment. E: Substance abuse followup. This will also be through the [facility] as they have a dedicated substance abuse counselor on their staff. HOSPITAL COURSE: Part A: Reason for admission: The patient is a 27-year-old single, - [place] an female with a history of schizoaffective disorder and diabetes, who is well known to us from [facility] on behavioral science unit, who now returns to the hospital where she is reporting suic idal ideations without any particular plan. Looking at the evaluation in the emergency room, it stephane cates that she was quoted as stating "I had been trying to cope with it, but it has been getting wors e. I am suicidal now and off my medicines." She reported that she had been having depression and jose cidality, further reported that she has been feeling "always down," despite this she was cooperative and friendly during the interview and appeared motivated to improve and was therefore offered and acc epted voluntary admission. When I saw her, she was in bed, but quickly got up and recognized this cl inician, was calm, cooperative, goal-directed. She did admit to discontinuing medications, but was w illing to resume her Prolixin Decanoate having not received this for several months. She did go on t o admit that she had a hard time staying adherent with routine meetings with the ACT Team, despite th is she is now future oriented, denying suicidal ideations, stating that she would like to get a job a nd that she had already signed up for enrollment at [employer] in September 2018. On the subject of drug, she admits to chronic cannabis abuse. Also states that 2 days prior to admission, she accepted some heidy tatiana, which she had not done since October 2017. Part B: Psychiatric treatment rendered: The patient was admitted to the [facility] where she was on q.15-minute checks for her own safety. She did accept immediate resumption of Pro lixin Decanoate, which she received 50 mg dose of on , 05/05/18. She was calm and cooperativ e throughout her brief stay. She was safe on all checks. We noted that her affect was bright. I di d confirm Anabelle about her cocaine use and she admits that this does lead her mood to plummet and can also lead to exacerbation of auditory hallucinations. She was agreeable with following up with the substance abuse counselor who provides services with the ACT Team. She also agreed to stay on her in jectable medication in the future and would work to get a job and get back into school. At this time , we feel safe discharging Anabelle and the [facility] is willing to send a rep resentative here to pick her up. Her followup will be with their agency in the community. [id number]/[facility] #: [id number]
== END 2018-05-06 13:45 | disposition home or self-care (01) | DRG 750 ==
LOC: ED 20:43 → BSU 23:01
PROVIDERS: ADMIT Psychiatry & Neurology Psychiatry; ATTEND Psychiatry & Neurology Psychiatry
DX: F20.9 Schizophrenia, unspecified (principal); R45.851 Suicidal ideations; J45.909 Unspecified asthma, uncomplicated; F41.9 Anxiety disorder, unspecified; F32.9 Major depressive disorder, single episode, unspecified; F17.290 Nicotine dependence, other tobacco product, uncomplicated; E11.9 Type 2 diabetes mellitus without complications; I10 Essential (primary) hypertension; E66.9 Obesity, unspecified; F12.90 Cannabis use, unspecified, uncomplicated; F14.90 Cocaine use, unspecified, uncomplicated; Z91.19 Patient's noncompliance with other medical treatment and regimen; Z83.3 Family history of diabetes mellitus; Z81.8 Family history of other mental and behavioral disorders; Z72.89 Other problems related to lifestyle; Z68.31 Body mass index [BMI] 31.0-31.9, adult
CPT/HCPCS: 36415; 80053; 80307; 80320; 80329; 81003; 81015; 84443; 84702; 85025; 87077; 87086; 93005; 99222; 99238; 99283; A9270-GY; G0480; J2680

== ENCOUNTER 2018-05-29 00:29 | Emergency (ER) | payer OTHER ==
--- NOTE | 2018-05-29 00:59 | ED ---
Psychiatric Complaint - HPI Summary HPI Summary: This is scribe Javier Velazquez documenting for attending Dr. Kameron Frey MD. This patient is a 36 year old F presenting to [facility] with a chief complaint of paranoia since three weeks ago. Pt reports that she was in the ED three weeks ago because she took acid, cocaine, and marijuana, but insists that the adverse effects are due to the acid. Patient denies rhinorrhea, cough, or change in appetite. Pt reports she does not want to take her schizophrenia medication because it makes her drowsy. 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 I, Dr. Frey, personally performed the services described in this documentation as scribed in my presence and it is both accurate and complete. - History Of Current Complaint Chief Complaint: EDMentalHealth Time Seen by Provider: 05/29/18 00:43 Hx Obtained From: Patient Onset/Duration: Lasting Weeks - 3 Timing: Constant Severity Initially: Moderate Severity Currently: Moderate Character: Manic, Anxious Aggravating Factor(s): Drug Use - acid Associated Signs And Symptoms: Positive: Paranoid Behavior. Negative: Appetite Change Related History: Positive For: Prior Psychiatric Issues - schizophrenia - Allergies/Home Medications Allergies/Adverse Reactions: Allergies Allergy/AdvReac Type Severity Reaction Status Date / Time No Known Allergies Allergy Verified 02/14/18 16:50 PMH/Surg Hx/FS Hx/Imm Hx Endocrine/Hematology History: 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 - per aunt Pankaj, triggered by invega injections Denies: Hx Thyroid Disease, Hx Anemia, Hx Unexplained Bleeding Cardiovascular History: Reports: Hx Hypertension Denies: Hx Embolism Respiratory History: Reports: Hx Asthma - A CHILD Denies: Hx Chronic Bronchitis, Hx Pneumonia GI History: Denies: Hx Crohn's Disease, Hx Irritable Bowel, Hx Ulcer History: Denies: Hx Dialysis, Hx Kidney Stones Musculoskeletal History: Denies: Hx Arthritis, Hx Back Problems, Hx Orthopedic Injury, Hx Scoliosis Sensory History: Denies: Hx Contacts or Glasses, Hx Hearing Aid Opthamlomology History: Denies: Hx Contacts or Glasses Neurological History: Denies: Hx Headaches, Hx Migraine, Hx Seizures Psychiatric History: Reports: Hx Anxiety, Hx Depression, Hx Inpatient Treatment , Hx Community Mental Health Tx, Hx Schizophrenia, Hx Substance Abuse Denies: Hx Eating Disorder, Hx of Violent Episodes Against Others - Immunization History Date of Tetanus Vaccine: unk Date of Influenza Vaccine: unk Infectious Disease History: No Infectious Disease History: Denies: Traveled Outside the [place] in Last 30 Days - Family History Known Family History: Positive: Diabetes - mom w/ type 2, Other - dad - schizophrenia - Social History Alcohol Use: Weekly Alcohol Amount: ETOH 10/24 Hx Substance Use: Yes Substance Use Type: Reports: Cocaine, Marijuana Substance Use Comment - Amount & Last Used: unknown Hx Tobacco Use: Yes Smoking Status (MU): Heavy Every Day Tobacco Smoker Type: Cigars Amount Used/How Often: Patient has not smoked tobacco within the last 30 days Have You Smoked in the Last Year: - has not smoked in the last 30 days Review of Systems Negative: Fever Negative: Nasal Discharge Negative: Cough Negative: Nausea Positive: Anxious, Other - paranoia All Other Systems Reviewed And Are Negative: Yes Physical Exam - Summary Physical Exam Summary: Appearance: Well-appearing, Well-nourished, lying in bed comfortable Skin: Warm, dry, no obvious rash Eyes: sclera anicteric, no conjunctival pallor ENT: mucous membranes moist Neck: deferred Respiratory: No signs of respiratory distress Cardiovascular: Appears well perfused, pulses are nml Abdomen: deferred Musculoskeletal: Moving all 4 extremities without obvious discomfort Neurological: Awake and alert, mentation is normal, speech is fluent and appropriate Psychiatric: affect is normal, does not appear anxious or depressed Triage Information Reviewed: Yes Vital Signs On Initial Exam: Initial Vitals Temp Pulse Resp BP Pulse Ox 97.1 F 81 15 119/71 98 05/29/18 00:32 05/29/18 00:32 05/29/18 00:32 05/29/18 00:32 05/29/18 00:32 Vital Signs Reviewed: Yes Diagnostics - Vital Signs Vital Signs Temp Pulse Resp BP Pulse Ox 05/29/18 00:32 97.1 F 81 15 119/71 98 - Laboratory Result Diagrams: 05/29/18 00:59 05/29/18 00:59 Lab Statement: Any lab studies that have been ordered have been reviewed, and results considered in the medical decision making process. Course/Dx - Differential Dx/Clinical Impression Provider Diagnosis: Schizophrenia Discharge - Sign-Out/Discharge Documenting (check all that apply): Sign-Out Patient Signing out patient TO: Gretchen Tanner Receiving patient FROM: Kameron Frey - Discharge Plan Condition: Stable Disposition: HOME Referrals: No Primary Care Phys,NOPCP [Primary Care Provider] - - Billing Disposition and Condition Condition: STABLE Disposition: Home - Attestation Statements Document Initiated by Patria: Yes Documenting Scribe: Javier Velazquez Provider For Whom Patria is Documenting (Include Credential): Kameron Frey MD Scribe Attestation: Javier Horton, maximusibed for Kameron Frey MD on 05/30/18 at 0624. Scribe Documentation Reviewed: Yes Provider Attestation: The documentation as recorded by the Javier latif accurately reflects the service I personally performed and the decisions made by me, Kameron Frey MD
[2018-05-29 01:20] LABS: ABS Basophils 0.1 10^3/ul (0-0.2); ABS Eosinophils 0.4 10^3/ul (0-0.6); ABS Lymphocytes 2.8 10^3/ul (1.0-4.8); ABS Monocytes 0.8 10^3/ul (0-0.8); ABS Neutrophils 4.3 10^3/ul (1.5-7.7); ABS Nucleated RBC 0 10^3/ul; Eosinophil % 4.3 % (0-6); Hematocrit 36 % (35-47); Hemoglobin 11.6 g/dl (12.0-16.0); Lymphocyte % 33.3 % (25-47); Mean Corpuscular HGB Conc 32 g/dl (31-36); Mean Corpuscular Hemoglobin 22 pg (27-31); Mean Corpuscular Volume 70 fL (80-97); Mean Platelet Volume 9.5 um3 (7.4-10.4); Nucleated Red Blood Cells % 0.3; Platelet Count 299 10^3/ul (150-450); Red Blood Count 5.18 10^6/ul (4.00-5.40); Red Cell Distribution Width 14 % (10.5-15); White Blood Count 8.3 10^3/ul (3.5-10.8)
[2018-05-29 01:28] LABS: EGFR Non-African American 76.3 (>60)
--- NOTE | 2018-05-29 07:40 | ED ---
Progress - Progress Note Progress Note: This patient was signed out from Dr. Frey upon shift change pending MHE and disposition. Per mental health evaluation, this patient likes to smoke marijuana and becomes paranoid upon smoking. She still feels people are watching her, but this is her baseline. She is seen weekly for her schizophrenia. Patient denies SI and HI. Per MHE, pt is at her baseline. Course/Dx - Course Course Of Treatment: This patient was signed out from Dr. Frey upon shift change pending MHE and disposition. Per mental health evaluation, this patient likes to smoke marijuana and becomes paranoid upon smoking. She still feels people are watching her, but this is her baseline. She is seen weekly for her schizophrenia. Patient denies SI and HI. Per MHE, pt is at her baseline. Dr. Tolentino recommends the patient be discharged with follow up from her PCP. The patient is agreeable with this plan. - Diagnoses Provider Diagnoses: Schizophrenia Discharge - Sign-Out/Discharge Documenting (check all that apply): Patient Departure - Discharge home, Receiving Sign-Out Receiving patient FROM: Kameron Frey - Upon shift change pending MHE and disposition - Discharge Plan Condition: Stable Disposition: HOME Referrals: No Primary Care Phys,NOPCP [Primary Care Provider] - - Billing Disposition and Condition Condition: STABLE Disposition: Home - Attestation Statements Document Initiated by Scribe: Yes Documenting Scribe: Serene Smith Provider For Whom Patria is Documenting (Include Credential): Gretchen Tanner MD Scribe Attestation: Serene Horton, scribed for Gretchen Tanner MD on 05/29/18 at 0936. Scribe Documentation Reviewed: Yes Provider Attestation: The documentation as recorded by the Serene latif accurately reflects the service I personally performed and the decisions made by me, Gretchen Tanner MD
[2018-05-29 08:48] VITALS: BP 138/78
== END 2018-05-29 08:47 | disposition home or self-care (01) ==
LOC: ED 00:29
DX: F20.9 Schizophrenia, unspecified (principal)
CPT/HCPCS: 36415; 80053; 80307; 80320; 84702; 85025; 99284; G0480

== ENCOUNTER 2018-06-05 00:08 | Emergency (ER) | payer OTHER ==
[2018-06-05] MEDS ORDERED: Ibuprofen TAB* 600 MG PO ONE (00:38)
[2018-06-05 00:39] LABS: ABS Basophils 0.1 10^3/ul (0-0.2); ABS Eosinophils 0.4 10^3/ul (0-0.6); ABS Lymphocytes 2.5 10^3/ul (1.0-4.8); ABS Neutrophils 6.7 10^3/ul (1.5-7.7); ABS Nucleated RBC 0 10^3/ul; Eosinophil % 3.4 % (0-6); Hematocrit 38 % (35-47); Hemoglobin 12.3 g/dl (12.0-16.0); Lymphocyte % 23.3 % (25-47); Mean Corpuscular HGB Conc 32 g/dl (31-36); Mean Corpuscular Hemoglobin 23 pg (27-31); Mean Corpuscular Volume 70 fL (80-97); Mean Platelet Volume 9.5 um3 (7.4-10.4); Nucleated Red Blood Cells % 0.1; Platelet Count 301 10^3/ul (150-450); Red Blood Count 5.43 10^6/ul (4.00-5.40); Red Cell Distribution Width 14 % (10.5-15); White Blood Count 10.6 10^3/ul (3.5-10.8)
--- NOTE | 2018-06-05 00:41 | ED ---
Psychiatric Complaint - HPI Summary HPI Summary: The pt is a 27 y/o female BIBA from [facility] to [facility] requesting a MHE. She states that she is paranoid and notes jaw pain, SI and voices in her head. She reports a MHx of schizophrenia. - History Of Current Complaint Chief Complaint: EDMentalHealth Time Seen by Provider: 06/05/18 00:15 Hx Obtained From: Patient Onset/Duration: Other - Unreported Related History: Positive For: Prior Psychiatric Issues Has Suicidal: Reports: Thoughts - Allergies/Home Medications Allergies/Adverse Reactions: Allergies Allergy/AdvReac Type Severity Reaction Status Date / Time No Known Allergies Allergy Verified 02/14/18 16:50 PMH/Surg Hx/FS Hx/Imm Hx Previously Healthy: No Endocrine/Hematology History: 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 - per aunt Pankaj, triggered by invega injections Denies: Hx Thyroid Disease, Hx Anemia, Hx Unexplained Bleeding Cardiovascular History: Reports: Hx Hypertension Denies: Hx Embolism Respiratory History: Reports: Hx Asthma - A CHILD Denies: Hx Chronic Bronchitis, Hx Pneumonia GI History: Denies: Hx Crohn's Disease, Hx Irritable Bowel, Hx Ulcer History: Denies: Hx Dialysis, Hx Kidney Stones Musculoskeletal History: Denies: Hx Arthritis, Hx Back Problems, Hx Orthopedic Injury, Hx Scoliosis Sensory History: Denies: Hx Contacts or Glasses, Hx Hearing Aid Opthamlomology History: Denies: Hx Contacts or Glasses Neurological History: Denies: Hx Headaches, Hx Migraine, Hx Seizures Psychiatric History: Reports: Hx Anxiety, Hx Depression, Hx Inpatient Treatment , Hx Community Mental Health Tx, Hx Schizophrenia, Hx Substance Abuse Denies: Hx Eating Disorder, Hx of Violent Episodes Against Others - Immunization History Date of Tetanus Vaccine: unk Date of Influenza Vaccine: unk Infectious Disease History: No Infectious Disease History: Denies: Traveled Outside the [place] in Last 30 Days - Family History Known Family History: Positive: Diabetes - mom w/ type 2, Other - dad - schizophrenia - Social History Lives: Alone Alcohol Use: Weekly Alcohol Amount: ETOH 10/24 Hx Substance Use: Yes Substance Use Type: Reports: Cocaine, Marijuana Substance Use Comment - Amount & Last Used: unknown Hx Tobacco Use: Yes Smoking Status (MU): Heavy Every Day Tobacco Smoker Type: Cigars Amount Used/How Often: Patient has not smoked tobacco within the last 30 days Have You Smoked in the Last Year: - has not smoked in the last 30 days Review of Systems Negative: Fever Musculoskeletal: Other - Positive:Jaw pain Positive: Other - Positive: Paranoia, "voices in her head" and SI All Other Systems Reviewed And Are Negative: Yes Physical Exam - Summary Physical Exam Summary: Appearance: Well appearing, no pain distress Skin: warm, dry, reflects adequate perfusion Head/face: normal Eyes: EOMI, ROMEL ENT: normal Neck: supple, non-tender Respiratory: CTA, breath sounds present Cardiovascular: RRR, pulses symmetrical Abdomen: non-tender, soft Bowel sounds : present Musculoskeletal: normal, strength/ROM intact Neuro: normal, sensory motor intact, A&Ox3 Psych: Anxious affect Triage Information Reviewed: Yes Vital Signs On Initial Exam: Initial Vitals Temp Pulse Resp BP Pulse Ox 0 F 0 0 0/0 0 06/05/18 00:15 06/05/18 00:15 06/05/18 00:15 06/05/18 00:15 06/05/18 00:15 Vital Signs Reviewed: Yes Diagnostics - Vital Signs Vital Signs Temp Pulse Resp BP Pulse Ox 06/05/18 00:28 98.5 F 79 16 141/94 96 06/05/18 00:15 0 F 0 0 0/0 0 - Laboratory Lab Results: Lab Results 06/05/18 Range/Units 00:30 WBC 10.6 (3.5-10.8) 10^3/ul RBC 5.43 H (4.00-5.40) 10^6/ul Hgb 12.3 (12.0-16.0) g/dl Hct 38 (35-47) % MCV 70 L (80-97) fL MCH 23 L (27-31) pg MCHC 32 (31-36) g/dl RDW 14 (10.5-15) % Plt Count 301 (150-450) 10^3/ul MPV 9.5 (7.4-10.4) um3 Neut % (Auto) 63.0 (38-83) % Lymph % (Auto) 23.3 L (25-47) % Scurry % (Auto) 9.8 H (0-7) % Eos % (Auto) 3.4 (0-6) % Baso % (Auto) 0.5 (0-2) % Absolute Neuts (auto) 6.7 (1.5-7.7) 10^3/ul Absolute Lymphs (auto) 2.5 (1.0-4.8) 10^3/ul Absolute Monos (auto) 1.0 H (0-0.8) 10^3/ul Absolute Eos (auto) 0.4 (0-0.6) 10^3/ul Absolute Basos (auto) 0.1 (0-0.2) 10^3/ul Absolute Nucleated RBC 0 10^3/ul Nucleated RBC % 0.1 Result Diagrams: 06/05/18 00:30 06/05/18 00:30 Lab Statement: Any lab studies that have been ordered have been reviewed, and results considered in the medical decision making process. Course/Dx - Course Course Of Treatment: A 27 year-old F with a PMHx of schizophrenia is BIBA from [facility] to [facility] requesting a MHE. She states that she is paranoid and notes jaw pain, SI and voices in her head. A physical exam revealed an anxious affect. In the ED course, the pt was given Ibuprofen 600mg PO which improved the symptoms. The pt has been cleared for and is awaiting a MHE. She will be signed out to Dr. Jeremias Sanders at 07:00 am with a diagnosis of psychosis and depression. Allergies noted - Differential Dx/Clinical Impression Provider Diagnosis: Psychosis, Depression Discharge - Sign-Out/Discharge Documenting (check all that apply): Sign-Out Patient Signing out patient TO: Jeremias Sanders - 07:00- The pt is awaiting a MHE - Discharge Plan Referrals: [facility] [Outside] - 3 Days - Attestation Statements Document Initiated by Scribe: Yes Documenting Scribe: Brenda Rod Provider For Whom Patria is Documenting (Include Credential): Dr. Stu Daley MD Scribe Attestation: Brenda Horton scribed for Dr. Stu Daley MD on 06/05/18 at 0656. Scribe Documentation Reviewed: Yes Provider Attestation: The documentation as recorded by the Brenda latif accurately reflects the service I personally performed and the decisions made by , Dr. Stu Daley MD
[2018-06-05 00:53] LABS: EGFR Non-African American 92.7 (>60)
[2018-06-05 01:23] LABS: Urine Appearance Clear; Urine Blood 1+ (Negative); Urine Color Yellow; Urine Ketones Trace (Negative); Urine Protein Negative (Negative); Urine Red Blood Cell Trace(0-2/hpf) (Absent); Urine Specific Gravity 1.016 (1.010-1.030); Urine Urobilinogen Negative (Negative); Urine White Blood Cell Trace(0-5/hpf) (Absent)
--- NOTE | 2018-06-05 10:30 | ED ---
Progress - Progress Note Progress Note: Patient was signed out from Dr. Daley upon shift change pending MHE. - Consult/PCP Time Called: 00:15 Course/Dx - Course Course Of Treatment: A 27 year-old F with a PMHx of schizophrenia is BIBA from [facility] to [facility] requesting a MHE. She states that she is paranoid and notes jaw pain, SI and voices in her head. A physical exam revealed an anxious affect. In the ED course, the pt was given Ibuprofen 600mg PO which improved the symptoms. The pt has been cleared for a MHE. Per mental health evaluation, patient will be discharged home. She is hemodynamically stable and A &Ox3. - Diagnoses Provider Diagnoses: Schizophrenia Discharge - Sign-Out/Discharge Documenting (check all that apply): Patient Departure - Discharge home, Receiving Sign-Out Receiving patient FROM: Stu Daley - Upon shift change pending MHE - Discharge Plan Condition: Stable Disposition: HOME Referrals: Care [facility] [Outside] - 3 Days - Attestation Statements Document Initiated by Scribe: Yes Documenting Scribe: Serene Smith Provider For Whom Scribe is Documenting (Include Credential): Jeremias Sanders MD Scribe Attestation: ISerene, scribed for Jeremias Sanders MD on 06/05/18 at 1030.
[2018-06-05 10:48] VITALS: BP 138/90
--- NOTE | 2018-06-07 12:51 | ED ---
Progress - Progress Note Progress Note: Patient was signed out from Dr. Daley upon shift change pending MHE. UPDATE: Patient's final urine culture reveals 1-10,000 strep group B and 1-10, 000 normal donny. She was brought in for mental health issues. No reports of GI/ symptoms, will white blood cells are within normal limits and no fever. This does not require further workup at this time however patient develop symptoms would offer follow-up with PCP, retesting and treatment as needed. - Consult/PCP Time Called: 00:15 Course/Dx - Course Course Of Treatment: A 27 year-old F with a PMHx of schizophrenia is BIBA from [place] to [facility] requesting a MHE. She states that she is paranoid and notes jaw pain, SI and voices in her head. A physical exam revealed an anxious affect. In the ED course, the pt was given Ibuprofen 600mg PO which improved the symptoms. The pt has been cleared for a MHE. Per mental health evaluation, patient will be discharged home. She is hemodynamically stable and A &Ox3. - Diagnoses Provider Diagnoses: Schizophrenia Discharge - Sign-Out/Discharge Documenting (check all that apply): Post-Discharge Follow Up - Discharge Plan Condition: Stable Disposition: HOME Patient Education Materials: Schizophrenia (ED) Referrals: Care [facility] [Outside] - 3 Days Additional Instructions: Per completion of a mental health evaluation, you are cleared for release and do not require inpatient psychiatric hospitalization at this time. Please go to nearest emergency room or call 911 if safety concerns arise or condition worsens. Important Phone Numbers: [facility] ph:[phone] Suicide Prevention and Crisis Services ph:[phone] National Suicide Prevention Lifeline ph:[phone] (3133) [facility] ph:[phone] Alcoholics Anonymous ph:[phone] [facility] ph:[phone] [place] [employer] ph:[phone] Follow up with [facility] and contact [facility] on Wednesday at . - Billing Disposition and Condition Condition: STABLE Disposition: Home
== END 2018-06-05 10:47 | disposition home or self-care (01) ==
LOC: ED 00:08
DX: F29 Unspecified psychosis not due to a substance or known physiological condition (principal); F32.9 Major depressive disorder, single episode, unspecified; F20.9 Schizophrenia, unspecified; E11.9 Type 2 diabetes mellitus without complications; Z79.4 Long term (current) use of insulin
CPT/HCPCS: 36415; 80053; 80307; 80320; 80329; 81003; 81015; 84443; 84702; 85025; 87077; 87086; 99285; A9270-GY; G0480

== ENCOUNTER 2018-11-02 03:18 | Emergency (ER) | payer OTHER ==
--- NOTE | 2018-11-02 03:52 | ED ---
Psychiatric Complaint - HPI Summary HPI Summary: A 27 y/o female brought in by [facility] ambulance presents to [facility] with a chief complaint of requesting a mental health evaluation. She claims that she is depressed. She denies SI, HI or hallucinations. At triage she rated her pain as a 0/10 in severity. She claims that she used to see a psychiatrist but is off her medication for a couple months because she reports that it doesnt work. She claims that she is paranoid and "more schizophrenic than anything". - History Of Current Complaint Chief Complaint: EDMentalHealth Time Seen by Provider: 11/02/18 03:31 Hx Obtained From: Patient, EMS Onset/Duration: Sudden Onset, Lasting Hours, Still Present Timing: Hours Severity Initially: Mild Severity Currently: Mild Character: Depressed Aggravating Factor(s): Nothing Alleviating Factor(s): Nothing Associated Signs And Symptoms: Negative: Hallucinating Has Suicidal: Denies: Thoughts Has Homicidal: Denies: Thoughts - Allergies/Home Medications Allergies/Adverse Reactions: Allergies Allergy/AdvReac Type Severity Reaction Status Date / Time No Known Allergies Allergy Verified 02/14/18 16:50 PMH/Surg Hx/FS Hx/Imm Hx Endocrine/Hematology History: 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 - per aunt Pankaj, triggered by invega injections Denies: Hx Thyroid Disease, Hx Anemia, Hx Unexplained Bleeding Cardiovascular History: Reports: Hx Hypertension Denies: Hx Embolism Respiratory History: Reports: Hx Asthma - A CHILD Denies: Hx Chronic Bronchitis, Hx Pneumonia GI History: Denies: Hx Crohn's Disease, Hx Irritable Bowel, Hx Ulcer History: Denies: Hx Dialysis, Hx Kidney Stones Musculoskeletal History: Denies: Hx Arthritis, Hx Back Problems, Hx Orthopedic Injury, Hx Scoliosis Sensory History: Denies: Hx Contacts or Glasses, Hx Hearing Aid Opthamlomology History: Denies: Hx Contacts or Glasses Neurological History: Denies: Hx Headaches, Hx Migraine, Hx Seizures Psychiatric History: Reports: Hx Anxiety, Hx Depression, Hx Inpatient Treatment , Hx Community Mental Health Tx, Hx Schizophrenia, Hx Substance Abuse Denies: Hx Eating Disorder, Hx of Violent Episodes Against Others - Immunization History Date of Tetanus Vaccine: unk Date of Influenza Vaccine: unk Infectious Disease History: No Infectious Disease History: Denies: Traveled Outside the [place] in Last 30 Days - Family History Known Family History: Positive: Diabetes - mom w/ type 2, Other - dad - schizophrenia - Social History Alcohol Use: None Alcohol Amount: patient denies Hx Substance Use: Yes Substance Use Type: Reports: Marijuana Substance Use Comment - Amount & Last Used: unknown Hx Tobacco Use: Yes Smoking Status (MU): Heavy Every Day Tobacco Smoker Type: Cigars Amount Used/How Often: Patient has not smoked tobacco within the last 30 days Have You Smoked in the Last Year: - has not smoked in the last 30 days Review of Systems Negative: Fever Psychological: Other - Negative:SI, HI, hallucinations Positive: Depressed All Other Systems Reviewed And Are Negative: Yes Physical Exam - Summary Physical Exam Summary: Appearance: Well-appearing, Well-nourished, lying in bed comfortable Skin: Warm, dry, no obvious rash Eyes: sclera anicteric, no conjunctival pallor ENT: mucous membranes moist Neck: deferred Respiratory: No signs of respiratory distress Cardiovascular: Appears well perfused, pulses are nml Abdomen: deferred Musculoskeletal: Moving all 4 extremities without obvious discomfort Neurological: Awake and alert, mentation is normal, speech is fluent and appropriate Psychiatric: affect is normal, does not appear anxious or depressed Triage Information Reviewed: Yes Vital Signs On Initial Exam: Initial Vitals Temp Pulse Resp BP Pulse Ox 99.1 F 91 18 142/87 100 11/02/18 03:21 11/02/18 03:21 11/02/18 03:21 11/02/18 03:21 11/02/18 03:21 Vital Signs Reviewed: Yes Diagnostics - Vital Signs Vital Signs Temp Pulse Resp BP Pulse Ox 11/02/18 03:21 99.1 F 91 18 142/87 100 - Laboratory Lab Statement: Any lab studies that have been ordered have been reviewed, and results considered in the medical decision making process. Course/Dx - Course Course Of Treatment: A 27 y/o female brought in by [facility] ambulance presents to [facility] with a chief complaint of requesting a mental health evaluation the morning of 11/02/18. She claims that she is depressed. She denies SI, HI or hallucinations. At triage she rated her pain as a 0/10 in severity. She claims that she used to see a psychiatrist but is off her medication for a couple months because she reports that it doesnt work. She claims that she is paranoid and "more schizophrenic than anything". The physical exam was unremarkable. Patient is medically cleared at 03:44 11/02/18. She appears to not have any problems. If patient is to be admitted, we can order laboratory studies at that point. 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 Tolentino has decided that the patient will be discharged. Dx: Schizophrenia. 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 Tolentino has decided that the patient will be discharged. Dx: Schizophrenia. Discharge - Sign-Out/Discharge Documenting (check all that apply): Patient Departure - DC Patient Received Moderate/Deep Sedation with Procedure: No - Discharge Plan Condition: Good Disposition: HOME Patient Education Materials: Anxiety (ED) Referrals: No Primary Care Phys,NOPCP [Primary Care Provider] - Additional Instructions: Per completion of a mental health evaluation, you are cleared for release and do not require inpatient psychiatric hospitalization at this time. Please go to nearest emergency room or call 911 if safety concerns arise or condition worsens. You need to follow up with [facility] [phone] [place] [address] Walk-in hours are Wednesday - Wednesday, 9am - 2:30pm. Important Phone Numbers: [facility] ph:[phone] Suicide Prevention and Crisis Services ph:[phone] National Suicide Prevention Lifeline ph:[phone] (8168) [facility] ph:[phone] [facility]) ph:[phone] [facility] ([facility]) ph:[phone] Family [facility] Children's Services ph:[phone] Alcoholics Anonymous ph:[phone] [facility] ph:[phone] [facility] Police ph:[phone] - Billing Disposition and Condition Condition: GOOD Disposition: Home - Attestation Statements Document Initiated by Scribe: Yes Documenting Scribe: Krishna Flannery Provider For Whom Scribe is Documenting (Include Credential): Kameron Frey MD Scribe Attestation: Krishna Horton scribed for Kameron Frey MD on 11/02/18 at 0609. Scribe Documentation Reviewed: Yes Provider Attestation: The documentation as recorded by the maximusibeKrishna accurately reflects the service I personally performed and the decisions made by me, Kameron Frey MD Status of Scribe Document: Viewed
[2018-11-02 05:42] VITALS: BP 138/86
== END 2018-11-02 05:41 | disposition home or self-care (01) ==
LOC: ED 03:18
DX: F20.9 Schizophrenia, unspecified (principal); E11.9 Type 2 diabetes mellitus without complications; F22 Delusional disorders; Z79.4 Long term (current) use of insulin; I10 Essential (primary) hypertension; F17.210 Nicotine dependence, cigarettes, uncomplicated
CPT/HCPCS: 99284

== ENCOUNTER 2018-11-14 10:48 | Inpatient (IN) | payer OTHER ==
--- NOTE | 2018-11-14 11:47 | ED ---
Psychiatric Complaint - HPI Summary HPI Summary: Patient is a 28 y/o F presenting to ED with complaints of hallucinations and anxiety. During evaluation patient states that she doesn't, "feel good". She denies chest pain and abdominal pain, endorses hallucinations and anxiety. When asked how long she has been having Sx, she does not respond. Patient does not answer further questions. Level 5 caveat, uncooperative with exam. On triage, pain is denied. Home medications and allergies are reviewed. - History Of Current Complaint Chief Complaint: EDMentalHealth Time Seen by Provider: 11/14/18 11:15 Hx Obtained From: Patient Hx From Patient Unobtainable Due To: Other - could not gather further Hx as patient is uncoopertive with further questions Onset/Duration: Still Present Timing: Constant Severity Currently: None Character: Anxious Aggravating Factor(s): Nothing Alleviating Factor(s): Nothing - Allergies/Home Medications Allergies/Adverse Reactions: Allergies Allergy/AdvReac Type Severity Reaction Status Date / Time No Known Allergies Allergy Verified 02/14/18 16:50 PMH/Surg Hx/FS Hx/Imm Hx Endocrine/Hematology History: 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 - per aunt Pankaj, triggered by invega injections Denies: Hx Thyroid Disease, Hx Anemia, Hx Unexplained Bleeding Cardiovascular History: Reports: Hx Hypertension Denies: Hx Embolism Respiratory History: Reports: Hx Asthma - A CHILD Denies: Hx Chronic Bronchitis, Hx Pneumonia GI History: Denies: Hx Crohn's Disease, Hx Irritable Bowel, Hx Ulcer History: Denies: Hx Dialysis, Hx Kidney Stones Musculoskeletal History: Denies: Hx Arthritis, Hx Back Problems, Hx Orthopedic Injury, Hx Scoliosis Sensory History: Denies: Hx Contacts or Glasses, Hx Hearing Aid Opthamlomology History: Denies: Hx Contacts or Glasses Neurological History: Denies: Hx Headaches, Hx Migraine, Hx Seizures Psychiatric History: Reports: Hx Anxiety, Hx Depression, Hx Inpatient Treatment , Hx Community Mental Health Tx, Hx Schizophrenia, Hx Substance Abuse Denies: Hx Eating Disorder, Hx of Violent Episodes Against Others - Immunization History Date of Tetanus Vaccine: unk Date of Influenza Vaccine: unk Infectious Disease History: No Infectious Disease History: Denies: Traveled Outside the [place] in Last 30 Days - Family History Known Family History: Positive: Diabetes - mom w/ type 2, Other - dad - schizophrenia - Social History Alcohol Use: None Alcohol Amount: patient denies Hx Substance Use: Yes Substance Use Type: Reports: Marijuana Substance Use Comment - Amount & Last Used: unknown Hx Tobacco Use: Yes Smoking Status (MU): Heavy Every Day Tobacco Smoker Type: Cigars Amount Used/How Often: Patient has not smoked tobacco within the last 30 days Have You Smoked in the Last Year: - has not smoked in the last 30 days Review of Systems - ROS Summary Review of Systems Summary: LEVEL 5 CAVEAT - UNCOOPERATIVE WITH QUESTIONS Negative: Fever Negative: Chest Pain Negative: Abdominal Pain Psychological: Other - POSITIVE - HALLUCINATIONS Positive: Anxious All Other Systems Reviewed And Are Negative: No - Comments Additional Review of Systems Comments: LEVEL 5 CAVEAT - UNCOOPERATIVE WITH QUESTIONS Physical Exam - Summary Physical Exam Summary: Constitutional: Well-developed, Well-nourished, Alert. (-) Distressed Skin: Warm, Dry HENT: Normocephalic; Atraumatic Eyes: Conjunctiva normal Neck: Musculoskeletal ROM normal neck. (-) JVD, (-) Stridor, (-) Tracheal deviation Cardio: Rhythm regular, rate normal, Heart sounds normal; Intact distal pulses; The pedal pulses are 2+ and symmetric. Radial pulses are 2+ and symmetric. (-) Murmur Pulmonary/Chest wall: Effort normal. (-) Respiratory distress, (-) Wheezes, (-) Rales Abd: Soft, (-) tenderness, (-) Distension, (-) Guarding, (-) Rebound Musculoskeletal: (-) Edema Lymph: (-) Cervical adenopathy Neuro: Alert, Oriented x3 Psych: Anxious, Hallucinating, Non-cooperative Triage Information Reviewed: Yes Vital Signs On Initial Exam: Initial Vitals Temp Pulse Resp BP Pulse Ox 97.3 F 73 18 126/91 99 11/14/18 10:50 11/14/18 10:50 11/14/18 10:50 11/14/18 10:50 11/14/18 10:50 Vital Signs Reviewed: Yes Diagnostics - Vital Signs Vital Signs Temp Pulse Resp BP Pulse Ox 11/14/18 10:50 97.3 F 73 18 126/91 99 - Laboratory Lab Statement: Any lab studies that have been ordered have been reviewed, and results considered in the medical decision making process. Re-Evaluation - Re-Evaluation First Eval Re-Evaluation Time: 11:46 Comment: Patient is medically cleared for MHE. Course/Dx - Course Course Of Treatment: Patient is a 28 y/o F presenting to ED with complaints of hallucinations and anxiety. During evaluation patient states that she doesn't, "feel good". She denies chest pain and abdominal pain, endorses hallucinations and anxiety. When asked how long she has been having Sx, she does not respond. Patient does not answer further questions. Level 5 caveat, uncooperative with exam. Patient was medically cleared for MHE. 1235 - Patient's case had been reviewed by Dr. Degroot, patient will be involuntarily admitted to [facility] psych. - Differential Dx/Clinical Impression Provider Diagnosis: Schizoaffective disorder - Physician Notifications Discussed Care Of Patient With: Abner Degroot Time Discussed With Above Provider: 12:35 Instructed by Provider To: Other - 1235 - Patient's case had been reviewed by Dr. Degroot, patient will be involuntarily admitted to [facility] psych. Discharge - Sign-Out/Discharge Documenting (check all that apply): Patient Departure - admit - Discharge Plan Condition: Good Disposition: PSYCHIATRIC FACILITY-[facility] - Billing Disposition and Condition Condition: GOOD Disposition: Psychiatric Facility [facility] - Attestation Statements Document Initiated by Scribe: Yes Documenting Scribe: INDER HENSON Provider For Whom Scribe is Documenting (Include Credential): MADDY OSBORN MD Scribe Attestation: INDER Horton, scribed for MADDY ALLEN MD on 11/14/18 at 2229. Scribe Documentation Reviewed: Yes Provider Attestation: The documentation as recorded by the INDER latif accurately reflects the service I personally performed and the decisions made by me, MADDY ALLEN MD Status of Scribe Document: Viewed
[2018-11-14] MEDS ORDERED: Al Hydrox/Mg Hydrox/Simet LIQ* 30 ML UDC PO PRN (12:53)
[2018-11-14] MEDS ORDERED: Nicotine GUM* 2 MG PO PRN (12:53)
[2018-11-14] MEDS ORDERED: Acetaminophen TAB* 325 MG PO PRN (12:53)
[2018-11-14] MEDS ORDERED: hydrOXYzine HCL TAB* 50 MG PO PRN (12:57)
[2018-11-14] MEDS ORDERED: Fluphenazine Decanoate* 25 MG/ML 5 ML VIAL IM SCH (13:00)
[2018-11-14] MEDS: Nicotine Inhaler* 10 MG AMP INH PRN ×2 (16:55→19:33)
[2018-11-14] MEDS: Haloperidol TAB* 5 MG PO PRN (19:55)
--- NOTE | 2018-11-15 12:08 | HP ---
PSYCHIATRIC HISTORY AND PHYSICAL: DATE OF ADMISSION: 11/14/18 JUSTIFICATION FOR ADMISSION: The patient is in need 24-hour supervision and care secondary to gross thought disorganization, command auditory hallucinations telling her to harm others, and reported álvaro icidality. CHIEF COMPLAINT: "I have met hallucinations and anxiety." HISTORY OF PRESENT ILLNESS: The patient is a 28-year-old single -Bel[place]ian female with a histo ry of schizophrenia and intermittent cocaine abuse, who is reportedly homeless, brought in by members at the ACT team due to disorganized thinking and homicidality. The patient was lost to followup fro m the ACT team sometime in July 2018. At one point, we know that she was in a nursing home in [place], [place], because they contacted Medical Records at our facility for her psychiatric rec ords. The patient endorses no memory of this, however. She did apparently return to our community r ecently where she had been staying in the homeless assisted. The ACT team had reached out in the hope s of renewing services, but apparently she has not had any antipsychotic medications since her last d ischarge from our facility in April 2018. The patient appeared to be responding to internal stimuli with agitation and reporting homicidal ideations as well as command hallucinations to kill others. She was clearly internally stimulated, laughing and talking to herself between answering questions. When she arrived on our unit, she was agitated, demanding her shoes through her body against one of c onstruction jo on our unit and required stat haloperidol. She did accept her fluphenazine decanoa te at the dose of 50 mg IM. This morning when I see her, she remains disheveled with some food and s nacks strewn across the room. 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 I asked her about substance misuse and she denies recent use of cocaine. PAST PSYCHIATRIC HISTORY: The patient has been admitted to my service here on 7 prior occasions, the first being in August 2016, most recently being in April 2018. She continues to be served by the [facility] here in [place], although she has not allowed them to make meaning ful visits since the 2017. She also has a history of several hospitalizations in [place], [place], in the 2-1/2 years leading up to her move to [place]. Previously, she had been on Invega S ustenna; however, this made her blood glucose become elevated. She has also been on IM aripiprazole, which did not benefit her. Typically, she takes fluphenazine in the decanoate form at the dose of 5 0 mg on a q.2-week basis. She denies any history of suicide attempts, although she has experienced s uicidal ideations on and off in the past several years. PAST MEDICAL HISTORY: Significant for diabetes, hypertension, and obesity. CURRENT MEDICATIONS: None. ALLERGIES: She has no known drug allergies. FAMILY HISTORY: Unknown. SUBSTANCE ABUSE HISTORY: The patient has abused cocaine and cannabis on and off for several years. She does not appear to abuse tobacco or alcohol. SOCIAL HISTORY: The patient grew up between [place] and [place]. She does have several cousins in [facility]. Much of her support comes from an organization called [employer], which provid case management social worker and residential services. In the past, she has had [facility] and has been receiving assistance also from the [facility]. She has had numerous jobs he re in [place], but not recently. Currently, she is staying at the [facility]. In the past, she h as been on probation for unspecified crimes. She is not currently sexually active. REVIEW OF SYSTEMS: The patient denies headache or double vision. She denies sore throat, cough, jacey st pain, difficulty breathing, abdominal pain, nausea, vomiting, diarrhea, or constipation. She narciso es difficulty ambulating, enlarged lymph nodes, rashes, changes in weight, or fevers. PHYSICAL EXAMINATION VITAL SIGNS: Blood pressure is 137/68, heart rate is 68, respiratory rate 16, temperature is 97.3 de grees Fahrenheit, oxygen saturations are 99% on room air. HEENT: Head is normocephalic, atraumatic. NECK: Supple. CHEST: Clear to auscultation bilaterally. CARDIAC: Exam reveals normal heart sounds. ABDOMEN: Soft and nontender. MUSCULOSKELETAL: Exam reveals no sign of edema. NEUROLOGIC: She is grossly intact with no focal deficits. SKIN: Warm and dry. MENTAL STATUS EXAMINATION: The patient is an overweight -Belarusian female who is wearing a wh ite T-shirt. She is lying down in bed having just woken up. She appears to be slightly psychomotor a gitated, but is otherwise calm, cooperative. Speech has a normal rate, tone, and volume. Mood is ir ritable with a labile affect. Thought process is linear and goal directed. The patient is wanting t o be discharged from the hospital. She denies suicidal or homicidal ideations at this time, although she arrived here endorsing homicidality. She was clearly responding to internal stimuli at the time of admission. Insight and judgment are markedly impaired given her lack of followthrough with outpa tient treatment. Cognitively, she is awake and alert with what would appear to be an average intelle ct. DIAGNOSES: [place] I: Schizophrenia, cannabis and cocaine use disorders by history. [place] II: Deferred. IMPRESSION: The patient is a 28-year-old single -Belarusian female with a history of schizophre allan and drug abuse who is brought to the hospital by the ACT team after being nonadherent with outpat ient therapy for close to 6 months. She has been off medications since the fall, but is will ing to resume fluphenazine treatment. She appears to be disheveled, is now homeless, unemployed, and clearly not able to take care of herself, but she did make homicidal statements in our emergency juana m, which she is now denying. PLAN: The patient is admitted to the adult behavioral health unit where she was placed on q.15-minut e checks for her own safety. We will resume fluphenazine decanoate 50 mg IM q.2 weekly. We will get in touch with the ACT team for further collateral information and to rekindle her outpatient treatme nt. Social Work will be on board regarding psychosocial issues such as homelessness and joblessness. While she is here, she is certainly encouraged to avail herself of all milieu activities including i ndividual and group psychotherapies. We will make sure that she is safely euthymic without overt psy chotic symptoms before considering discharge to a lower level of care. [id number]/[facility] #: [id number]
--- NOTE | 2018-11-16 11:56 | PN ---
Subjective - Subjective Date of Service: 11/16/18 Service Type: 23559 Hosp care 15 min low complexity Subjective: Caroline is in good spirits. She says that the resumption of decanoate fluphenazine made her auditory hallucinations subside and that she's "really ready to leave now." Despite this, she is homeless, unemployed and without active outpatient services since the ACT team was forced to close her case after 3 successive months of no contact over the fall and winter. She denies SI or HI and does not seem to be demonstrating internal stimuli. Objective - Appearance Appearance: Obese Dysmorphic Features: No Hygiene: Normal Grooming: Disheveled - Behavior Psychomotor Activities: Normal Exhibits Abnormal Movement: No - Attitude and Relatedness Attitude and Relatedness: Cooperative Eye Contact: Fair - Speech Quality: Unpressured Latencies: Normal Quantity: Terse - Mood Patient's Decription of Mood: "Fine" - Affect Observed Affect: Unvariable Affect Consistent with: Euthymia - Thought Process Patient's Thought Process: Coherent, Goal Directed Thought Content: No Passive Wish, No Suicidal Planning, No Homicidal Ideation, No Paranoid Ideation - Sensorium Experiencing Hallucinations: No, Sensorium is Clear Type of Hallucinations: Visual: No, Auditory: No, Command: No - Level of Consciousness Level of Consciousness: Alert Orientation: Yes Intact, Yes Orientated to Time, Yes Orientated to Place, Yes Orientated to Person - Impulse Control Impulse Control: Poor - Insight and Judgement Insight and Judgement: Impaired - Group Participation Particating in Group Activities: No - Medication Management Medication Management Adherence: Yes Assessment - Assessment Merits Inpatient Hospitalization: For Immediate Safety, For Stabilization Inpatient DSM-V Dx: F20.9 Clinical Impression: 28 y.o. single, homeless, unemployed AA female with a history of schizophrenia who presents via the ACT team with symptoms of thought disorganization, command auditory hallucinations to harm others and vague homicidality in the context of several months off neuroleptic therapy and not receiving outpatient services. BSU: Problem List - Patient Problems (1) Schizophrenia Current Visit: No Status: Acute Priority: High Code(s): F20.9 - SCHIZOPHRENIA, UNSPECIFIED SNOMED Code(s): 66871990 Comment: Continue fluphenazine depot injection, clonazepam, propranolol. Dr. Degroot to evaluate the patient today to decide whether she is suitable for BSU Plan - Plan Treatment Plan: Name: VALENCIA DILLON Birthdate: 1990 [id number] The patient's decanoate fluphenazine has been resumed at 50mg IM times one (11/14 ). Next dose is due November 28. Will enact SPOE application and re- refer to the ACT team for resumption of high-level outpatient services. She requires housing placement as well. Continue inpatient treatment. Continued Medication Management: Start Medication Medications: Current Medications Acetaminophen (Tylenol Tab*) 650 mg PO Q4H PRN PRN Reason: for pain; or Temp >101 F Al Hydrox/Mg Hydrox/Simethicone (Maalox Plus*) 30 ml PO Q4H PRN PRN Reason: INDIGESTION Fluphenazine Decanoate (Prolixin Decanoate*) 50 mg IM Q14D [facility] Last Admin: 11/14/18 19:30 Dose: 50 mg Haloperidol (Haldol Tab*) 5 mg PO Q6H PRN PRN Reason: AGITATION Last Admin: 11/14/18 19:55 Dose: 5 mg Hydroxyzine HCl (Atarax Tab*) 50 mg PO Q4H PRN PRN Reason: ANXIETY Nicotine (Nicotine Inhaler*) 10 mg INH Q2H PRN PRN Reason: CRAVING Last Admin: 11/14/18 19:33 Dose: 10 mg Nicotine Polacrilex (Nicotine Gum*) 2 mg PO Q2H PRN PRN Reason: CRAVING - Discharge Plan Discharge Plan: Inpatient Hospitalization
--- NOTE | 2018-11-17 10:17 | PN ---
Subjective - Subjective Date of Service: 11/17/18 Service Type: [id number] Hosp care 15 min low complexity Subjective: Caroline is seen along with RAZA Willis for follow up. The patient has not been attending groups and is encouraged to do so in keeping with her Behavioral Modification contract. She denies symptoms of mental illness and continues to request discharge. She is agreeable with resuming treatment with the ACT team and is willing to sign the SPOE application. She displays no overt signs of paranoia or hallucinations and denies thoughts of harming herself or others. Objective - Appearance Appearance: Obese Dysmorphic Features: No Hygiene: Dirty Grooming: Disheveled - Behavior Psychomotor Activities: Normal Exhibits Abnormal Movement: No - Attitude and Relatedness Attitude and Relatedness: Cooperative Eye Contact: Fair - Speech Quality: Unpressured Latencies: Normal Quantity: Terse - Mood Patient's Decription of Mood: "Okay" - Affect Observed Affect: Fair Affect Consistent with: Euthymia - Thought Process Patient's Thought Process: Coherent Thought Content: No Passive Wish, No Suicidal Planning, No Homicidal Ideation, No Paranoid Ideation - Sensorium Experiencing Hallucinations: No, Sensorium is Clear Type of Hallucinations: Visual: No, Auditory: No, Command: No - Level of Consciousness Level of Consciousness: Alert Orientation: No Intact, No Orientated to Time, No Orientated to Place, No Orientated to Person - Impulse Control Impulse Control: Tenuous - Insight and Judgement Insight and Judgement: Fair - Group Participation Particating in Group Activities: No - Medication Management Medication Management Adherence: Yes Assessment - Assessment Merits Inpatient Hospitalization: Consolidate Improvements, Pending Safe DC Plan Inpatient DSM-V Dx: F20.9 Clinical Impression: 28 y.o. single, homeless, unemployed AA female with a history of schizophrenia who presents via the ACT team with symptoms of thought disorganization, command auditory hallucinations to harm others and vague homicidality in the context of several months off neuroleptic therapy and not receiving outpatient services. Plan - Plan Treatment Plan: Name: VALENCIA DILLON Birthdate: 1990 [id number] The patient's decanoate fluphenazine has been resumed at 50mg IM times one (11/14 ). Next dose is due November 28. Will initiate SPOE application and re- refer to the ACT team for resumption of high-level outpatient services. She requires housing placement as well. Continue inpatient treatment. Continued Medication Management: Start Medication Medications: Current Medications Acetaminophen (Tylenol Tab*) 650 mg PO Q4H PRN PRN Reason: for pain; or Temp >101 F Al Hydrox/Mg Hydrox/Simethicone (Maalox Plus*) 30 ml PO Q4H PRN PRN Reason: INDIGESTION Fluphenazine Decanoate (Prolixin Decanoate*) 50 mg IM Q14D [facility] Last Admin: 11/14/18 19:30 Dose: 50 mg Haloperidol (Haldol Tab*) 5 mg PO Q6H PRN PRN Reason: AGITATION Last Admin: 11/14/18 19:55 Dose: 5 mg Hydroxyzine HCl (Atarax Tab*) 50 mg PO Q4H PRN PRN Reason: ANXIETY Nicotine (Nicotine Inhaler*) 10 mg INH Q2H PRN PRN Reason: CRAVING Last Admin: 11/14/18 19:33 Dose: 10 mg Nicotine Polacrilex (Nicotine Gum*) 2 mg PO Q2H PRN PRN Reason: CRAVING - Discharge Plan Discharge Plan: Outpatient Follow Up Outpatient Program: ACT team
[2018-11-18 10:12] VITALS: BP 114/60
--- NOTE | 2018-11-18 12:29 | PN ---
Subjective - Subjective Date of Service: 11/18/18 Service Type: [id number] Hosp care 15 min low complexity Subjective: Patient continues to be responding at times to internal stimuli. Very eager for discharge. ACT team uncertain if she has legal charges pending against her. Patient under behavioral control but not going to groups. Objective - Appearance Appearance: Obese Dysmorphic Features: No Hygiene: Normal Grooming: Disheveled - Behavior Psychomotor Activities: Normal Exhibits Abnormal Movement: No - Attitude and Relatedness Attitude and Relatedness: Cooperative Eye Contact: Fair - Speech Quality: Unpressured Latencies: Normal Quantity: Appropriate - Mood Patient's Decription of Mood: "Okay" - Affect Observed Affect: Fair Affect Consistent with: Euthymia - Thought Process Patient's Thought Process: Goal Directed Thought Content: No Passive Wish, No Suicidal Planning, No Homicidal Ideation, No Paranoid Ideation - Sensorium Experiencing Hallucinations: Yes Type of Hallucinations: Visual: No, Auditory: Yes, Command: No - Level of Consciousness Level of Consciousness: Alert Orientation: Yes Intact, Yes Orientated to Time, Yes Orientated to Place, Yes Orientated to Person - Impulse Control Impulse Control: Tenuous - Insight and Judgement Insight and Judgement: Fair - Group Participation Particating in Group Activities: No - Medication Management Medication Management Adherence: Yes Assessment - Assessment Merits Inpatient Hospitalization: For Immediate Safety, For Stabilization Inpatient DSM-V Dx: F20.9 Clinical Impression: 28 y.o. single, homeless, unemployed AA female with a history of schizophrenia who presents via the ACT team with symptoms of thought disorganization, command auditory hallucinations to harm others and vague homicidality in the context of several months off neuroleptic therapy and not receiving outpatient services. Plan - Plan Treatment Plan: Name: VALENCIA DILLON Birthdate: 1990 [id number] The patient's decanoate fluphenazine has been resumed at 50mg IM times one (11/14 ). Next dose is due November 28. Will initiate SPOE application and re- refer to the ACT team for resumption of high-level outpatient services. She requires housing placement as well. Continue inpatient treatment. Continued Medication Management: Start Medication Medications: Current Medications Acetaminophen (Tylenol Tab*) 650 mg PO Q4H PRN PRN Reason: for pain; or Temp >101 F Al Hydrox/Mg Hydrox/Simethicone (Maalox Plus*) 30 ml PO Q4H PRN PRN Reason: INDIGESTION Fluphenazine Decanoate (Prolixin Decanoate*) 50 mg IM Q14D [facility] Last Admin: 11/14/18 19:30 Dose: 50 mg Haloperidol (Haldol Tab*) 5 mg PO Q6H PRN PRN Reason: AGITATION Last Admin: 11/14/18 19:55 Dose: 5 mg Hydroxyzine HCl (Atarax Tab*) 50 mg PO Q4H PRN PRN Reason: ANXIETY Nicotine (Nicotine Inhaler*) 10 mg INH Q2H PRN PRN Reason: CRAVING Last Admin: 11/14/18 19:33 Dose: 10 mg Nicotine Polacrilex (Nicotine Gum*) 2 mg PO Q2H PRN PRN Reason: CRAVING - Discharge Plan Discharge Plan: Inpatient Hospitalization
[2018-11-18] MEDS ORDERED: Mouth Piece, Nicotine* 1 EACH CARTRIDGE ONE (16:41)
[2018-11-18] MEDS: Nicotine Inhaler* 10 MG AMP INH PRN (16:42)
[2018-11-18] MEDS: Haloperidol TAB* 5 MG PO PRN (17:13)
[2018-11-18] MEDS: Nicotine Patch Removal NOTE PATCH OFF SCH (19:45)
[2018-11-18] MEDS: Nicotine PATCH 21 MG/24 HR* PATCH TRANSDERM SCH (23:00)
[2018-11-19] MEDS: Nicotine PATCH 21 MG/24 HR* PATCH TRANSDERM SCH (09:44)
[2018-11-19] MEDS: Nicotine Patch Removal NOTE PATCH OFF SCH (22:02)
[2018-11-20] MEDS: Nicotine PATCH 21 MG/24 HR* PATCH TRANSDERM SCH ×2 (13:21→19:45)
--- NOTE | 2018-11-20 19:51 | PN ---
Subjective - Subjective Date of Service: 11/20/18 Service Type: [id number] Hosp care 15 min low complexity Subjective: Ms Rodriguez asks if she might discharge tomorrow. She requests nicotine patch be applied now even though it is scheduled to be removed in about an hour. she denies any physical complaints. She has no request of me other than about discharge and the nicotine patch. Objective - Appearance Appearance: Well Developed/Nourished Dysmorphic Features: No Hygiene: Normal Grooming: Fairly Well Kept - Behavior Psychomotor Activities: Abnormal-Increased - pacing Exhibits Abnormal Movement: No - Attitude and Relatedness Attitude and Relatedness: Cooperative Eye Contact: Good - Speech Quality: Unpressured Latencies: Short Quantity: Appropriate - Mood Patient's Decription of Mood: "Good" - Affect Observed Affect: Fair Affect Consistent with: Euthymia - Thought Process Patient's Thought Process: Coherent, Goal Directed Thought Content: No Passive Wish, No Suicidal Planning, No Homicidal Ideation, No Paranoid Ideation - Sensorium Experiencing Hallucinations: No, Sensorium is Clear - Level of Consciousness Level of Consciousness: Alert Orientation: Yes Intact, Yes Orientated to Time, Yes Orientated to Place, Yes Orientated to Person - Impulse Control Impulse Control: Intact - Group Participation Particating in Group Activities: No - Medication Management Medication Management Adherence: Yes Assessment - Assessment Merits Inpatient Hospitalization: For Stabilization, For Discharge Planning, Pending Safe DC Plan Inpatient DSM-V Dx: F20.9 Clinical Impression: 28 y.o. single, homeless, unemployed AA female with a history of schizophrenia who presents via the ACT team with symptoms of thought disorganization, command auditory hallucinations to harm others and vague homicidality in the context of several months off neuroleptic therapy and not receiving outpatient services. Plan - Plan Treatment Plan: Name: VALENCIA RODRIGUEZ Birthdate: 1990 [id number] The patient's decanoate fluphenazine has been resumed at 50mg IM times one (11/14 ). Next dose is due November 28. Will initiate SPOE application and re- refer to the ACT team for resumption of high-level outpatient services. She requires housing placement as well. Continue inpatient treatment. Medications: Current Medications Acetaminophen (Tylenol Tab*) 650 mg PO Q4H PRN PRN Reason: for pain; or Temp >101 F Al Hydrox/Mg Hydrox/Simethicone (Maalox Plus*) 30 ml PO Q4H PRN PRN Reason: INDIGESTION Fluphenazine Decanoate (Prolixin Decanoate*) 50 mg IM Q14D [facility] Last Admin: 11/14/18 19:30 Dose: 50 mg Haloperidol (Haldol Tab*) 5 mg PO Q6H PRN PRN Reason: AGITATION Last Admin: 11/18/18 17:13 Dose: 5 mg Hydroxyzine HCl (Atarax Tab*) 50 mg PO Q4H PRN PRN Reason: ANXIETY Nicotine (Nicotine Inhaler*) 10 mg INH Q2H PRN PRN Reason: CRAVING Last Admin: 11/18/18 16:42 Dose: 10 mg Nicotine (Nicotine Patch 21 Mg/24 Hr*) 1 patch TRANSDERM DAILY [facility] Last Admin: 11/20/18 13:21 Dose: Not Given Nicotine Polacrilex (Nicotine Gum*) 2 mg PO Q2H PRN PRN Reason: CRAVING Last Admin: 11/20/18 18:30 Dose: 2 mg Pharmacy Profile Note (Nicotine Patch Removal Note*) 1 note PATCH OFF 2100 [facility] Last Admin: 11/19/18 22:02 Dose: Not Given - Discharge Plan Discharge Plan: Outpatient Follow Up Outpatient Program: ACT
[2018-11-20] MEDS ORDERED: Mouth Piece, Nicotine* 1 EACH CARTRIDGE ONE (22:38)
[2018-11-20] MEDS: Nicotine Inhaler* 10 MG AMP INH PRN (22:39)
[2018-11-21] MEDS: Nicotine Patch Removal NOTE PATCH OFF SCH
[2018-11-21] MEDS: Nicotine PATCH 21 MG/24 HR* PATCH TRANSDERM SCH (09:44)
--- NOTE | 2018-11-21 15:14 | DS ---
DISCHARGE SUMMARY: DATE OF ADMISSION: 11/14/18 DATE OF DISCHARGE: 11/21/18 DISCHARGE DIAGNOSES: [place]: Schizophrenia. Cannabis use disorder by history. Cocaine use disorder by history. [place]: Deferred. CONDITION AT THE TIME OF DISCHARGE: Improved. The patient is no longer overtly responding to internal stimuli. She has denied suicidal or homicidal ideations throughout the hospitalization. She has been safe on all checks, able to receive enhanced privileges such as use of the computer and fresh air breaks outside under supervision. She is agreeable with resumption of long- acting antipsychotic medications and had her first dose of this on 11/14/18. The patient is being picked up by [facility] who has reengaged with her and will be providing intensive outpatient services. We see no barrier to her receiving continued care in the community. MENTAL STATUS EXAM: At the time of discharge, the patient is an overweight - [place] female wearing a white T-shirt and sweatpants. She is standing up, appears to be fairly well groomed. She is calm, cooperative, easy to establish the rapport with. Speech has normal rate, tone, and volume. Mood is euthymic with a full affect. The thought process is linear, goal directed. Thought content is significant for her desire to be discharged from the hospital. She is denying suicidal or homicidal ideations. She denies auditory or visual hallucinations and there is no evidence of response to internal stimuli. Insight and judgement are fair given her willingness to follow up with the ACT team. Cognitively, she is awake and alert with what would appear to be in an average intellect. DISCHARGE INSTRUCTIONS: Discharge instructions to the patient are as follows: Part A: Medications: She is on Prolixin decanoate 50 mg IM every 2 weeks. Next injection due 11/28/18. Part B: Diet: She is on a diabetic diet. Part C: Activities: As tolerated. The patient is a smoker; however, she is declining the offer of continued nicotine replacement therapy. Instead, she is offered the [place] [facility] at [phone]. There are no laboratory or diagnostic studies pending at the time of discharge. Part D: Followup care: The patient will follow up this afternoon on the day of discharge with [facility]. They will be providing intensive outpatient followup after the time of discharge. Part E: Substance abuse followup: Substance abuse treatment referrals were offered and the patient refused. HOSPITAL COURSE: Part A: Reason for admission: The patient is a 28-year-old single - [place] female with a history of schizophrenia and intermittent cocaine abuse, who is reportedly homeless, brought in by members of the ACT team due to disorganized thinking and homicidality. The patient was lost to followup from the ACT team sometime in July 2018. At one point, we know that she was in a halfway in [place], [place], because they contacted Medical Records at our facility for her psychiatric records. The patient endorses no memory of this; however, she did apparently return to our community recently where she has been staying in a homeless retirement. The ACT team has reached out to her in the hopes of renewing services, but apparently she has not had any antipsychotic medications since her last discharge from our facility in April 2018. The patient appeared to be responding to internal stimuli with agitation and reporting homicidal ideations as well as command hallucinations to kill others. She was clearly internally stimulated, laughing , and talking to herself between answering questions. When she arrived on our unit, she was agitated, demanding her shoes, and throwing her body against one of the construction jo on our unit. She required stat medication at that time. She did accept her fluphenazine decanoate at the dose of 50 mg IM. The morning when I met with her, she remained disheveled with number of foods and snacks strewn across her room. At that time, she was demanding discharge stating that she had already spoken with the ACT team about renewing services and that she would like to get a job and an apartment again. I asked her about substance misuse and she denied any recent use of cocaine or cannabis. The patient failed to submit a urine drug screen. Part B: Psychiatric treatment rendered: The patient was admitted to the adult behavioral health unit and placed on q.15-minute checks for her own safety. As previously mentioned, prior to even arriving on our unit, she accepted resumption of Prolixin decanoate at the dose of 50 mg q.2 weeks. We were able to get in touch with the ACT team for further collateral information and filed a SPO application in advance of getting her reconnected with ACT services. The patient's psychotic symptoms abated with resumption of medication and we kept her through the weekend to make sure that her symptoms were under control. At this time, the ACT team is agreeable with providing her transportation to [employer] so that she can seek retirement in the community. They will be working towards getting her an apartment again. At this time, the patient is safe. She has gone close to a week without making any homicidal statements or exhibiting significant responsiveness to internal stimuli. We feel that she is safe to receive treatment intensively in the community at this time. [id number]/CPS #: [id number] MAGO
== END 2018-11-21 10:48 | disposition home or self-care (01) | DRG 750 ==
LOC: ED 10:48 → BSU 12:54
PROVIDERS: ADMIT Psychiatry & Neurology Psychiatry; ATTEND Psychiatry & Neurology Psychiatry
DX: F20.9 Schizophrenia, unspecified (principal); R45.850 Homicidal ideations; E11.9 Type 2 diabetes mellitus without complications; I10 Essential (primary) hypertension; F17.210 Nicotine dependence, cigarettes, uncomplicated; E66.9 Obesity, unspecified; F14.10 Cocaine abuse, uncomplicated; F12.10 Cannabis abuse, uncomplicated; Z59.0 Homelessness; Z68.32 Body mass index [BMI] 32.0-32.9, adult
CPT/HCPCS: 99222; 99231; 99238; 99284; A9270-GY; J2680

== ENCOUNTER 2018-11-22 13:42 | Emergency (ER) | payer OTHER ==
--- NOTE | 2018-11-22 14:30 | ED ---
Substance Abuse/Use - HPI Summary HPI Summary: LEVEL 5 CAVEAT: HPI LIMITED DUE TO PT CONDITION, UNRELIABLE NARRATOR A 28 y/o F brought in by ambulance presents to ED with hallucinations of unknown onset. Pt states she does not feel well and that she has "a lot going on." Associated sx: mild abd pain, n/v, subjective fever. Per nurse's note: pt became combative with police and was unresponsive for 1 min, given Narcan and became alert, she told police she "took a lot of drugs" today. - History Of Current Complaint Chief Complaint: EDSubstanceAbuse Stated Complaint: 9 PER EMS Time Seen by Provider: 11/22/18 14:14 Hx Obtained From: Patient, Medical Records Associated Signs And Symptoms: Nausea, Vomiting, Other: - pos: abd pain, subjective fever - Allergies/Home Medications Allergies/Adverse Reactions: Allergies Allergy/AdvReac Type Severity Reaction Status Date / Time No Known Allergies Allergy Verified 02/14/18 16:50 PMH/Surg Hx/FS Hx/Imm Hx Previously Healthy: No Endocrine/Hematology History: 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 - per aunt Pankaj, triggered by invega injections Denies: Hx Thyroid Disease, Hx Anemia, Hx Unexplained Bleeding Cardiovascular History: Reports: Hx Hypertension Denies: Hx Embolism Respiratory History: Reports: Hx Asthma - A CHILD Denies: Hx Chronic Bronchitis, Hx Pneumonia GI History: Denies: Hx Crohn's Disease, Hx Irritable Bowel, Hx Ulcer History: Denies: Hx Dialysis, Hx Kidney Stones Musculoskeletal History: Denies: Hx Arthritis, Hx Back Problems, Hx Orthopedic Injury, Hx Scoliosis Sensory History: Denies: Hx Contacts or Glasses, Hx Hearing Aid Opthamlomology History: Denies: Hx Contacts or Glasses Neurological History: Denies: Hx Headaches, Hx Migraine, Hx Seizures Psychiatric History: Reports: Hx Anxiety, Hx Depression, Hx Inpatient Treatment , Hx Community Mental Health Tx, Hx Schizophrenia, Hx Substance Abuse Denies: Hx Eating Disorder, Hx of Violent Episodes Against Others - Immunization History Date of Tetanus Vaccine: unk Date of Influenza Vaccine: unk Infectious Disease History: Unable to Obtain/Confirm Infectious Disease History: Denies: Traveled Outside the [place] in Last 30 Days - Family History Known Family History: Positive: Diabetes - mom w/ type 2, Other - dad - schizophrenia - Social History Occupation: Unemployed Lives: Alone Alcohol Use: Occasionally Alcohol Amount: "2 sips" today Hx Substance Use: Yes Substance Use Type: Reports: Cocaine, Marijuana Substance Use Comment - Amount & Last Used: k2 spice Hx Tobacco Use: Yes Smoking Status (MU): Heavy Every Day Tobacco Smoker Type: Cigars Amount Used/How Often: Patient has not smoked tobacco within the last 30 days Have You Smoked in the Last Year: - has not smoked in the last 30 days Review of Systems - ROS Summary Review of Systems Summary: LEVEL 5 CAVEAT: ROS LIMITED DUE TO PT CONDITION, UNRELIABLE NARRATOR Positive: Fever - subjective Positive: Abdominal Pain, Vomiting, Nausea Psychological: Other - pos: hallucinating All Other Systems Reviewed And Are Negative: No Physical Exam - Summary Physical Exam Summary: Constitutional: Well-developed, Well-nourished, Alert. (-) Distressed Skin: Warm, Dry HENT: Normocephalic; Atraumatic Eyes: Conjunctiva normal Neck: Musculoskeletal ROM normal neck. (-) JVD, (-) Stridor, (-) Tracheal deviation Cardio: Rhythm regular, rate normal, Heart sounds normal; Intact distal pulses; The pedal pulses are 2+ and symmetric. Radial pulses are 2+ and symmetric. (-) Murmur Pulmonary/Chest wall: Effort normal. (-) Respiratory distress, (-) Wheezes, (-) Rales Abd: Soft, (-) tenderness, (-) Distension, (-) Guarding, (-) Rebound Musculoskeletal: (-) Edema Lymph: (-) Cervical adenopathy Neuro: Alert, Oriented x3 Psych: Mood and affect Normal Triage Information Reviewed: Yes Vital Signs On Initial Exam: Initial Vitals Temp Pulse Resp BP Pulse Ox 98.7 F 106 18 106/60 97 11/22/18 14:03 11/22/18 14:03 11/22/18 14:03 11/22/18 14:03 11/22/18 14:03 Vital Signs Reviewed: Yes Diagnostics - Vital Signs Vital Signs Temp Pulse Resp BP Pulse Ox 11/22/18 14:03 98.7 F 106 18 106/60 97 - Laboratory Result Diagrams: 11/22/18 15:04 11/22/18 15:04 Lab Statement: Any lab studies that have been ordered have been reviewed, and results considered in the medical decision making process. Re-Evaluation - Re-Evaluation 1 Re-Evaluation Time: 17:00 Change: Unchanged Comment: Pt is asking to leave, she does not want to stay. She is being conversive and cooperative, but does not want to stay. Course/Dx - Course Course Of Treatment: Pt is a 28 y/o F brought in by ambulance presents to ED with hallucinations of unknown onset. Pt states she does not feel well and that she has "a lot going on." Associated sx: mild abd pain, n/v, subjective fever. Per nurse's note: pt became combative with police and was unresponsive for 1 min , given Narcan and became alert, she told police she "took a lot of drugs" today. Critical lab value: lactic acid: 3.0. Pt is doing well, feels well, tolerating PO in ED. She has no n/v, no chills. Psychiatrically, she is does well, best we've seen her. She is conversive and cooperative. She does not want any more tests. At this time, I feel we do not need to treat her for a lab value that has multiple reasons for possible elevation. Pt will be discharged. - Diagnoses Provider Diagnoses: Abdominal pain Discharge - Sign-Out/Discharge Documenting (check all that apply): Patient Departure - D/C Patient Received Moderate/Deep Sedation with Procedure: No - Discharge Plan Condition: Improved Disposition: HOME Patient Education Materials: Abdominal Pain (ED) Print Language: SLOVENIAN Referrals: No Primary Care Phys,NOPCP [Primary Care Provider] - - Attestation Statements Document Initiated by Scribe: Yes Documenting Scribe: Amanda Ortiz Provider For Whom Scribe is Documenting (Include Credential): Dr. Donna Morgan MD Scribe Attestation: I, Amanda Ortiz, scribed for Dr. Donna Morgan MD on at 1705. Status of Scribe Document: Ready
[2018-11-22] MEDS ORDERED: Ondansetron INJ* 2 MG/ML VIAL IV ONE (14:57)
[2018-11-22 15:17] LABS: ABS Basophils 0 10^3/ul (0-0.2); ABS Eosinophils 0 10^3/ul (0-0.6); ABS Lymphocytes 0.9 10^3/ul (1.0-4.8); ABS Monocytes 0.4 10^3/ul (0-0.8); ABS Neutrophils 4.3 10^3/ul (1.5-7.7); ABS Nucleated RBC 0 10^3/ul; Eosinophil % 0.5 %; Hematocrit 37 % (33-41); Hemoglobin 11.7 g/dL (12.0-16.0); Lymphocyte % 16.7 %; Mean Corpuscular HGB Conc 32 g/dL (31-36); Mean Corpuscular Hemoglobin 23 pg (27-31); Mean Corpuscular Volume 72 fL (80-97); Nucleated Red Blood Cells % 0; Platelet Count 280 10^3/uL (150-450); Red Cell Distribution Width 15 % (10.5-15); White Blood Count 5.7 10^3/uL (3.5-10.8)
[2018-11-22 15:33] LABS: ALT 22 U/L (7-52); AST 18 U/L (13-39); Albumin 4.1 g/dL (3.2-5.2); Albumin/Globulin Ratio 1.5 (1-3); Alkaline Phosphatase 57 U/L (34-104); Anion Gap 9 mmol/L (2-11); BUN/Creatinine Ratio 13.6 (8-20); Blood Urea Nitrogen 11 mg/dL (6-24); CO2 Carbon Dioxide 24 mmol/L (22-32); Calcium 8.9 mg/dL (8.6-10.3); Chloride 105 mmol/L (101-111); EGFR African American 103.4 (>60); EGFR Non-African American 85.5 (>60); Globulin 2.8 g/dL (2-4); Glucose 161 mg/dL (70-100); Potassium 3.9 mmol/L (3.5-5.0); Sodium 138 mmol/L (135-145); Total Protein 6.9 g/dL (6.4-8.9)
[2018-11-22 15:35] LABS: HCG Pregnancy < 0.60 mIU/mL
[2018-11-22 15:56] LABS: Acetaminophen < 15 mcg/mL; Alcohol < 10 mg/dL (<10)
[2018-11-22 17:11] VITALS: BP 118/67
== END 2018-11-22 17:10 | disposition home or self-care (01) ==
LOC: ED 13:42
DX: R10.9 Unspecified abdominal pain (principal); R11.2 Nausea with vomiting, unspecified; R44.3 Hallucinations, unspecified; E11.9 Type 2 diabetes mellitus without complications; Z79.4 Long term (current) use of insulin; I10 Essential (primary) hypertension; Z87.891 Personal history of nicotine dependence
CPT/HCPCS: 36415; 80053; 80320; 80329; 83605; 83690; 84702; 85025; 99283; G0480

== ENCOUNTER 2020-02-09 01:01 | Inpatient (IN) ==
[2020-02-09] MEDS ORDERED: Al Hydrox/Mg Hydrox/Simet LIQ 30 ML UDC PO PRN (06:17)
[2020-02-09] MEDS ORDERED: Nicotine GUM 2MG FRUIT FLAVOR PO PRN (07:00)
[2020-02-09] MEDS: Vitamin THERAPEUTIC TAB PO SCH (10:30)
[2020-02-10] MEDS: Vitamin THERAPEUTIC TAB PO SCH (12:53)
[2020-02-11 08:30] VITALS: BP 155/78
[2020-02-11] MEDS: Vitamin THERAPEUTIC TAB PO SCH (11:30)
[2020-02-12] MEDS: Vitamin THERAPEUTIC TAB PO SCH (10:27)
== END 2020-02-12 15:00 | disposition home or self-care (01) | DRG 885 ==
LOC: ED 01:01 → BSU 08:09
PROVIDERS: ADMIT Psychiatry & Neurology Psychiatry; ATTEND Psychiatry & Neurology Psychiatry

== ENCOUNTER 2020-09-29 05:09 | Inpatient (IN) ==
[2020-09-29 05:15] VITALS: BP 147/97
[2020-09-29] MEDS ORDERED: Lorazepam PYXIS KEY ONE (09:45)
[2020-09-29] MEDS ORDERED: LORazepam 2 mg VIAL 1 ml ONE (09:46)
[2020-09-29] MEDS ORDERED: Lorazepam PYXIS KEY PRN (09:47)
[2020-09-29] MEDS ORDERED: LORazepam 2 mg VIAL 1 ml IM ONE (09:47)
[2020-09-29] MEDS ORDERED: diPHENhydraMINE IV 50 MG/ML 1 ml VIAL (BENADRYL) IM ONE (09:47)
[2020-09-29] MEDS ORDERED: Haloperidol 5 mg/ml SDV IV/IM 5 MG/ML AMP IM ONE (09:47)
[2020-09-29] MEDS ORDERED: Haloperidol 5 mg/ml SDV IV/IM 5 MG/ML AMP ONE (09:55)
[2020-09-29] MEDS ORDERED: diPHENhydraMINE IV 50 MG/ML 1 ml VIAL (BENADRYL) ONE (09:55)
[2020-09-29] MEDS ORDERED: Al Hydrox/Mg Hydrox/Simet LIQ 30 ML UDC PO PRN (11:55)
[2020-09-29] MEDS ORDERED: Nicotine GUM 2MG FRUIT FLAVOR PO PRN (12:00)
[2020-09-30] MEDS ORDERED: Vitamin THERAPEUTIC TAB PO SCH (09:00)
[2020-09-30] MEDS ORDERED: Nicotine PATCH 21 MG/24 HR PATCH TRANSDERM SCH (09:00)
== END 2020-09-30 11:27 | disposition home or self-care (01) ==
LOC: ED 05:09 → BSU 11:10
PROVIDERS: ADMIT Psychiatry & Neurology Psychiatry; ATTEND Psychiatry & Neurology Psychiatry

== ENCOUNTER 2023-04-25 02:51 | Inpatient (IN) ==
[2023-04-25 03:15] LABS: Urine Appearance Cloudy; Urine Bilirubin Negative (Negative); Urine Blood 2+ (Negative); Urine Color Amber; Urine Glucose Negative (Negative); Urine Ketones 1+ (Negative); Urine Nitrite Negative (Negative); Urine Protein 3+(>=500 mg/dL) (Negative); Urine Specific Gravity 1.029 (1.002-1.030); Urine Urobilinogen Positive (Negative)
[2023-04-25 03:32] LABS: Urine Benzodiazepine Screen None Detected (None Detect); Urine Cannabinoids Screen Presumptive Positive (None Detect); Urine Opiates Screen None Detected (None Detect)
[2023-04-25 03:40] LABS: Urine Bacteria 1+ (Absent); Urine Red Blood Cell 1+(3-5/hpf) (Absent); Urine Squamous Epithelial Cell Present (Absent); Urine White Blood Cell 1+(6-10/hpf) (Absent)
[2023-04-25 03:52] LABS: ABS Lymphocytes 0.9 10^3/uL (1.0-4.8); ABS Monocytes 0.9 10^3/uL (0.0-0.9); ABS Neutrophils 14.1 10^3/uL (1.5-7.6); ABS Nucleated RBC 0.01 10^3/ul; Hematocrit 37.1 % (35-45); Lymphocyte % 5.8 %; Mean Corpuscular Hemoglobin 22.4 pg (27-33); Mean Corpuscular Hgb Conc 32.3 g/dL (31-36); Mean Corpuscular Volume 69.4 fL (80-97); Mean Platelet Volume 9.4 fL (7.5-11.2); Nucleated Red Blood Cells % 0.1 /100 WBC (0.0-0.4); Platelet Count 218 10^3/uL (150-450); Red Blood Count 5.34 10^6/uL (3.63-4.92); Red Cell Distribution Width 14.4 % (12-17)
[2023-04-25 04:01] LABS: Calcium 8.7 mg/dL (8.6-10.3); Potassium 3.2 mmol/L (3.5-5.0); Total Bilirubin 0.6 mg/dL (0.2-1.0)
[2023-04-25 04:07] LABS: C Reactive Protein 267.26 mg/L (<8.01); Creatinine, Serum 1.08 mg/dL (0.51-0.95); Globulin 3.9 g/dL (2-4); Total Protein 7.9 g/dL (6.4-8.9); eGFR CKD-EPI 70.9 (>60)
[2023-04-25] MEDS ORDERED: Ondansetron 4 mg VIAL 2 MG/ML 2 ml VIAL IV ONE (04:30)
[2023-04-25] MEDS ORDERED: Acetaminophen IV 1 GM/100ML 1,000 MG/100 ML BAG IV ONE (04:31)
[2023-04-25 04:55] LABS: Activated Partial Thrombo Time 41.7 seconds (26.0-38.0); INR 1.41 (0.83-1.13)
[2023-04-25 04:57] LABS: High Sensitivity Troponin 1 Hr 13 pg/mL (<15)
[2023-04-25] MEDS ORDERED: Piperacillin/Tazobac 3.375 BAG 3.375 GM/100 ML BAG IV ONE ×2 (06:29→11:23)
[2023-04-25] MEDS ORDERED: Vancomycin 1,000 MG in NS 0.9% 250 ml 250 ML IVPB ONE (06:29)
[2023-04-25] MEDS ORDERED: Iodixanol (CONTRAST) 320 MG/ML 100 ML SDV IV ONE (07:17)
[2023-04-25] MEDS ORDERED: Vancomycin 1,000 MG BAG/ADDV ONE (07:30)
[2023-04-25] MEDS ORDERED: Ondansetron 4 mg VIAL 2 MG/ML 2 ml VIAL IV PRN (11:01)
[2023-04-25] MEDS ORDERED: cefTRIAXone 1 gm/50 mL D5W 1 GM/50 ML BAG IV SCH (11:15)
[2023-04-25] MEDS ORDERED: Vancomycin 1,000 MG in NS 0.9% 250 ml 250 ML IVPB SCH (11:22)
[2023-04-25] MEDS ORDERED: Potassium Chlor 20 meq TAB.ER PO ONE (11:56)
[2023-04-25] MEDS ORDERED: Azithromycin 500 mg/250 ml NS 500 MG/250 ML BAG IVPB SCH ×2 (12:00→16:30)
[2023-04-25] MEDS ORDERED: Zosyn per Pharmacy NOTE FOLLOW UP SCH (12:00)
[2023-04-25] MEDS ORDERED: Lactated Ringers 1000 ml BAG 1,000 ML IV SCH (12:00)
[2023-04-25] MEDS ORDERED: Vancomycin per Pharmacy 1 EA NOTE FOLLOW UP PRN (12:03)
[2023-04-25] MEDS: Lactated Ringers 1000 ml BAG 1,000 ML IV ONE ×2 (12:16→13:58)
[2023-04-25] MEDS: Acetaminophen IV 1 GM/100ML 1,000 MG/100 ML BAG IV SCH ×3 (12:16→19:01)
[2023-04-25] MEDS ORDERED: ZOSYN 3.375 GM Q8H per EXTENDED INFUSION IV SCH (12:30)
[2023-04-25] MEDS ORDERED: Vancomycin 1,250 MG in NS 0.9% 250 ml 250 ML IVPB ONE (12:30)
[2023-04-25] MEDS ORDERED: NS 0.9% 1000 ml BAG 1,000 ML IV SCH (13:00)
[2023-04-25 14:04] LABS: Urine Sodium Concentration < 18 mmol/L
[2023-04-25 14:24] LABS: Urine Creatinine Concentration 414.67 mg/dL (20.00-320.00)
[2023-04-25] MEDS ORDERED: Enoxaparin 40 MG/0.4 ML SYR SUBCUT SCH (15:00)
[2023-04-25] MEDS: Enoxaparin 80 MG/0.8 ML SYR SUBCUT SCH (17:01)
[2023-04-25] MEDS ORDERED: Vancomycin 1000 MG in NS 0.9% 250 ML IVPB SCH (18:00)
[2023-04-26] MEDS: Acetaminophen IV 1 GM/100ML 1,000 MG/100 ML BAG IV SCH ×3 (00:13→13:06)
[2023-04-26] MEDS: Enoxaparin 80 MG/0.8 ML SYR SUBCUT SCH (03:32)
[2023-04-26 10:31] VITALS: BP 98/65
[2023-04-26] MEDS ORDERED: Enoxaparin 80 MG/0.8 ML SYR SUBCUT SCH (11:00)
[2023-04-27] MEDS ORDERED: Vancomycin Trough Check NOTE FOLLOW UP ONE (05:30)
== END 2023-04-26 13:45 | disposition left against medical advice (07) | DRG 177 ==
LOC: ED 02:51 → EDHOLD 10:32 → SUATTDRO 10:32 → MED 16:16
PROVIDERS: ADMIT Internal Medicine; ATTEND Internal Medicine